=== PATIENT | female | born 1940 | race Hispanic/Latino ===

== ENCOUNTER 2016-11-14 10:15 | Inpatient (IN) | payer MEDICARE, BC ==
[2016-11-14 10:16] VITALS: BMI 21.7
[2016-11-14] MEDS ORDERED: Albuterol-Ipratrop 3 mg / 0.5 (3 ml) UD IH STA (11:28)
[2016-11-14] MEDS ORDERED: cefTRIAXone 1 gm 100 ML IVPB STA (11:29)
[2016-11-14] MEDS ORDERED: Azithromycin 500MG/NS 250ml 250 ML IVPB STA (11:29)
--- NOTE | 2016-11-14 11:38 | ED PDOC ---
Arrival/HPI - General Historian: Patient - History of Present Illness Time/Duration: Prior to Arrival Symptom Course: Improving <Luiz Olguin - Last Filed: 11/14/16 11:57> <Niles Benito - Last Filed: 11/14/16 14:29> - General Chief Complaint: Respiratory Distress Time Seen by Provider: 11/14/16 11:06 - History of Present Illness Narrative History of Present Illness (Text): 11/14/16 11:38 76 y/o female with hx COPD, HTN presenting with complaints of shortness of breath. Patient states symptoms started this morning and are consistent with prior COPD exacerbations. Patient states she is compliant with all medications as inhalers. She took a nebulizer treatement prior to arrival with some relief. Patient states she functional status has been reduced recently due to dyspnea with exertion. She is chronically on nasal oxygen and states she is able to ambulate about 10 feet before becoming dyspneic. Patient denies chest pain or recent illness including upper respiratory symptoms, cough, sputum, fever or chills. (Luiz Olguin) Past Medical History - Provider Review Nursing Documentation Reviewed: Yes - Infectious Disease Hx of Infectious Diseases: None - Tetanus Immunization Tetanus Immunization: Up to Date - Cardiac Hx Cardiac Disorders: Yes (CAD) Hx Hypertension: Yes - Pulmonary Hx Chronic Obstructive Pulmonary Disease (COPD): Yes - Neurological Hx Neurological Disorder: Yes Hx Dizziness: Yes - HEENT Hx HEENT Disorder: Yes Hx Cataracts: Yes (b/l) Other/Comment: b/l cataract surgery - Renal Hx Renal Disorder: No - Endocrine/Metabolic Hx Hypothyroidism: Yes - Hematological/Oncological Hx Blood Disorders: No - Integumentary Hx Dermatological Disorder: No - Musculoskeletal/Rheumatological Hx Falls: No - Gastrointestinal Hx Gastrointestinal Disorders: Yes (GASTROENTERITIS,) - Genitourinary/Gynecological Hx Reproductive Disorders: No - Psychiatric Hx Psychophysiologic Disorder: No Hx Substance Use: No - Surgical History Hx Cholecystectomy: Yes - Anesthesia Hx Anesthesia: Yes - Suicidal Assessment Feels Threatened In Home Enviroment: No <Luiz Olguin - Last Filed: 11/14/16 11:57> Family/Social History - Physician Review Nursing Documentation Reviewed: Yes Family/Social History: Unknown Family HX Smoking Status: Former Smoker Hx Alcohol Use: No Hx Substance Use: No Hx Substance Use Treatment: No <Luiz Olguin - Last Filed: 11/14/16 11:57> Allergies/Home Meds <Luiz Olguin - Last Filed: 11/14/16 11:57> <Niles Benito - Last Filed: 11/14/16 14:29> Allergies/Adverse Reactions: Allergies CRESTOR Adverse Reaction (Uncoded 07/12/16 10:56) PAIN Home Medications: Home Meds Medication Instructions Recorded Confirmed Aspirin [Aspir 81] 325 mg PO HS 12/23/11 11/14/16 Levothyroxine [Synthroid] 112 mcg PO DAILY 12/23/11 11/14/16 Tiotropium Homer Inhaler 1 inh INH DAILY 09/01/15 11/14/16 [Spiriva Inhalation Handihaler Device] Furosemide [Lasix] 40 mg PO DAILY 10/04/15 11/14/16 Losartan [Cozaar] 100 mg PO DAILY 10/04/15 11/14/16 Potassium Chloride [Klor-Con 10] 10 meq PO DAILY 10/04/15 11/14/16 Dipyridamole [Persantine] 25 mg PO TID 04/30/16 11/14/16 Fluticasone/Salmeterol 250/50 2 inh PO PRN PRN 04/30/16 11/14/16 [Advair Diskus 250/50] Levalbuterol [Xopenex] 45 mcg IH Q2 PRN 07/12/16 11/14/16 Prednisone [Deltasone] 10 mg PO DAILY 07/12/16 11/14/16 Review of Systems - Physician Review All systems were reviewed & negative as marked: Yes - Review of Systems Constitutional: absent: Fatigue, Fevers, Night Sweats Eyes: Normal ENT: absent: Tinnitus, Sore Throat, Rhinorrhea, Sinus Congestion Respiratory: SOB. absent: Cough, Sputum, Wheezing Cardiovascular: COBURN. absent: Chest Pain, Palpitations, Syncope Gastrointestinal: absent: Abdominal Pain, Diarrhea, Nausea, Vomiting Genitourinary Female: absent: Dysuria, Frequency, Hematuria Skin: absent: Rash, Skin Lesions Neurological: absent: Headache, Dizziness, Focal Weakness Psychiatric: absent: Anxiety, Depression <Luiz Olguin - Last Filed: 11/14/16 11:57> Physical Exam Vital Signs Reviewed: Yes Temperature: Afebrile Blood Pressure: Normal Pulse: Regular Respiratory Rate: Normal Appearance: Positive for: Non-Toxic Pain Distress: Mild Mental Status: Positive for: Alert and Oriented X 3 - Systems Exam Head: Present: Atraumatic, Normocephalic Pupils: Present: PERRL Extroacular Muscles: Present: EOMI Conjunctiva: Present: Normal Mouth: Present: Moist Mucous Membranes Neck: Present: Normal Range of Motion. No: JVD Respiratory/Chest: Present: Decreased Breath Sounds. No: Good Air Exchange, Accessory Muscle Use, Wheezes, Rales, Rhonchi Cardiovascular: Present: Regular Rate and Rhythm, Normal S1, S2 Abdomen: Present: Normal Bowel Sounds. No: Tenderness, Distention Upper Extremity: Present: Normal Inspection. No: Cyanosis, Edema Lower Extremity: Present: Normal Inspection, NORMAL PULSES. No: Edema, CALF TENDERNESS Neurological: Present: GCS=15, CN II-XII Intact, Speech Normal Skin: Present: Warm, Dry. No: Rashes Psychiatric: Present: Alert, Oriented x 3, Normal Insight, Normal Concentration <Luiz Olguin - Last Filed: 11/14/16 11:57> Vital Signs Temp Pulse Resp BP Pulse Ox 11/14/16 10:36 98.0 F 86 16 125/48 L 98 Medical Decision Making <Luiz Olguin - Last Filed: 11/14/16 11:57> <Niles Benito - Last Filed: 11/14/16 14:29> ED Course and Treatment: 11/14/16 11:33 76 y/o female with hx COPD, HTN presenting with acute COPD exacerbation. Patient is compliant with home medications and inhalers. She is saturating 98% on 2Lnc. - Duonebs x3 - solumedrol 125mg IVP now - rocephin 1gm IV - azithromycin 500mg - CBC - CMP - VBG - reassess (Luiz Olguin) Patient Seen With Resident: In agreement with resident note which contains more details about the patient. Patient was seen and evaluated with resident. Came up with plan and treatment together. Patient's previous records reviewed. Patient was discharged on 06/16/16 after treated for shortness of breath and COPD exacerbation. Patient has a past medical history of COPD, hypertension, GERD, and interstitial lung disease. 11/14/16 12:42 On reevaluation, patient states that she feels better, however remains symptomatic. Continues to deny any chest pain. Patient states she does not feel comfortable being discharged home at this time. Patient's primary physician paged, awaiting callback. Patient will be admitted into the hospital for further treatment. 11/14/16 14:[address] Lopez in detail, agrees with observation under his service, states will inform the resident pt aware of and agrees with plan (Niles Benito) - Lab Interpretations Lab Results: 11/14/16 12:10 11/14/16 12:10 Lab Results 11/14/16 12:10: WBC 8.5 D, RBC 5.18, Hgb 14.1, Hct 45.1, MCV 87.1, MCH 27.2, MCHC 31.3, RDW 13.4, Plt Count 271, MPV 11.3 H, Gran % 78.0 H, Lymph % (Auto) 10.0 L, Edwards % (Auto) 10.5 H, Eos % (Auto) 0.9 L, Baso % (Auto) 0.6, Gran # 6.61 H, Lymph # 0.9 L, Edwards # 0.9 H, Eos # 0.1, Baso # 0.05, Sodium 140, Potassium 3.7, Chloride 99, Carbon Dioxide 35 H, Anion Gap 10, BUN 12, Creatinine 0.7, Est GFR ( Amer) > 60, Est GFR (Non-Af Amer) > 60, Random Glucose 112 H, Calcium 10.0, Total Bilirubin 0.5, AST 22, ALT 15, Alkaline Phosphatase 70, Total Protein 6.9, Albumin 3.7, Globulin 3.2, Albumin/Globulin Ratio 1.2 - RAD Interpretation Radiology Orders: 11/14/16 11:50 CHEST PORTABLE [RAD] Stat - Medication Orders Current Medication Orders: Discontinued Medications Albuterol/Ipratropium (Duoneb 3 Mg/0.5 Mg (3 Ml) Ud) 3 ml IH STAT STA Stop: 11/14/16 11:29 Last Admin: 11/14/16 12:15 Dose: 3 ML Azithromycin (Zithromax 500mg In Ns) 250 mls @ 167 mls/hr IVPB STAT STA PRN Reason: Protocol Stop: 11/14/16 12:58 Last Admin: 11/14/16 13:43 Dose: 167 MLS/HR eMAR Start Stop Document 11/14/16 13:43 HI (Rec: 11/14/16 13:51 [id number] Intravenous Solution Start Date 11/14/16 Start Time 13:44 Ceftriaxone Sodium (Rocephin 1 Gram Ivpb) 100 mls @ 200 mls/hr IVPB STAT STA PRN Reason: Protocol Stop: 11/14/16 11:58 Last Admin: 11/14/16 12:15 Dose: 200 MLS/HR eMAR Start Stop Document 11/14/16 12:15 HI (Rec: 11/14/16 12:15 HI [id number]) Intravenous Solution Start Date 11/14/16 Start Time 12:15 Methylprednisolone (Solu-Medrol) 125 mg IVP STAT STA Stop: 11/14/16 11:29 Last Admin: 11/14/16 12:15 Dose: 125 MG IVP Administration Document 11/14/16 12:15 HI (Rec: 11/14/16 12:15 HI [id number]) Charges for Administration # of IVP Administrations 1 Disposition/Present on Arrival - Present on Arrival Any Indicators Present on Arrival: No History of DVT/PE: No History of Uncontrolled Diabetes: No Urinary Catheter: No History of Decub. Ulcer: No History Surgical Site Infection Following: None - Disposition Have Diagnosis and Disposition been Completed?: No Disposition Time: 11:57 <Luiz Olguin - Last Filed: 11/14/16 11:57> - Present on Arrival Any Indicators Present on Arrival: No - Disposition Have Diagnosis and Disposition been Completed?: Yes Disposition Time: 14:28 Patient Plan: Observation <Niles Benito - Last Filed: 11/14/16 14:29> - Disposition Diagnosis: COPD with acute exacerbation Disposition: HOSPITALIZED Patient Problems: Current Active Problems Problem Status Diagnosed COPD with acute exacerbation Acute Condition: STABLE Referrals: Davon Lopez MD [Primary Care Provider] - Follow up with primary
[2016-11-14 12:22] LABS: ADD MANUAL DIFF? NO
[2016-11-14 12:25] LABS: BASO # 0.05 K/mm3 (0.0-2.0); BASO % 0.6 % (0.0-3.0); EOS # 0.1 (0.0-0.7); EOS % 0.9 % (1.5-5.0); GRAN # 6.61 (1.4-6.5); HEMATOCRIT 45.1 % (36.0-48.0); LYMPH # 0.9 (1.2-3.4); MEAN CELL VOLUME 87.1 fL (80.0-105.0); MEAN CORPUSCULAR HEMOGLOBIN 27.2 pg (25.0-35.0); MEAN CORPUSCULAR HGB CONC 31.3 g/dl (31.0-37.0); MEAN PLATELET VOLUME 11.3 fl (7.0-11.0); MONO # 0.9 (0.1-0.6); MONO % 10.5 % (1.0-6.0); PLATELET COUNT 271 10^3/uL (120.0-450.0); RED CELL DISTRIBUTION WIDTH 13.4 % (11.5-14.5); WHITE BLOOD COUNT 8.5 10^3/ul (4.5-11.0)
--- NOTE | 2016-11-14 12:25 | RAD ---
HISTORY: COPD exacerbation COMPARISON: 07/12/2016 FINDINGS: LUNGS: The lungs are hyperinflated and there is peribronchial thickening with chronic changes in both lungs. There is no focal consolidation. PLEURA: No significant pleural effusion identified, no pneumothorax apparent. CARDIOVASCULAR: The heart is normal in size. Atherosclerotic aortic arch calcifications are present. . OSSEOUS STRUCTURES: No significant abnormalities. VISUALIZED UPPER ABDOMEN: Normal. OTHER FINDINGS: None. IMPRESSION: No active pulmonary disease. COPD.
[2016-11-14 12:38] LABS: ALB/GLOB RATIO 1.2 (1.1-1.8); ALKALINE PHOSPHATASE 70 U/L (38-133); ALT/SGPT 15 U/L (7-56); AST/SGOT 22 U/L (15-39); BILIRUBIN,TOTAL 0.5 mg/dL (0.2-1.3); BLOOD UREA NITROGEN 12 mg/dL (7-21); CARBON DIOXIDE 35 mmol/L (21-33); CHLORIDE 99 mmol/L (98-107); GFR AFRICAN-AMERICAN > 60; GLUCOSE,RANDOM 112 mg/dL (70-110); POTASSIUM 3.7 mmol/L (3.6-5.0); SODIUM 140 mmol/L (132-148); TOTAL PROTEIN 6.9 g/dL (5.8-8.3)
[2016-11-14] MEDS ORDERED: Fluticasone-Salmeterol 250-50mcg Diskus INH PRN (15:06)
--- NOTE | 2016-11-14 15:52 | CP.PCM.HP ---
<Fany Hyman - Last Filed: 11/15/16 09:04> History of Present Illness - History of Present Illness History of Present Illness: PGY-1 H&P 76 yo female with PMH of HTN and copd presented to ED with SOB. Patient states that the SOB has been on and off started last night. She states that overall she want feeling well. She took her inhalers but had some relief. Patients states that shes had this before from her COPD. Overnight patient states that she had to get up because of her breathing. She normally sleeps sitting up but last night the SOB was worse. Patient also reports dyspnea with exertion. She is only able to ambulate a few feet before becoming sob. She uses home O2, 2L. States that she has been feeling hot and cold but denies fevers. She state states that when she first came to ED she could barely talk. She also reports shaking. She denies chest pain, headache, cough, abd pain, n/v, urinary symptoms , She does report occasional diarrhea. PMH: copd, htn, hypothyroidism PSH: cholecystectomy SH: former heavy smoker quit 25 yo, denies alcohol use, illicit drug use family hx: mother- [place] at 47 yo, brother- heart disease, RA allergy: crestor Present on Admission - Present on Admission Any Indicators Present on Admission: No Review of Systems - Constitutional Constitutional: Fatigue. absent: Chills, Fever - EENT Eyes: absent: Change in Vision Nose/Mouth/Throat: absent: Nasal Congestion, Nasal Discharge, Sore Throat - Cardiovascular Cardiovascular: Dyspnea, Dyspnea on Exertion, Orthopnea, Pedal Edema. absent: Chest Pain, Chest Pain at Rest, Palpitations - Respiratory Respiratory: Dyspnea. absent: Cough, Hemoptysis - Gastrointestinal Gastrointestinal: Diarrhea. absent: Abdominal Pain, Constipation, Nausea, Vomiting - Genitourinary Genitourinary: absent: Difficulty Urinating, Dysuria, Hematuria - Musculoskeletal Musculoskeletal: absent: Muscle Weakness, Numbness, Tingling - Integumentary Integumentary: absent: Rash, Wounds - Neurological Neurological: absent: Dizziness, Focal Weakness, Headaches, Weakness - Hematologic/Lymphatic Hematologic: Easy Bruising. absent: Easy Bleeding Past Patient History - Infectious Disease Hx of Infectious Diseases: None - Tetanus Immunizations Tetanus Immunization: Up to Date - Past Social History Smoking Status: Former Smoker Alcohol: None Drugs: Denies - CARDIAC Hx Cardiac Disorders: Yes (CAD) Hx Hypertension: Yes - PULMONARY Hx Chronic Obstructive Pulmonary Disease (COPD): Yes - NEUROLOGICAL Hx Neurological Disorder: Yes Hx Dizziness: Yes - HEENT Hx HEENT Problems: Yes Hx Cataracts: Yes (b/l) Other/Comment: b/l cataract surgery - RENAL Hx Chronic Kidney Disease: No - ENDOCRINE/METABOLIC Hx Hypothyroidism: Yes - HEMATOLOGICAL/ONCOLOGICAL Hx Blood Disorders: No - INTEGUMENTARY Hx Dermatological Problems: No - MUSCULOSKELETAL/RHEUMATOLOGICAL Hx Falls: No - GASTROINTESTINAL Hx Gastrointestinal Disorders: Yes (GASTROENTERITIS,) - GENITOURINARY/GYNECOLOGICAL Hx Reproductive Disorders: No - PSYCHIATRIC Hx Psychophysiologic Disorder: No Hx Substance Use: No - SURGICAL HISTORY Hx Cholecystectomy: Yes - ANESTHESIA Hx Anesthesia: Yes Meds Allergies/Adverse Reactions: Allergies Allergy/AdvReac Type Severity Reaction Status Date / Time contrast AdvReac REDNESS Uncoded 11/15/16 07:54 CRESTOR AdvReac PAIN Uncoded 07/12/16 10:56 Physical Exam - Constitutional Appears: Well, No Acute Distress - Head Exam Head Exam: ATRAUMATIC, NORMOCEPHALIC - Eye Exam Eye Exam: EOMI, Normal appearance - ENT Exam ENT Exam: Mucous Membranes Moist - Respiratory Exam Respiratory Exam: Decreased Breath Sounds, Rhonchi, Wheezes, NORMAL BREATHING PATTERN. absent: Respiratory Distress - Cardiovascular Exam Cardiovascular Exam: Tachycardia, REGULAR RHYTHM. absent: Diastolic murmur, Systolic Murmur - GI/Abdominal Exam GI & Abdominal Exam: Normal Bowel Sounds, Soft. absent: Diminished Bowel Sounds , Distended, Firm, Guarding, Tenderness - Extremities Exam Extremities exam: Positive for: normal inspection. Negative for: pedal edema - Neurological Exam Neurological exam: Alert, Oriented x3 - Skin Skin Exam: Dry, Intact, Normal Color, Warm Results - Vital Signs Recent Vital Signs: Last Vital Signs Temp 98.0 F 11/14/16 10:36 Pulse 86 11/14/16 10:36 Resp 16 11/14/16 10:36 BP 125/48 L 11/14/16 10:36 Pulse Ox 98 11/14/16 10:36 - Labs Result Diagrams: 11/15/16 06:30 11/15/16 06:30 Assessment & Plan - Assessment and Plan (Free Text) Assessment: 76 yo female with PMH of HTN and copd presented to ED with SOB 2/2 copd exacerbation. cxr showed no active disease. Plan: 1. copd exacerbation - cxr showed no active disease - solu-medrol 40 q12 - azithromycin and ceftriaxone - duoeb q4 - supplemental O2 - R/o PE with CTA - cont home meds: spiriva, theiphylline, brovana, pulmicort - consult Pulm, Dr. Portillo 2. HTN - cont home med lasix and losartan - cont to monitor 3. hypothyriodism - cont levothyroxine ppx GI ppx- protonix DVT ppx- Lovenox <Chriss Tirado - Last Filed: 12/16/16 09:39> Results - Vital Signs Recent Vital Signs: Last Vital Signs Temp 97.5 F L 11/20/16 10:00 Pulse 77 11/20/16 10:00 Resp 18 11/20/16 10:00 BP 121/46 L 11/20/16 10:00 Pulse Ox 98 11/20/16 10:00 - Labs Result Diagrams: 11/19/16 07:48 11/19/16 07:48 Attending/Attestation - Attestation I have personally seen and examined this patient.: Yes I have fully participated in the care of the patient.: Yes I have reviewed all pertinent clinical information: Yes Notes (Text): 12/16/16 09:39 Medical record note made by the resident after discussion with my direction and input after the patient was personally seen and examined by me. I have reviewed the chart and agree that the record accurately reflects by personal performance of the history, physical exam, data review, and medical decision-making, in the course for the patient. I have also personally directed the plan of care.
[2016-11-14] MEDS: Albuterol-Ipratrop 3 mg / 0.5 (3 ml) UD IH SCH (17:19)
[2016-11-14] MEDS ORDERED: Iohexol 350 MG/100 ML VIAL ONE ×2 (18:54→22:12)
--- NOTE | 2016-11-14 18:56 | CARD ---
APPROVED REPORT EKG Measurement Heart [id number] <Conclusion> Normal sinus rhythm Normal ECG
[2016-11-14] MEDS ORDERED: Aspirin 325 mg EC Tablets PO SCH ×2 (22:00)
[2016-11-14] MEDS: MethylPREDNISolone 40 mg Vial IVP SCH (22:51)
[2016-11-15] MEDS: Albuterol-Ipratrop 3 mg / 0.5 (3 ml) UD IH SCH (01:00)
[2016-11-15 07:01] LABS: ADD MANUAL DIFF? NO
[2016-11-15 07:12] LABS: BASO # 0.01 K/mm3 (0.0-2.0); BASO % 0.1 % (0.0-3.0); EOS % 0.1 % (1.5-5.0); GRAN # 10.21 (1.4-6.5); GRAN % 90.4 % (50.0-68.0); HEMATOCRIT 42.6 % (36.0-48.0); LYMPH # 0.6 (1.2-3.4); LYMPH % 5.1 % (22.0-35.0); MEAN CELL VOLUME 85.7 fL (80.0-105.0); MEAN CORPUSCULAR HEMOGLOBIN 26.8 pg (25.0-35.0); MEAN CORPUSCULAR HGB CONC 31.2 g/dl (31.0-37.0); MEAN PLATELET VOLUME 11.4 fl (7.0-11.0); MONO # 0.5 (0.1-0.6); MONO % 4.3 % (1.0-6.0); PLATELET COUNT 269 10^3/uL (120.0-450.0); RED CELL DISTRIBUTION WIDTH 13.2 % (11.5-14.5); WHITE BLOOD COUNT 11.3 10^3/ul (4.5-11.0)
[2016-11-15 07:45] LABS: ALB/GLOB RATIO 1.2 (1.1-1.8); ALKALINE PHOSPHATASE 58 U/L (38-133); ALT/SGPT 29 U/L (7-56); AST/SGOT 20 U/L (15-39); BILIRUBIN,TOTAL 0.5 mg/dL (0.2-1.3); BLOOD UREA NITROGEN 15 mg/dL (7-21); CALCIUM 9.8 mg/dL (8.4-10.5); CARBON DIOXIDE 28 mmol/L (21-33); CHLORIDE 103 mmol/L (98-107); GFR AFRICAN-AMERICAN > 60; GLUCOSE,RANDOM 153 mg/dL (70-110); SODIUM 139 mmol/L (132-148); TOTAL PROTEIN 6.3 g/dL (5.8-8.3)
[2016-11-15] MEDS: Levothyroxine 112 MCG TAB PO SCH (08:51)
--- NOTE | 2016-11-15 09:55 | CON ---
DATE: 11/15/2016 PULMONARY CONSULTATION REASON FOR CONSULTATION: Chronic obstructive pulmonary disease. REFERRING PHYSICIAN: Davon Lopez MD. HISTORY OF PRESENT ILLNESS: The patient is a 76-year-old female with past medical history significant for advanced chronic obstructive pulmonary disease, on home oxygen, pulmonary nodules, hypertension, thyroid disease, who presents to [facility] with increasing shortness of breath at rest and dyspnea on exertion for the past 1 day. The patient denies cough or sputum production. The patient also denies chest pain, coughing up of blood, or chest pain - made worse with deep respirations. There is no history of temperatures, chills, or infectious exposure. There is no history of night sweats, weight loss, or appetite change prior to the above events. No history of leg or calf pains. No history of syncope or diaphoresis. No history of recent travel or trauma. REVIEW OF SYSTEMS: The patient does state to feeling weak and nauseous over the past 2 days. No vomiting, abdominal pain, or diarrhea. No acute urinary symptoms. No new musculoskeletal complaints. The rest of the review of systems is negative. ALLERGIES: CRESTOR. SOCIAL HISTORY: Positive for former extensive tobacco usage. No alcohol. FAMILY HISTORY: No inheritable diseases. HOME MEDICATIONS: Include aspirin, Spiriva, Montrell-Dur, Deltasone, Cozaar, Synthroid, Xopenex, Lasix, Advair, Persantine. PHYSICAL EXAMINATION: GENERAL: The patient appears comfortable this morning. She is not short of breath at rest. She is not using accessory muscles for breathing. VITAL SIGNS: Temperature is 98.5. Pulse at the present time approximately 90, respiratory rate 18/20, blood pressure 143/61. Oxygen saturation on nasal cannula is 95-96%. HEENT: Normocephalic, atraumatic. NECK: No JVD. CARDIOVASCULAR: Systolic ejection murmur at the lower left sternal border. No S3 gallop. LUNGS: Decreased breath sounds at the bases. Minimal bilateral rhonchi. No wheezing. EXTREMITIES: Minimal edema. No cyanosis, no clubbing. Calves are nontender to palpation. GASTROINTESTINAL: Abdomen is soft, nontender, nondistended. Bowel sounds are positive. SKIN: No acute rash. NEUROLOGIC: Limited at the present time. PERTINENT LABORATORY DATA: Chest x-ray was done and reviewed. There is no active disease noted. CBC: White count 8.5, hemoglobin 14.1, hematocrit 45.1, platelets of 271. Complete metabolic profile: Carbon dioxide 35, glucose 112. The rest of the metabolic profile is within normal limits. IMPRESSION: 1. Recurrent bronchitis. 2. Advanced chronic obstructive pulmonary disease, on home oxygen. 3. Pulmonary nodules. 4. Hypertension. PLAN: The patient presents to [facility] with a 1-day history of increasing shortness of breath at rest and dyspnea on exertion. The patient offers no other pulmonary symptoms. However, the patient does complain of feeling weak and nauseous over the past 2 days. I did review the x-ray as above. There is no active disease present. I have also reviewed the laboratory data. There is no leukocytosis. On physical exam, the patient is in mild bronchospasm. I will continue with the current pulmonary medications and low-dose intravenous steroids for now. The patient is also on antibiotic therapy. Again, there is no history of temperatures. There is no leukocytosis. The patient does feel better this morning - compared to the past few days. She is clinically improved. Additional pulmonary intervention will be based on the clinical status of the patient. I will discuss the above with Dr. Lopez this morning. Thank you very much for this pulmonary consultation. Romario Portillo MD cc: [id number] TT: 11/15/2016 09:54:59 Confirmation # [id number] Dictation # [id number]
[2016-11-15] MEDS ORDERED: Fluticasone-Salmeterol 250-50mcg Diskus INH SCH (10:00)
[2016-11-15] MEDS: MethylPREDNISolone 40 mg Vial IVP SCH ×2 (10:00→21:46)
[2016-11-15] MEDS: Budesonide 0.5 mg/2 ml Inhal Susp UD IH SCH ×2 (10:04→20:31)
[2016-11-15] MEDS: Arformoterol 15 mcg/2 ml Inh Sol IH SCH ×2 (10:04→20:32)
[2016-11-15] MEDS ORDERED: Metoprolol 1 mg/ml Inj IVP ONE ×3 (10:30→21:16)
[2016-11-15] MEDS ORDERED: Levalbuterol 0.63 MG/3 ML Inhal Soln UD IH PRN (10:59)
[2016-11-15] MEDS: Enoxaparin 40 mg Syringe SC SCH (12:38)
[2016-11-15] MEDS: Potassium Chloride 10 mEq ER Tab PO SCH (12:39)
[2016-11-15] MEDS: Pantoprazole 40 mg EC Tab PO SCH (12:39)
[2016-11-15] MEDS: Ipratropium 0.02% Inhal Soln (0.5 mg/2.5 ml) UD IH SCH ×2 (15:25→20:31)
[2016-11-15] MEDS: cefTRIAXone 1 gm 100 ML IVPB SCH (15:37)
--- NOTE | 2016-11-15 15:38 | CP.PCM.PN ---
<Fany Hyman - Last Filed: 11/15/16 15:40> Subjective - Date & Time of Evaluation Date of Evaluation: 11/15/16 Time of Evaluation: 11:00 - Subjective Subjective: PGY-1 Medicine progress note Patient seen and examined at bedside. This morning patient is in no acute distress. Nurse states no events overnight. Patient states that her breathing and general weakness improved. but she continued to experience sob with minimal exertion including going to the bathroom. She denies fevers, but reported feeling hot and cold. Denies chets pain, n/v/d/c, abd pain, headache. When patient was receiving breathing treatment this morning she felt increasing SOB with the face mask. She became tachycardic. The breathing treatment was stopped. She was given lopressor to help decrease her heart rate and BP. After a few minutes patient relaxed and HR decreased. Objective - Vital Signs/Intake and Output Vital Signs (last 24 hours): Temp Pulse Resp BP Pulse Ox 98.1 F 96 H 18 146/80 94 L 11/15/16 06:00 11/15/16 06:00 11/15/16 06:00 11/15/16 12:39 11/15/16 06:00 Intake and Output: 11/15/16 11/15/16 06:59 18:59 Intake Total 720 Output Total 1 Balance 719 - Medications Medications: Current Medications Arformoterol Tartrate (Brovana) 15 mcg IH [id number] [facility] Last Admin: 11/15/16 10:04 Dose: 15 mcg Aspirin (Ecotrin) 81 mg PO HS [facility] Last Admin: 11/14/16 23:02 Dose: 81 mg Budesonide (Pulmicort Respules) 0.5 mg IH [id number] [facility] Last Admin: 11/15/16 10:04 Dose: 0.5 mg Dipyridamole (Persantine) 25 mg PO TID [facility] Last Admin: 11/15/16 12:39 Dose: 25 mg Enoxaparin Sodium (Lovenox) 40 mg SC DAILY [facility] PRN Reason: Protocol Last Admin: 11/15/16 12:38 Dose: 40 mg Furosemide (Lasix) 40 mg PO DAILY [facility] Last Admin: 11/15/16 12:39 Dose: 40 mg Azithromycin 250 mg/ Sodium (Chloride) 250 mls @ 167 mls/hr IVPB DAILY [facility] PRN Reason: Protocol Ceftriaxone Sodium (Rocephin 1 Gram Ivpb) 100 mls @ 100 mls/hr IVPB DAILY [facility] PRN Reason: Protocol Ipratropium [place] (Atrovent) 0.5 mg IH [id number] [facility] Levalbuterol HCl (Xopenex) 0.63 mg IH [id number] PRN PRN Reason: Shortness of Breath Levothyroxine Sodium (Synthroid) 112 mcg PO DAILY [facility] Last Admin: 11/15/16 08:51 Dose: 112 mcg Losartan Potassium (Cozaar) 100 mg PO DAILY [facility] Last Admin: 11/15/16 12:39 Dose: 100 mg Methylprednisolone (Solu-Medrol) 40 mg IVP Q12 [facility] Last Admin: 11/14/16 22:51 Dose: 40 mg Pantoprazole Sodium (Protonix Ec Tab) 40 mg PO DAILY [facility] Last Admin: 11/15/16 12:39 Dose: 40 mg Potassium Chloride (Klor-Con 10) 10 meq PO DAILY [facility] Last Admin: 11/15/16 12:39 Dose: 10 meq Theophylline (Montrell-Dur) 300 mg PO BID [facility] Last Admin: 11/15/16 12:42 Dose: 300 mg Tiotropium [place] (Spiriva) 18 mcg INH DAILY [facility] - Constitutional Appears: Well, No Acute Distress - Head Exam Head Exam: ATRAUMATIC, NORMOCEPHALIC - Eye Exam Eye Exam: Normal appearance - ENT Exam ENT Exam: Mucous Membranes Moist - Respiratory Exam Respiratory Exam: Rhonchi, Wheezes, NORMAL BREATHING PATTERN. absent: Respiratory Distress - Cardiovascular Exam Cardiovascular Exam: Tachycardia, REGULAR RHYTHM. absent: Murmur - GI/Abdominal Exam GI & Abdominal Exam: Soft, Normal Bowel Sounds. absent: Distended, Firm, Guarding, Tenderness - Extremities Exam Extremities Exam: Normal Inspection. absent: Pedal Edema - Neurological Exam Neurological Exam: Alert, Awake, Oriented x3 - Skin Skin Exam: Dry, Intact, Normal Color, Warm Assessment and Plan - Assessment and Plan (Free Text) Assessment: 76 yo female with PMH of HTN and copd presented to ED with SOB 2/2 copd exacerbation. cxr showed no active disease. CTA could not be done due to contrast allergy, d- dimer elevated, v/q scan ordered. Plan: 1. copd exacerbation - afebrile but with leukocytosis - cxr showed no active disease - cont solu-medrol 40 q12 - cont azithromycin and ceftriaxone w - duoneb was stopped due to tachycardia most likely due to albuterol - supplemental O2 - CTA could not be done due to contrast allergy - d- dimer was elevated, v/q scan ordered - lower extremity doppler to r/o DVT - cont home meds: spiriva, theiphylline, brovana, pulmicort - consult Pulm, Dr. Portillo 2. tachycardia - duoneb was stopped, tachycardia most likely due to albuterol - supplemental O2 - CTA could not be done due to contrast allergy - d- dimer was elevated, v/q scan ordered - lower extremity doppler to r/o DVT 3. HTN - cont home med lasix and losartan - cont to monitor 3. hypothyriodism - cont levothyroxine - TSH ordered ppx GI ppx- protonix DVT ppx- Lovenox <Chriss Tirado - Last Filed: 12/16/16 09:39> Objective - Vital Signs/Intake and Output Vital Signs (last 24 hours): Temp Pulse Resp BP Pulse Ox 97.5 F L 77 18 121/46 L 98 11/20/16 10:00 11/20/16 10:00 11/20/16 10:00 11/20/16 10:00 11/20/16 10:00 - Labs Labs: 11/19/16 07:48 11/19/16 07:48 Attending/Attestation - Attestation I have personally seen and examined this patient.: Yes I have fully participated in the care of the patient.: Yes I have reviewed all pertinent clinical information, including history, physical exam and plan: Yes Notes (Text): 12/16/16 09:39 Medical record note made by the resident after discussion with my direction and input after the patient was personally seen and examined by me. I have reviewed the chart and agree that the record accurately reflects by personal performance of the history, physical exam, data review, and medical decision-making, in the course for the patient. I have also personally directed the plan of care.
--- NOTE | 2016-11-15 17:26 | US ---
HISTORY: Leg pain and swelling. Evaluate for DVT PHYSICIAN(S): Alejandro Stout MD. TECHNIQUE: Duplex sonography and color-flow Doppler with graded compression were used to evaluate the deep venous systems of both lower extremities. FINDINGS: The visualized deep venous systems of both lower extremities are sonographically normal and compressible. Normal wave forms and augmentation are seen. There is no sonographic evidence for deep venous thrombosis in the visualized segments of both lower extremities. IMPRESSION: No sonographic evidence for deep venous thrombosis in the visualized segments of both lower extremities.
--- NOTE | 2016-11-15 18:25 | CARD ---
APPROVED REPORT EKG Measurement Heart [id number] <Conclusion> Normal sinus rhythm Normal ECG
[2016-11-15] MEDS: Azithromycin 250 MG in Sodium Chloride 0.9% 250 ML IVPB SCH (18:50)
[2016-11-15] MEDS: Tiotropium 18 mcg Cap For Inhalation INH SCH (18:50)
[2016-11-16] MEDS: Ipratropium 0.02% Inhal Soln (0.5 mg/2.5 ml) UD IH SCH ×2 (01:37→07:34)
[2016-11-16] MEDS: Arformoterol 15 mcg/2 ml Inh Sol IH SCH ×2 (07:34→20:30)
[2016-11-16] MEDS: Budesonide 0.5 mg/2 ml Inhal Susp UD IH SCH ×2 (07:35→20:30)
[2016-11-16 08:04] LABS: ADD MANUAL DIFF? NO
[2016-11-16 08:19] LABS: ALB/GLOB RATIO 1.2 (1.1-1.8); ALKALINE PHOSPHATASE 76 U/L (38-133); ALT/SGPT 16 U/L (7-56); AST/SGOT 24 U/L (15-39); BILIRUBIN,TOTAL 0.4 mg/dL (0.2-1.3); BLOOD UREA NITROGEN 26 mg/dL (7-21); CALCIUM 9.8 mg/dL (8.4-10.5); CARBON DIOXIDE 27 mmol/L (21-33); CHLORIDE 101 mmol/L (95-110); GFR AFRICAN-AMERICAN > 60; GLUCOSE,RANDOM 174 mg/dL (70-110); POTASSIUM 4.1 mmol/L (3.6-5.0); SODIUM 139 mmol/L (132-148)
[2016-11-16 08:25] LABS: BASO # 0.01 K/mm3 (0.0-2.0); BASO % 0.1 % (0.0-3.0); EOS % 0.3 % (1.5-5.0); GRAN # 13.21 (1.4-6.5); GRAN % 89.7 % (50.0-68.0); HEMATOCRIT 45.7 % (36.0-48.0); LYMPH # 0.7 (1.2-3.4); LYMPH % 4.5 % (22.0-35.0); MEAN CELL VOLUME 86.9 fL (80.0-105.0); MEAN CORPUSCULAR HEMOGLOBIN 27.4 pg (25.0-35.0); MEAN CORPUSCULAR HGB CONC 31.5 g/dl (31.0-37.0); MEAN PLATELET VOLUME 12.9 fl (7.0-11.0); MONO # 0.8 (0.1-0.6); MONO % 5.4 % (1.0-6.0); PLATELET COUNT 266 10^3/uL (120.0-450.0); RED CELL DISTRIBUTION WIDTH 13.6 % (11.5-14.5); WHITE BLOOD COUNT 14.7 10^3/ul (4.5-11.0)
--- NOTE | 2016-11-16 08:50 | PN ---
DATE: 11/16/2016 SUBJECTIVE: The patient appears comfortable this morning. She is not short of breath at rest. PHYSICAL EXAMINATION: VITAL SIGNS: Temperature is 98.4, pulse 73, respirations 18/20, blood pressure 120/59. Oxygen saturation on nasal cannula is 94%. HEENT: Normocephalic, atraumatic. No JVD. CARDIOVASCULAR: Systolic ejection murmur at the lower left sternal border. No S3 gallop. LUNGS: Decreased breath sounds at the bases. Very minimal/less rhonchi. No wheezing. EXTREMITIES: Minimal edema. No cyanosis. No clubbing. Calves are nontender to palpation. GASTROINTESTINAL: Abdomen is soft, nontender, nondistended. Bowel sounds are positive. SKIN: No acute rash. NEUROLOGIC: Limited at the present time. IMPRESSION: 1. Recurrent bronchitis. 2. Advanced chronic obstructive pulmonary disease, on home oxygen. 3. Pulmonary nodules. 4. Hypertension. PLAN: The patient appears comfortable this morning. She is not short of breath at rest. She does state to feeling much better overall. I did discuss the case with the night nurse at length. Apparently, the patient was getting Atrovent nebulizer treatments every 6 hours. The nurse stated that-- soon after the Atrovent nebulizer treatments, the patient experienced severe tachycardia. I will discontinue the Atrovent nebulizer treatments this morning. I will continue with the Brovana and Spiriva for now. I will also decrease the intravenous steroids this morning. There is certainly no significant bronchospasm on physical exam. The patient remains on antibiotic therapy. There are no temperatures noted. Clinical status of the patient is improved -- compared to the initial presentation. However, the overall status/ prognosis of this elderly patient-- with advanced chronic obstructive pulmonary disease-- remains very guarded. I will discuss the above with Dr. Lopez. Romario Portillo MD cc: [phone] TT: 11/16/2016 08:49:39 Confirmation # [id number] Dictation # [id number] en MTDD
--- NOTE | 2016-11-16 10:01 | CP.PCM.PN ---
<Fany Hmyan - Last Filed: 11/16/16 14:42> Subjective - Date & Time of Evaluation Date of Evaluation: 11/16/16 Time of Evaluation: 09:58 - Subjective Subjective: PGY-1 Medicine progress note Patient was seen and examined at bedside. No acute distress. Last nigth after breathing treatment patient had an episode of tachycardia. She was given dose of lopressor. Patient was not able to complete the V/Q scan due to claustrophobia. She states that this morning her breathing has improved. She state she feels better. She denies fever, chills, chest pain, n/v/d/c. She does report pain with urination and suspects a UTI. Objective - Vital Signs/Intake and Output Vital Signs (last 24 hours): Temp Pulse Resp BP Pulse Ox 98.0 F 91 H 20 124/45 L 95 11/16/16 06:00 11/16/16 06:00 11/16/16 06:00 11/16/16 06:00 11/16/16 06:00 Intake and Output: 11/16/16 11/16/16 06:59 18:59 Intake Total 540 120 Output Total 700 Balance -160 120 - Medications Medications: Current Medications Alprazolam (Xanax) 0.5 mg PO TID PRN; Protocol PRN Reason: Anxiety Arformoterol Tartrate (Brovana) 15 mcg IH [id number] [facility] Last Admin: 11/16/16 07:34 Dose: 15 mcg Aspirin (Ecotrin) 81 mg PO HS [facility] Last Admin: 11/15/16 21:46 Dose: 81 mg Budesonide (Pulmicort Respules) 0.5 mg IH [id number] [facility] Last Admin: 11/16/16 07:35 Dose: 0.5 mg Dipyridamole (Persantine) 25 mg PO TID [facility] Last Admin: 11/15/16 15:34 Dose: Not Given Enoxaparin Sodium (Lovenox) 40 mg SC DAILY [facility] PRN Reason: Protocol Last Admin: 11/15/16 12:38 Dose: 40 mg Furosemide (Lasix) 40 mg PO DAILY [facility] Last Admin: 11/15/16 12:39 Dose: 40 mg Azithromycin 250 mg/ Sodium (Chloride) 250 mls @ 167 mls/hr IVPB DAILY [facility] PRN Reason: Protocol Last Admin: 11/15/16 18:50 Dose: 167 mls/hr Ceftriaxone Sodium (Rocephin 1 Gram Ivpb) 100 mls @ 100 mls/hr IVPB DAILY [facility] PRN Reason: Protocol Last Admin: 11/15/16 15:37 Dose: 100 mls/hr Levalbuterol HCl (Xopenex) 0.63 mg IH [id number] PRN PRN Reason: Shortness of Breath Levothyroxine Sodium (Synthroid) 112 mcg PO DAILY [facility] Last Admin: 11/15/16 08:51 Dose: 112 mcg Losartan Potassium (Cozaar) 100 mg PO DAILY [facility] Last Admin: 11/15/16 12:39 Dose: 100 mg Methylprednisolone (Solu-Medrol) 30 mg IVP Q12 [facility] Pantoprazole Sodium (Protonix Ec Tab) 40 mg PO DAILY [facility] Last Admin: 11/15/16 12:39 Dose: 40 mg Potassium Chloride (Klor-Con 10) 10 meq PO DAILY [facility] Last Admin: 11/15/16 12:39 Dose: 10 meq Theophylline (Montrell-Dur) 300 mg PO BID [facility] Last Admin: 11/15/16 18:59 Dose: Not Given Tiotropium [place] (Spiriva) 18 mcg INH DAILY [facility] Last Admin: 11/15/16 18:50 Dose: Not Given - Labs Labs: 11/16/16 06:30 11/16/16 06:00 - Constitutional Appears: Well, No Acute Distress - Head Exam Head Exam: ATRAUMATIC, NORMOCEPHALIC - Eye Exam Eye Exam: Normal appearance - ENT Exam ENT Exam: Mucous Membranes Moist - Respiratory Exam Respiratory Exam: Clear to Ausculation Bilateral, NORMAL BREATHING PATTERN. absent: Decreased Breath Sounds, Rhonchi, Wheezes, Respiratory Distress Additional comments: on Nasal canula - Cardiovascular Exam Cardiovascular Exam: REGULAR RHYTHM. absent: Tachycardia, Murmur - GI/Abdominal Exam GI & Abdominal Exam: Soft, Normal Bowel Sounds. absent: Distended, Firm, Tenderness - Extremities Exam Extremities Exam: Normal Inspection. absent: Pedal Edema - Neurological Exam Neurological Exam: Alert, Awake, Oriented x3 - Skin Skin Exam: Dry, Intact, Normal Color, Warm Assessment and Plan - Assessment and Plan (Free Text) Assessment: 76 yo female with PMH of HTN and copd presented to ED with SOB 2/2 copd exacerbation. cxr showed no active disease. She was started on solu-medrol. d- dimer is elevated, CTA could not be done due to contrast allergy, V/Q scan was not able to be completed due to her claustrophobia. Plan: 1. copd exacerbation - afebrile but with leukocytosis - cxr showed no active disease - decrease solu-medrol 30 q12 - cont azithromycin and ceftriaxone - duoneb was stopped due to tachycardia most likely due to albuterol - supplemental O2 - cont home meds: spiriva, brovana, pulmicort - CT chest, patient has hx of lung nodules - consult Pulm, Dr. Portillo 2. elevated d-dimer - d- dimer was 3.87 - CTA could not be done due to contrast allergy - v/q scan was not complete due to patients claustrophobia - lower extremity doppler - neg for DVT - will attempt v/q scan again, will give her xanax before the test 3. dysuria - UA ordered - urine cultures ordered - patient on azithromycin and ceftriaxone 4. tachycardia - patient had episode of tachycardia yesterday evening - duoneb and atrovent was stopped - patient was given lopressor - patient states that she stopped taking theophylline at home because it increased her heart rate - will hold theophylline 5. HTN - cont home med lasix and losartan - cont to monitor 6. hypothyriodism - cont levothyroxine - TSH is low - will order T3, T4 ppx GI ppx- protonix DVT ppx- Lovenox <Davon Lopez - Last Filed: 11/23/16 08:58> Objective - Vital Signs/Intake and Output Vital Signs (last 24 hours): Temp Pulse Resp BP Pulse Ox 97.5 F L 77 18 121/46 L 98 11/20/16 10:00 11/20/16 10:00 11/20/16 10:00 11/20/16 10:00 11/20/16 10:00 - Labs Labs: 11/19/16 07:48 11/19/16 07:48 Attending/Attestation - Attestation I have personally seen and examined this patient.: Yes I have fully participated in the care of the patient.: Yes I have reviewed all pertinent clinical information, including history, physical exam and plan: Yes Notes (Text): 11/23/16 08:58 Medical record note made by the resident after discussion with my direction and input after the patient was personally seen and examined by me. I have reviewed the chart and agree that the record accurately reflects my own personal history, physical, data review and plan.
[2016-11-16] MEDS: Pantoprazole 40 mg EC Tab PO SCH (10:36)
[2016-11-16] MEDS: Potassium Chloride 10 mEq ER Tab PO SCH (10:37)
[2016-11-16] MEDS: Levothyroxine 112 MCG TAB PO SCH (10:37)
[2016-11-16] MEDS: Tiotropium 18 mcg Cap For Inhalation INH SCH (10:38)
[2016-11-16] MEDS: Azithromycin 250 MG in Sodium Chloride 0.9% 250 ML IVPB SCH (10:39)
[2016-11-16] MEDS: MethylPREDNISolone 40 mg Vial IVP SCH ×2 (10:39→21:32)
[2016-11-16] MEDS: cefTRIAXone 1 gm 100 ML IVPB SCH (10:40)
[2016-11-16] MEDS: Enoxaparin 40 mg Syringe SC SCH (10:41)
--- NOTE | 2016-11-16 16:15 | CT ---
PROCEDURE: CT Chest without contrast HISTORY: lung nodules COMPARISON: 06/07/2016 TECHNIQUE: Contiguous axial images were obtained through the chest without intravenous contrast enhancement. Sagittal and coronal reconstructions were performed. Radiation dose (DLP): 238 mGy-cm. This CT exam was performed using one or more of the following dose reduction techniques: Automated exposure control, adjustment of the mA and/or kV according to patient size, and/or use of iterative reconstruction technique. FINDINGS: LUNGS: Small nodules are seen at the left lung base posteriorly. These are stable in size and appearance. The nodule on image 74 measures 6 mm in diameter. The nodule on image 70 measures 5.6 mm. MEDIASTINUM: Unremarkable thoracic aorta. No aneurysm. Normal sized heart. Main pulmonary artery unremarkable. No vascular congestion. No lymphadenopathy. PLEURA: No pleural fluid. No pneumothorax. BONES: No fracture. No destructive lesion. UPPER ABDOMEN: Grossly unremarkable. OTHER FINDINGS: None. IMPRESSION: Stable appearance of small left lower lobe nodules
--- NOTE | 2016-11-16 17:30 | NM ---
COMPARISON: November 16, 2016. CT thorax TECHNIQUE: 30.0 mCi technetium 99-m DTPA aerosol. 4.3 mCI technetium 99-m MAA administered intravenously. FINDINGS: VENTILATION COMPONENT: Markedly abnormal ventilation including diminished in absent ventilation in the upper lobes and tension in varying wide in the central tracheobronchial tree. PERFUSION COMPONENT: Heterogeneous perfusion. Diminished perfusion the right apex with a corresponding matched ventilatory component. IMPRESSION: Lowprobability ventilation perfusion scan for pulmonary embolism.
[2016-11-17 07:23] LABS: ADD MANUAL DIFF? NO
[2016-11-17 07:37] LABS: BASO # 0.01 K/mm3 (0.0-2.0); BASO % 0.1 % (0.0-3.0); GRAN # 9.55 (1.4-6.5); GRAN % 85.9 % (50.0-68.0); HEMATOCRIT 42.2 % (36.0-48.0); LYMPH # 0.5 (1.2-3.4); LYMPH % 4.6 % (22.0-35.0); MEAN CELL VOLUME 87.4 fL (80.0-105.0); MEAN CORPUSCULAR HEMOGLOBIN 26.5 pg (25.0-35.0); MEAN CORPUSCULAR HGB CONC 30.3 g/dl (31.0-37.0); MEAN PLATELET VOLUME 11.5 fl (7.0-11.0); MONO # 1.1 (0.1-0.6); MONO % 9.4 % (1.0-6.0); PLATELET COUNT 270 10^3/uL (120.0-450.0); RED CELL DISTRIBUTION WIDTH 13.6 % (11.5-14.5); WHITE BLOOD COUNT 11.1 10^3/ul (4.5-11.0)
[2016-11-17] MEDS: Arformoterol 15 mcg/2 ml Inh Sol IH SCH ×2 (07:45→19:59)
[2016-11-17] MEDS: Budesonide 0.5 mg/2 ml Inhal Susp UD IH SCH ×2 (07:45→20:00)
[2016-11-17 07:46] LABS: ALB/GLOB RATIO 1.1 (1.1-1.8); ALKALINE PHOSPHATASE 60 U/L (38-133); ALT/SGPT 25 U/L (7-56); AST/SGOT 15 U/L (15-39); BILIRUBIN,TOTAL 0.4 mg/dL (0.2-1.3); BLOOD UREA NITROGEN 31 mg/dL (7-21); CALCIUM 9.3 mg/dL (8.4-10.5); CARBON DIOXIDE 30 mmol/L (21-33); CHLORIDE 102 mmol/L (98-107); GFR AFRICAN-AMERICAN > 60; GLUCOSE,RANDOM 244 mg/dL (70-110); SODIUM 139 mmol/L (132-148)
[2016-11-17 07:48] LABS: POTASSIUM 4.6 mmol/L (3.6-5.0)
[2016-11-17 07:58] LABS: T4 10.8 ug/dL (5.5-11.0)
[2016-11-17 08:11] LABS: T3 0.73 ng/mL (0.97-1.69)
--- NOTE | 2016-11-17 08:55 | PN ---
DATE: 11/17/2016 SUBJECTIVE: The patient appears comfortable this morning. She is not short of breath at rest. OBJECTIVE: VITAL SIGNS: Temperature is 98.2, pulse 77, respirations 20, blood pressure 125 /48. Oxygen saturation on nasal cannula is 97%. HEENT: Normocephalic, atraumatic. No JVD. CARDIOVASCULAR: Systolic ejection murmur at the lower left sternal border. No S3 gallop. LUNGS: Decreased breath sounds at the bases. Minimal/less rhonchi. Few expiratory wheezes. EXTREMITIES: Minimal edema. No cyanosis. No clubbing. Calves are nontender to palpation. GASTROINTESTINAL: Abdomen is soft, nontender, nondistended. Bowel sounds are positive. SKIN: No acute rash. NEUROLOGIC: Limited at the present time. IMPRESSION: 1. Recurrent bronchitis. 2. Advanced chronic obstructive pulmonary disease, on home oxygen. 3. Pulmonary nodules. 4. Hypertension. PLAN: The patient appears comfortable this morning. She is not short of breath at rest. She does state to feeling better overall. I did discuss the case with the night nurse at length. The night nurse stated that the patient is doing very well, and has not had recurrent tachyarrhythmias. On physical exam, only minimal bronchospasm is noted. In addition, the oxygen saturation on nasal cannula is now 97%. I will continue with the current nebulizer treatments and low-dose intravenous steroids for now. The patient also remains on antibiotic therapy. There are no temperatures noted. There is no significant leukocytosis. The patient also had a ventilation perfusion scan done yesterday. It is low probability for pulmonary embolism. Clinical status of the patient is certainly improved - compared to the initial presentation. However, again, the overall status/prognosis of this elderly patient with advanced chronic obstructive pulmonary disease - remains very guarded. I will discuss the above with Dr. Lopez this morning. Romario Portillo MD cc: [phone] TT: 11/17/2016 08:54:54 Confirmation # [id number] Dictation # [id number] shauna SIMENTAL
--- NOTE | 2016-11-17 09:27 | CP.PCM.PN ---
<Fany Hyman - Last Filed: 11/17/16 12:39> Subjective - Date & Time of Evaluation Date of Evaluation: 11/17/16 Time of Evaluation: 09:25 - Subjective Subjective: PGY-1 Medicine progress note. Patient seen and examined at bedside. No acute distress. Nurse reports no events overnogth, no tachycardic episodes. Patient was able to get the v/q scan yesterday after getting 1 dose of xanax. She states her breathing is better overall but continues to have sob with exertion. Denies fever, chills, chest pain, abd pain, n/v/d/c. Objective - Vital Signs/Intake and Output Vital Signs (last 24 hours): Temp Pulse Resp BP Pulse Ox 97.5 F L 79 20 120/56 L 99 11/17/16 06:00 11/17/16 06:00 11/17/16 06:00 11/17/16 06:00 11/17/16 06:00 Intake and Output: 11/17/16 11/17/16 06:59 18:59 Intake Total 840 Output Total 800 Balance 40 - Medications Medications: Current Medications Alprazolam (Xanax) 0.5 mg PO TID PRN; Protocol PRN Reason: Anxiety Last Admin: 11/16/16 21:37 Dose: 0.5 mg Arformoterol Tartrate (Brovana) 15 mcg IH [id number] [facility] Last Admin: 11/17/16 07:45 Dose: 15 mcg Aspirin (Ecotrin) 81 mg PO HS [facility] Last Admin: 11/16/16 21:31 Dose: 81 mg Budesonide (Pulmicort Respules) 0.5 mg IH [id number] [facility] Last Admin: 11/17/16 07:45 Dose: 0.5 mg Dipyridamole (Persantine) 25 mg PO TID [facility] Last Admin: 11/16/16 18:28 Dose: 25 mg Enoxaparin Sodium (Lovenox) 40 mg SC DAILY [facility] PRN Reason: Protocol Last Admin: 11/16/16 10:41 Dose: 40 mg Furosemide (Lasix) 40 mg PO DAILY [facility] Last Admin: 11/16/16 10:38 Dose: 40 mg Ceftriaxone Sodium (Rocephin 1 Gram Ivpb) 100 mls @ 100 mls/hr IVPB DAILY [facility] PRN Reason: Protocol Last Admin: 11/16/16 10:40 Dose: 100 mls/hr Azithromycin (Zithromax 500mg In Ns) 250 mls @ 167 mls/hr IVPB DAILY [facility] PRN Reason: Protocol Levalbuterol HCl (Xopenex) 0.63 mg IH [id number] PRN PRN Reason: Shortness of Breath Last Admin: 11/16/16 13:43 Dose: 0.63 mg Levothyroxine Sodium (Synthroid) 112 mcg PO DAILY [facility] Last Admin: 11/16/16 10:37 Dose: 112 mcg Losartan Potassium (Cozaar) 100 mg PO DAILY [facility] Last Admin: 11/16/16 10:36 Dose: 100 mg Methylprednisolone (Solu-Medrol) 30 mg IVP Q12 [facility] Last Admin: 11/16/16 21:32 Dose: 30 mg Pantoprazole Sodium (Protonix Ec Tab) 40 mg PO DAILY [facility] Last Admin: 11/16/16 10:36 Dose: 40 mg Potassium Chloride (Klor-Con 10) 10 meq PO DAILY [facility] Last Admin: 11/16/16 10:37 Dose: 10 meq Theophylline (Montrell-Dur) 300 mg PO BID [facility] Last Admin: 11/16/16 10:38 Dose: 300 mg Tiotropium [place] (Spiriva) 18 mcg INH DAILY [facility] Last Admin: 11/16/16 10:38 Dose: 18 mcg - Labs Labs: 11/17/16 07:00 11/17/16 07:00 - Constitutional Appears: Well, No Acute Distress - Head Exam Head Exam: ATRAUMATIC, NORMOCEPHALIC - Eye Exam Eye Exam: Normal appearance - ENT Exam ENT Exam: Mucous Membranes Moist - Respiratory Exam Respiratory Exam: Rhonchi (mild ), NORMAL BREATHING PATTERN. absent: Decreased Breath Sounds, Respiratory Distress - Cardiovascular Exam Cardiovascular Exam: REGULAR RHYTHM. absent: Tachycardia, Murmur - GI/Abdominal Exam GI & Abdominal Exam: Soft, Normal Bowel Sounds. absent: Distended, Firm, Guarding, Tenderness - Extremities Exam Extremities Exam: Normal Inspection. absent: Pedal Edema - Neurological Exam Neurological Exam: Alert, Awake, Oriented x3 - Skin Skin Exam: Dry, Intact, Normal Color, Warm Assessment and Plan - Assessment and Plan (Free Text) Assessment: 76 yo female with PMH of HTN and copd presented to ED with SOB 2/2 copd exacerbation. cxr showed no active disease. She was started on solu-medrol. d- dimer is elevated, CTA could not be done due to contrast allergy, V/Q scan was not able to be completed due to her claustrophobia. Plan: 1. copd exacerbation - afebrile but with mild leukocytosis - cxr showed no active disease - solu-medrol 30 q12 - cont azithromycin and ceftriaxone - duoneb was stopped due to tachycardia most likely due to albuterol - supplemental O2 - cont home meds: spiriva, brovana, pulmicort - CT chest stable left lower lobe nodules - Pulm, Dr. Portillo, following - PT recommends TCU/SUZY - TCU eval 2. elevated d-dimer - d- dimer was 3.87 - CTA could not be done due to contrast allergy - v/q scan was not complete due to patients claustrophobia - patient was able to tolerate repeat v/q scan which showed low probablity of PE - lower extremity doppler - neg for DVT 3. dysuria - UA ordered - urine cultures ordered, however will most likely be negative since patient has already recieved multiple doses of antibiotic - patient on azithromycin and ceftriaxone 4. tachycardia - patient had 2 episode of tachycardia - patient was given lopressor - duoneb and atrovent were stopped - patient states that she stopped taking theophylline at home because it increased her heart rate - will hold theophylline - cardiology consult, Dr. Dudley - cont to monitor 5. HTN - cont home med lasix and losartan - cont to monitor 6. hypothyriodism - cont levothyroxine - TSH is low - T4 wnl - will decrease synthyroid ppx GI ppx- protonix DVT ppx- Lovenox <Davon Lopez - Last Filed: 11/23/16 08:58> Objective - Vital Signs/Intake and Output Vital Signs (last 24 hours): Temp Pulse Resp BP Pulse Ox 97.5 F L 77 18 121/46 L 98 11/20/16 10:00 11/20/16 10:00 11/20/16 10:00 11/20/16 10:00 11/20/16 10:00 - Labs Labs: 11/19/16 07:48 11/19/16 07:48 Attending/Attestation - Attestation I have personally seen and examined this patient.: Yes I have fully participated in the care of the patient.: Yes I have reviewed all pertinent clinical information, including history, physical exam and plan: Yes Notes (Text): 11/23/16 08:58 Medical record note made by the resident after discussion with my direction and input after the patient was personally seen and examined by me. I have reviewed the chart and agree that the record accurately reflects my own personal history, physical, data review and plan.
[2016-11-17] MEDS: cefTRIAXone 1 gm 100 ML IVPB SCH (10:00)
[2016-11-17] MEDS: Potassium Chloride 10 mEq ER Tab PO SCH (11:19)
[2016-11-17] MEDS: Enoxaparin 40 mg Syringe SC SCH (11:19)
[2016-11-17] MEDS: Pantoprazole 40 mg EC Tab PO SCH (11:19)
[2016-11-17] MEDS: Levothyroxine 112 MCG TAB PO SCH (11:20)
[2016-11-17] MEDS: MethylPREDNISolone 40 mg Vial IVP SCH ×2 (11:20→21:35)
[2016-11-17] MEDS: Azithromycin 500MG/NS 250ml 250 ML IVPB SCH (11:20)
[2016-11-17] MEDS: Tiotropium 18 mcg Cap For Inhalation INH SCH (11:25)
--- NOTE | 2016-11-17 14:13 | CON ---
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 At home as well as 2 documented episodes in the hospital, the patient has a narrow complex tachyc ardia from the 120s to occasionally up to the 150s. A VQ scan was performed which showed low probabi lity for pulmonary embolism. Her bronchodilator regimen was changed with improvement of her heart rate. PAST MEDICAL HISTORY: Includes no cardiac history. Echocardiogram performed several years ago revea led normal LV function and mild pulmonary hypertension. SOCIAL HISTORY: The patient is a former smoker. REVIEW OF SYSTEMS: A 14-point review of systems was reviewed in detail. She complains of recurrent dyspnea both at exertion and at rest, intermittent palpitations, negative edema, negative angina. PHYSICAL EXAMINATION: VITAL SIGNS: Blood pressure is 151/60, the heart rate is in the 70s except for those periods when sh e was tachycardia which went up to 120 up to 140. NECK: Negative JVD. LUNGS: No rales noted. No wheezing noted. HEART: Reveals S1, S2. EXTREMITIES: Without edema. EKG shows no acute ST changes. LABORATORY DATA: Hemoglobin is 12.8, white count is 11.1. T3 is 0.73 with a T4 of 10.8. BUN and cr eatinine are unremarkable. Glucose 244. IMPRESSION AND PLAN: 1. Exacerbation of chronic obstructive pulmonary disease. 2. Dyspnea. 3. Recurrent palpitations with possible supraventricular tachycardia versus flutter. 4. Hypertension. 5. Diabetes mellitus. Given these findings, we will start the patient on diltiazem. Beta blockers should be avoided given her severe chronic obstructive pulmonary disease. In addition, we will obtain an echocardiogram to reevaluate her left ventricular function and to rule out pulmonary hypertension. Alejandro Dudley MD cc: [phone] TT: 11/17/2016 14:11:44 Confirmation # [id number] Dictation # [id number] melanie
[2016-11-18 07:33] LABS: ADD MANUAL DIFF? NO
[2016-11-18 07:42] LABS: GRAN # 11.23 (1.4-6.5); GRAN % 91.5 % (50.0-68.0); HEMATOCRIT 42.7 % (36.0-48.0); LYMPH # 0.5 (1.2-3.4); LYMPH % 4.3 % (22.0-35.0); MEAN CELL VOLUME 87.3 fL (80.0-105.0); MEAN CORPUSCULAR HGB CONC 30.9 g/dl (31.0-37.0); MEAN PLATELET VOLUME 11.7 fl (7.0-11.0); MONO # 0.5 (0.1-0.6); MONO % 4.2 % (1.0-6.0); PLATELET COUNT 264 10^3/uL (120.0-450.0); RED CELL DISTRIBUTION WIDTH 13.5 % (11.5-14.5); WHITE BLOOD COUNT 12.3 10^3/ul (4.5-11.0)
[2016-11-18] MEDS: Arformoterol 15 mcg/2 ml Inh Sol IH SCH ×2 (07:57→19:44)
[2016-11-18] MEDS: Budesonide 0.5 mg/2 ml Inhal Susp UD IH SCH ×2 (07:58→19:44)
[2016-11-18 08:08] LABS: ALB/GLOB RATIO 1.2 (1.1-1.8); ALKALINE PHOSPHATASE 62 U/L (38-133); ALT/SGPT 24 U/L (7-56); AST/SGOT 23 U/L (15-39); BILIRUBIN,TOTAL 0.3 mg/dL (0.2-1.3); BLOOD UREA NITROGEN 32 mg/dL (7-21); CALCIUM 9.7 mg/dL (8.4-10.5); CARBON DIOXIDE 31 mmol/L (21-33); CHLORIDE 100 mmol/L (98-107); GFR AFRICAN-AMERICAN > 60; GLUCOSE,RANDOM 217 mg/dL (70-110); POTASSIUM 4.8 mmol/L (3.6-5.0); SODIUM 136 mmol/L (132-148); TOTAL PROTEIN 6.1 g/dL (5.8-8.3)
[2016-11-18] MEDS: diltiaZEM 180 mg/24 Hours CD Cap PO SCH (09:39)
--- NOTE | 2016-11-18 09:40 | PN ---
DATE: 11/18/2016 SUBJECTIVE: The patient appears very comfortable this morning. She is not short of breath at rest. PHYSICAL EXAMINATION: VITAL SIGNS: Temperature is 97.5, pulse 81, respirations 18/20, blood pressure 113/55. Oxygen saturation on nasal cannula is 97%. HEENT: Normocephalic, atraumatic. No JVD. CARDIOVASCULAR: Systolic ejection murmur at the lower left sternal border. No S3 gallop. LUNGS: Improved breath sounds at the bases. Very minimal/less rhonchi. No wheezing. EXTREMITIES: Minimal edema. No cyanosis, no clubbing. Calves are nontender to palpation. GASTROINTESTINAL: Abdomen is soft, nontender, nondistended. Bowel sounds are positive. SKIN: No acute rash. NEUROLOGIC: Limited at the present time. IMPRESSION: 1. Recurrent bronchitis. 2. Advanced chronic obstructive pulmonary disease, on home oxygen. 3. Pulmonary nodules. 4. Hypertension. PLAN: The patient appears very comfortable this morning. She is not short of breath at rest. She does state to feeling much better overall. I did discuss the case with the night nurse at length. There are no additional tachyarrhythmias noted. On physical exam, her bronchospasm is resolving. In addition, the oxygen saturation on nasal cannula is now 97%. I will continue with the current nebulizer treatments and change to oral steroids this morning. Cardiology evaluation with Dr. Dudley is noted. Clinical status of the patient is certainly improved over the past few days. However, again, the overall status/prognosis of this elderly patient with advanced chronic obstructive pulmonary disease-- remains very guarded. I will discuss the above with Dr. Lopez. Romario Portillo MD cc: [phone] TT: 11/18/2016 09:39:45 Confirmation # [id number] Dictation # [id number] en MTDD
[2016-11-18] MEDS: Azithromycin 500MG/NS 250ml 250 ML IVPB SCH (09:45)
[2016-11-18] MEDS: Enoxaparin 40 mg Syringe SC SCH (09:46)
[2016-11-18] MEDS: cefTRIAXone 1 gm 100 ML IVPB SCH (09:46)
[2016-11-18] MEDS: Tiotropium 18 mcg Cap For Inhalation INH SCH (09:47)
[2016-11-18] MEDS: Potassium Chloride 10 mEq ER Tab PO SCH (09:47)
[2016-11-18] MEDS: Levothyroxine 100 MCG TAB PO SCH (09:47)
[2016-11-18] MEDS: Pantoprazole 40 mg EC Tab PO SCH (09:47)
--- NOTE | 2016-11-18 10:22 | PN ---
DATE: 11/18/2016 The patient's breathing is much improved today. No recurrent narrow complex tachycardia. PHYSICAL EXAMINATION: VITAL SIGNS: Blood pressure is 113/55, the heart rate is in the 80s. NECK: Negative JVD. LUNGS: Decreased breath sounds without rales. HEART: Revealed S1, S2. EXTREMITIES: Without edema. LABORATORIES: Includes a hemoglobin of 13.2. Chemistries unremarkable. IMPRESSION: 1. Exacerbation of chronic obstructive pulmonary disease. 2. Recurrent narrow complex tachycardia during her acute respiratory distress. 3. Improvement of her dyspnea. 4. Hypertension. 5. Diabetes mellitus. Given these findings, we will continue her Cardizem at this time. Her dyspnea is much improved. Alejandro Dudley MD cc: [phone] TT: 11/18/2016 10:21:40 Confirmation # [id number] Dictation # [id number] en
--- NOTE | 2016-11-18 13:51 | CARD ---
APPROVED REPORT EXAM: Two-dimensional and M-mode echocardiogram with Doppler and color Doppler. INDICATION SVT 2D DIMENSIONS Left Atrium (2D)3.2 (1.6-4.0cm)IVSd1.0 (0.7-1.1cm) LVDd3.6 (3.9-5.9cm)PWd1.1 (0.7-1.1cm) LVDs2.4 (2.5-4.0cm)FS (%) 31.5 % LVEF (%)60.5 (>50%) M-Mode DIMENSIONS Aortic Root2.60 (2.2-3.7cm)Aortic Cusp Exc.1.30 (1.5-2.0cm) Aortic Valve AoV Peak Tcwxfhtq028.0cm/sAoV VTI51.3cmAO Peak GR.19mmHg LVOT Peak Rnqakthp804.0cm/sLVOT VTI23.90cmAO Mean GR.9mmHg Mitral Valve MV E Vrzxzhkc09.8cm/sMV A Qbxtupsw570.0cm/sE/A ratio0.8 TDI Lateral E' Peak V8.29cm/sMedial E' Peak V7.41cm/sE/Lateral E'11.3 E/Medial E'12.7 Pulmonary Valve PV Peak Jrnsfnpu37.0cm/sPV Peak Grad.2mmHg Tricuspid Valve TR Peak Gcnmbpdc302qf/sRAP UGTNLNYP05evVmOI Peak Gr.20mmHg LCDB80teXv LEFT VENTRICLE The left ventricle is normal size. There is normal left ventricular wall thickness. The left ventricular function is normal. The left ventricular ejection fraction is within the normal range. There is normal LV segmental wall motion. Transmitral Doppler flow pattern is Grade I-abnormal relaxation pattern. RIGHT VENTRICLE The right ventricle is normal size. There is normal right ventricular wall thickness. The right ventricular systolic function is normal. ATRIA The left atrium size is normal. The right atrium size is normal. AORTIC VALVE The aortic valve is mildly sclerotic. There is trace valvular aortic stenosis. MITRAL VALVE The mitral valve is mildly thickened. Mitral regurgitation is mild. TRICUSPID VALVE There is no pulmonary hypertension. GREAT VESSELS The aortic root displays mild to moderate sclerocalcific changes of the aortic root. PERICARDIAL EFFUSION There is a trace loculated anterior pericardial effusion. <Conclusion> The left ventricle is normal size. There is normal left ventricular wall thickness. The left ventricular function is normal. The left ventricular ejection fraction is within the normal range. There is normal LV segmental wall motion. Transmitral Doppler flow pattern is Grade I-abnormal relaxation pattern. Mitral regurgitation is mild.
--- NOTE | 2016-11-18 14:47 | CP.PCM.PN ---
<Fany Hyman - Last Filed: 11/18/16 15:07> Subjective - Date & Time of Evaluation Date of Evaluation: 11/18/16 Time of Evaluation: 10:30 - Subjective Subjective: PGY-1 Medicine progress note. Patient seen and examined at bedside. No acute distress. Nurse reports no events overnight. Patient states that overall she feels better. Her breathing is somewhat improved. She is able to speak in complete sentences. Patient reports an episode of tachycardia this morning. She denies fever, chill, chest pain, n/v/d/c. Objective - Vital Signs/Intake and Output Vital Signs (last 24 hours): Temp Pulse Resp BP Pulse Ox 98.2 F 65 20 139/51 L 95 11/18/16 06:00 11/18/16 06:00 11/18/16 06:00 11/18/16 09:47 11/18/16 06:00 Intake and Output: 11/18/16 11/18/16 06:59 18:59 Intake Total 780 Output Total 1300 Balance -520 - Medications Medications: Current Medications Alprazolam (Xanax) 0.5 mg PO TID PRN; Protocol PRN Reason: Anxiety Last Admin: 11/16/16 21:37 Dose: 0.5 mg Arformoterol Tartrate (Brovana) 15 mcg IH [id number] [facility] Last Admin: 11/18/16 07:57 Dose: 15 mcg Aspirin (Ecotrin) 81 mg PO HS [facility] Last Admin: 11/17/16 21:34 Dose: 81 mg Budesonide (Pulmicort Respules) 0.5 mg IH [id number] [facility] Last Admin: 11/18/16 07:58 Dose: 0.5 mg Diltiazem HCl (Cardizem Cd) 180 mg PO DAILY [facility] Last Admin: 11/18/16 09:39 Dose: 180 mg Dipyridamole (Persantine) 25 mg PO TID [facility] Last Admin: 11/18/16 13:33 Dose: 25 mg Enoxaparin Sodium (Lovenox) 40 mg SC DAILY [facility] PRN Reason: Protocol Last Admin: 11/18/16 09:46 Dose: 40 mg Furosemide (Lasix) 40 mg PO DAILY [facility] Last Admin: 11/18/16 09:47 Dose: 40 mg Ceftriaxone Sodium (Rocephin 1 Gram Ivpb) 100 mls @ 100 mls/hr IVPB DAILY [facility] PRN Reason: Protocol Last Admin: 11/18/16 09:46 Dose: 100 mls/hr Azithromycin (Zithromax 500mg In Ns) 250 mls @ 167 mls/hr IVPB DAILY [facility] PRN Reason: Protocol Last Admin: 11/18/16 09:45 Dose: 167 mls/hr Levalbuterol HCl (Xopenex) 0.63 mg IH [id number] PRN PRN Reason: Shortness of Breath Last Admin: 11/16/16 13:43 Dose: 0.63 mg Levothyroxine Sodium (Synthroid) 100 mcg PO DAILY [facility] Last Admin: 11/18/16 09:47 Dose: 100 mcg Losartan Potassium (Cozaar) 100 mg PO DAILY [facility] Last Admin: 11/18/16 09:47 Dose: 100 mg Pantoprazole Sodium (Protonix Ec Tab) 40 mg PO DAILY [facility] Last Admin: 11/18/16 09:47 Dose: 40 mg Potassium Chloride (Klor-Con 10) 10 meq PO DAILY [facility] Last Admin: 11/18/16 09:47 Dose: 10 meq Prednisone (Prednisone Tab) 40 mg PO DAILY [facility] Last Admin: 11/18/16 09:47 Dose: 40 mg Theophylline (Montrell-Dur) 300 mg PO BID [facility] Last Admin: 11/16/16 10:38 Dose: 300 mg Tiotropium [place] (Spiriva) 18 mcg INH DAILY [facility] Last Admin: 11/18/16 09:47 Dose: 18 mcg - Labs Labs: 11/18/16 06:35 11/18/16 06:35 - Constitutional Appears: No Acute Distress - Head Exam Head Exam: ATRAUMATIC, NORMOCEPHALIC - Eye Exam Eye Exam: Normal appearance - ENT Exam ENT Exam: Mucous Membranes Moist - Respiratory Exam Respiratory Exam: Clear to Ausculation Bilateral, Rhonchi, NORMAL BREATHING PATTERN. absent: Decreased Breath Sounds, Wheezes, Respiratory Distress - Cardiovascular Exam Cardiovascular Exam: REGULAR RHYTHM. absent: Tachycardia, Murmur - GI/Abdominal Exam GI & Abdominal Exam: Soft, Normal Bowel Sounds. absent: Distended, Firm, Guarding, Tenderness - Extremities Exam Extremities Exam: Normal Inspection. absent: Pedal Edema - Neurological Exam Neurological Exam: Alert, Awake, Oriented x3 - Skin Skin Exam: Dry, Intact, Normal Color, Warm Assessment and Plan - Assessment and Plan (Free Text) Assessment: 76 yo female with PMH of HTN and copd presented to ED with SOB 2/2 copd exacerbation. cxr showed no active disease. She was started on solu-medrol. d- dimer is elevated, CTA could not be done due to contrast allergy, V/Q scan showed low probability of PE. Plan: 1. copd exacerbation - afebrile but with mild leukocytosis, most likely due to steroids - cxr showed no active disease - solu-medrol stopped, predinsone starts 40 daily - cont azithromycin and ceftriaxone - duoneb was stopped due to tachycardia most likely due to albuterol - supplemental O2 - cont home meds: spiriva, brovana, pulmicort - CT chest stable left lower lobe nodules - Pulm, Dr. Portillo, following - PT recommends TCU/SUZY - TCU placement pending 2. tachycardia - patient had multiple episodes - duoneb and atrovent were stopped - patient states that she stopped taking theophylline at home because it increased her heart rate - will hold theophylline - narrow complex tachycardia - cardiology following, Dr. Dudley - patricia was started - cont to monitor 3. elevated d-dimer - d- dimer was 3.87 - CTA could not be done due to contrast allergy - v/q scan was not complete due to patients claustrophobia - patient was able to tolerate repeat v/q scan which showed low probability of PE - lower extremity doppler - neg for DVT 4. dysuria - urine cultures ordered, however will most likely be negative since patient has already received multiple doses of antibiotic - patient on azithromycin and ceftriaxone - will order another UA 5. HTN - cont home med lasix and losartan - cont to monitor 6. hypothyriodism - TSH is low, T4 wnl - decrease synthyroid to 100mcg ppx GI ppx- protonix DVT ppx- Lovenox <Chriss Tirado - Last Filed: 12/16/16 09:41> Objective - Vital Signs/Intake and Output Vital Signs (last 24 hours): Temp Pulse Resp BP Pulse Ox 97.5 F L 77 18 121/46 L 98 11/20/16 10:00 11/20/16 10:00 11/20/16 10:00 11/20/16 10:00 11/20/16 10:00 - Labs Labs: 11/19/16 07:48 11/19/16 07:48 Attending/Attestation - Attestation I have personally seen and examined this patient.: Yes I have fully participated in the care of the patient.: Yes I have reviewed all pertinent clinical information, including history, physical exam and plan: Yes Notes (Text): 12/16/16 09:41 Medical record note made by the resident after discussion with my direction and input after the patient was personally seen and examined by me. I have reviewed the chart and agree that the record accurately reflects by personal performance of the history, physical exam, data review, and medical decision-making, in the course for the patient. I have also personally directed the plan of care.
[2016-11-19 07:49] LABS: ADD MANUAL DIFF? NO
[2016-11-19 07:52] LABS: BASO # 0.01 K/mm3 (0.0-2.0); BASO % 0.1 % (0.0-3.0); EOS % 0.3 % (1.5-5.0); GRAN # 10.73 (1.4-6.5); GRAN % 79.7 % (50.0-68.0); HEMATOCRIT 44.4 % (36.0-48.0); LYMPH # 1.4 (1.2-3.4); LYMPH % 10.2 % (22.0-35.0); MEAN CELL VOLUME 87.1 fL (80.0-105.0); MEAN CORPUSCULAR HEMOGLOBIN 27.1 pg (25.0-35.0); MEAN CORPUSCULAR HGB CONC 31.1 g/dl (31.0-37.0); MEAN PLATELET VOLUME 11.2 fl (7.0-11.0); MONO # 1.3 (0.1-0.6); MONO % 9.7 % (1.0-6.0); PLATELET COUNT 287 10^3/uL (120.0-450.0); RED CELL DISTRIBUTION WIDTH 13.5 % (11.5-14.5); WHITE BLOOD COUNT 13.5 10^3/ul (4.5-11.0)
[2016-11-19 08:01] LABS: ALB/GLOB RATIO 1.1 (1.1-1.8); ALKALINE PHOSPHATASE 73 U/L (38-133); ALT/SGPT 19 U/L (7-56); AST/SGOT 19 U/L (15-39); BILIRUBIN,TOTAL 0.5 mg/dL (0.2-1.3); BLOOD UREA NITROGEN 36 mg/dL (7-21); CALCIUM 9.7 mg/dL (8.4-10.5); CARBON DIOXIDE 27 mmol/L (21-33); CHLORIDE 102 mmol/L (98-107); GFR AFRICAN-AMERICAN > 60; GLUCOSE,RANDOM 142 mg/dL (70-110); POTASSIUM 4.4 mmol/L (3.6-5.0); SODIUM 138 mmol/L (132-148); TOTAL PROTEIN 6.3 g/dL (5.8-8.3)
[2016-11-19] MEDS: Budesonide 0.5 mg/2 ml Inhal Susp UD IH SCH ×2 (08:23→21:00)
[2016-11-19] MEDS: Arformoterol 15 mcg/2 ml Inh Sol IH SCH ×2 (08:23→21:00)
--- NOTE | 2016-11-19 08:45 | PN ---
DATE: 11/19/2016 SUBJECTIVE: The patient appears very comfortable this morning. She is not short of breath at rest. PHYSICAL EXAMINATION: VITAL SIGNS (last noted in the computer): Temperature is 98.3, pulse this morning is approximately 80, respiratory rate 18, blood pressure 134/42. Oxygen saturation on nasal cannula is between 93%-97%. HEENT: Normocephalic, atraumatic. NECK: No JVD. CARDIOVASCULAR: Systolic ejection murmur at the lower left sternal border. No S3 gallop. LUNGS: Clear bilaterally. EXTREMITIES: Minimal edema. No cyanosis, no clubbing. Calves are nontender to palpation. GASTROINTESTINAL: Abdomen is soft, nontender, nondistended. Bowel sounds are positive. SKIN: No acute rash. NEUROLOGIC: Limited at the present time. IMPRESSION: 1. Recurrent bronchitis. 2. Advanced chronic obstructive pulmonary disease, on home oxygen. 3. Pulmonary nodules. 4. Hypertension. PLAN: The patient appears very comfortable this morning. She is not short of breath at rest. She states she is feeling much better overall. On physical exam, her lungs are now clear. There is no significant alveolar arterial gradient. I will continue with the current nebulizer treatments and oral steroids for now. The patient also remains on antibiotic therapy. We can probably taper down the antibiotic coverage at this point in time. I will discuss this issue with the medical team. Clinical status of the patient is significantly improved - compared to the initial presentation. However, again, the overall status/prognosis of this elderly patient with advanced chronic obstructive pulmonary-- disease does remain guarded. I will discuss the above with the attending physician. Romario Portillo MD cc: [phone] TT: 11/19/2016 08:44:33 Confirmation # [id number] Dictation # [id number] joni SIMENTAL
[2016-11-19] MEDS: Potassium Chloride 10 mEq ER Tab PO SCH (09:14)
[2016-11-19] MEDS: diltiaZEM 180 mg/24 Hours CD Cap PO SCH (09:14)
[2016-11-19] MEDS: Azithromycin 500MG/NS 250ml 250 ML IVPB SCH (09:15)
[2016-11-19] MEDS: Tiotropium 18 mcg Cap For Inhalation INH SCH (09:15)
[2016-11-19] MEDS: cefTRIAXone 1 gm 100 ML IVPB SCH (09:15)
[2016-11-19] MEDS: Pantoprazole 40 mg EC Tab PO SCH (09:15)
[2016-11-19] MEDS: Levothyroxine 100 MCG TAB PO SCH (09:16)
[2016-11-19] MEDS: Enoxaparin 40 mg Syringe SC SCH (09:16)
--- NOTE | 2016-11-19 09:47 | CP.PCM.PN ---
<Fany Hyman - Last Filed: 11/19/16 10:03> Subjective - Date & Time of Evaluation Date of Evaluation: 11/19/16 Time of Evaluation: 09:44 - Subjective Subjective: PGY-1 Medicine progress note. Patient seen and examined at bedside. No acute distress. Nurse reporst no events overnight. Patient denies chest pain, fever, chills, n/v/d/c/ She states she no longer has discomfort with urination. Her SOB is some what improved, she continues to have dyspnea with exertion. She continues to report episodes were she feels that her heart is racing usually after her breathing treatments. However her heart rate is not elevated on tele monitor. She does not feel comfortable go home. Objective - Vital Signs/Intake and Output Vital Signs (last 24 hours): Temp Pulse Resp BP Pulse Ox 98.3 F 87 20 128/52 L 93 L 11/18/16 16:00 11/19/16 09:14 11/18/16 16:00 11/19/16 09:14 11/18/16 16:00 Intake and Output: 11/19/16 11/19/16 06:59 18:59 Intake Total 660 Output Total 700 400 Balance -40 -400 - Medications Medications: Current Medications Alprazolam (Xanax) 0.5 mg PO TID PRN; Protocol PRN Reason: Anxiety Last Admin: 11/16/16 21:37 Dose: 0.5 mg Arformoterol Tartrate (Brovana) 15 mcg IH [id number] [facility] Last Admin: 11/19/16 08:23 Dose: 15 mcg Aspirin (Ecotrin) 81 mg PO HS [facility] Last Admin: 11/18/16 22:00 Dose: 81 mg Budesonide (Pulmicort Respules) 0.5 mg IH [id number] [facility] Last Admin: 11/19/16 08:23 Dose: 0.5 mg Diltiazem HCl (Cardizem Cd) 180 mg PO DAILY [facility] Last Admin: 11/19/16 09:14 Dose: 180 mg Dipyridamole (Persantine) 25 mg PO TID [facility] Last Admin: 11/19/16 09:15 Dose: 25 mg Enoxaparin Sodium (Lovenox) 40 mg SC DAILY [facility] PRN Reason: Protocol Last Admin: 11/19/16 09:16 Dose: 40 mg Furosemide (Lasix) 40 mg PO DAILY [facility] Last Admin: 11/19/16 09:14 Dose: 40 mg Ceftriaxone Sodium (Rocephin 1 Gram Ivpb) 100 mls @ 100 mls/hr IVPB DAILY [facility] PRN Reason: Protocol Last Admin: 11/19/16 09:15 Dose: 100 mls/hr Azithromycin (Zithromax 500mg In Ns) 250 mls @ 167 mls/hr IVPB DAILY [facility] PRN Reason: Protocol Last Admin: 11/19/16 09:15 Dose: 167 mls/hr Levalbuterol HCl (Xopenex) 0.63 mg IH [id number] PRN PRN Reason: Shortness of Breath Last Admin: 11/16/16 13:43 Dose: 0.63 mg Levothyroxine Sodium (Synthroid) 100 mcg PO DAILY [facility] Last Admin: 11/19/16 09:16 Dose: 100 mcg Losartan Potassium (Cozaar) 100 mg PO DAILY [facility] Last Admin: 11/19/16 09:15 Dose: 100 mg Pantoprazole Sodium (Protonix Ec Tab) 40 mg PO DAILY [facility] Last Admin: 11/19/16 09:15 Dose: 40 mg Potassium Chloride (Klor-Con 10) 10 meq PO DAILY [facility] Last Admin: 11/19/16 09:14 Dose: 10 meq Prednisone (Prednisone Tab) 40 mg PO DAILY [facility] Last Admin: 11/19/16 09:14 Dose: 40 mg Theophylline (Montrell-Dur) 300 mg PO BID [facility] Last Admin: 11/16/16 10:38 Dose: 300 mg Tiotropium [place] (Spiriva) 18 mcg INH DAILY [facility] Last Admin: 11/19/16 09:15 Dose: 18 mcg - Labs Labs: 11/19/16 07:48 11/19/16 07:48 - Constitutional Appears: Well, No Acute Distress - Head Exam Head Exam: ATRAUMATIC, NORMOCEPHALIC - Eye Exam Eye Exam: Normal appearance - ENT Exam ENT Exam: Mucous Membranes Moist - Respiratory Exam Respiratory Exam: Clear to Ausculation Bilateral, NORMAL BREATHING PATTERN. absent: Decreased Breath Sounds, Rhonchi, Wheezes, Respiratory Distress Additional comments: on NC - Cardiovascular Exam Cardiovascular Exam: REGULAR RHYTHM. absent: Tachycardia, Murmur - GI/Abdominal Exam GI & Abdominal Exam: Soft, Normal Bowel Sounds. absent: Distended, Firm, Guarding, Tenderness - Extremities Exam Extremities Exam: Normal Inspection. absent: Pedal Edema - Neurological Exam Neurological Exam: Alert, Awake, Oriented x3 - Skin Skin Exam: Dry, Intact, Normal Color, Warm Assessment and Plan - Assessment and Plan (Free Text) Assessment: 76 yo female with PMH of HTN and copd presented to ED with SOB 2/2 copd exacerbation. cxr showed no active disease. She was started on solu-medrol. d- dimer is elevated, CTA could not be done due to contrast allergy, V/Q scan showed low probability of PE. Patient had multiple episodes of tachycardia usually with breathing treatments. Her breathing treatments were changed to the medication she takes at home. Cardiology started diltiazem. PT recommended [facility], however there are no beds avaible in TCU and patient does not want to go to [facility]. Patient does not feel comfortable with discharge home today. Plan: 1. copd exacerbation - afebrile but with mild leukocytosis, most likely due to steroids - cxr on 11/14 showed no active disease - predinsone starts 40 daily - d/c azithromycin and ceftriaxone - duoneb was stopped due to tachycardia most likely due to albuterol - supplemental O2 - cont home meds: spiriva, brovana, pulmicort - CT chest on 11/16 showed stable left lower lobe nodules - Dr. Bandar Oliver, following - PT recommends [facility], however patient does not want to go to [facility] - no beds available in the TCU 2. tachycardia - patient had multiple episodes - duoneb and atrovent were stopped - patient states that she stopped taking theophylline at home because it increased her heart rate - will hold theophylline - echo on 11/18 showed EF of 60%, grade 1 abnormal relaxation pattern - narrow complex tachycardia - cardiology following, Dr. Dudley - cardizem was started - cont to monitor 3. elevated d-dimer - d- dimer was 3.87 - CTA could not be done due to contrast allergy - v/q scan was not complete due to patients claustrophobia - patient was able to tolerate repeat v/q scan which showed low probability of PE - lower extremity doppler - neg for DVT 4. dysuria - resolved - patient was on azithromycin and ceftriaxone - will order another UA 5. HTN - cont home med lasix and losartan - cont to monitor 6. hypothyriodism - TSH is low, T4 wnl - decrease synthyroid to 100mcg ppx GI ppx- protonix DVT ppx- Lovenox <Chriss Tirado - Last Filed: 12/16/16 09:54> Objective - Vital Signs/Intake and Output Vital Signs (last 24 hours): Temp Pulse Resp BP Pulse Ox 97.5 F L 77 18 121/46 L 98 11/20/16 10:00 11/20/16 10:00 11/20/16 10:00 11/20/16 10:00 11/20/16 10:00 - Labs Labs: 11/19/16 07:48 11/19/16 07:48 Attending/Attestation - Attestation I have personally seen and examined this patient.: Yes I have fully participated in the care of the patient.: Yes I have reviewed all pertinent clinical information, including history, physical exam and plan: Yes Notes (Text): 12/16/16 09:54 Medical record note made by the resident after discussion with my direction and input after the patient was personally seen and examined by me. I have reviewed the chart and agree that the record accurately reflects by personal performance of the history, physical exam, data review, and medical decision-making, in the course for the patient. I have also personally directed the plan of care.
[2016-11-20] MEDS: Budesonide 0.5 mg/2 ml Inhal Susp UD IH SCH (08:14)
[2016-11-20] MEDS: Arformoterol 15 mcg/2 ml Inh Sol IH SCH (08:15)
--- NOTE | 2016-11-20 08:29 | PN ---
DATE: 11/20/2016 PULMONARY NOTE SUBJECTIVE: The patient appears very comfortable this morning. She is not short of breath at rest. PHYSICAL EXAMINATION: VITAL SIGNS: Temperature is 97.9, pulse 79, respirations 18, blood pressure 118 /61. Oxygen saturation on nasal cannula is 97%. HEENT: Normocephalic, atraumatic. No JVD. CARDIOVASCULAR: Systolic ejection murmur at the lower left sternal border. No S3 gallop. LUNGS: Clear bilaterally. EXTREMITIES: Minimal edema. No cyanosis, no clubbing. Calves are nontender to palpation. GASTROINTESTINAL: Abdomen is soft, nontender, nondistended. Bowel sounds are positive. SKIN: No acute rash. NEUROLOGIC: Limited at the present time. IMPRESSION: 1. Recurrent bronchitis. 2. Advanced chronic obstructive pulmonary disease, on home oxygen. 3. Pulmonary nodules. 4. Hypertension. PLAN: The patient appears very comfortable this morning. She is not short of breath at rest. She states she is feeling much better overall. On physical exam, her lungs remain clear. In addition, the oxygen saturation on nasal cannula is now 97% -98%. I will continue with the current nebulizer treatments and oral steroids for now. The patient is now off antibiotic therapy. There are no temperatures noted. Input by Dr. Dudley - cardiology - is noted. Clinical status of the patient is significantly improved - compared to the initial presentation. However, again, the overall status/prognosis for this elderly woman with advanced chronic obstructive pulmonary disease - does remain very guarded. All are aware. I will discuss the above with the attending physician. Romario Portillo MD cc: [phone] TT: 11/20/2016 08:28:32 Confirmation # [id number] Dictation # [id number] jn KAMILLE
[2016-11-20] MEDS: Tiotropium 18 mcg Cap For Inhalation INH SCH (09:36)
[2016-11-20] MEDS: Potassium Chloride 10 mEq ER Tab PO SCH (09:36)
[2016-11-20] MEDS: Enoxaparin 40 mg Syringe SC SCH (09:36)
[2016-11-20] MEDS: diltiaZEM 180 mg/24 Hours CD Cap PO SCH (09:36)
[2016-11-20] MEDS: Pantoprazole 40 mg EC Tab PO SCH (09:37)
[2016-11-20] MEDS: Levothyroxine 100 MCG TAB PO SCH (09:37)
[2016-11-20 09:39] VITALS: BP 121/46; PULSE 77
[2016-11-20 10:01] VITALS: RESP 18; TEMP 97.5; O2SAT 98
--- NOTE | 2016-11-20 11:47 | DS ---
She is resting, sitting up in bed. She tells me she is going home today. She is only going to need her prednisone order for the steroids and one of the cardiac medications. She tells me she has all t he other ones. She is a severe COPD patient, and she is doing much better. She is also going to go home on her Brovana, Cardizem, Cozaar, Ecotrin, potassium, Lasix, Persantine, Protonix, Pulmicort, Sp iriva, Synthroid, Montrell-Dur, Xanax, Xopenex, and prednisone 40 for 3 days, 30 for 3 days, 20 for 3 day s, 10 for 3 days, and then stop. She is going to see the mechanical artist and the primary care doctor i n the next 48 hours. PHYSICAL EXAMINATION: VITAL SIGNS: She has a 97.5 temp, 77 pulse, 121/46 blood pressure, 18 respiratory rate, 98% O2 sat o n room air. HEAD: Atraumatic, normocephalic. HEART: Regular rate. LUNGS: Decreased breath sounds, but clear. No wheezes, no rhonchi, no rales. ABDOMEN: Soft. EXTREMITIES: No edema. She has recurrent bronchitis, advanced COPD, home oxygen, pulmonary nodules, hypertension. Hopefully , she will do very well, and she will follow up with the primary care doctor and mechanical artist in [address] Rios DO cc: [id number] TT: 11/20/2016 11:46:30 joni
== END 2016-11-20 13:17 | disposition home health service (06) | DRG 192 ==
LOC: ED 10:15 → OBSVTOIN 14:28 → ERH 14:28 → INTOOBSV 14:28 → ERH 19:01 → 3RSO 19:44 → OBSVTOIN 11-15 12:48
PROVIDERS: ADMIT Internal Medicine; ATTEND Internal Medicine
PROC: 3E0F7GC Introduction of Other Therapeutic Substance into Respiratory Tract, Via Natural or Artificial Opening (ICD-10-PCS; principal; 2016-11-15)
DX: J44.1 Chronic obstructive pulmonary disease with (acute) exacerbation (principal); I27.2 Other secondary pulmonary hypertension; E11.9 Type 2 diabetes mellitus without complications; Z99.81 Dependence on supplemental oxygen; I10 Essential (primary) hypertension; E03.9 Hypothyroidism, unspecified; R00.0 Tachycardia, unspecified; F40.240 Claustrophobia; R30.0 Dysuria; Z90.49 Acquired absence of other specified parts of digestive tract; Z87.891 Personal history of nicotine dependence; Z91.041 Radiographic dye allergy status; Z98.41 Cataract extraction status, right eye; Z98.42 Cataract extraction status, left eye; Z82.49 Family history of ischemic heart disease and other diseases of the circulatory system

== ENCOUNTER 2017-01-24 17:19 | Emergency (ER) | payer MEDICARE, BC ==
[2017-01-24 17:44] VITALS: BMI 21.5
[2017-01-24 18:31] LABS: ADD MANUAL DIFF? NO
[2017-01-24 18:38] LABS: BASO # 0.05 K/mm3 (0.0-2.0); BASO % 0.4 % (0.0-3.0); EOS % 0.1 % (1.5-5.0); GRAN # 12.68 (1.4-6.5); GRAN % 91.1 % (50.0-68.0); HEMATOCRIT 45.9 % (36.0-48.0); LYMPH # 0.5 (1.2-3.4); LYMPH % 3.6 % (22.0-35.0); MEAN CELL VOLUME 88.8 fL (80.0-105.0); MEAN CORPUSCULAR HGB CONC 31.6 g/dl (31.0-37.0); MEAN PLATELET VOLUME 11.1 fl (7.0-11.0); MONO # 0.7 (0.1-0.6); MONO % 4.8 % (1.0-6.0); PLATELET COUNT 284 10^3/uL (120.0-450.0); RED CELL DISTRIBUTION WIDTH 14.7 % (11.5-14.5); WHITE BLOOD COUNT 13.9 10^3/ul (4.5-11.0)
--- NOTE | 2017-01-24 18:41 | ED PDOC ---
Arrival/HPI - General Chief Complaint: Palpitations Time Seen by Provider: 01/24/17 17:50 Historian: Patient - History of Present Illness Narrative History of Present Illness (Text): 01/24/17 18:38 76 year old female whose past medical history includes anxiety and COPD presents to the emergency department complaining of rapid heart rate of 161 BPM (she measured ) at home with palpitations and shortness of breath today which has resolved currently. Patient states she has been evaluated in the past for similar symptoms. PMD: Dr. Lopez 01/24/17 20:14 01/25/17 10:05 Time/Duration: 24 hours Symptom Onset: Sudden Symptom Course: Improving Modifying Factors (Text): None Past Medical History - Provider Review Nursing Documentation Reviewed: Yes - Infectious Disease Hx of Infectious Diseases: None - Tetanus Immunization Tetanus Immunization: Up to Date - Cardiac Hx Cardiac Disorders: Yes (CAD) Hx Hypertension: Yes - Pulmonary Hx Chronic Obstructive Pulmonary Disease (COPD): Yes - Neurological Hx Neurological Disorder: Yes Hx Dizziness: Yes - HEENT Hx HEENT Disorder: Yes Hx Cataracts: Yes (b/l) Other/Comment: b/l cataract surgery - Renal Hx Renal Disorder: No - Endocrine/Metabolic Hx Hypothyroidism: Yes - Hematological/Oncological Hx Blood Disorders: No - Integumentary Hx Dermatological Disorder: No - Musculoskeletal/Rheumatological Hx Falls: No - Gastrointestinal Hx Gastrointestinal Disorders: Yes (GASTROENTERITIS,) - Genitourinary/Gynecological Hx Reproductive Disorders: No - Psychiatric Hx Psychophysiologic Disorder: No Hx Substance Use: No - Surgical History Hx Cholecystectomy: Yes - Anesthesia Hx Anesthesia: Yes - Suicidal Assessment Feels Threatened In Home Enviroment: No Family/Social History - Physician Review Nursing Documentation Reviewed: Yes Family/Social History: Unknown Family HX Smoking Status: Former Smoker Hx Alcohol Use: No Hx Substance Use: No Hx Substance Use Treatment: No Allergies/Home Meds Allergies/Adverse Reactions: Allergies CRESTOR Adverse Reaction (Intermediate, Uncoded 01/24/17 17:45) PAIN contrast Adverse Reaction (Uncoded 01/24/17 17:45) REDNESS Home Medications: Home Meds Medication Instructions Recorded Confirmed Aspirin [Aspir 81] 325 mg PO HS 12/23/11 11/14/16 Levothyroxine [Synthroid] 112 mcg PO DAILY 12/23/11 11/14/16 Tiotropium [place] Inhaler 1 inh INH DAILY 09/01/15 11/14/16 [Spiriva Inhalation Handihaler Device] Furosemide [Lasix] 40 mg PO DAILY 10/04/15 11/14/16 Losartan [Cozaar] 100 mg PO DAILY 10/04/15 11/14/16 Potassium Chloride [Klor-Con 10] 10 meq PO DAILY 10/04/15 11/14/16 Dipyridamole [Persantine] 25 mg PO TID 04/30/16 11/14/16 Fluticasone/Salmeterol 250/50 2 inh PO PRN PRN 04/30/16 11/14/16 [Advair Diskus 250/50] Levalbuterol [Xopenex] 45 mcg IH Q2 PRN 07/12/16 11/14/16 Review of Systems - Physician Review All systems were reviewed & negative as marked: Yes - Review of Systems Respiratory: SOB Cardiovascular: Palpitations, Other (Elevated heart rate) Physical Exam Vital Signs Reviewed: Yes Vital Signs Temp Pulse Pulse Resp BP Pulse Ox 01/24/17 21:33 84 16 96 01/24/17 20:34 98.6 F 86 16 137/67 99 01/24/17 19:59 98.2 F 115 H 20 96 01/24/17 17:50 101 H 01/24/17 17:45 98.5 F 99 H 22 95 01/24/17 17:43 98.5 F 98 H 18 122/83 98 Temperature: Afebrile Blood Pressure: Normal Pulse: Regular Respiratory Rate: Normal Appearance: Positive for: Well-Appearing, Non-Toxic, Comfortable Pain Distress: None Mental Status: Positive for: Alert and Oriented X 3 - Systems Exam Head: Present: Atraumatic, Normocephalic Conjunctiva: Present: Normal Mouth: Present: Moist Mucous Membranes Neck: Present: Normal Range of Motion Respiratory/Chest: Present: Clear to Auscultation, Good Air Exchange. No: Respiratory Distress, Accessory Muscle Use Cardiovascular: Present: Regular Rate and Rhythm, Normal S1, S2. No: Murmurs Abdomen: Present: Normal Bowel Sounds. No: Tenderness, Distention, Peritoneal Signs Back: Present: Normal Inspection Upper Extremity: Present: Normal Inspection. No: Cyanosis, Edema Lower Extremity: Present: Normal Inspection. No: Edema Neurological: Present: GCS=15, CN II-XII Intact, Speech Normal Skin: Present: Warm, Dry, Normal Color. No: Rashes Psychiatric: Present: Alert, Oriented x 3, Normal Insight, Normal Concentration Medical Decision Making ED Course and Treatment: Impression: 76 year old female whose past medical history includes COPD presents to the emergency department complaining of rapid heart rate of 161 BPM at home with palpitations and shortness of breath today. Plan: -- EKG ,Chest X-ray -- Labs -- Reassess and disposition Prior Visits: Notes and results from previous visits were reviewed. Patient last seen in ED on 11/14/16 for shortness of breath and admitted for COPD exacerbation. Progress Notes: 01/24/17 20:44 EKG NSR 97 On reevaluation, patient states she feels better. Labs reviewed, grossly normal. troponin negative. pt has been NSR throughout ER stay. Chest x-ray read by me shows no acute findings. 01/24/17 20:[address] Rios covering for Dr. Lopez, patients pcp, who agrees with plan to discharge home. Instructed patient to follow up with PMD tomorrow or return to the ER if symptoms worsen. Patient agrees with plan. 01/25/17 10:06 01/25/17 10:08 - Lab Interpretations Lab Results: 01/24/17 18:02 01/24/17 18:02 Lab Results 01/24/17 18:02: Sodium 136, Potassium 4.2, Chloride 98, Carbon Dioxide 27, Anion Gap 15, BUN 19, Creatinine 0.7, Est GFR ( Amer) > 60, Est GFR (Non- Af Amer) > 60, Random Glucose 237 H, Calcium 10.0, Total Bilirubin 0.4, AST 23, ALT 20, Alkaline Phosphatase 74, Lactate Dehydrogenase 424, Total Creatine Kinase < 20 L, Troponin I < 0.01, Total Protein 6.9, Albumin 4.1, Globulin 2.9, Albumin/Globulin Ratio 1.4 01/24/17 18:02: WBC 13.9 H, RBC 5.17, Hgb 14.5, Hct 45.9, MCV 88.8, MCH 28.0, MCHC 31.6, RDW 14.7 H, Plt Count 284, MPV 11.1 H, Gran % 91.1 H, Lymph % (Auto) 3.6 L, Moore % (Auto) 4.8, Eos % (Auto) 0.1 L, Baso % (Auto) 0.4, Gran # 12.68 H , Lymph # 0.5 L, Moore # 0.7 H, Eos # 0.0, Baso # 0.05 - RAD Interpretation Radiology Orders: 01/24/17 18:16 CHEST TWO VIEWS (PA/LAT) [RAD] Stat - EKG Interpretation EKG Interpretation (Text): EKG shows NSR at 97 BPM, otherwise normal. Interpreted by me. Interpreted by ED Physician: Yes Type: 12 lead EKG - Medication Orders Current Medication Orders: Discontinued Medications Alprazolam (Xanax) 0.25 mg PO STAT STA PRN Reason: Protocol Stop: 01/24/17 20:09 Last Admin: 01/24/17 20:38 Dose: Not Given Non-Admin Reason: Patient Refused - Scribe Statement The provider has reviewed the documentation as recorded by the Kirsten Breaux Provider Scribe Attestation: All medical record entries made by the Hermelindoibarnold were at my direction and personally dictated by me. I have reviewed the chart and agree that the record accurately reflects my personal performance of the history, physical exam, medical decision making, and the department course for this patient. I have also personally directed, reviewed, and agree with the discharge instructions and disposition. Disposition/Present on Arrival - Present on Arrival Any Indicators Present on Arrival: No History of DVT/PE: No History of Uncontrolled Diabetes: No Urinary Catheter: No History of Decub. Ulcer: No History Surgical Site Infection Following: None - Disposition Have Diagnosis and Disposition been Completed?: Yes Diagnosis: Palpitations Disposition: HOME/ ROUTINE Disposition Time: 20:05 Patient Plan: Discharge Condition: IMPROVED Discharge Instructions (ExitCare): Palpitations (ED) Additional Instructions: follow up with Dr Lopez tomorrow return to the emergency department with any worsening or concerning symptoms. Referrals: Davon Lopez MD [Primary Care Provider] - Follow up with primary
[2017-01-24 19:11] LABS: ALB/GLOB RATIO 1.4 (1.1-1.8); ALKALINE PHOSPHATASE 74 U/L (38-133); ALT/SGPT 20 U/L (7-56); AST/SGOT 23 U/L (15-39); BILIRUBIN,TOTAL 0.4 mg/dL (0.2-1.3); BLOOD UREA NITROGEN 19 mg/dL (7-21); CARBON DIOXIDE 27 mmol/L (21-33); GFR AFRICAN-AMERICAN > 60; GLUCOSE,RANDOM 237 mg/dL (70-110); POTASSIUM 4.2 mmol/L (3.6-5.0); SODIUM 136 mmol/L (132-148); TOTAL PROTEIN 6.9 g/dL (5.8-8.3)
[2017-01-24 19:19] LABS: CHLORIDE 98 mmol/L (98-107)
[2017-01-24 19:23] LABS: TROPONIN I < 0.01 ng/mL
[2017-01-24 20:37] VITALS: BP 137/67; RESP 16; TEMP 98.6
[2017-01-24 21:34] VITALS: PULSE 84; O2SAT 96
--- NOTE | 2017-01-24 22:48 | CARD ---
APPROVED REPORT EKG Measurement Heart [id number] <Conclusion> Normal sinus rhythm Normal ECG
--- NOTE | 2017-01-25 09:58 | RAD ---
HISTORY: palpitations COMPARISON: 11/14/2016 chest x-ray. This chest without contrast 11/16/2016 port noting stable appearance of small left lower lobe nodules TECHNIQUE: Chest PA and lateral FINDINGS: LUNGS: No consolidation is seen. The previously CT chest referenced small stable left lower lobe pulmonary nodules are are better assessed with a CT chest imaging this chest x-ray is nonspecific without any evidence of pulmonary nodules or nodularity is larger than to are 3 mm and which overlap in appearance with small vessel seen on end at both lung bases. PLEURA: No significant pleural effusion identified. No pneumothorax apparent. CARDIOVASCULAR: Right cardiophrenic incidental fat pad noted and unchanged OSSEOUS STRUCTURES: No significant abnormalities. VISUALIZED UPPER ABDOMEN: Normal. OTHER FINDINGS: None. IMPRESSION: No active disease. Please note the above comments regarding CT chest reported stable pulmonary nodules
== END 2017-01-24 21:40 | disposition home or self-care (01) ==
LOC: ED 17:19
DX: R00.2 Palpitations (principal)

== ENCOUNTER 2018-06-15 15:15 | Inpatient (IN) | payer MEDICARE, BC ==
[2018-06-15] MEDS ORDERED: Albuterol-Ipratrop 3 mg / 0.5 (3 ml) UD IH STA (15:36)
--- NOTE | 2018-06-15 15:37 | ED PDOC ---
Arrival/HPI - General Chief Complaint: Shortness Of Breath Time Seen by Provider: 06/15/18 15:15 Historian: Patient, Family (Daughter), EMS - Critical Care Critical Care Minutes: 30 minutes - History of Present Illness Narrative History of Present Illness (Text): 06/15/18 15:35 A 77 year old female, whose past medical history includes hypertension, recurrent bronchitis, Hypothyroidism, COPD, CHF, anxiety, A- Fib on Cardizem, is brought into the emergency department via EMS with daughter for respiratory distress. Patient was seen immediately upon arrival. Patient's daughter states that she was having trouble breathing this morning. She called EMS for the patient and was given 1 Duoneb treatment in route to the hospital. The patient's daughter denies any recent illness, fever, or sick contacts. Patient is normally on 2L of oxygen at home and will increase according to activity. Patient's HPI/ ROS limited due to respiratory distress. PMD: Dr. Lopez Time/Duration: Other (This Morning) Symptom Onset: Sudden Symptom Course: Unchanged Activities at Onset: Rest, Light Context: Home Past Medical History - Provider Review Nursing Documentation Reviewed: Yes - Travel History Have you recently traveled outside [place] w/in the past 3 mons?: No - Infectious Disease Hx of Infectious Diseases: None - Tetanus Immunization Tetanus Immunization: Up to Date - Cardiac Hx Cardiac Disorders: Yes (CAD) Hx Hypertension: Yes - Pulmonary Hx Chronic Obstructive Pulmonary Disease (COPD): Yes - Neurological Hx Neurological Disorder: Yes Hx Dizziness: Yes - HEENT Hx HEENT Disorder: Yes Hx Cataracts: Yes (b/l) Other/Comment: b/l cataract surgery - Renal Hx Renal Disorder: No - Endocrine/Metabolic Hx Hypothyroidism: Yes - Hematological/Oncological Hx Blood Disorders: No - Integumentary Hx Dermatological Disorder: No - Musculoskeletal/Rheumatological Hx Falls: No - Gastrointestinal Hx Gastrointestinal Disorders: Yes (GASTROENTERITIS,) - Genitourinary/Gynecological Hx Reproductive Disorders: No - Psychiatric Hx Psychophysiologic Disorder: No Hx Substance Use: No - Surgical History Hx Cholecystectomy: Yes - Anesthesia Hx Anesthesia: Yes Hx Anesthesia Reactions: No Hx Malignant Hyperthermia: No - Suicidal Assessment Feels Threatened In Home Enviroment: No Family/Social History - Physician Review Nursing Documentation Reviewed: Yes Family/Social History: No Known Family HX Smoking Status: Former Smoker Hx Alcohol Use: No Hx Substance Use: No Hx Substance Use Treatment: No Allergies/Home Meds Allergies/Adverse Reactions: Allergies CRESTOR Adverse Reaction (Intermediate, Uncoded 01/24/17 17:45) PAIN contrast Adverse Reaction (Uncoded 01/24/17 17:45) REDNESS Home Medications: Home Meds Medication Instructions Recorded Confirmed Aspirin [Aspir 81] 325 mg PO HS 12/23/11 11/14/16 Levothyroxine [Synthroid] 112 mcg PO DAILY 12/23/11 11/14/16 Tiotropium [place] Inhaler 1 inh INH DAILY 09/01/15 11/14/16 [Spiriva Inhalation Handihaler Device] Furosemide [Lasix] 40 mg PO DAILY 10/04/15 11/14/16 Losartan [Cozaar] 100 mg PO DAILY 10/04/15 11/14/16 Potassium Chloride [Klor-Con 10] 10 meq PO DAILY 10/04/15 11/14/16 Dipyridamole [Persantine] 25 mg PO TID 04/30/16 11/14/16 Fluticasone/Salmeterol 250/50 2 inh PO PRN PRN 04/30/16 11/14/16 [Advair Diskus 250/50] Levalbuterol [Xopenex] 45 mcg IH Q2 PRN 07/12/16 11/14/16 Review of Systems - Physician Review All systems were reviewed & negative as marked: Yes - Review of Systems Systems not reviewed;Unavailable: Respiratory Distress Physical Exam Vital Signs Reviewed: Yes Temperature: Afebrile Blood Pressure: Normal Pulse: Tachycardic Respiratory Rate: Tachypneic Appearance: Positive for: Non-Toxic, Comfortable, Cachectic Pain Distress: None Mental Status: Positive for: Alert and Oriented X 3, Agitated - Systems Exam Head: Present: Atraumatic, Normocephalic Pupils: Present: PERRL Extroacular Muscles: Present: EOMI Conjunctiva: Present: Normal Mouth: Present: Moist Mucous Membranes Neck: Present: Normal Range of Motion Respiratory/Chest: Present: Respiratory Distress, Accessory Muscle Use, Wheezes, Decreased Breath Sounds (Diminished breath sounds bilaterally), Retracting, Tachypneic. No: Rales, Rhonchi Cardiovascular: Present: Regular Rate and Rhythm, Tachycardic Abdomen: Present: Normal Bowel Sounds. No: Tenderness, Distention, Peritoneal Signs Back: Present: Normal Inspection Upper Extremity: Present: Normal Inspection. No: Cyanosis, Edema Lower Extremity: Present: Normal Inspection. No: Edema (No pedal edema noted.) Neurological: Present: GCS=15, CN II-XII Intact, Speech Normal Skin: Present: Warm, Dry, Normal Color. No: Rashes Psychiatric: Present: Alert, Oriented x 3, Normal Insight, Normal Concentration Medical Decision Making ED Course and Treatment: 06/15/18 15:39 Impression: A 77 year old female is brought into the emergency department via EMS for respiratory distress. Differential Diagnosis included but are not limited to: COPD exacerbation Community Acquired PNA PTX Plan: -- EKG -- Chest X-ray -- Urinalysis -- Labs -- Duonebs --SOLU- Medrol -- Reassess and disposition Prior Visits: Notes and results from previous visits were reviewed. Patient was last admitted in 2017 for similar complaint. Progress Notes: 06/15/18 15:12 Patient noted to be tachycardic to 150s with tachypnea in 30s on 5LNC. SpO2:80s. Will place non-rebreather until respiratory therapist arrives with BiPap machine. 06/15/18 15:30 Patient placed on BiPap and noted to have marked improvement in respiratory status.; HR 102 & SpO2: 95%. Request for ABG to be performed. 06/15/18 16:00 Leukocytosis of 17 noted with ABG at baseline. Discussed case with Dr. Kacey Nuñez(hospitalist) who accepts patient onto her service. She requests Dr. Portillo(pulmonary) for consult. - Lab Interpretations I have reviewed the lab results: Yes - RAD Interpretation Narrative RAD Interpretations (Text): 06/15/18 16:30 Procedure: Chest X-ray Impression: There is minimal linear scarring at both lung bases. The nodule seen on CT is not visible on plain film Dictator: Simone Shepard MD Business Analytics Analyst: Radiologist - EKG Interpretation EKG Interpretation (Text): 06/15/18 15:41 EKG: Ordered, reviewed, and independently interpreted the EKG. Rate : 112 BPM Rhythm : Sinus Tachycardia Interpreted by ED Physician: Yes Type: 12 lead EKG - Scribe Statement The provider has reviewed the documentation as recorded by the Kirsten Rico Provider Scribe Attestation: All medical record entries made by the Scribe were at my direction and personally dictated by me. I have reviewed the chart and agree that the record accurately reflects my personal performance of the history, physical exam, medical decision making, and the department course for this patient. I have also personally directed, reviewed, and agree with the discharge instructions and disposition. Disposition/Present on Arrival - Present on Arrival Any Indicators Present on Arrival: No History of DVT/PE: No History of Uncontrolled Diabetes: No Urinary Catheter: No History of Decub. Ulcer: No History Surgical Site Infection Following: None - Disposition Have Diagnosis and Disposition been Completed?: Yes Diagnosis: COPD exacerbation Disposition: HOSPITALIZED Disposition Time: 16:15 Patient Plan: Admission Patient Problems: Current Active Problems Problem Status Onset COPD exacerbation Acute Condition: GUARDED
[2018-06-15 15:48] LABS: BASO # 0.04 K/mm3 (0.0-2.0); BASO % 0.2 % (0.0-3.0); EOS % 0.1 % (1.5-5.0); GRAN # 15.17 (1.4-6.5); GRAN % 89.5 % (50.0-68.0); HEMOGLOBIN 14.9 g/dL (12.0-16.0); LYMPH # 1.1 (1.2-3.4); LYMPH % 6.3 % (22.0-35.0); MEAN CELL VOLUME 88.3 fl (80.0-105.0); MEAN CORPUSCULAR HEMOGLOBIN 27.6 pg (25.0-35.0); MEAN CORPUSCULAR HGB CONC 31.2 g/dl (31.0-37.0); MEAN PLATELET VOLUME 10.6 fl (7.0-11.0); MONO # 0.7 (0.1-0.6); MONO % 3.9 % (1.0-6.0); RBC 5.4 10^6/uL (3.5-6.1); RED CELL DISTRIBUTION WIDTH 13.1 % (11.5-14.5)
[2018-06-15 15:48] LABS: VENOUS BLOOD GAS BASE EXCESS 0.9 mmol/L (0.0-2.0); VENOUS BLOOD GAS PO2 128 mm/Hg (30-55); VENOUS BLOOD PH 7.29 (7.32-7.43)
[2018-06-15 15:58] LABS: INR 1.11; PARTIAL THROMBOPLASTIN TIME 32.3 Seconds (25.1-36.5); PROTHROMBIN TIME 12.7 SECONDS (9.4-12.5)
[2018-06-15 16:00] LABS: ARTERIAL BLOOD GAS HCO3 24.8 mmol/L (21-28); ARTERIAL BLOOD GAS HEMOGLOBIN 13.4 g/dL (11.7-17.4); ARTERIAL BLOOD GAS O2 CAPACITY 18.6 mL/dl (16-24); ARTERIAL BLOOD GAS O2 CONTENT 18.2 ML/dl (15-23); ARTERIAL BLOOD GAS O2 SAT 98.1 % (95-98); ARTERIAL BLOOD GAS PCO2 45 mm/Hg (35-45); ARTERIAL BLOOD GAS PH 7.35 (7.35-7.45); ARTERIAL BLOOD GAS TCO2 26.2 mmol.L (22-28)
[2018-06-15 16:03] LABS: ALB/GLOB RATIO 1.2 (1.1-1.8); ALBUMIN 4.1 g/dL (3.0-4.8); ALT/SGPT 18 U/L (7-56); AST/SGOT 20 U/L (14-36); BLOOD UREA NITROGEN 11 mg/dL (7-21); CALCIUM 10.3 mg/dL (8.4-10.5); GFR NON-AFRICAN AMERICAN > 60
--- NOTE | 2018-06-15 16:11 | RAD ---
Date of service: 06/15/2018 HISTORY: sob COMPARISON: 01/24/2017 FINDINGS: LUNGS: There is minimal linear scarring at both lung bases. The nodule seen on CT is not visible on plain film PLEURA: No significant pleural effusion identified, no pneumothorax apparent. CARDIOVASCULAR: Aortic calcifications are seen Normal cardiac size. No pulmonary vascular congestion. OSSEOUS STRUCTURES: No significant abnormalities. VISUALIZED UPPER ABDOMEN: Normal. OTHER FINDINGS: None. IMPRESSION: There is minimal linear scarring at both lung bases. The nodule seen on CT is not visible on plain film
[2018-06-15 16:15] LABS: B-TYPE NATRIURETIC PEPTIDE 127 pg/mL (0-450); TROPONIN I < 0.01 ng/mL
[2018-06-15] MEDS ORDERED: Levalbuterol 1.25 MG/3 ML Inhal Soln UD IH SCH (17:00)
--- NOTE | 2018-06-15 17:42 | CP.PCM.HP ---
<Randy Pollock - Last Filed: 06/15/18 17:57> History of Present Illness - History of Present Illness History of Present Illness: Randy Pollock DO, PGY-1 Hospitalist Admission History and Physical for Dr. Briones CC: SOB HPI: Ms. Guerrero is a 77 year old female with PMH of COPD (on home O2 2L), AFib (on cardizem), lung nodules (followed by pulmonology), hypothyroidism, and HTN p resents to ED with worsening shortness of breath that is chronic but worsening over the past 3 days. She states that she is still able to ambulate short distances around her house normally but she has been having difficulty even getting to the bathroom for the past 3 days. The shortness of breath is worse with exertion and improves a little when she rests. She also complains of worsening LE swelling that she states has gotten worse over the past month. She denies fever/chills, CP, cough, congestion, abdominal pain/nausea/vomiting, or peripheral numbness/tingling. PMH: COPD (on home O2 2L), AFib (on cardizem), lung nodules (followed by pulmonology), hypothyroidism, and HTN PSH: cholecystectomy All: statins, IV contrast Fam Hx: reviewed, non-contributory Soc Hx: admits to 40 pack year smoking history but quit > 10 years ago. She denies alcohol or other drug use. Lives alone at home and is normally able to function independently Home meds: lasix 40 daily, spiriva, potassium 10 mEq daily, synthroid 88 mcg daily, advair 230/21 2 puffs daily, protonix 20 daily, lexapro 10 daily, xanax 0.25 BID, cardizem 240 daily Preferred Pharmacy: [facility] (called to verify med list) Present on Admission - Present on Admission Any Indicators Present on Admission: No History of DVT/PE: No History of Uncontrolled Diabetes: No Urinary Catheter: No Decubitus Ulcer Present: No Review of Systems - Constitutional Constitutional: absent: Chills, Fever - EENT Eyes: absent: Blurred Vision, Change in Vision Nose/Mouth/Throat: absent: Nasal Congestion, Post Nasal Drip, Sore Throat - Cardiovascular Cardiovascular: Dyspnea, Dyspnea on Exertion, Edema. absent: Chest Pain, Diaphoresis, Orthopnea, Paroxysmal Nocturnal Dyspnea, Rapid Heart Rate - Respiratory Respiratory: Dyspnea. absent: Cough, Hemoptysis - Gastrointestinal Gastrointestinal: absent: Abdominal Pain, Nausea, Vomiting - Genitourinary Genitourinary: absent: Change in Urinary Stream Past Patient History - Infectious Disease Hx of Infectious Diseases: None - Tetanus Immunizations Tetanus Immunization: Up to Date - Past Social History Smoking Status: Former Smoker - CARDIAC Hx Cardiac Disorders: Yes (CAD) Hx Hypertension: Yes - PULMONARY Hx Chronic Obstructive Pulmonary Disease (COPD): Yes - NEUROLOGICAL Hx Neurological Disorder: Yes Hx Dizziness: Yes - HEENT Hx HEENT Problems: Yes Hx Cataracts: Yes (b/l) Other/Comment: b/l cataract surgery - RENAL Hx Chronic Kidney Disease: No - ENDOCRINE/METABOLIC Hx Hypothyroidism: Yes - HEMATOLOGICAL/ONCOLOGICAL Hx Blood Disorders: No - INTEGUMENTARY Hx Dermatological Problems: No - MUSCULOSKELETAL/RHEUMATOLOGICAL Hx Falls: No - GASTROINTESTINAL Hx Gastrointestinal Disorders: Yes (GASTROENTERITIS,) - GENITOURINARY/GYNECOLOGICAL Hx Reproductive Disorders: No - PSYCHIATRIC Hx Psychophysiologic Disorder: No Hx Substance Use: No - SURGICAL HISTORY Hx Cholecystectomy: Yes - ANESTHESIA Hx Anesthesia: Yes Hx Anesthesia Reactions: No Hx Malignant Hyperthermia: No Meds Allergies/Adverse Reactions: Allergies Allergy/AdvReac Type Severity Reaction Status Date / Time CRESTOR AdvReac Intermediate PAIN Uncoded 01/24/17 17:45 contrast AdvReac REDNESS Uncoded 01/24/17 17:45 Physical Exam - Constitutional Additional comments: In general, Ms. Guerrero appears uncomfortable and short of breath but not in significant respiratory distress, she is on bipap currently - Head Exam Head Exam: ATRAUMATIC, NORMOCEPHALIC - Eye Exam Eye Exam: EOMI, Normal appearance, PERRL - ENT Exam ENT Exam: Mucous Membranes Moist - Neck Exam Neck exam: Positive for: Full Rom, Normal Inspection - Respiratory Exam Respiratory Exam: Accessory Muscle Use, Decreased Breath Sounds (decreased breath sounds b/l), Rales (faint rales at bases b/l). absent: Rhonchi, Wheezes - Cardiovascular Exam Cardiovascular Exam: Tachycardia, RRR, +S1, +S2. absent: Diastolic murmur, Gallop, Rubs, Systolic Murmur - GI/Abdominal Exam GI & Abdominal Exam: Normal Bowel Sounds, Soft. absent: Guarding, Tenderness - Extremities Exam Extremities exam: Positive for: full ROM, normal inspection - Back Exam Back exam: NORMAL INSPECTION - Neurological Exam Neurological exam: Alert, Oriented x3 - Psychiatric Exam Psychiatric exam: Normal Affect, Normal Mood - Skin Skin Exam: Dry, Intact, Warm Results - Vital Signs Recent Vital Signs: Last Vital Signs Temp 98.4 F 06/15/18 16:42 Pulse 105 H 06/15/18 16:42 Resp 24 06/15/18 16:42 BP 133/73 06/15/18 16:42 Pulse Ox 100 06/15/18 16:42 - Labs Result Diagrams: 06/15/18 15:36 06/15/18 15:36 Labs: Laboratory Results - last 24 hr 06/15/18 06/15/18 06/15/18 15:36 15:36 15:36 WBC 17.0 H RBC 5.40 Hgb 14.9 Hct 47.7 MCV 88.3 MCH 27.6 MCHC 31.2 RDW 13.1 Plt Count 406 MPV 10.6 Gran % 89.5 H Lymph % (Auto) 6.3 L [place] % (Auto) 3.9 Eos % (Auto) 0.1 L Baso % (Auto) 0.2 Gran # 15.17 H Lymph # (Auto) 1.1 L [place] # (Auto) 0.7 H Eos # (Auto) 0.0 Baso # (Auto) 0.04 PT 12.7 H INR 1.11 APTT 32.3 D-Dimer, Quantitative 315 H pCO2 pO2 HCO3 ABG pH ABG Total CO2 ABG O2 Saturation ABG O2 Content ABG Base Excess ABG Hemoglobin ABG Carboxyhemoglobin POC ABG HHb (Measured) ABG Methemoglobin ABG O2 Capacity VBG pH VBG pCO2 VBG HCO3 VBG Total CO2 VBG O2 Sat (Calc) VBG Base Excess VBG Potassium Hgb O2 Saturation Glucose Lactate FiO2 Sodium 137 Potassium 4.4 Chloride 96 L Carbon Dioxide 29 Anion Gap 16 BUN 11 Creatinine 0.6 L Est GFR ( Amer) > 60 Est GFR (Non-Af Amer) > 60 Random Glucose 207 H Calcium 10.3 Magnesium 1.9 Total Bilirubin 0.5 AST 20 ALT 18 Alkaline Phosphatase 97 Troponin I < 0.01 NT-Pro-B Natriuret Pep 127 Total Protein 7.7 Albumin 4.1 Globulin 3.6 Albumin/Globulin Ratio 1.2 Venous Blood Potassium 06/15/18 06/15/18 15:42 15:50 WBC RBC Hgb Hct MCV MCH MCHC RDW Plt Count MPV Gran % Lymph % (Auto) [place] % (Auto) Eos % (Auto) Baso % (Auto) Gran # Lymph # (Auto) [place] # (Auto) Eos # (Auto) Baso # (Auto) PT INR APTT D-Dimer, Quantitative pCO2 45 pO2 128 H 97.0 HCO3 24.8 ABG pH 7.35 ABG Total CO2 26.2 ABG O2 Saturation 98.1 H ABG O2 Content 18.2 ABG Base Excess -1.1 ABG Hemoglobin 13.4 ABG Carboxyhemoglobin 1.2 POC ABG HHb (Measured) 1.9 ABG Methemoglobin 0.9 ABG O2 Capacity 18.6 VBG pH 7.29 L VBG pCO2 60.0 VBG HCO3 28.9 H VBG Total CO2 30.7 H VBG O2 Sat (Calc) 99.1 H VBG Base Excess 0.9 VBG Potassium 4.3 Hgb O2 Saturation 96.0 Glucose 215 H Lactate 2.5 H FiO2 21.0 40.0 Sodium 134.0 Potassium Chloride 97.0 L Carbon Dioxide Anion Gap BUN Creatinine Est GFR ( Amer) Est GFR (Non-Af Amer) Random Glucose Calcium Magnesium Total Bilirubin AST ALT Alkaline Phosphatase Troponin I NT-Pro-B Natriuret Pep Total Protein Albumin Globulin Albumin/Globulin Ratio Venous Blood Potassium 4.3 Assessment & Plan - Assessment and Plan (Free Text) Assessment: 77 yo F with PMH of COPD (on home O2 2L), AFib (on cardizem), lung nodules (followed by pulmonology), hypothyroidism, and HTN is admitted for acute COPD exacerbation. Plan: 1. Shortness of breath Likely 2/2 COPD exacerbation Patient on bipap on initial exam and states SOB is improving Can wean off bipap and use at night Patient has sinus tachycardia on exam and on EKG Will start xopenex/atrovent q4h carmen and duo-neb q2h PRN for SOB Solumedrol 40 mg IVP q12h Zithromax 500 x 1 dose, plan to continue 250 daily 2. Sinus tachycardia Likely 2/2 worsening SOB/anxiety Patient has hx of AFib Continue home cardizem Use duo-neb only PRN Consider cardiology consultation if worsens or if new arrhythmia develops Monitor closely on telemetry 3. Hx hypothyroidism Continue synthroid 4. Hx HTN Continue home losartan DVT/GI PPX: Lovenox, protonix Full Code HHD Monitor on telemetry Case and plan reviewed and discussed with my attending Dr. Anselmo Pollock, DO IM Resident PGY-1 <Tina Briones - Last Filed: 06/16/18 14:13> Results - Vital Signs Recent Vital Signs: Last Vital Signs Temp 98.7 F 06/16/18 12:00 Pulse 126 H 06/16/18 12:00 Resp 18 06/16/18 12:00 BP 147/65 06/16/18 12:00 Pulse Ox 95 06/16/18 07:00 - Labs Result Diagrams: 06/16/18 06:30 06/16/18 06:30 Labs: Laboratory Results - last 24 hr 06/15/18 06/15/18 06/15/18 15:36 15:36 15:36 WBC 17.0 H RBC 5.40 Hgb 14.9 Hct 47.7 MCV 88.3 MCH 27.6 MCHC 31.2 RDW 13.1 Plt Count 406 MPV 10.6 Gran % 89.5 H Lymph % (Auto) 6.3 L [place] % (Auto) 3.9 Eos % (Auto) 0.1 L Baso % (Auto) 0.2 Gran # 15.17 H Lymph # (Auto) 1.1 L [place] # (Auto) 0.7 H Eos # (Auto) 0.0 Baso # (Auto) 0.04 Neutrophils % (Manual) Lymphocytes % (Manual) Monocytes % (Manual) Platelet Evaluation PT 12.7 H INR 1.11 APTT 32.3 D-Dimer, Quantitative 315 H pCO2 pO2 HCO3 ABG pH ABG Total CO2 ABG O2 Saturation ABG O2 Content ABG Base Excess ABG Hemoglobin ABG Carboxyhemoglobin POC ABG HHb (Measured) ABG Methemoglobin ABG O2 Capacity VBG pH VBG pCO2 VBG HCO3 VBG Total CO2 VBG O2 Sat (Calc) VBG Base Excess VBG Potassium Hgb O2 Saturation Glucose Lactate FiO2 Sodium 137 Potassium 4.4 Chloride 96 L Carbon Dioxide 29 Anion Gap 16 BUN 11 Creatinine 0.6 L Est GFR ( Amer) > 60 Est GFR (Non-Af Amer) > 60 Random Glucose 207 H Calcium 10.3 Phosphorus Magnesium 1.9 Total Bilirubin 0.5 AST 20 ALT 18 Alkaline Phosphatase 97 Troponin I < 0.01 NT-Pro-B Natriuret Pep 127 Total Protein 7.7 Albumin 4.1 Globulin 3.6 Albumin/Globulin Ratio 1.2 Venous Blood Potassium 06/15/18 06/15/18 06/15/18 15:42 15:50 19:35 WBC RBC Hgb Hct MCV MCH MCHC RDW Plt Count MPV Gran % Lymph % (Auto) [place] % (Auto) Eos % (Auto) Baso % (Auto) Gran # Lymph # (Auto) [place] # (Auto) Eos # (Auto) Baso # (Auto) Neutrophils % (Manual) Lymphocytes % (Manual) Monocytes % (Manual) Platelet Evaluation PT INR APTT D-Dimer, Quantitative pCO2 45 pO2 128 H 97.0 82 H HCO3 24.8 ABG pH 7.35 ABG Total CO2 26.2 ABG O2 Saturation 98.1 H ABG O2 Content 18.2 ABG Base Excess -1.1 ABG Hemoglobin 13.4 ABG Carboxyhemoglobin 1.2 POC ABG HHb (Measured) 1.9 ABG Methemoglobin 0.9 ABG O2 Capacity 18.6 VBG pH 7.29 L 7.38 VBG pCO2 60.0 51.0 VBG HCO3 28.9 H 30.2 H VBG Total CO2 30.7 H 31.8 H VBG O2 Sat (Calc) 99.1 H 97.4 H VBG Base Excess 0.9 3.9 H VBG Potassium 4.3 4.4 Hgb O2 Saturation 96.0 Glucose 215 H 230 H Lactate 2.5 H 1.4 FiO2 21.0 40.0 21.0 Sodium 134.0 133.0 Potassium Chloride 97.0 L 97.0 L Carbon Dioxide Anion Gap BUN Creatinine Est GFR ( Amer) Est GFR (Non-Af Amer) Random Glucose Calcium Phosphorus Magnesium Total Bilirubin AST ALT Alkaline Phosphatase Troponin I NT-Pro-B Natriuret Pep Total Protein Albumin Globulin Albumin/Globulin Ratio Venous Blood Potassium 4.3 4.4 06/16/18 06/16/18 06:30 06:30 WBC 8.2 D RBC 5.26 Hgb 14.3 Hct 45.5 MCV 86.5 MCH 27.2 MCHC 31.4 RDW 12.9 Plt Count 386 MPV 10.7 Gran % 95.1 H Lymph % (Auto) 2.9 L [place] % (Auto) 2.0 Eos % (Auto) 0.0 L Baso % (Auto) 0.0 Gran # 7.75 H Lymph # (Auto) 0.2 L [place] # (Auto) 0.2 Eos # (Auto) 0.0 Baso # (Auto) 0.00 Neutrophils % (Manual) 95 H Lymphocytes % (Manual) 3 L Monocytes % (Manual) 2 Platelet Evaluation Normal PT INR APTT D-Dimer, Quantitative pCO2 pO2 HCO3 ABG pH ABG Total CO2 ABG O2 Saturation ABG O2 Content ABG Base Excess ABG Hemoglobin ABG Carboxyhemoglobin POC ABG HHb (Measured) ABG Methemoglobin ABG O2 Capacity VBG pH VBG pCO2 VBG HCO3 VBG Total CO2 VBG O2 Sat (Calc) VBG Base Excess VBG Potassium Hgb O2 Saturation Glucose Lactate FiO2 Sodium 136 Potassium 4.1 Chloride 96 L Carbon Dioxide 30 Anion Gap 14 BUN 13 Creatinine 0.6 L Est GFR ( Amer) > 60 Est GFR (Non-Af Amer) > 60 Random Glucose 203 H Calcium 10.0 Phosphorus 3.0 Magnesium 1.9 Total Bilirubin 0.4 AST 17 ALT 18 Alkaline Phosphatase 82 Troponin I NT-Pro-B Natriuret Pep Total Protein 7.3 Albumin 4.0 Globulin 3.3 Albumin/Globulin Ratio 1.2 Venous Blood Potassium Attending/Attestation - Attestation I have personally seen and examined this patient.: Yes I have fully participated in the care of the patient.: Yes I have reviewed all pertinent clinical information: Yes Notes (Text): 06/16/18 14:09 Medical record note made by the resident after discussion with my direction and input after the patient was personally seen and examined by me. I have reviewed the chart and agree that the record accurately reflects by personal performance of the history, physical exam, data review, and medical decision-making, in the course for the patient. I have also personally directed the plan of care. 77 year old female with PMH of COPD (on home O2 2L), AFib (on cardizem), lung nodules (followed by pulmonology), hypothyroidism, and HTN is admitted with hypercapnic hypoxic Resp Failure due to COPD exacerbation , also has mild acute on chronic diastolic CHF. Patient has responded well to Neb/Steroid and BIPAP in ER.Hypercapnia and acidosis is improved. Continue Neb/Steroid and antibiotics.We will use BIPAP at night time and PRN. Continue IV lasix, will follow up BUN/Creatinin. Management plan was discussed in detail with patient. Education was provided.
[2018-06-15] MEDS ORDERED: Azithromycin 500MG/NS 250ml 500 MG/250 ML BAG IVPB STA (17:46)
[2018-06-15] MEDS ORDERED: Albuterol-Ipratrop 3 mg / 0.5 (3 ml) UD IH PRN (17:56)
[2018-06-15 19:47] LABS: VENOUS BLOOD GAS BASE EXCESS 3.9 mmol/L (0.0-2.0); VENOUS BLOOD GAS PO2 82 mm/Hg (30-55); VENOUS BLOOD PH 7.38 (7.32-7.43)
[2018-06-15 20:49] VITALS: BMI 21.9
[2018-06-15] MEDS: MethylPREDNISolone 40 mg Vial IVP SCH (21:30)
[2018-06-15] MEDS ORDERED: MethylPREDNISolone 40 mg Vial IVP SCH (22:00)
[2018-06-15] MEDS ORDERED: Aspirin 325 mg EC Tablets PO SCH (22:00)
[2018-06-15] MEDS: Ipratropium 0.02% Inhal Soln (0.5 mg/2.5 ml) UD IH SCH (23:54)
[2018-06-15] MEDS: Levalbuterol 1.25 MG/3 ML Inhal Soln UD IH SCH (23:55)
[2018-06-16] MEDS: Ipratropium 0.02% Inhal Soln (0.5 mg/2.5 ml) UD IH SCH ×5 (04:29→21:00)
[2018-06-16] MEDS: Levalbuterol 1.25 MG/3 ML Inhal Soln UD IH SCH ×3 (04:29→11:20)
[2018-06-16] MEDS: Pantoprazole 40 mg EC Tab PO SCH (06:39)
[2018-06-16 07:27] LABS: GRAN # 7.75 (1.4-6.5); GRAN % 95.1 % (50.0-68.0); HEMOGLOBIN 14.3 g/dL (12.0-16.0); LYMPH # 0.2 (1.2-3.4); LYMPH % 2.9 % (22.0-35.0); MEAN CELL VOLUME 86.5 fl (80.0-105.0); MEAN CORPUSCULAR HEMOGLOBIN 27.2 pg (25.0-35.0); MEAN CORPUSCULAR HGB CONC 31.4 g/dl (31.0-37.0); MEAN PLATELET VOLUME 10.7 fl (7.0-11.0); MONO # 0.2 (0.1-0.6); PLATELET COUNT 386 10^3/uL (120.0-450.0); RBC 5.26 10^6/uL (3.5-6.1); RED CELL DISTRIBUTION WIDTH 12.9 % (11.5-14.5); WHITE BLOOD COUNT 8.2 10^3/uL (4.5-11.0)
[2018-06-16] MEDS ORDERED: Levothyroxine 112 MCG TAB PO SCH ×2 (07:30)
[2018-06-16 07:51] LABS: ALB/GLOB RATIO 1.2 (1.1-1.8); ALT/SGPT 18 U/L (7-56); AST/SGOT 17 U/L (14-36); BLOOD UREA NITROGEN 13 mg/dL (7-21); GFR NON-AFRICAN AMERICAN > 60
[2018-06-16] MEDS: Levothyroxine 88 MCG TAB PO SCH (07:53)
--- NOTE | 2018-06-16 07:57 | CARD ---
APPROVED REPORT Date of service: 06/15/2018 EKG Measurement Heart [id number] <Conclusion> Sinus tachycardia Possible Left atrial enlargement Borderline ECG
[2018-06-16 08:42] LABS: LYMPHOCYTE 3 % (22.0-35.0); MONOCYTE 2 % (1.0-6.0); NEUTROPHIL 95 % (50.0-70.0)
[2018-06-16 08:43] LABS: PLATELET ESTIMATE NORMAL (NORMAL)
[2018-06-16] MEDS: diltiaZEM 240 mg/24 Hours CD Cap PO SCH (09:35)
[2018-06-16] MEDS: MethylPREDNISolone 40 mg Vial IVP SCH ×2 (09:35→22:21)
[2018-06-16] MEDS: Enoxaparin 40 mg Syringe SC SCH (09:36)
[2018-06-16] MEDS ORDERED: diltiaZEM 180 mg/24 Hours CD Cap PO SCH ×2 (10:00)
[2018-06-16] MEDS ORDERED: Aspirin 325 mg EC Tablets PO SCH (10:00)
--- NOTE | 2018-06-16 10:09 | CP.PCM.PN ---
<Hiren Penny - Last Filed: 06/16/18 16:38> Subjective - Date & Time of Evaluation Date of Evaluation: 06/16/18 Time of Evaluation: 10:09 - Subjective Subjective: PGY-1 Medicine Progress Note for Dr. Briones Patient seen and examined at bedside this AM on 2L NC, in no acute respiratory distress. No acute events reported overnight. SOB clinically improving, no audible wheezing appreciated. Pt asking appropriate questions, denies any somatic complaints at this time. Objective - Vital Signs/Intake and Output Vital Signs (last 24 hours): Temp Pulse Resp BP Pulse Ox 97.6 F 103 H 21 124/61 95 06/16/18 06:00 06/16/18 09:35 06/16/18 06:00 06/16/18 09:35 06/16/18 07:00 Intake and Output: 06/16/18 06/16/18 06:59 18:59 Intake Total 120 Output Total 1500 Balance -1380 - Medications Medications: Current Medications Albuterol/Ipratropium (Duoneb 3 Mg/0.5 Mg (3 Ml) Ud) 3 ml IH Q2H PRN PRN Reason: Shortness of Breath Aspirin (Ecotrin) 81 mg PO DAILY [facility] Last Admin: 06/16/18 09:35 Dose: 81 mg Diltiazem HCl (Cardizem Cd) 240 mg PO DAILY [facility] Last Admin: 06/16/18 09:35 Dose: 240 mg Dipyridamole (Persantine) 25 mg PO TID [facility] Last Admin: 06/15/18 23:30 Dose: 25 mg Enoxaparin Sodium (Lovenox) 40 mg SC DAILY [facility]; Protocol Last Admin: 06/16/18 09:36 Dose: 40 mg Escitalopram Oxalate (Lexapro) 10 mg PO DAILY [facility] Last Admin: 06/16/18 09:35 Dose: 10 mg Furosemide (Lasix) 20 mg IVP 0600,1800 [facility] Last Admin: 06/16/18 06:35 Dose: 20 mg Ipratropium [place] (Atrovent) 0.5 mg IH [id number] [facility] Last Admin: 06/16/18 07:52 Dose: 0.5 mg Levalbuterol HCl (Xopenex) 1.25 mg IH [id number] [facility] Last Admin: 06/16/18 07:52 Dose: 1.25 mg Levothyroxine Sodium (Synthroid) 88 mcg PO ACB [facility] Last Admin: 06/16/18 07:53 Dose: 88 mcg Losartan Potassium (Cozaar) 100 mg PO DAILY [facility] Last Admin: 06/16/18 09:35 Dose: 100 mg Methylprednisolone (Solu-Medrol) 40 mg IVP Q12 [facility] Last Admin: 06/16/18 09:35 Dose: 40 mg Pantoprazole Sodium (Protonix Ec Tab) 40 mg PO 0600 [facility] Last Admin: 06/16/18 06:39 Dose: 40 mg - Labs Labs: 06/16/18 06:30 06/16/18 06:30 PT 12.7 SECONDS (9.4-12.5) H 06/15/18 15:36 INR 1.11 06/15/18 15:36 APTT 32.3 Seconds (25.1-36.5) 06/15/18 15:36 - Constitutional Appears: Non-toxic, No Acute Distress - Head Exam Head Exam: ATRAUMATIC, NORMAL INSPECTION, NORMOCEPHALIC - Eye Exam Eye Exam: EOMI, Normal appearance Pupil Exam: NORMAL ACCOMODATION - ENT Exam ENT Exam: Mucous Membranes Moist, Normal Exam - Neck Exam Neck Exam: Full ROM, Normal Inspection - Respiratory Exam Respiratory Exam: Clear to Ausculation Bilateral, NORMAL BREATHING PATTERN. absent: Accessory Muscle Use, Rales, Rhonchi, Wheezes, Respiratory Distress - Cardiovascular Exam Cardiovascular Exam: Tachycardia, +S1, +S2 - GI/Abdominal Exam GI & Abdominal Exam: Soft, Normal Bowel Sounds. absent: Distended, Firm, Guarding, Rigid, Tenderness, Organomegaly, Rebound - Extremities Exam Extremities Exam: Full ROM, Normal Capillary Refill, Normal Inspection. absent: Calf Tenderness, Joint Swelling, Pedal Edema - Back Exam Back Exam: NORMAL INSPECTION - Neurological Exam Neurological Exam: Alert, Awake, Oriented x3 - Psychiatric Exam Psychiatric exam: Normal Affect, Normal Mood - Skin Skin Exam: Dry, Intact, Normal Color, Warm Assessment and Plan - Assessment and Plan (Free Text) Assessment: 77 yo F with PMH of COPD (on home O2 2L), AFib (on cardizem), lung nodules (followed by pulmonology), hypothyroidism, and HTN is admitted for acute COPD exacerbation. Plan: COPD exacerbation --weaning off bipap, using at night --pt has sinus tachycardia on exam and EKG --Pulmonary recs (Dr. Muñoz) appreciated -pt was tachycardic after duoneb tx; we will switch duoneb to xopenex -pt is on low dose steroids as well as zithromax due to elevate WBC -c/w current tx but d/c bipap during day, leave bipap only at night and PRN --Medications -xopenex q6 CHARAN, q4 PRN -atrovent 0.5mg IH q6H -duoneb q2 prn -solumedrol 40 mg IVP q12 Sinus tachycardia --Likely 2/2 worsening SOB/anxiety --Patient has hx of AFib --continue to monitor closely on telemetry --Medications -cardizem 240 mg PO daily -dipyridamole 25 mg PO TID Hx hypothyroidism --Continue home synthroid HTN --Continue home losartan PPx, Diet, Disposition --DVT: Lovenox --GI: protonix --Full Code --Diet: HHD Dispositon: continue to monitor on telemetry Case discussed with Dr. Anselmo Penny DO, PGY-1 <Tina Briones - Last Filed: 06/17/18 13:48> Objective - Vital Signs/Intake and Output Vital Signs (last 24 hours): Temp Pulse Resp BP Pulse Ox 97.9 F 89 18 105/55 L 93 L 06/17/18 12:00 06/17/18 12:00 06/17/18 12:00 06/17/18 12:00 06/17/18 06:00 Intake and Output: 06/17/18 06/17/18 06:59 18:59 Intake Total Output Total Balance - Medications Medications: Current Medications Albuterol/Ipratropium (Duoneb 3 Mg/0.5 Mg (3 Ml) Ud) 3 ml IH Q2H PRN PRN Reason: Shortness of Breath Aspirin (Ecotrin) 81 mg PO DAILY [facility] Last Admin: 06/17/18 11:04 Dose: 81 mg Diltiazem HCl (Cardizem Cd) 240 mg PO DAILY [facility] Last Admin: 06/17/18 11:03 Dose: 240 mg Dipyridamole (Persantine) 25 mg PO TID [facility] Last Admin: 06/17/18 11:04 Dose: 25 mg Enoxaparin Sodium (Lovenox) 40 mg SC DAILY [facility]; Protocol Last Admin: 06/17/18 11:03 Dose: 40 mg Escitalopram Oxalate (Lexapro) 10 mg PO DAILY [facility] Last Admin: 06/17/18 11:04 Dose: 10 mg Furosemide (Lasix) 20 mg IVP 0600,1800 [facility] Last Admin: 06/17/18 06:23 Dose: 20 mg Furosemide (Lasix) 20 mg PO DAILY [facility] Ipratropium [place] (Atrovent) 0.5 mg IH [id number] [facility] Last Admin: 06/17/18 08:01 Dose: 0.5 mg Levalbuterol HCl (Xopenex) 0.63 mg IH Q4 PRN PRN Reason: Shortness of Breath Last Admin: 06/17/18 00:37 Dose: 0.63 mg Levalbuterol HCl (Xopenex) 0.63 mg IH [id number] [facility] Last Admin: 06/17/18 08:01 Dose: 0.63 mg Levothyroxine Sodium (Synthroid) 88 mcg PO ACB [facility] Last Admin: 06/17/18 08:44 Dose: 88 mcg Losartan Potassium (Cozaar) 100 mg PO DAILY [facility] Last Admin: 06/17/18 11:03 Dose: 100 mg Methylprednisolone (Solu-Medrol) 40 mg IVP Q12 [facility] Last Admin: 06/17/18 11:01 Dose: 40 mg Pantoprazole Sodium (Protonix Ec Tab) 40 mg PO 0600 [facility] Last Admin: 06/17/18 06:23 Dose: 40 mg - Labs Labs: 06/17/18 08:00 06/17/18 08:00 PT 12.7 SECONDS (9.4-12.5) H 06/15/18 15:36 INR 1.11 06/15/18 15:36 APTT 32.3 Seconds (25.1-36.5) 06/15/18 15:36 Attending/Attestation - Attestation I have personally seen and examined this patient.: Yes I have fully participated in the care of the patient.: Yes I have reviewed all pertinent clinical information, including history, physical exam and plan: Yes Notes (Text): 06/17/18 13:45 Medical record note made by the resident after discussion with my direction and input after the patient was personally seen and examined by me. I have reviewed the chart and agree that the record accurately reflects by personal performance of the history, physical exam, data review, and medical decision-making, in the course for the patient. I have also personally directed the plan of care. 77 year old female with PMH of COPD (on home O2 2L), AFib (on cardizem), lung nodules (followed by pulmonology), hypothyroidism, and HTN is admitted with hypercapnic hypoxic Resp Failure due to COPD exacerbation, also has mild acute on chronic diastolic CHF Patient is feeling better.Cough and dyspnea is improving.She is off BIPAP. We will decrease dose of steroid to 40 mg IVPB daily.. Lasix dose can also be changed to 20 mg BID. Management plan was discussed in detail with patient. Education was provided. 06/17/18 13:47
[2018-06-16] MEDS ORDERED: Levalbuterol 0.63 MG/3 ML Inhal Soln UD IH PRN ×2 (12:08→12:20)
[2018-06-16] MEDS ORDERED: Levalbuterol 0.63 MG/3 ML Inhal Soln UD IH SCH ×3 (14:00)
[2018-06-16] MEDS: Levalbuterol 0.63 MG/3 ML Inhal Soln UD IH SCH ×2 (14:55→21:00)
--- NOTE | 2018-06-16 15:22 | CON ---
PULMONARY CONSULTATION DATE OF CONSULTATION: 06/16/2018 The patient was examined on telemetry. HISTORY OF PRESENT ILLNESS: The patient reports that she became short of breath suddenly at home. She has a pulse oximeter, and when the pulse oximeter went down to below 80, she panicked and felt that she cannot breathe. She did not have enough time to give herself respiratory treatment. She called an ambulance and was brought to emergency room. The patient is known with severe chronic obstructive pulmonary disease. She is on home oxygen. She is getting nebulizer treatments with Brovana and budesonide. PAST MEDICAL HISTORY: Her other past medical history includes atrial fibrillation, lung nodules, hypothyroidism, and hypertension. PAST SURGICAL HISTORY: Cholecystectomy. FAMILY HISTORY: No inherited diseases. SOCIAL HISTORY: Admits to 4 packs per day smoking, quit more than 10 years ago. Denies alcohol or drugs. MEDICATIONS: Reviewed as per MAR. She is on diuretics and antidepressants as well as Advair and Synthroid. REVIEW OF SYSTEMS: Conducted by reviewing all sources. CONSTITUTIONAL: Denies fever or chills. EARS, NOSE, AND THROAT: Denies nasal congestion or sore throat. CARDIOVASCULAR: Positive for dyspnea on exertion. RESPIRATORY: See history of present illness. GASTROINTESTINAL: No nausea, vomiting, or diarrhea. GENITOURINARY: No dysuria or hematuria. The rest of the systems were reviewed and found to be negative. PHYSICAL EXAMINATION: VITAL SIGNS: Temperature is 98, blood pressure is 112/70, pulse oximetry currently is 99 on nasal cannula. We added respiratory treatment that she is currently receiving. HEAD: Normocephalic and atraumatic. NECK: Supple with no jugular vein distention. CARDIOVASCULAR: S1 and S2. No S3. Irregular. PULMONARY: Markedly diminished breath sounds bilaterally with no rhonchi, rales, or wheezing. She is moving air. GI: Soft, nontender. No organomegaly. : No CVA tenderness. EXTREMITIES: No pedal edema. SKIN: Clear with no acute skin rash. No cyanosis. NEUROLOGIC: No focal deficits. The patient is obviously anxious. LABORATORY DATA: Her blood work was reviewed. WBC is 17.0, hemoglobin 14.9, platelet count 406,000. Sodium 137, potassium 4.4, chloride 96. Arterial blood gas, pCO2 of 45, pO2 of 97, pH of 7.35. Her initial venous blood gas showed pH of 7.29, which is also within normal range for a venous gas. ASSESSMENT/PLAN: Exacerbation of chronic obstructive pulmonary disease. The patient was placed on BiPAP initially in emergency room with improvement in shortness of breath. BiPAP was weaned overnight, but the patient is still asking for BiPAP on a p.r.n. basis. She received inhalation treatments, although was tachycardic after DuoNeb. We will switch DuoNeb to Xopenex. She is on low-dose intravenous steroids as well as Zithromax because of elevated white count. We will continue with current treatment, but discontinue BiPAP during the day. We will leave BiPAP only at night and p.r.n. Costa Muñoz MD [place]
[2018-06-17] MEDS: Ipratropium 0.02% Inhal Soln (0.5 mg/2.5 ml) UD IH SCH ×5 (00:37→19:43)
[2018-06-17] MEDS: Levalbuterol 0.63 MG/3 ML Inhal Soln UD IH SCH ×4 (01:20→19:43)
[2018-06-17] MEDS: Pantoprazole 40 mg EC Tab PO SCH (06:23)
--- NOTE | 2018-06-17 07:33 | CP.PCM.PN ---
<Hiren Penny - Last Filed: 06/17/18 15:52> Subjective - Date & Time of Evaluation Date of Evaluation: 06/17/18 Time of Evaluation: 07:32 - Subjective Subjective: PGY-1 Medicine Progress Note for Dr. Briones Patient seen and examined at bedside this AM. No acute overnight events reported. Patient's respiratory status continuing to improve, weaning off NC slowly. No acute complaints at this time. Objective - Vital Signs/Intake and Output Vital Signs (last 24 hours): Temp Pulse Resp BP Pulse Ox 98.1 F 73 20 130/61 93 L 06/17/18 06:00 06/17/18 06:00 06/17/18 06:00 06/17/18 06:23 06/17/18 06:00 Intake and Output: 06/17/18 06/17/18 06:59 18:59 Intake Total Output Total Balance - Medications Medications: Current Medications Albuterol/Ipratropium (Duoneb 3 Mg/0.5 Mg (3 Ml) Ud) 3 ml IH Q2H PRN PRN Reason: Shortness of Breath Aspirin (Ecotrin) 81 mg PO DAILY [facility] Last Admin: 06/16/18 09:35 Dose: 81 mg Diltiazem HCl (Cardizem Cd) 240 mg PO DAILY [facility] Last Admin: 06/16/18 09:35 Dose: 240 mg Dipyridamole (Persantine) 25 mg PO TID [facility] Last Admin: 06/16/18 17:46 Dose: 25 mg Enoxaparin Sodium (Lovenox) 40 mg SC DAILY [facility]; Protocol Last Admin: 06/16/18 09:36 Dose: 40 mg Escitalopram Oxalate (Lexapro) 10 mg PO DAILY [facility] Last Admin: 06/16/18 09:35 Dose: 10 mg Furosemide (Lasix) 20 mg IVP 0600,1800 [facility] Last Admin: 06/17/18 06:23 Dose: 20 mg Ipratropium [place] (Atrovent) 0.5 mg IH [id number] [facility] Last Admin: 06/17/18 01:20 EST Dose: Not Given Levalbuterol HCl (Xopenex) 0.63 mg IH Q4 PRN PRN Reason: Shortness of Breath Last Admin: 06/17/18 00:37 Dose: 0.63 mg Levalbuterol HCl (Xopenex) 0.63 mg IH [id number] [facility] Last Admin: 06/17/18 01:20 EST Dose: Not Given Levothyroxine Sodium (Synthroid) 88 mcg PO ACB [facility] Last Admin: 06/16/18 07:53 Dose: 88 mcg Losartan Potassium (Cozaar) 100 mg PO DAILY [facility] Last Admin: 06/16/18 09:35 Dose: 100 mg Methylprednisolone (Solu-Medrol) 40 mg IVP Q12 [facility] Last Admin: 06/16/18 22:21 Dose: 40 mg Pantoprazole Sodium (Protonix Ec Tab) 40 mg PO 0600 [facility] Last Admin: 06/17/18 06:23 Dose: 40 mg - Labs Labs: 06/16/18 06:30 06/16/18 06:30 PT 12.7 SECONDS (9.4-12.5) H 06/15/18 15:36 INR 1.11 06/15/18 15:36 APTT 32.3 Seconds (25.1-36.5) 06/15/18 15:36 - Constitutional Appears: Non-toxic, No Acute Distress - Head Exam Head Exam: ATRAUMATIC, NORMAL INSPECTION, NORMOCEPHALIC - Eye Exam Eye Exam: EOMI, Normal appearance Pupil Exam: NORMAL ACCOMODATION, PERRL - ENT Exam ENT Exam: Mucous Membranes Moist, Normal Exam - Neck Exam Neck Exam: Full ROM, Normal Inspection - Respiratory Exam Respiratory Exam: Clear to Ausculation Bilateral, NORMAL BREATHING PATTERN. absent: Accessory Muscle Use, Respiratory Distress - Cardiovascular Exam Cardiovascular Exam: REGULAR RHYTHM, +S1, +S2 - GI/Abdominal Exam GI & Abdominal Exam: Soft, Normal Bowel Sounds. absent: Distended, Firm, Guarding, Rigid, Tenderness, Organomegaly, Rebound - Extremities Exam Extremities Exam: Full ROM, Normal Capillary Refill, Normal Inspection - Neurological Exam Neurological Exam: Alert, Awake, Oriented x3 - Psychiatric Exam Psychiatric exam: Normal Affect, Normal Mood - Skin Skin Exam: Dry, Intact, Normal Color, Warm Assessment and Plan - Assessment and Plan (Free Text) Assessment: 77 yo F with PMH of COPD (on home O2 2L), AFib (on cardizem), lung nodules (followed by pulmonology), hypothyroidism, and HTN is admitted for acute COPD exacerbation. Plan: COPD exacerbation --weaning off bipap, using at night --pt has sinus tachycardia on exam and EKG --Pulmonary recs (Dr. Muñoz) appreciated -pt was tachycardic after duoneb tx; we will switch duoneb to xopenex -pt is on low dose steroids as well as zithromax due to elevate WBC -c/w current tx but d/c bipap during day, leave bipap only at night and PRN --Medications -xopenex q6 CHARAN, q4 PRN -atrovent 0.5mg IH q6H -duoneb q2 prn -solumedrol 40 mg IVP q12 Sinus tachycardia --Likely 2/2 worsening SOB/anxiety --Patient has hx of AFib --continue to monitor closely on telemetry --Medications -cardizem 240 mg PO daily -dipyridamole 25 mg PO TID Mild acute on chronic CHF --lasix 20 mg PO BID Hx hypothyroidism --Continue home synthroid HTN --Continue home losartan PPx, Diet, Disposition --DVT: Lovenox --GI: protonix --Full Code --Diet: HHD --Dispositon: continue to monitor on telemetry Case discussed with Dr. Anselmo Penny DO, PGY-1 <Tina Briones - Last Filed: 06/17/18 18:06> Objective - Vital Signs/Intake and Output Vital Signs (last 24 hours): Temp Pulse Resp BP Pulse Ox 98.4 F 87 18 129/61 93 L 06/17/18 17:59 06/17/18 17:59 06/17/18 17:59 06/17/18 17:59 06/17/18 06:00 Intake and Output: 06/17/18 06/17/18 06:59 18:59 Intake Total Output Total Balance - Medications Medications: Current Medications Albuterol/Ipratropium (Duoneb 3 Mg/0.5 Mg (3 Ml) Ud) 3 ml IH Q2H PRN PRN Reason: Shortness of Breath Aspirin (Ecotrin) 81 mg PO DAILY [facility] Last Admin: 06/17/18 11:04 Dose: 81 mg Diltiazem HCl (Cardizem Cd) 240 mg PO DAILY [facility] Last Admin: 06/17/18 11:03 Dose: 240 mg Dipyridamole (Persantine) 25 mg PO TID [facility] Last Admin: 06/17/18 17:40 Dose: 25 mg Enoxaparin Sodium (Lovenox) 40 mg SC DAILY [facility]; Protocol Last Admin: 06/17/18 11:03 Dose: 40 mg Escitalopram Oxalate (Lexapro) 10 mg PO DAILY [facility] Last Admin: 06/17/18 11:04 Dose: 10 mg Furosemide (Lasix) 20 mg PO DAILY [facility] Last Admin: 06/17/18 17:40 Dose: 20 mg Ipratropium [place] (Atrovent) 0.5 mg IH [id number] [facility] Last Admin: 06/17/18 13:46 Dose: 0.5 mg Levalbuterol HCl (Xopenex) 0.63 mg IH Q4 PRN PRN Reason: Shortness of Breath Last Admin: 06/17/18 00:37 Dose: 0.63 mg Levalbuterol HCl (Xopenex) 0.63 mg IH [id number] [facility] Last Admin: 06/17/18 13:46 Dose: 0.63 mg Levothyroxine Sodium (Synthroid) 88 mcg PO ACB [facility] Last Admin: 06/17/18 08:44 Dose: 88 mcg Losartan Potassium (Cozaar) 100 mg PO DAILY [facility] Last Admin: 06/17/18 11:03 Dose: 100 mg Methylprednisolone (Solu-Medrol) 40 mg IVP DAILY [facility] Pantoprazole Sodium (Protonix Ec Tab) 40 mg PO 0600 [facility] Last Admin: 06/17/18 06:23 Dose: 40 mg - Labs Labs: 06/17/18 08:00 06/17/18 08:00 PT 12.7 SECONDS (9.4-12.5) H 06/15/18 15:36 INR 1.11 06/15/18 15:36 APTT 32.3 Seconds (25.1-36.5) 06/15/18 15:36 Attending/Attestation - Attestation I have personally seen and examined this patient.: Yes I have fully participated in the care of the patient.: Yes I have reviewed all pertinent clinical information, including history, physical exam and plan: Yes Notes (Text): 06/17/18 18:00 77 year old female with PMH of COPD (on home O2 2L), AFib not on any anticoagulation, (Reason Unkown)? , lung nodules (followed by pulmonology), hypothyroidism, and HTN was admitted with hypercapnic hypoxic Resp Failure due to COPD exacerbation, also has mild acute on chronic diastolic CHF. COPD is improving.Patient is not wheezing, hypoxia is close to base line.Steroid dose is decreased, can be switched to oral Prednisone in 24 hour. Pulmonary follow up is appreciated. CHF with diastolic dysfunction, Improving, will swith to oral lasix H/O AF.in NSR here in hospital, not on anticoagulation, reason unknown, will need more information from PCP. Lung Nodule, follow with Pulmonary as out patient. Management plan was discussed in detail with patient. Education was provided. 06/17/18 18:03
[2018-06-17 08:30] LABS: BASO # 0.01 K/mm3 (0.0-2.0); GRAN # 21.89 (1.4-6.5); GRAN % 94.8 % (50.0-68.0); HEMOGLOBIN 14.6 g/dL (12.0-16.0); LYMPH # 0.9 (1.2-3.4); LYMPH % 3.9 % (22.0-35.0); MEAN CELL VOLUME 86.7 fl (80.0-105.0); MEAN CORPUSCULAR HEMOGLOBIN 27.4 pg (25.0-35.0); MEAN CORPUSCULAR HGB CONC 31.7 g/dl (31.0-37.0); MEAN PLATELET VOLUME 10.7 fl (7.0-11.0); MONO # 0.3 (0.1-0.6); MONO % 1.3 % (1.0-6.0); PLATELET COUNT 417 10^3/uL (120.0-450.0); RBC 5.32 10^6/uL (3.5-6.1); WHITE BLOOD COUNT 23.1 10^3/uL (4.5-11.0)
[2018-06-17] MEDS: Levothyroxine 88 MCG TAB PO SCH (08:44)
[2018-06-17 08:55] LABS: ALB/GLOB RATIO 1.3 (1.1-1.8); ALBUMIN 3.7 g/dL (3.0-4.8); ALT/SGPT 21 U/L (7-56); AST/SGOT 19 U/L (14-36); BLOOD UREA NITROGEN 25 mg/dL (7-21); CALCIUM 10.1 mg/dL (8.4-10.5); GFR NON-AFRICAN AMERICAN > 60
--- NOTE | 2018-06-17 08:59 | PN ---
DATE: 06/17/2018 PULMONARY PROGRESS NOTE SUBJECTIVE: The patient was seen and examined at bedside. She is receiving inhalation treatment with Xopenex and she is on intravenous steroids by moderate dose. We discontinued the DuoNeb due to episodes of tachycardia. At home, she is on Brovana and Budesonide. PHYSICAL EXAMINATION: GENERAL: She is awake, alert, less short of breath. VITAL SIGNS: Temperature 98, pulse 73, respirations 20, pulse oximetry is 93 on nasal cannula, blood pressure 130/60. HEENT: Head, ears, nose and throat are within normal limits. NECK: Supple with no jugular vein distentions. CARDIOVASCULAR: S1, S2. No S3. Regular. Tachycardia. LUNGS: Diminished breath sounds bilaterally with few end expiratory wheezes. No rales. GASTROINTESTINAL: Soft, nontender. No organomegaly. EXTREMITIES: No pedal edema. No cyanosis. SKIN: No acute skin rash. NEUROLOGIC: Limited at present time. LABORATORY DATA: Reviewed. WBC is elevated at 23, hemoglobin is 14.6, today's blood work. ASSESSMENT: 1. Exacerbation of severe chronic obstructive pulmonary disease. 2. Hypoxia. 3. Bronchospasm. PLAN: We will continue Zithromax; however, I feel that the elevated white count is mostly due to steroids. She has improved markedly and no longer requires BiPAP during the day. BiPAP application at night will be made as p.r.n. We will continue current aerosol treatments and changed to Brovana and budesonide upon discharge. Costa Muñoz MD
[2018-06-17] MEDS: MethylPREDNISolone 40 mg Vial IVP SCH (11:01)
[2018-06-17] MEDS: diltiaZEM 240 mg/24 Hours CD Cap PO SCH (11:03)
[2018-06-17] MEDS: Enoxaparin 40 mg Syringe SC SCH (11:03)
[2018-06-17 15:01] LABS: LYMPHOCYTE 1 % (22.0-35.0); MONOCYTE 6 % (1.0-6.0); NEUTROPHIL 93 % (50.0-70.0); PLATELET ESTIMATE NORMAL (NORMAL)
[2018-06-18] MEDS: Levalbuterol 0.63 MG/3 ML Inhal Soln UD IH SCH ×3 (02:05→13:28)
[2018-06-18] MEDS: Ipratropium 0.02% Inhal Soln (0.5 mg/2.5 ml) UD IH SCH ×3 (02:05→13:27)
[2018-06-18] MEDS: Pantoprazole 40 mg EC Tab PO SCH (06:07)
[2018-06-18 06:45] VITALS: O2SAT 92
[2018-06-18 07:08] LABS: GRAN # 19.74 (1.4-6.5); GRAN % 90.9 % (50.0-68.0); HEMOGLOBIN 13.3 g/dL (12.0-16.0); LYMPH # 1.3 (1.2-3.4); MEAN CORPUSCULAR HGB CONC 31.1 g/dl (31.0-37.0); MEAN PLATELET VOLUME 10.6 fl (7.0-11.0); MONO # 0.7 (0.1-0.6); MONO % 3.1 % (1.0-6.0); RBC 4.92 10^6/uL (3.5-6.1); WHITE BLOOD COUNT 21.7 10^3/uL (4.5-11.0)
[2018-06-18 07:31] LABS: ALB/GLOB RATIO 1.1 (1.1-1.8); ALBUMIN 3.4 g/dL (3.0-4.8); ALT/SGPT 22 U/L (7-56); AST/SGOT 24 U/L (14-36); BLOOD UREA NITROGEN 36 mg/dL (7-21); CALCIUM 9.6 mg/dL (8.4-10.5); GFR NON-AFRICAN AMERICAN > 60
--- NOTE | 2018-06-18 07:44 | PN ---
DATE: 06/18/2018 PULMONARY NOTE SUBJECTIVE: The patient appears very comfortable this morning. She is not short of breath at rest. PHYSICAL EXAMINATION: VITAL SIGNS: Temperature is 98.4, pulse 91, respirations 18, blood pressure 120/58. Oxygen saturation ranges from 92-97%. HEENT: Normocephalic, atraumatic. No JVD. CARDIOVASCULAR: Systolic ejection murmur at the lower left sternal border. No S3 gallop. LUNGS: Clear bilaterally. EXTREMITIES: No clubbing, cyanosis or edema. Calves are nontender to palpation. GI: Abdomen is soft, nontender and nondistended. Bowel sounds are positive. SKIN: No acute rash. NEUROLOGIC: Limited at the present time. IMPRESSION: 1. Acute bronchitis. 2. Advanced chronic obstructive pulmonary disease, on home oxygen. 3. History of pulmonary nodules. 4. Bronchospasm - resolved. PLAN: The patient appears very comfortable this morning. She is not short of breath at rest. She does state to feeling much, much better overall. On physical exam, her lungs are clear this morning. Oxygen saturation on nasal cannula ranges between 92-97%. The patient is currently on nebulizer treatments and very low-dose intravenous steroids. The patient stated to me today-- that she is going home today. I will speak with the team about transitioning the patient to oral therapy. Clinical status of the patient appears significantly improved - compared to the initial presentation. Her future status/prognosis does remain very guarded - as she continues to have advanced lung disease. The patient also has a significant history of noncompliance with my office followup - I have not seen her in multiple years. I did discuss this issue with her again at length this morning. I told her that she is welcome to come to the office if she so chooses. I will discuss the above with the attending physician. Romario Portillo MD MTDD
[2018-06-18] MEDS ORDERED: MethylPREDNISolone 40 mg Vial IVP SCH (10:00)
[2018-06-18] MEDS: diltiaZEM 240 mg/24 Hours CD Cap PO SCH (12:27)
[2018-06-18] MEDS: Enoxaparin 40 mg Syringe SC SCH (12:28)
[2018-06-18] MEDS: Levothyroxine 88 MCG TAB PO SCH (12:28)
--- NOTE | 2018-06-18 15:48 | CP.PCM.DIS ---
<Hiren Penny - Last Filed: 06/18/18 20:24> Provider - Provider Date of Admission: 06/15/18 16:15 Attending physician: Naren Yee MD Primary care physician: Davon Lopez MD Time Spent in preparation of Discharge (in minutes): 40 Hospital Course - Lab Results Lab Results: Micro Results 06/15/18 16:00 Blood-Venous Blood Culture - Preliminary NO GROWTH AFTER 48 HOURS 06/15/18 15:36 Blood-Venous Blood Culture - Preliminary NO GROWTH AFTER 48 HOURS Most Recent Lab Values WBC 21.7 10^3/uL (4.5-11.0) H 06/18/18 06:30 RBC 4.92 10^6/uL (3.5-6.1) 06/18/18 06:30 Hgb 13.3 g/dL (12.0-16.0) 06/18/18 06:30 Hct 42.8 % (36.0-48.0) 06/18/18 06:30 MCV 87.0 fl (80.0-105.0) 06/18/18 06:30 MCH 27.0 pg (25.0-35.0) 06/18/18 06:30 MCHC 31.1 g/dl (31.0-37.0) 06/18/18 06:30 RDW 13.0 % (11.5-14.5) 06/18/18 06:30 Plt Count 441 10^3/uL (120.0-450.0) 06/18/18 06:30 MPV 10.6 fl (7.0-11.0) 06/18/18 06:30 Gran % 90.9 % (50.0-68.0) H 06/18/18 06:30 Lymph % (Auto) 6.0 % (22.0-35.0) L 06/18/18 06:30 Crosby % (Auto) 3.1 % (1.0-6.0) 06/18/18 06:30 Eos % (Auto) 0.0 % (1.5-5.0) L 06/18/18 06:30 Baso % (Auto) 0.0 % (0.0-3.0) 06/18/18 06:30 Gran # 19.74 (1.4-6.5) H 06/18/18 06:30 Lymph # (Auto) 1.3 (1.2-3.4) 06/18/18 06:30 Crosby # (Auto) 0.7 (0.1-0.6) H 06/18/18 06:30 Eos # (Auto) 0.0 (0.0-0.7) 06/18/18 06:30 Baso # (Auto) 0.00 K/mm3 (0.0-2.0) 06/18/18 06:30 Neutrophils % (Manual) 93 % (50.0-70.0) H 06/17/18 08:00 Lymphocytes % (Manual) 1 % (22.0-35.0) L 06/17/18 08:00 Monocytes % (Manual) 6 % (1.0-6.0) 06/17/18 08:00 Platelet Evaluation Normal (NORMAL) 06/17/18 08:00 PT 12.7 SECONDS (9.4-12.5) H 06/15/18 15:36 INR 1.11 06/15/18 15:36 APTT 32.3 Seconds (25.1-36.5) 06/15/18 15:36 D-Dimer, Quantitative 315 ng/mlDDU (0-243) H 06/15/18 15:36 pCO2 45 mm/Hg (35-45) 06/15/18 15:50 pO2 82 mm/Hg (30-55) H 06/15/18 19:35 HCO3 24.8 mmol/L (21-28) 06/15/18 15:50 ABG pH 7.35 (7.35-7.45) 06/15/18 15:50 ABG Total CO2 26.2 mmol.L (22-28) 06/15/18 15:50 ABG O2 Saturation 98.1 % (95-98) H 06/15/18 15:50 ABG O2 Content 18.2 ML/dl (15-23) 06/15/18 15:50 ABG Base Excess -1.1 mmol/L (-2.0-3.0) 06/15/18 15:50 ABG Hemoglobin 13.4 g/dL (11.7-17.4) 06/15/18 15:50 ABG Carboxyhemoglobin 1.2 % (0.5-1.5) 06/15/18 15:50 POC ABG HHb (Measured) 1.9 % (0-5) 06/15/18 15:50 ABG Methemoglobin 0.9 % (0.0-3.0) 06/15/18 15:50 ABG O2 Capacity 18.6 mL/dl (16-24) 06/15/18 15:50 VBG pH 7.38 (7.32-7.43) 06/15/18 19:35 VBG pCO2 51.0 (40-60) 06/15/18 19:35 VBG HCO3 30.2 mmol/l (21-28) H 06/15/18 19:35 VBG Total CO2 31.8 mmol.L (22-28) H 06/15/18 19:35 VBG O2 Sat (Calc) 97.4 % (40-65) H 06/15/18 19:35 VBG Base Excess 3.9 mmol/L (0.0-2.0) H 06/15/18 19:35 VBG Potassium 4.4 mmol/L (3.6-5.2) 06/15/18 19:35 Hgb O2 Saturation 96.0 % (95.0-98.0) 06/15/18 15:50 Sodium 133.0 mmol/L (132-148) 06/15/18 19:35 Chloride 97.0 mmol/L (98-107) L 06/15/18 19:35 Glucose 230 mg/dl (65-105) H 06/15/18 19:35 Lactate 1.4 mmol/L (0.7-2.1) 06/15/18 19:35 FiO2 21.0 % 06/15/18 19:35 Sodium 134 mmol/L (132-148) 06/18/18 06:30 Potassium 4.4 mmol/L (3.6-5.0) 06/18/18 06:30 Chloride 94 mmol/L (98-107) L 06/18/18 06:30 Carbon Dioxide 35 mmol/L (21-33) H 06/18/18 06:30 Anion Gap 10 (10-20) 06/18/18 06:30 BUN 36 mg/dL (7-21) H 06/18/18 06:30 Creatinine 0.8 mg/dl (0.7-1.2) 06/18/18 06:30 Est GFR ( Amer) > 60 06/18/18 06:30 Est GFR (Non-Af Amer) > 60 06/18/18 06:30 Random Glucose 180 mg/dL (70-110) H 06/18/18 06:30 Calcium 9.6 mg/dL (8.4-10.5) 06/18/18 06:30 Phosphorus 3.0 mg/dL (2.5-4.5) 06/16/18 06:30 Magnesium 1.9 mg/dL (1.7-2.2) 06/16/18 06:30 Total Bilirubin 0.2 mg/dL (0.2-1.3) 06/18/18 06:30 AST 24 U/L (14-36) 06/18/18 06:30 ALT 22 U/L (7-56) 06/18/18 06:30 Alkaline Phosphatase 77 U/L (38-126) 06/18/18 06:30 Troponin I < 0.01 ng/mL 06/15/18 15:36 NT-Pro-B Natriuret Pep 127 pg/mL (0-450) 06/15/18 15:36 Total Protein 6.4 g/dL (5.8-8.3) 06/18/18 06:30 Albumin 3.4 g/dL (3.0-4.8) 06/18/18 06:30 Globulin 3.0 gm/dL 06/18/18 06:30 Albumin/Globulin Ratio 1.1 (1.1-1.8) 06/18/18 06:30 Venous Blood Potassium 4.4 mmol/L (3.6-5.2) 06/15/18 19:35 - Hospital Course Hospital Course: HPI: Patient is a 77 year old female with past medical history of COPD (on home O2 2L), atrial fibrillation (on cardizem), lung nodules (followed by pulmonology), hypothyroidism, and hypertension who presented to the ED on 06/16/18 with worsening shortness of breath that is chronic but worsened over the prior 3 days. She stated that she had been having difficulty even getting to the bathroom for the past 3 days. Before, she was able to ambulate short distances around her house without shortness of breath. The shortness of breath was worse with exertion and improved somewhat with rest. Patient also reported worsening lower extremity swelling that she stated had gotten worse over the previous month. She denied fever/chills, chest pain, cough, congestion, abdominal pain/nausea/vomiting, or peripheral numbness/tingling. She was admitted for hypercapnic hypoxic respiratory failure due to COPD exacerbation as well as mild acute on chronic diastolic congestive heart failure. In the ED, venous blood gas showed hypercapnic respiratory acidosis. Patient was started on Duonebulizer/steroid treatment and BIPAP in the ED with improvement of her hypercapnia and acidosis. She was also noted to have sinus tachycardia on exam and EKG. On admission, patient was seen and evaluated by pulmonology. She was weaned off BIPAP to night time use and prn and started on xopenex/atrovent carmen. Duoneb treatment was switched to prn due to her tachycardia. She was also started on IV solumedrol. Patient had a white count of 17 and Zithromax was started, although her leukocytosis was most likely secondary to steroid use. Patient was started on IV Lasix for her acute CHF exacerbation with improvement in LE edema. Her Lasix dose was subsequently changed to 20mg PO BID. Patients cough, dyspnea, and hypoxia also improved off BIPAP and her steroid was changes to oral prednisone. Patient sats remained between 92-97% on supplemental O2 2L NC. Patient was evaluated by physical therapy who recommended TCU, however patient refused and preferred to be discharged home. Patient status is at baseline per her family, who was at bedside. Patient reported having good support at home. She has oxygen and nebulizer from [employer] at home and was independent with ADLs at home. Pt was counseled extensively on compliance with supplemental O2 use at home as well as followup with pulmonology outpatient for her multiple pulmonary problems. Patient was advised on the risks of smoking while on oxygen. Patient voiced understanding, but stated she may not be completely compliant. Patient will be discharged home on Brovana, Budesonide, dipyridamole, PO lasix, Medrol dose pack and tiotriprium bromide inhaler with instructions to followup with her primary care physician and tax attorney. The following is a summary of hospital course. For further detail, please refer to EMR. - Date & Time of H&P Date of H&P: 06/18/18 Time of H&P: 15:40 Discharge Exam - Head Exam Head Exam: ATRAUMATIC, NORMAL INSPECTION, NORMOCEPHALIC - Eye Exam Eye Exam: EOMI, Normal appearance Pupil Exam: NORMAL ACCOMODATION - ENT Exam ENT Exam: Mucous Membranes Dry, Normal Exam - Respiratory Exam Respiratory Exam: Clear to PA & Lateral, NORMAL BREATHING PATTERN, UNREMARKABLE. absent: Accessory Muscle Use, Rhonchi, Wheezes, Respiratory Distress, Stridor - Cardiovascular Exam Cardiovascular Exam: REGULAR RHYTHM, +S1, +S2 - GI/Abdominal Exam GI & Abdominal Exam: Normal Bowel Sounds, Soft, Unremarkable. absent: Distended, Firm, Guarding, Rebound, Rigid, Tenderness - Extremities Exam Extremities exam: normal capillary refill, pedal pulses present - Back Exam Back exam: NORMAL INSPECTION - Neurological Exam Neurological exam: Alert, CN II-XII Intact, Oriented x3 - Psychiatric Exam Psychiatric exam: Normal Affect, Normal Mood - Skin Skin Exam: Dry, Intact, Normal Color, Warm Discharge Plan - Discharge Medications Prescriptions: Arformoterol [Brovana] 15 mcg IH BID #1 neb Budesonide [Pulmicort Flexhaler] 90 mcg IH BID #1 aer.pow.ba Furosemide [Lasix] 40 mg PO DAILY #30 tab Methylprednisolone [Medrol Dose Pack (21 tabs)] 4 mg PO DAILY #21 mg Tiotropium [place] Inhaler [Spiriva Inhalation Handihaler Device] 1 inh INH DAILY #1 inhaler - Follow Up Plan Condition: GUARDED Disposition: HOME/ ROUTINE Instructions: Quitting Smoking for Older Adults, Exacerbation of COPD (DC), Breathing Exercises Additional Instructions: Social work met with patient in room to complete assessment. Prior to hospitalization patient was living at home alone. She has oxygen and nebulizer from [facility]. Patient was independent with ADLs at home. Patient's b rother and sister live in the same building and stop by daily to see her. Patient has a wheelchair and shower chair at home. Patient has home health care services but does not remember the provider. Patient has no POA. Patient states she is going to discharge home when medically cleared. residential sales consultant spoke with patient and daughter at bedside regarding patient's discharge wishes. Patient was made aware of physical therapy recommendation of discharge to TCU for rehabilitation. Patient and daughter both agree on discharge to home, have enough resources at home for patient. Patient is medically stable for discharge to home, as per Dr. Yee. She is instructed to take all medications as prescribed. Scripts have been provided. Please follow up with your primary care provider, Dr. Lopez, within 1 week of discharge for continued care and management. If symptoms worsen, please return to the ED. Referrals: Davon Lopez MD [Primary Care Provider] - <Naren Yee - Last Filed: 06/19/18 08:05> Provider - Provider Date of Admission: 06/15/18 16:15 Attending physician: Naren Yee MD Primary care physician: Davon Lopez MD Hospital Course - Lab Results Lab Results: Micro Results 06/15/18 16:00 Blood-Venous Blood Culture - Preliminary NO GROWTH AFTER 3 DAYS 06/15/18 15:36 Blood-Venous Blood Culture - Preliminary NO GROWTH AFTER 3 DAYS Most Recent Lab Values WBC 21.7 10^3/uL (4.5-11.0) H 06/18/18 06:30 RBC 4.92 10^6/uL (3.5-6.1) 06/18/18 06:30 Hgb 13.3 g/dL (12.0-16.0) 06/18/18 06:30 Hct 42.8 % (36.0-48.0) 06/18/18 06:30 MCV 87.0 fl (80.0-105.0) 06/18/18 06:30 MCH 27.0 pg (25.0-35.0) 06/18/18 06:30 MCHC 31.1 g/dl (31.0-37.0) 06/18/18 06:30 RDW 13.0 % (11.5-14.5) 06/18/18 06:30 Plt Count 441 10^3/uL (120.0-450.0) 06/18/18 06:30 MPV 10.6 fl (7.0-11.0) 06/18/18 06:30 Gran % 90.9 % (50.0-68.0) H 06/18/18 06:30 Lymph % (Auto) 6.0 % (22.0-35.0) L 06/18/18 06:30 Crosby % (Auto) 3.1 % (1.0-6.0) 06/18/18 06:30 Eos % (Auto) 0.0 % (1.5-5.0) L 06/18/18 06:30 Baso % (Auto) 0.0 % (0.0-3.0) 06/18/18 06:30 Gran # 19.74 (1.4-6.5) H 06/18/18 06:30 Lymph # (Auto) 1.3 (1.2-3.4) 06/18/18 06:30 Crosby # (Auto) 0.7 (0.1-0.6) H 06/18/18 06:30 Eos # (Auto) 0.0 (0.0-0.7) 06/18/18 06:30 Baso # (Auto) 0.00 K/mm3 (0.0-2.0) 06/18/18 06:30 Neutrophils % (Manual) 93 % (50.0-70.0) H 06/17/18 08:00 Lymphocytes % (Manual) 1 % (22.0-35.0) L 06/17/18 08:00 Monocytes % (Manual) 6 % (1.0-6.0) 06/17/18 08:00 Platelet Evaluation Normal (NORMAL) 06/17/18 08:00 PT 12.7 SECONDS (9.4-12.5) H 06/15/18 15:36 INR 1.11 06/15/18 15:36 APTT 32.3 Seconds (25.1-36.5) 06/15/18 15:36 D-Dimer, Quantitative 315 ng/mlDDU (0-243) H 06/15/18 15:36 pCO2 45 mm/Hg (35-45) 06/15/18 15:50 pO2 82 mm/Hg (30-55) H 06/15/18 19:35 HCO3 24.8 mmol/L (21-28) 06/15/18 15:50 ABG pH 7.35 (7.35-7.45) 06/15/18 15:50 ABG Total CO2 26.2 mmol.L (22-28) 06/15/18 15:50 ABG O2 Saturation 98.1 % (95-98) H 06/15/18 15:50 ABG O2 Content 18.2 ML/dl (15-23) 06/15/18 15:50 ABG Base Excess -1.1 mmol/L (-2.0-3.0) 06/15/18 15:50 ABG Hemoglobin 13.4 g/dL (11.7-17.4) 06/15/18 15:50 ABG Carboxyhemoglobin 1.2 % (0.5-1.5) 06/15/18 15:50 POC ABG HHb (Measured) 1.9 % (0-5) 06/15/18 15:50 ABG Methemoglobin 0.9 % (0.0-3.0) 06/15/18 15:50 ABG O2 Capacity 18.6 mL/dl (16-24) 06/15/18 15:50 VBG pH 7.38 (7.32-7.43) 06/15/18 19:35 VBG pCO2 51.0 (40-60) 06/15/18 19:35 VBG HCO3 30.2 mmol/l (21-28) H 06/15/18 19:35 VBG Total CO2 31.8 mmol.L (22-28) H 06/15/18 19:35 VBG O2 Sat (Calc) 97.4 % (40-65) H 06/15/18 19:35 VBG Base Excess 3.9 mmol/L (0.0-2.0) H 06/15/18 19:35 VBG Potassium 4.4 mmol/L (3.6-5.2) 06/15/18 19:35 Hgb O2 Saturation 96.0 % (95.0-98.0) 06/15/18 15:50 Sodium 133.0 mmol/L (132-148) 06/15/18 19:35 Chloride 97.0 mmol/L (98-107) L 06/15/18 19:35 Glucose 230 mg/dl (65-105) H 06/15/18 19:35 Lactate 1.4 mmol/L (0.7-2.1) 06/15/18 19:35 FiO2 21.0 % 06/15/18 19:35 Sodium 134 mmol/L (132-148) 06/18/18 06:30 Potassium 4.4 mmol/L (3.6-5.0) 06/18/18 06:30 Chloride 94 mmol/L (98-107) L 06/18/18 06:30 Carbon Dioxide 35 mmol/L (21-33) H 06/18/18 06:30 Anion Gap 10 (10-20) 06/18/18 06:30 BUN 36 mg/dL (7-21) H 06/18/18 06:30 Creatinine 0.8 mg/dl (0.7-1.2) 06/18/18 06:30 Est GFR ( Amer) > 60 06/18/18 06:30 Est GFR (Non-Af Amer) > 60 06/18/18 06:30 Random Glucose 180 mg/dL (70-110) H 06/18/18 06:30 Calcium 9.6 mg/dL (8.4-10.5) 06/18/18 06:30 Phosphorus 3.0 mg/dL (2.5-4.5) 06/16/18 06:30 Magnesium 1.9 mg/dL (1.7-2.2) 06/16/18 06:30 Total Bilirubin 0.2 mg/dL (0.2-1.3) 06/18/18 06:30 AST 24 U/L (14-36) 06/18/18 06:30 ALT 22 U/L (7-56) 06/18/18 06:30 Alkaline Phosphatase 77 U/L (38-126) 06/18/18 06:30 Troponin I < 0.01 ng/mL 06/15/18 15:36 NT-Pro-B Natriuret Pep 127 pg/mL (0-450) 06/15/18 15:36 Total Protein 6.4 g/dL (5.8-8.3) 06/18/18 06:30 Albumin 3.4 g/dL (3.0-4.8) 06/18/18 06:30 Globulin 3.0 gm/dL 06/18/18 06:30 Albumin/Globulin Ratio 1.1 (1.1-1.8) 06/18/18 06:30 Venous Blood Potassium 4.4 mmol/L (3.6-5.2) 06/15/18 19:35 Attending/Attestation - Attestation I have personally seen and examined this patient.: Yes I have fully participated in the care of the patient.: Yes I have reviewed all pertinent clinical information, including history, physical exam and plan: Yes Notes (Text): 06/18/18 77 year old female with past medical history of COPD on home O2, afib, lung nodules, hypothyroidism and hypertension who presented with shortness of breath secondary to COPD exacerbation. She was started on iv steroids and duonebs with improvement of symptoms. She was followed by pulmonary and her steroids were tapered. She still reported dyspnea with exertion but stated this is her baseline and progression of her COPD. She was seen by PT who recommended TCU however patient refused stating she wanted to go home with home services and she has good family support at home. Family at bedside agreed. Patient is discharged home to follow up with her pmd. Follow up with pulmonary. Counselled on outpatient follow up compliance. Naren Yee MD Hospitalist.
[2018-06-18 18:32] VITALS: BP 118/97; PULSE 87; RESP 19; TEMP 98.4
== END 2018-06-18 20:52 | disposition home health service (06) | DRG 190 ==
LOC: ED 15:15 → ERH 16:15 → 2RNO 18:53
PROVIDERS: ADMIT Internal Medicine; ATTEND Internal Medicine
DX: J44.1 Chronic obstructive pulmonary disease with (acute) exacerbation (principal); I50.33 Acute on chronic diastolic (congestive) heart failure; J96.91 Respiratory failure, unspecified with hypoxia; J96.92 Respiratory failure, unspecified with hypercapnia; E87.2 Acidosis; Z99.81 Dependence on supplemental oxygen; I48.91 Unspecified atrial fibrillation; I11.0 Hypertensive heart disease with heart failure; E03.9 Hypothyroidism, unspecified; I25.10 Atherosclerotic heart disease of native coronary artery without angina pectoris; J20.9 Acute bronchitis, unspecified; J44.0 Chronic obstructive pulmonary disease with (acute) lower respiratory infection; R00.0 Tachycardia, unspecified; Z87.891 Personal history of nicotine dependence; T38.0X5A Adverse effect of glucocorticoids and synthetic analogues, initial encounter; Z90.49 Acquired absence of other specified parts of digestive tract; Z98.42 Cataract extraction status, left eye; R91.1 Solitary pulmonary nodule; Z91.19 Patient's noncompliance with other medical treatment and regimen

== ENCOUNTER 2018-09-11 14:32 | Inpatient (IN) | payer MEDICARE, BC ==
[2018-09-11 14:33] VITALS: BMI 21.9
[2018-09-11] MEDS ORDERED: Albuterol-Ipratrop 3 mg / 0.5 (3 ml) UD IH STA (15:01)
--- NOTE | 2018-09-11 15:06 | ED PDOC ---
Arrival/HPI - General Chief Complaint: Shortness Of Breath Time Seen by Provider: 09/11/18 14:39 Historian: Patient - History of Present Illness Narrative History of Present Illness (Text): 09/11/18 15:00 78 year old female, whose past medical history includes hypertension, recurrent bronchitis, Hypothyroidism, COPD, CHF, anxiety, A- Fib on Cardizem,presents to the emergency department complaining of shortness of breath for the past 2 days. Patient states she takes nebulizer treatment and uses a 2L oxygen tank at home, but she is still having trouble breathing and it worsens with exertion. States her O2 sat has been dropping into 80s even with oxygen. She also notes she has been feeling sick with an upset stomach and a "jumpy" feeling all over her body. Patient denies fevers, chills, headache, dizziness, chest pain, cough, abdominal pain, nausea, vomiting, diarrhea, back pain, neck pain, or any other complaint. PMD: Dr. Lopez Time/Duration: < week (2 days) Symptom Onset: Gradual Symptom Course: Unchanged Activities at Onset: Light Context: Home Past Medical History - Provider Review Nursing Documentation Reviewed: Yes - Infectious Disease Hx of Infectious Diseases: None - Tetanus Immunization Tetanus Immunization: Up to Date - Reproductive Menopause: Yes - Cardiac Hx Cardiac Disorders: Yes (CAD) Hx Hypertension: Yes - Pulmonary Hx Chronic Obstructive Pulmonary Disease (COPD): Yes - Neurological Hx Neurological Disorder: Yes Hx Dizziness: Yes - HEENT Hx HEENT Disorder: Yes Hx Cataracts: Yes (b/l) Other/Comment: b/l cataract surgery - Renal Hx Renal Disorder: No - Endocrine/Metabolic Hx Hypothyroidism: Yes - Hematological/Oncological Hx Blood Disorders: No - Integumentary Hx Dermatological Disorder: No - Musculoskeletal/Rheumatological Hx Falls: No - Gastrointestinal Hx Gastrointestinal Disorders: Yes (GASTROENTERITIS,) - Genitourinary/Gynecological Hx Genitourinary Disorders: No - Psychiatric Hx Psychophysiologic Disorder: No Hx Substance Use: No - Surgical History Hx Cholecystectomy: Yes - Anesthesia Hx Anesthesia: Yes Hx Anesthesia Reactions: No Hx Malignant Hyperthermia: No - Suicidal Assessment Feels Threatened In Home Enviroment: No Family/Social History - Physician Review Nursing Documentation Reviewed: Yes Family/Social History: No Known Family HX Smoking Status: Heavy Smoker > 10 Cigarettes Daily Hx Alcohol Use: No Hx Substance Use: No Hx Substance Use Treatment: No Allergies/Home Meds Allergies/Adverse Reactions: Allergies CRESTOR Adverse Reaction (Intermediate, Uncoded 01/24/17 17:45) PAIN contrast Adverse Reaction (Uncoded 01/24/17 17:45) REDNESS Home Medications: Home Meds Medication Instructions Recorded Confirmed Aspirin [Aspir 81] 81 mg PO HS 12/23/11 06/15/18 Losartan [Cozaar] 100 mg PO DAILY 10/04/15 06/15/18 Potassium Chloride [Klor-Con 10] 10 meq PO DAILY 10/04/15 06/15/18 Dipyridamole [Persantine] 25 mg PO TID 04/30/16 06/15/18 Fluticasone/Salmeterol 250/50 2 inh PO PRN PRN 04/30/16 06/15/18 [Advair Diskus 250/50] ALPRAZolam [Xanax] 0.25 mg PO BID 06/15/18 06/15/18 Escitalopram [Lexapro] 10 mg PO DAILY 06/15/18 06/15/18 Levothyroxine [Synthroid] 88 mcg PO DAILY 06/15/18 06/15/18 Pantoprazole Sodium [Protonix] 20 mg PO DAILY 06/15/18 06/15/18 [id number] CD [Cardizem CD] 240 mg PO DAILY 06/15/18 06/15/18 Review of Systems - Physician Review All systems were reviewed & negative as marked: Yes - Review of Systems Constitutional: absent: Fevers Cardiovascular: absent: Chest Pain Physical Exam - Physical Exam Narrative Physical Exam (Text): 09/11/18 15:07 Constitutional: No acute distress. Head: Normocephalic. Atraumatic. Eyes: PERRL. ENT: Moist mucous membranes. Neck: Supple. Cardiovascular: Regular rate. Chest: No tenderness. Respiratory: Clear to auscultation bilaterally. Decreased air movement. GI: Soft. Nontender. Nondistended. Back: No CVA tenderness. Musculoskeletal: No tenderness or swelling of extremities. Skin: No rash. Neurologic: Alert, no focal deficit. Tremor. Vital Signs Reviewed: Yes Vital Signs Temp Pulse Resp BP Pulse Ox 09/11/18 14:51 98.1 F 87 20 136/70 99 Temperature: Afebrile Blood Pressure: Normal Pulse: Regular Respiratory Rate: Normal Appearance: Positive for: Well-Appearing, Non-Toxic, Comfortable Pain Distress: None Mental Status: Positive for: Alert and Oriented X 3 Medical Decision Making ED Course and Treatment: 09/11/18 15:07 Impression: 78 year old female who presents to the emergency department complaining of shortness of breath. Plan: -- EKG -- Labs -- Chest X-ray -- Duoneb -- SOLU-medrol -- Urine culture -- Influenza A B -- Urinalysis -- Reassess and disposition Prior Visits: Notes and results from previous visits were reviewed. Progress Notes: 09/11/18 15:18 EKG reviewed by me, shows: 81 bpm, No ST/T wave interval changes. 09/11/18 15:49 Chest X-ray reviewed by radiologist, shows: IMPRESSION: No active disease. Patient with continued shortness of breath despite some improvement. Will require further treatment under hospitalist service. - Lab Interpretations I have reviewed the lab results: Yes - EKG Interpretation Interpreted by ED Physician: Yes Type: 12 lead EKG - Scribe Statement The provider has reviewed the documentation as recorded by the Scribe Meredith Leon Provider Scribe Attestation: All medical record entries made by the Scribe were at my direction and personally dictated by me. I have reviewed the chart and agree that the record accurately reflects my personal performance of the history, physical exam, medical decision making, and the department course for this patient. I have also personally directed, reviewed, and agree with the discharge instructions and disposition. Disposition/Present on Arrival - Present on Arrival Any Indicators Present on Arrival: No History of DVT/PE: No History of Uncontrolled Diabetes: No Urinary Catheter: No History of Decub. Ulcer: No History Surgical Site Infection Following: None - Disposition Have Diagnosis and Disposition been Completed?: Yes Diagnosis: COPD exacerbation, Hypoxia Disposition: HOSPITALIZED Disposition Time: 16:45 Patient Plan: Observation, Telemetry Condition: FAIR Forms: mGaadi (Bulgarian)
--- NOTE | 2018-09-11 15:47 | RAD ---
Date of service: 09/11/2018 HISTORY: dyspnea COMPARISON: 06/15/2018 FINDINGS: LUNGS: No active pulmonary disease. PLEURA: No significant pleural effusion identified, no pneumothorax apparent. CARDIOVASCULAR: No aortic atherosclerotic calcification present. Normal cardiac size. No pulmonary vascular congestion. OSSEOUS STRUCTURES: No significant abnormalities. VISUALIZED UPPER ABDOMEN: Normal. OTHER FINDINGS: None. IMPRESSION: No active disease.
[2018-09-11 15:53] LABS: BASO # 0.06 K/mm3 (0.0-2.0); BASO % 0.5 % (0.0-3.0); EOS % 0.2 % (1.5-5.0); LYMPH # 0.5 (1.2-3.4); LYMPH % 3.8 % (22.0-35.0); MEAN CELL VOLUME 89.8 fl (80.0-105.0); MEAN CORPUSCULAR HEMOGLOBIN 27.3 pg (25.0-35.0); MEAN CORPUSCULAR HGB CONC 30.4 g/dl (31.0-37.0); MEAN PLATELET VOLUME 11.5 fl (7.0-11.0); MONO # 0.8 (0.1-0.6); MONO % 6.2 % (1.0-6.0); PLATELET COUNT 299 10^3/uL (120.0-450.0); RBC 5.12 10^6/uL (3.5-6.1); WHITE BLOOD COUNT 12.9 10^3/uL (4.5-11.0)
[2018-09-11 16:04] LABS: ALB/GLOB RATIO 1.5 (1.1-1.8); BLOOD UREA NITROGEN 23 mg/dL (7-21); CALCIUM 10.3 mg/dL (8.4-10.5); GFR NON-AFRICAN AMERICAN > 60
[2018-09-11 16:07] LABS: ALT/SGPT 22 U/L (7-56); AST/SGOT 21 U/L (14-36)
[2018-09-11 18:17] LABS: EOSINOPHIL 1 % (0.0-3.0); HYPOCHROMIA 2+; LYMPHOCYTE 3 % (22.0-35.0); MONOCYTE 4 % (1.0-6.0); NEUTROPHIL 91 % (50.0-70.0); PLATELET ESTIMATE NORMAL (NORMAL); ROULEAU 2+; TOXIC GRANULATION 2+
--- NOTE | 2018-09-11 18:17 | CP.PCM.HP ---
<SlimTrent Ambrocio - Last Filed: 09/11/18 18:59> History of Present Illness - History of Present Illness History of Present Illness: Trent Smalls PGY1, History and Physical for Dr Yee Pt is a 78yo female with a PMH of HTN, recurrent bronchitis, Hypothyroidism, COPD, CHF, anxiety, SVT who presents to the ED complaining of SOB with exertion. Pt states she has felt SOB for the past few days. Pt states she uses 2L O2 while at home but has had to turn it up to 3L which has not helped much. States her O2 sat has been dropping into 80s even with oxygen. She also notes she has been feeling sick with an upset stomach. Denies any recent sick contacts. Denies chest pain. Pt states she has been producing increased sputum which is yellow. Denies fever. Reports mild cough. Pt states this has happened before and it is similar to when she has a COPD exacerbation. PMH: COPD (on home O2 2L), SVT (on cardizem), lung nodules (followed by pulmonology), hypothyroidism, and HTN PSH: cholecystectomy FH: mother [place] at 47 yo. Father 90 , no health problems SH: admits to 40 pack year smoking history but quit 27 years ago. alcohol denies, illicit drugs denies. Lives alone in [facility] meds: lasix 40 daily, spiriva, potassium 10 mEq daily, synthroid 88 mcg daily, advair 230/21 2 puffs daily, protonix 20 daily, lexapro 10 daily, xanax 0.25 BID, cardizem 240 daily Allergies: statins muscle aches, IV contrast hives feels hot and trouble breathing PMD: Dr. Lopez Present on Admission - Present on Admission Any Indicators Present on Admission: No Past Patient History - Infectious Disease Hx of Infectious Diseases: None - Tetanus Immunizations Tetanus Immunization: Up to Date - Past Social History Smoking Status: Heavy Smoker > 10 Cigarettes Daily - CARDIAC Hx Cardiac Disorders: Yes (CAD) Hx Hypertension: Yes - PULMONARY Hx Chronic Obstructive Pulmonary Disease (COPD): Yes - NEUROLOGICAL Hx Neurological Disorder: Yes Hx Dizziness: Yes - HEENT Hx HEENT Problems: Yes Hx Cataracts: Yes (b/l) Other/Comment: b/l cataract surgery - RENAL Hx Chronic Kidney Disease: No - ENDOCRINE/METABOLIC Hx Hypothyroidism: Yes - HEMATOLOGICAL/ONCOLOGICAL Hx Blood Disorders: No - INTEGUMENTARY Hx Dermatological Problems: No - MUSCULOSKELETAL/RHEUMATOLOGICAL Hx Falls: No - GASTROINTESTINAL Hx Gastrointestinal Disorders: Yes (GASTROENTERITIS,) - GENITOURINARY/GYNECOLOGICAL Hx Genitourinary Disorders: No - PSYCHIATRIC Hx Psychophysiologic Disorder: No Hx Substance Use: No - SURGICAL HISTORY Hx Cholecystectomy: Yes - ANESTHESIA Hx Anesthesia: Yes Hx Anesthesia Reactions: No Hx Malignant Hyperthermia: No Meds Allergies/Adverse Reactions: Allergies Allergy/AdvReac Type Severity Reaction Status Date / Time CRESTOR AdvReac Intermediate PAIN Uncoded 01/24/17 17:45 contrast AdvReac REDNESS Uncoded 01/24/17 17:45 Physical Exam - Constitutional Appears: No Acute Distress - Head Exam Head Exam: ATRAUMATIC, NORMOCEPHALIC - Eye Exam Eye Exam: EOMI - ENT Exam ENT Exam: Mucous Membranes Moist - Neck Exam Neck exam: Positive for: Full Rom - Respiratory Exam Respiratory Exam: Decreased Breath Sounds, Rhonchi, Wheezes, NORMAL BREATHING PATTERN. absent: Accessory Muscle Use, Respiratory Distress - Cardiovascular Exam Cardiovascular Exam: RRR, +S1, +S2. absent: Diastolic murmur, Systolic Murmur - GI/Abdominal Exam GI & Abdominal Exam: Normal Bowel Sounds, Soft. absent: Tenderness - Extremities Exam Extremities exam: Positive for: full ROM, pedal edema, pedal pulses present. Negative for: calf tenderness - Neurological Exam Neurological exam: Alert, Oriented x3 - Psychiatric Exam Psychiatric exam: Normal Affect, Normal Mood - Skin Skin Exam: Dry, Intact, Warm Results - Vital Signs Recent Vital Signs: Last Vital Signs Temp 98.1 F 09/11/18 14:51 Pulse 87 09/11/18 14:51 Resp 20 09/11/18 14:51 BP 136/70 09/11/18 14:51 Pulse Ox 99 09/11/18 14:51 - Labs Result Diagrams: 09/11/18 15:30 09/11/18 15:30 Labs: Laboratory Results - last 24 hr 09/11/18 09/11/18 09/11/18 15:30 15:30 15:30 WBC 12.9 H D RBC 5.12 Hgb 14.0 Hct 46.0 MCV 89.8 MCH 27.3 MCHC 30.4 L RDW 15.0 H Plt Count 299 MPV 11.5 H Neut % (Auto) 89.3 H Lymph % (Auto) 3.8 L Williamson % (Auto) 6.2 H Eos % (Auto) 0.2 L Baso % (Auto) 0.5 Lymph # (Auto) 0.5 L Williamson # (Auto) 0.8 H Eos # (Auto) 0.0 Baso # (Auto) 0.06 Absolute Neuts (auto) 11.57 H Sodium 138 Potassium 4.8 Chloride 98 Carbon Dioxide 34 H Anion Gap 11 BUN 23 H Creatinine 0.6 L Est GFR ( Amer) > 60 Est GFR (Non-Af Amer) > 60 Random Glucose 133 H Calcium 10.3 Total Bilirubin 0.5 AST 21 ALT 22 Alkaline Phosphatase 61 Total Protein 6.7 Albumin 4.0 Globulin 2.7 Albumin/Globulin Ratio 1.5 Influenza Typ A,B (EIA) Negative for flu a/b Assessment & Plan - Assessment and Plan (Free Text) Assessment: Pt is a 78yo female with a PMH of HTN, recurrent bronchitis, Hypothyroidism, COPD, CHF, anxiety, SVT who presents to the ED complaining of SOB with exertion. Plan: COPD Exacerbation - admit to tele - duone CHARAN/PRN - solumedrol 40q12 - pulmicort - brovana - O2 NC 2L - Pulm consulted, Dr Muñoz CHF - lasix 40mg PO daily HTN - cozaar 100mg Hypothyroidism - cont synthroid 88 mcg SVT - cont cardizem 240 daily Ppx - protonix - SCD - HHD Pt seen, examined, assessment and plan discussed with Dr Nakia Smalls PGY1, Internal Medicine Resident - Date & Time Date: 09/11/18 Time: 18:29 <Naren Yee - Last Filed: 09/12/18 07:05> Results - Vital Signs Recent Vital Signs: Last Vital Signs Temp 98 F 09/12/18 05:58 Pulse 77 09/12/18 05:58 Resp 18 09/12/18 05:58 BP 125/59 L 09/12/18 05:58 Pulse Ox 98 09/12/18 05:58 - Labs Result Diagrams: 09/11/18 15:30 09/11/18 15:30 Labs: Laboratory Results - last 24 hr 09/11/18 09/11/18 09/11/18 15:30 15:30 15:30 WBC 12.9 H D RBC 5.12 Hgb 14.0 Hct 46.0 MCV 89.8 MCH 27.3 MCHC 30.4 L RDW 15.0 H Plt Count 299 MPV 11.5 H Neut % (Auto) 89.3 H Lymph % (Auto) 3.8 L Williamson % (Auto) 6.2 H Eos % (Auto) 0.2 L Baso % (Auto) 0.5 Lymph # (Auto) 0.5 L Williamson # (Auto) 0.8 H Eos # (Auto) 0.0 Baso # (Auto) 0.06 Absolute Neuts (auto) 11.57 H Neutrophils % (Manual) 91 H Lymphocytes % (Manual) 3 L Monocytes % (Manual) 4 Eosinophils % (Manual) 1 Toxic Granulation 2+ Platelet Evaluation Normal Hypochromasia 2+ Rouleaux 2+ Sodium 138 Potassium 4.8 Chloride 98 Carbon Dioxide 34 H Anion Gap 11 BUN 23 H Creatinine 0.6 L Est GFR ( Amer) > 60 Est GFR (Non-Af Amer) > 60 Random Glucose 133 H Calcium 10.3 Total Bilirubin 0.5 AST 21 ALT 22 Alkaline Phosphatase 61 Total Protein 6.7 Albumin 4.0 Globulin 2.7 Albumin/Globulin Ratio 1.5 Urine Color Urine Appearance Urine pH Ur Specific [place] Urine Protein Urine Glucose (UA) Urine Ketones Urine Blood Urine Nitrate Urine Bilirubin Urine Urobilinogen Ur Leukocyte Esterase Influenza Typ A,B (EIA) Negative for flu a/b 09/11/18 19:30 WBC RBC Hgb Hct MCV MCH MCHC RDW Plt Count MPV Neut % (Auto) Lymph % (Auto) Williamson % (Auto) Eos % (Auto) Baso % (Auto) Lymph # (Auto) Williamson # (Auto) Eos # (Auto) Baso # (Auto) Absolute Neuts (auto) Neutrophils % (Manual) Lymphocytes % (Manual) Monocytes % (Manual) Eosinophils % (Manual) Toxic Granulation Platelet Evaluation Hypochromasia Rouleaux Sodium Potassium Chloride Carbon Dioxide Anion Gap BUN Creatinine Est GFR ( Amer) Est GFR (Non-Af Amer) Random Glucose Calcium Total Bilirubin AST ALT Alkaline Phosphatase Total Protein Albumin Globulin Albumin/Globulin Ratio Urine Color Yellow Urine Appearance Clear Urine pH 7.0 Ur Specific [place] 1.015 Urine Protein Negative Urine Glucose (UA) 250 H Urine Ketones 15 H Urine Blood Negative Urine Nitrate Negative Urine Bilirubin Negative Urine Urobilinogen 0.2 Ur Leukocyte Esterase Negative Influenza Typ A,B (EIA) Attending/Attestation - Attestation I have personally seen and examined this patient.: Yes I have fully participated in the care of the patient.: Yes I have reviewed all pertinent clinical information: Yes Notes (Text): 09/11/18 78 year old female with past medical history of COPD on home O2, anxiety, hypertension and tachyarrythmia (?paroxysmal afib vs SVT) who presents with complaint of shortness of breath. Admitted for COPD exacerbation and started on iv steroids. Continue with duonebs, pulmicort and brovana. Pulmonary evaluation is requested. CXR was negative. Continue with supplemental oxygen. Naren Yee MD Hospitalist.
[2018-09-11] MEDS ORDERED: Albuterol-Ipratrop 3 mg / 0.5 (3 ml) UD IH PRN (18:19)
[2018-09-11 19:58] LABS: URINE APPEARANCE CLEAR (CLEAR); URINE BILIRUBIN NEGATIVE (NEGATIVE); URINE BLOOD NEGATIVE (NEGATIVE); URINE COLOR YELLOW (YELLOW); URINE GLUCOSE (UA) 250 mg/dL (NEGATIVE); URINE LEUKOCYTE ESTERASE NEGATIVE Leu/uL (NEGATIVE); URINE PROTEIN NEGATIVE mg/dL (<30 mg/dL); URINE UROBILINOGEN 0.2 E.U./dL (<1 E.U./dL)
[2018-09-11] MEDS: MethylPREDNISolone 40 mg Vial IVP SCH (22:42)
[2018-09-12] MEDS: Albuterol-Ipratrop 3 mg / 0.5 (3 ml) UD IH SCH ×5 (02:30→20:00)
[2018-09-12] MEDS: Levothyroxine 88 MCG TAB PO SCH (05:25)
[2018-09-12] MEDS: Pantoprazole 40 mg EC Tab PO SCH (05:25)
[2018-09-12] MEDS: Budesonide 0.25 mg/2 ml Inhal Susp UD IH SCH ×2 (07:13→10:30)
[2018-09-12] MEDS: Arformoterol 15 mcg/2 ml Inh Sol IH SCH ×2 (07:13→10:30)
[2018-09-12 07:17] LABS: HEMOGLOBIN 13.3 g/dL (12.0-16.0); LYMPH # 0.3 (1.2-3.4); LYMPH % 3.4 % (22.0-35.0); MEAN CELL VOLUME 90.1 fl (80.0-105.0); MEAN PLATELET VOLUME 11.6 fl (7.0-11.0); MONO # 0.2 (0.1-0.6); MONO % 1.8 % (1.0-6.0); RBC 4.93 10^6/uL (3.5-6.1); RED CELL DISTRIBUTION WIDTH 14.6 % (11.5-14.5); WHITE BLOOD COUNT 10.1 10^3/uL (4.5-11.0)
[2018-09-12 07:40] LABS: ALB/GLOB RATIO 1.4 (1.1-1.8); ALBUMIN 3.7 g/dL (3.0-4.8); ALT/SGPT 24 U/L (7-56); AST/SGOT 16 U/L (14-36); BLOOD UREA NITROGEN 23 mg/dL (7-21); CALCIUM 9.7 mg/dL (8.4-10.5); GFR NON-AFRICAN AMERICAN > 60
[2018-09-12] MEDS: Budesonide 0.5 mg/2 ml Inhal Susp UD IH SCH (08:19)
[2018-09-12] MEDS: MethylPREDNISolone 40 mg Vial IVP SCH ×2 (09:45→22:28)
[2018-09-12] MEDS: diltiaZEM 240 mg/24 Hours CD Cap PO SCH (09:45)
[2018-09-12] MEDS: levoFLOXacin 500 MG TAB PO SCH (09:45)
--- NOTE | 2018-09-12 12:36 | CARD ---
APPROVED REPORT Date of service: 09/11/2018 EKG Measurement Heart [id number] <Conclusion> Normal sinus rhythm Normal ECG
--- NOTE | 2018-09-12 13:46 | CON ---
DATE OF CONSULTATION: 09/12/2018 PULMONARY CONSULTATION REASON FOR CONSULTATION: Chronic obstructive pulmonary disease. REFERRING PHYSICIAN: Dr. Yee. HISTORY OF PRESENT ILLNESS: The patient is a chronically ill 78-year-old female, with past medical history significant for very advanced chronic obstructive pulmonary disease, on home oxygen, significant noncompliance with office followup (not seen in our office in multiple years), recurrent bronchitis, hypothyroidism, anxiety, who presents to [facility], [place] with increasing shortness of breath at rest, dyspnea on exertion, cough, and minimal sputum production for the past 2 days. There is no history of chest pain, coughing up of blood, or chest pain - brought on with deep respirations. There is no history of temperatures, chills or infectious exposure. There is no history of night sweats, weight loss or appetite change prior to the above events. No history of calf pains. No history of syncope or diaphoresis. No history of recent travel or trauma. REVIEW OF SYSTEMS: No history of nausea, vomiting or diarrhea. No acute urinary symptoms. No new neurologic complaints. Rest of the review of systems is negative. ALLERGIES: ALLERGIES ARE TO CRESTOR AND IV CONTRAST. SOCIAL HISTORY: Positive for extensive tobacco usage. No alcohol. FAMILY HISTORY: No inheritable diseases. MEDICATIONS: Home medications include Cardizem, Spiriva, Protonix, Cozaar, Synthroid, Lasix, Advair, Lexapro, Persantine, budesonide, Brovana, Xanax. PHYSICAL EXAMINATION: GENERAL: The patient is not short of breath at rest. She is not using accessory muscles for breathing. VITAL SIGNS: Temperature is 98, pulse 77, respirations 18, blood pressure 125/59. Oxygen saturation on nasal cannula is 98%. HEENT: Normocephalic, atraumatic. No JVD. CARDIOVASCULAR: Systolic ejection murmur at the lower left sternal border. No S3 gallop. LUNGS: Decreased breath sounds at the bases. Mild rhonchi and wheezing bilaterally. EXTREMITIES: No clubbing, cyanosis or edema. Calves are nontender to palpation. GASTROINTESTINAL: Abdomen is soft, nontender and nondistended. Bowel sounds are positive. SKIN: No acute rash. NEUROLOGIC: Exam limited at the present time. PERTINENT LABORATORY DATA: Chest x-ray was done yesterday and reviewed. There is no active pulmonary disease noted. CBC: White count 10.1K, hemoglobin 13.3, hematocrit 44.4, platelets of 290,000. Complete metabolic profile: BUN 23, glucose 198. Rest of the metabolic profile is within normal limits. IMPRESSION: 1. Recurrent bronchitis. 2. Advanced chronic obstructive pulmonary disease, on home oxygen. 3. Acute bronchospasm. 4. Hypertension. PLAN: The patient presents to [facility] [place] with a 2-day history of worsening pulmonary symptoms. Again, the patient is extremely noncompliant with office followup, and I have not seen her in our office in multiple years. I did discuss this issue with her again at length this morning. I did review the chest x-ray as above. The chest x-ray shows no acute disease. On physical exam, there is a [id number] bronchospasm noted. However, there is no significant alveolar-arterial gradient. Oxygen saturation on nasal cannula is 98%. I will continue with the current nebulizer treatments, and increase the dosage of Pulmicort. I will also continue with the current dose of intravenous steroids. Lastly, due to the above history, I will also start oral antibiotic therapy. There are no temperatures by history. There is no leukocytosis this morning. Clinical status of the patient appears certainly improved - compared to the initial presentation. However, given the above, the future status/prognosis for this patient remains very guarded/poor. I will discuss the above with the attending physician this morning. Thank you very much for this pulmonary consultation. Romario Portillo MD MTDDonna
--- NOTE | 2018-09-12 16:51 | CP.PCM.PN ---
<Randy Pollock - Last Filed: 09/12/18 16:55> Subjective - Date & Time of Evaluation Date of Evaluation: 09/12/18 Time of Evaluation: 07:30 - Subjective Subjective: Randy Pollock DO, PGY-1 Hospitalist Progress Note for Dr. Yee Patient was seen and examined at bedside this AM. She reports her SOB has improved since admission but is consistent. She is worried that she was recently admitted for a similar episode last June. She still complains of dyspnea on exertion with mild cough but denies fever/chills, CP, nausea/vomiting. Objective - Vital Signs/Intake and Output Vital Signs (last 24 hours): Temp Pulse Resp BP Pulse Ox 97.7 F 106 H 18 123/69 98 09/12/18 12:00 09/12/18 12:00 09/12/18 12:00 09/12/18 12:00 09/12/18 05:58 Intake and Output: 09/12/18 09/12/18 06:59 18:59 Intake Total 240 Output Total 300 Balance -60 - Medications Medications: Current Medications Albuterol/Ipratropium (Duoneb 3 Mg/0.5 Mg (3 Ml) Ud) 3 ml IH Q2H PRN PRN Reason: Shortness of Breath Albuterol/Ipratropium (Duoneb 3 Mg/0.5 Mg (3 Ml) Ud) 3 ml IH [id number] [facility] Last Admin: 09/12/18 13:13 Dose: 3 ml Arformoterol Tartrate (Brovana) 15 mcg IH [id number] [facility] Last Admin: 09/12/18 10:30 Dose: Not Given Budesonide (Pulmicort Respules) 0.5 mg IH [id number] [facility] Last Admin: 09/12/18 08:19 Dose: Not Given Diltiazem HCl (Cardizem Cd) 240 mg PO DAILY [facility] Last Admin: 09/12/18 09:45 Dose: 240 mg Furosemide (Lasix) 40 mg PO DAILY [facility] Last Admin: 09/12/18 09:45 Dose: 40 mg Levofloxacin (Levaquin) 500 mg PO DAILY [facility]; Protocol Last Admin: 09/12/18 09:45 Dose: 500 mg Levothyroxine Sodium (Synthroid) 88 mcg PO 0600 [facility] Last Admin: 09/12/18 05:25 Dose: 88 mcg Losartan Potassium (Cozaar) 100 mg PO DAILY [facility] Last Admin: 09/12/18 09:45 Dose: 100 mg Methylprednisolone (Solu-Medrol) 40 mg IVP Q12 [facility] Last Admin: 09/12/18 09:45 Dose: 40 mg Pantoprazole Sodium (Protonix Ec Tab) 40 mg PO 0600 [facility] Last Admin: 09/12/18 05:25 Dose: 40 mg - Labs Labs: 09/12/18 07:00 09/12/18 07:00 - Constitutional Appears: Non-toxic, No Acute Distress - Head Exam Head Exam: ATRAUMATIC, NORMOCEPHALIC - Eye Exam Eye Exam: EOMI, Normal appearance, PERRL - ENT Exam ENT Exam: Mucous Membranes Moist - Neck Exam Neck Exam: Full ROM, Normal Inspection - Respiratory Exam Respiratory Exam: Rhonchi (coarse breath sounds b/l), Wheezes (end expiratory wheezes b/l c/w COPD exacerbation). absent: Accessory Muscle Use, Rales, Respiratory Distress - Cardiovascular Exam Cardiovascular Exam: REGULAR RHYTHM, RRR, +S1, +S2. absent: Gallop, Rubs, Murmur - GI/Abdominal Exam GI & Abdominal Exam: Soft. absent: Tenderness - Extremities Exam Extremities Exam: Normal Inspection. absent: Pedal Edema - Back Exam Back Exam: NORMAL INSPECTION - Neurological Exam Neurological Exam: Alert, Awake, Oriented x3 - Psychiatric Exam Psychiatric exam: Normal Affect, Normal Mood - Skin Skin Exam: Dry, Intact, Warm Assessment and Plan - Assessment and Plan (Free Text) Assessment: 78 yo F with PMH of COPD (on home O2 2L), HTN, hypothyroidism, and anxiety presents with acute COPD exacerbation. Plan: Acute on chronic hypercapnic respiratory failure 2/2 COPD exacerbation Continue Duo-neb q6h scheduled, q2h PRN Continue Solumedrol 40 mg IVP q12h, likely start to wean tomorrow Continue pulmicort, brovana Levaquin 500 mg PO daily Continue lasix 40 mg PO daily Pulmonology following, recs appreciated HR has remained stable, d/c tele Hx hypothyroidism Continue home synthroid Hx HTN Continue home meds DVT/GI PPX: Lovenox/Protonix Full Code HHD Transfer to med/surg Patient seen, examined, and plan discussed with my attending Dr. Nakia Pollock D.O. Resident PGY-1 Pager: [phone] <Naren Yee - Last Filed: 09/12/18 18:35> Objective - Vital Signs/Intake and Output Vital Signs (last 24 hours): Temp Pulse Resp BP Pulse Ox 97.7 F 106 H 18 123/69 98 09/12/18 12:00 09/12/18 12:00 09/12/18 12:00 09/12/18 12:00 09/12/18 05:58 Intake and Output: 09/12/18 09/12/18 06:59 18:59 Intake Total 240 Output Total 300 Balance -60 - Medications Medications: Current Medications Albuterol/Ipratropium (Duoneb 3 Mg/0.5 Mg (3 Ml) Ud) 3 ml IH Q2H PRN PRN Reason: Shortness of Breath Albuterol/Ipratropium (Duoneb 3 Mg/0.5 Mg (3 Ml) Ud) 3 ml IH [id number] [facility] Last Admin: 09/12/18 13:13 Dose: 3 ml Arformoterol Tartrate (Brovana) 15 mcg IH [id number] [facility] Last Admin: 09/12/18 10:30 Dose: Not Given Budesonide (Pulmicort Respules) 0.5 mg IH [id number] [facility] Last Admin: 09/12/18 08:19 Dose: Not Given Diltiazem HCl (Cardizem Cd) 240 mg PO DAILY [facility] Last Admin: 09/12/18 09:45 Dose: 240 mg Enoxaparin Sodium (Lovenox) 30 mg SC DAILY [facility]; Protocol Furosemide (Lasix) 40 mg PO DAILY [facility] Last Admin: 09/12/18 09:45 Dose: 40 mg Levofloxacin (Levaquin) 500 mg PO DAILY [facility]; Protocol Last Admin: 09/12/18 09:45 Dose: 500 mg Levothyroxine Sodium (Synthroid) 88 mcg PO 0600 [facility] Last Admin: 09/12/18 05:25 Dose: 88 mcg Losartan Potassium (Cozaar) 100 mg PO DAILY [facility] Last Admin: 09/12/18 09:45 Dose: 100 mg Methylprednisolone (Solu-Medrol) 40 mg IVP Q12 [facility] Last Admin: 09/12/18 09:45 Dose: 40 mg Pantoprazole Sodium (Protonix Ec Tab) 40 mg PO 0600 [facility] Last Admin: 09/12/18 05:25 Dose: 40 mg - Labs Labs: 09/12/18 07:00 09/12/18 07:00 Attending/Attestation - Attestation I have personally seen and examined this patient.: Yes I have fully participated in the care of the patient.: Yes I have reviewed all pertinent clinical information, including history, physical exam and plan: Yes Notes (Text): 09/12/18 18:32 78 year old female with past medical history of COPD on home O2, anxiety, hypertension and tachyarrythmia (?paroxysmal afib vs SVT) who presented with COPD exacerbation. Symptoms are slowly improving on iv steroids. She is also on duonebs, pulmicort, brovana and levaquin. Pulmonary evaluation was appreciated; agreed with management. Patient is not compliant with outpatient follow up. Outpatient follow up compliance was discussed at length today with patient and son at bedside. Will discuss with case management social worker / social sciences lecturer; patient may need home services with visiting nurse or physician upon discharge. Naren Yee MD Hospitalist.
[2018-09-13] MEDS: Albuterol-Ipratrop 3 mg / 0.5 (3 ml) UD IH SCH ×4 (04:29→19:39)
[2018-09-13] MEDS: Pantoprazole 40 mg EC Tab PO SCH (05:29)
[2018-09-13] MEDS: Levothyroxine 88 MCG TAB PO SCH (05:29)
[2018-09-13 07:18] LABS: BASO # 0.01 K/mm3 (0.0-2.0); BASO % 0.1 % (0.0-3.0); HEMOGLOBIN 13.8 g/dL (12.0-16.0); LYMPH # 0.4 (1.2-3.4); LYMPH % 1.8 % (22.0-35.0); MEAN CELL VOLUME 90.1 fl (80.0-105.0); MEAN CORPUSCULAR HEMOGLOBIN 27.3 pg (25.0-35.0); MEAN CORPUSCULAR HGB CONC 30.3 g/dl (31.0-37.0); MONO # 0.7 (0.1-0.6); MONO % 3.6 % (1.0-6.0); RBC 5.05 10^6/uL (3.5-6.1); RED CELL DISTRIBUTION WIDTH 14.8 % (11.5-14.5); WHITE BLOOD COUNT 19.5 10^3/uL (4.5-11.0)
[2018-09-13 07:31] LABS: ALB/GLOB RATIO 1.4 (1.1-1.8); ALBUMIN 3.9 g/dL (3.0-4.8); ALT/SGPT 16 U/L (7-56); AST/SGOT 17 U/L (14-36); BLOOD UREA NITROGEN 26 mg/dL (7-21); CALCIUM 10.1 mg/dL (8.4-10.5); GFR NON-AFRICAN AMERICAN > 60
[2018-09-13] MEDS: Budesonide 0.5 mg/2 ml Inhal Susp UD IH SCH ×2 (07:55→19:39)
[2018-09-13] MEDS: Arformoterol 15 mcg/2 ml Inh Sol IH SCH ×2 (07:55→19:39)
--- NOTE | 2018-09-13 09:24 | PN ---
DATE: 09/13/2018 PULMONARY NOTE SUBJECTIVE: The patient appears comfortable this morning. She is not short of breath at rest. OBJECTIVE: VITAL SIGNS: (Last noted in the computer): Temperature is 98.6, pulse 88, respirations 18/20, blood pressure 124/68. Oxygen saturation on nasal cannula is 98%. HEENT: Normocephalic, atraumatic. No JVD. CARDIOVASCULAR: Systolic ejection murmur at the lower left sternal border. No S3 gallop. LUNGS: Improved breath sounds at the bases. Less rhonchi. No wheezing this morning. EXTREMITIES: No clubbing, cyanosis or edema. Calves are nontender to palpation. GASTROINTESTINAL: Abdomen is soft, nontender and nondistended. Bowel sounds are positive. SKIN: No acute rash. NEUROLOGIC: Exam limited at the present time. IMPRESSION: 1. Recurrent bronchitis. 2. Advanced chronic obstructive pulmonary disease, on home oxygen. 3. Acute bronchospasm. 4. Hypertension. PLAN: The patient appears comfortable this morning. She is not short of breath at rest. She does state to feeling better overall. On physical exam, there is certainly less bronchospasm noted. In addition, the alveolar-arterial gradient is also less. I will continue the current nebulizer treatments and decrease the intravenous steroids this morning. The patient also remains on antibiotic therapy. There are no temperatures noted. Repeat a.m. labs are pending. Clinical status of the patient is certainly improved - compared to her initial presentation. However, unfortunately, the future status/prognosis for this elderly patient with advanced lung disease does remain very guarded/poor. I will discuss the above with the medical team this morning. Romario Portillo MD MTDDonna
[2018-09-13] MEDS ORDERED: Enoxaparin 40 mg Syringe SC SCH (10:00)
[2018-09-13] MEDS: diltiaZEM 240 mg/24 Hours CD Cap PO SCH (10:39)
[2018-09-13] MEDS: MethylPREDNISolone 40 mg Vial IVP SCH ×2 (10:40→22:46)
[2018-09-13] MEDS: Enoxaparin 30 mg Syringe SC SCH (10:40)
[2018-09-13] MEDS: levoFLOXacin 500 MG TAB PO SCH (10:41)
--- NOTE | 2018-09-13 14:09 | CP.PCM.PN ---
<Randy Pollock - Last Filed: 09/13/18 14:34> Subjective - Date & Time of Evaluation Date of Evaluation: 09/13/18 Time of Evaluation: 07:20 - Subjective Subjective: Randy Pollock DO, PGY-1 Hospitalist Progress Note for Dr. Yee Patient was seen and examined at bedside this AM. She reports feeling less short of breath this AM and her cough is less severe today. She states she has been able to ambulate with PT but is still having dyspnea with exertion. She states the wheezing is improving. She denies fever/chills, CP, nausea/vomiting/diarrhea, or urinary complaints. Objective - Vital Signs/Intake and Output Vital Signs (last 24 hours): Temp Pulse Resp BP Pulse Ox 98.3 F 76 17 125/69 98 09/13/18 06:00 09/13/18 10:39 09/13/18 06:00 09/13/18 10:41 09/13/18 06:00 - Medications Medications: Current Medications Albuterol/Ipratropium (Duoneb 3 Mg/0.5 Mg (3 Ml) Ud) 3 ml IH Q2H PRN PRN Reason: Shortness of Breath Albuterol/Ipratropium (Duoneb 3 Mg/0.5 Mg (3 Ml) Ud) 3 ml IH [id number] [facility] Last Admin: 09/13/18 13:11 Dose: 3 ml Arformoterol Tartrate (Brovana) 15 mcg IH [id number] [facility] Last Admin: 09/13/18 07:55 Dose: 15 mcg Budesonide (Pulmicort Respules) 0.5 mg IH [id number] [facility] Last Admin: 09/13/18 07:55 Dose: 0.5 mg Diltiazem HCl (Cardizem Cd) 240 mg PO DAILY [facility] Last Admin: 09/13/18 10:39 Dose: 240 mg Enoxaparin Sodium (Lovenox) 30 mg SC DAILY [facility]; Protocol Last Admin: 09/13/18 10:40 Dose: 30 mg Furosemide (Lasix) 40 mg PO DAILY [facility] Last Admin: 09/13/18 10:41 Dose: 40 mg Levofloxacin (Levaquin) 500 mg PO DAILY [facility]; Protocol Last Admin: 09/13/18 10:41 Dose: 500 mg Levothyroxine Sodium (Synthroid) 88 mcg PO 0600 [facility] Last Admin: 09/13/18 05:29 Dose: 88 mcg Losartan Potassium (Cozaar) 100 mg PO DAILY [facility] Last Admin: 09/13/18 10:41 Dose: 100 mg Methylprednisolone (Solu-Medrol) 30 mg IVP Q12 [facility] Last Admin: 09/13/18 10:40 Dose: 30 mg Pantoprazole Sodium (Protonix Ec Tab) 40 mg PO 0600 [facility] Last Admin: 09/13/18 05:29 Dose: 40 mg - Labs Labs: 09/13/18 07:00 09/13/18 07:00 - Constitutional Appears: Non-toxic, No Acute Distress - Head Exam Head Exam: ATRAUMATIC, NORMOCEPHALIC - Eye Exam Eye Exam: EOMI, Normal appearance, PERRL - ENT Exam ENT Exam: Mucous Membranes Moist - Neck Exam Neck Exam: Full ROM, Normal Inspection - Respiratory Exam Respiratory Exam: Rhonchi (coarse breath sounds b/l), Wheezes (end expiratory wheezes b/l improved from prior exams). absent: Accessory Muscle Use, Rales, Respiratory Distress - Cardiovascular Exam Cardiovascular Exam: REGULAR RHYTHM, RRR, +S1, +S2. absent: Gallop, Rubs, Murmur - GI/Abdominal Exam GI & Abdominal Exam: Soft, Normal Bowel Sounds. absent: Tenderness - Extremities Exam Extremities Exam: Full ROM. absent: Pedal Edema - Neurological Exam Neurological Exam: Alert, Awake, Oriented x3 - Psychiatric Exam Psychiatric exam: Normal Affect, Normal Mood - Skin Skin Exam: Dry, Intact, Warm Assessment and Plan - Assessment and Plan (Free Text) Assessment: 78 yo F with PMH of COPD (on home O2 2L), HTN, hypothyroidism, and anxiety pres ents with acute COPD exacerbation. Plan: Acute on chronic hypercapnic respiratory failure 2/2 COPD exacerbation, wheezing improved on exam today Continue Duo-neb q6h scheduled, q2h PRN Solumedrol weaned to 30 mg IVP q12h Continue pulmicort, brovana Continue levaquin 500 mg PO daily Continue lasix 40 mg PO daily Pulmonology following, recs appreciated Hx hypothyroidism Continue home synthroid Hx HTN Continue home meds DVT/GI PPX: Lovenox/Protonix Full Code HHD Monitor on med/surg Patient seen, examined, and plan discussed with my attending Dr. Nakia Pollock D.O. Resident PGY-1 Pager: [phone] <Naren Yee - Last Filed: 09/13/18 14:54> Objective - Vital Signs/Intake and Output Vital Signs (last 24 hours): Temp Pulse Resp BP Pulse Ox 98.2 F 88 20 103/49 L 96 09/13/18 14:00 09/13/18 14:00 09/13/18 14:00 09/13/18 14:00 09/13/18 14:00 Intake and Output: 09/13/18 09/13/18 06:59 18:59 Intake Total 480 Balance 480 - Medications Medications: Current Medications Albuterol/Ipratropium (Duoneb 3 Mg/0.5 Mg (3 Ml) Ud) 3 ml IH Q2H PRN PRN Reason: Shortness of Breath Albuterol/Ipratropium (Duoneb 3 Mg/0.5 Mg (3 Ml) Ud) 3 ml IH [id number] [facility] Last Admin: 09/13/18 13:11 Dose: 3 ml Arformoterol Tartrate (Brovana) 15 mcg IH [id number] [facility] Last Admin: 09/13/18 07:55 Dose: 15 mcg Budesonide (Pulmicort Respules) 0.5 mg IH [id number] [facility] Last Admin: 09/13/18 07:55 Dose: 0.5 mg Diltiazem HCl (Cardizem Cd) 240 mg PO DAILY [facility] Last Admin: 09/13/18 10:39 Dose: 240 mg Enoxaparin Sodium (Lovenox) 30 mg SC DAILY [facility]; Protocol Last Admin: 09/13/18 10:40 Dose: 30 mg Furosemide (Lasix) 40 mg PO DAILY [facility] Last Admin: 09/13/18 10:41 Dose: 40 mg Levofloxacin (Levaquin) 500 mg PO DAILY [facility]; Protocol Last Admin: 09/13/18 10:41 Dose: 500 mg Levothyroxine Sodium (Synthroid) 88 mcg PO 0600 [facility] Last Admin: 09/13/18 05:29 Dose: 88 mcg Losartan Potassium (Cozaar) 100 mg PO DAILY [facility] Last Admin: 09/13/18 10:41 Dose: 100 mg Methylprednisolone (Solu-Medrol) 30 mg IVP Q12 [facility] Last Admin: 09/13/18 10:40 Dose: 30 mg Pantoprazole Sodium (Protonix Ec Tab) 40 mg PO 0600 [facility] Last Admin: 09/13/18 05:29 Dose: 40 mg - Labs Labs: 09/13/18 07:00 09/13/18 07:00 Attending/Attestation - Attestation I have personally seen and examined this patient.: Yes I have fully participated in the care of the patient.: Yes I have reviewed all pertinent clinical information, including history, physical exam and plan: Yes Notes (Text): 09/13/18 14:51 78 year old female with past medical history of COPD on home O2, anxiety, hypertension and tachyarrythmia (?paroxysmal afib vs SVT) who presented with COPD exacerbation. Symptoms are slowly improving on tapering iv steroids. She is also on duonebs, pulmicort, brovana and levaquin. Pulmonary is following. Leukocytosis today noted; likely secondary to iv steroids. Will continue to monitor. PT evaluation was appreciated; ?TCU. Will discuss with patient and CMx/Sw. Outpatient follow up compliance was discussed with patient. Naren Yee MD Hospitalist.
[2018-09-14] MEDS: Pantoprazole 40 mg EC Tab PO SCH (05:23)
[2018-09-14] MEDS: Levothyroxine 88 MCG TAB PO SCH (05:23)
[2018-09-14 07:08] LABS: LYMPH # 0.7 (1.2-3.4); LYMPH % 3.6 % (22.0-35.0); MEAN CELL VOLUME 90.1 fl (80.0-105.0); MEAN CORPUSCULAR HEMOGLOBIN 27.2 pg (25.0-35.0); MEAN CORPUSCULAR HGB CONC 30.2 g/dl (31.0-37.0); MEAN PLATELET VOLUME 11.1 fl (7.0-11.0); MONO # 0.6 (0.1-0.6); MONO % 2.9 % (1.0-6.0); RBC 5.15 10^6/uL (3.5-6.1); RED CELL DISTRIBUTION WIDTH 14.6 % (11.5-14.5); WHITE BLOOD COUNT 20.1 10^3/uL (4.5-11.0)
[2018-09-14] MEDS: Albuterol-Ipratrop 3 mg / 0.5 (3 ml) UD IH SCH ×3 (07:25→19:25)
[2018-09-14] MEDS: Arformoterol 15 mcg/2 ml Inh Sol IH SCH ×2 (07:25→19:25)
[2018-09-14] MEDS: Budesonide 0.5 mg/2 ml Inhal Susp UD IH SCH ×2 (07:26→19:25)
[2018-09-14 07:36] LABS: ALB/GLOB RATIO 1.4 (1.1-1.8); ALBUMIN 3.8 g/dL (3.0-4.8); ALT/SGPT 7 U/L (7-56); AST/SGOT 22 U/L (14-36); BLOOD UREA NITROGEN 30 mg/dL (7-21); CALCIUM 10.1 mg/dL (8.4-10.5); GFR NON-AFRICAN AMERICAN > 60
--- NOTE | 2018-09-14 08:53 | PN ---
DATE: 09/14/2018 PULMONARY NOTE SUBJECTIVE: The patient appears comfortable this morning. She is not short of breath at rest. OBJECTIVE: VITAL SIGNS: Temperature is 98.0, pulse 90, respirations 18/20, blood pressure 132/54. Oxygen saturation on nasal cannula is 98%. HEENT: Normocephalic, atraumatic. No JVD. CARDIOVASCULAR: Systolic ejection murmur at the lower left sternal border. No S3 gallop. Lungs: Minimal/less rhonchi. No wheezing. EXTREMITIES: No clubbing, cyanosis or edema. Calves are nontender to palpation. GI: Abdomen is soft, nontender and nondistended. Bowel sounds are positive. SKIN: No acute rash. NEUROLOGIC: Exam limited at the present time. IMPRESSION: 1. Recurrent bronchitis. 2. Advanced chronic obstructive pulmonary disease, on home oxygen. 3. Acute bronchospasm. 4. Hypertension. PLAN The patient appears much more comfortable this morning. She is not short of breath at rest. She does state to feeling much better overall. On physical exam, there is certainly less bronchospasm noted. In addition, the alveolar-arterial gradient is also less. I will continue the current nebulizer treatments and low-dose intravenous steroids (decreased yesterday) for now. The patient also remains on antibiotic therapy. There are no temperatures noted. There is a leukocytosis - most likely due to the steroids. Clinical status of the patient is certainly improved - compared to the initial presentation. However, unfortunately, the future status/prognosis for this elderly patient with advanced lung disease remains very guarded/poor. The patient is for possible transfer to the transitional unit. I will discuss the above with the attending physician. Romario Portillo MD [place]
[2018-09-14] MEDS: diltiaZEM 240 mg/24 Hours CD Cap PO SCH (09:26)
[2018-09-14] MEDS: levoFLOXacin 500 MG TAB PO SCH (09:26)
[2018-09-14] MEDS: MethylPREDNISolone 40 mg Vial IVP SCH ×2 (09:26→21:13)
[2018-09-14] MEDS: Enoxaparin 30 mg Syringe SC SCH (09:28)
--- NOTE | 2018-09-14 12:33 | CP.PCM.CON ---
History of Present Illness - History of Present Illness History of Present Illness: Palliative consult requested by Reason: Goals of care 78 year old female with history COPD who presented on 09/11/18 with dyspnea on exertion and productive cough. She is on 02 at home. Noted that her O2 sats were dropping into 80's. She also had upset stomach. Denied fever, chills,vomiting, chest pain,dizziness, headache or urinary symptoms. Chest x ray: No active disease EKG: NSR Labs: Wbc 12.9, hgb 14, Plt 299,, Na138, K 4.8, BUN 11, Safety Net Maker 0.6, glucose 133. Urine culture negative. Negative for H Flu PMHx: COPD, SVT, hypothyroidms, HTN, cataracts, lung dolues PSHx: cholecystectomy Social History: 40 pack year smoker, quit over 20 years ago. No alcohol or drug use. Lives next door to her brother. Family History:Non contributory Advance Care Planning: the patient does not have an Advanced Dirctive Review of Systems: As per HPI, denies all other complaints, 12 point ROS negative Past Patient History - Infectious Disease Hx of Infectious Diseases: None - Tetanus Immunizations Tetanus Immunization: Up to Date - Past Social History Smoking Status: Never Smoked - CARDIAC Hx Cardiac Disorders: Yes (A-fib on cardizem.) Hx Congestive Heart Failure: Yes Hx Hypertension: Yes - PULMONARY Hx Chronic Obstructive Pulmonary Disease (COPD): Yes - NEUROLOGICAL Hx Neurological Disorder: Yes Hx Dizziness: Yes - HEENT Hx HEENT Problems: Yes Hx Cataracts: Yes Other/Comment: b/l cataract surgery - RENAL Hx Chronic Kidney Disease: No - ENDOCRINE/METABOLIC Hx Hypothyroidism: Yes - HEMATOLOGICAL/ONCOLOGICAL Hx Blood Disorders: No - INTEGUMENTARY Hx Dermatological Problems: No - MUSCULOSKELETAL/RHEUMATOLOGICAL Hx Falls: No - GASTROINTESTINAL Hx Gastrointestinal Disorders: Yes (GASTROENTERITIS) - GENITOURINARY/GYNECOLOGICAL Hx Genitourinary Disorders: No - PSYCHIATRIC Hx Psychophysiologic Disorder: No Hx Substance Use: No - SURGICAL HISTORY Hx Surgeries: Yes Hx Cholecystectomy: Yes - ANESTHESIA Hx Anesthesia: Yes Hx Anesthesia Reactions: No Hx Malignant Hyperthermia: No Meds Allergies/Adverse Reactions: Allergies Allergy/AdvReac Type Severity Reaction Status Date / Time CRESTOR AdvReac Intermediate PAIN Uncoded 01/24/17 17:45 contrast AdvReac REDNESS Uncoded 01/24/17 17:45 - Medications Medications: Current Medications Albuterol/Ipratropium (Duoneb 3 Mg/0.5 Mg (3 Ml) Ud) 3 ml IH Q2H PRN PRN Reason: Shortness of Breath Albuterol/Ipratropium (Duoneb 3 Mg/0.5 Mg (3 Ml) Ud) 3 ml IH [id number] [facility] Last Admin: 09/14/18 07:25 Dose: 3 ml Arformoterol Tartrate (Brovana) 15 mcg IH [id number] [facility] Last Admin: 09/14/18 07:25 Dose: 15 mcg Budesonide (Pulmicort Respules) 0.5 mg IH [id number] [facility] Last Admin: 09/14/18 07:26 Dose: 0.5 mg Diltiazem HCl (Cardizem Cd) 240 mg PO DAILY [facility] Last Admin: 09/14/18 09:26 Dose: 240 mg Enoxaparin Sodium (Lovenox) 30 mg SC DAILY [facility]; Protocol Last Admin: 09/14/18 09:28 Dose: 30 mg Furosemide (Lasix) 40 mg PO DAILY [facility] Last Admin: 09/14/18 09:27 Dose: 40 mg Levofloxacin (Levaquin) 500 mg PO DAILY [facility]; Protocol Last Admin: 09/14/18 09:26 Dose: 500 mg Levothyroxine Sodium (Synthroid) 88 mcg PO 0600 [facility] Last Admin: 09/14/18 05:23 Dose: 88 mcg Losartan Potassium (Cozaar) 100 mg PO DAILY [facility] Last Admin: 09/14/18 09:27 Dose: 100 mg Methylprednisolone (Solu-Medrol) 30 mg IVP Q12 [facility] Last Admin: 09/14/18 09:26 Dose: 30 mg Pantoprazole Sodium (Protonix Ec Tab) 40 mg PO 0600 [facility] Last Admin: 09/14/18 05:23 Dose: 40 mg Physical Exam - Constitutional Appears: Chronically Ill - Head Exam Head Exam: NORMOCEPHALIC - Eye Exam Eye Exam: Normal appearance, PERRL - ENT Exam ENT Exam: Mucous Membranes Moist, Normal Oropharynx - Respiratory Exam Respiratory Exam: Decreased Breath Sounds, Rhonchi, Wheezes - Cardiovascular Exam Cardiovascular Exam: REGULAR RHYTHM, +S1, +S2 - GI/Abdominal Exam GI & Abdominal Exam: Normal Bowel Sounds, Soft - Extremities Exam Extremities exam: Positive for: normal inspection, pedal pulses present - Back Exam Back exam: NORMAL INSPECTION - Neurological Exam Neurological exam: Alert, Oriented x3 - Skin Skin Exam: Dry, Warm - Additional Findings Additional findings: Palliative performance scale rating 50 % Results - Vital Signs Recent Vital Signs: Last Vital Signs Temp 98 F 09/14/18 06:00 Pulse 90 09/14/18 09:26 Resp 20 09/14/18 06:00 BP 132/54 L 09/14/18 09:27 Pulse Ox 98 09/14/18 06:00 - Labs Result Diagrams: 09/14/18 06:45 09/14/18 06:45 Labs: Laboratory Results - last 24 hr 09/14/18 09/14/18 06:45 06:45 WBC 20.1 H RBC 5.15 Hgb 14.0 Hct 46.4 MCV 90.1 MCH 27.2 MCHC 30.2 L RDW 14.6 H Plt Count 303 MPV 11.1 H Neut % (Auto) 93.5 H Lymph % (Auto) 3.6 L Irion % (Auto) 2.9 Eos % (Auto) 0.0 L Baso % (Auto) 0.0 Lymph # (Auto) 0.7 L Irion # (Auto) 0.6 Eos # (Auto) 0.0 Baso # (Auto) 0.00 Absolute Neuts (auto) 18.75 H Sodium 137 Potassium 4.6 Chloride 97 L Carbon Dioxide 33 Anion Gap 11 BUN 30 H Creatinine 0.6 L Est GFR ( Amer) > 60 Est GFR (Non-Af Amer) > 60 Random Glucose 239 H Calcium 10.1 Total Bilirubin 0.2 AST 22 ALT 7 Alkaline Phosphatase 69 Total Protein 6.5 Albumin 3.8 Globulin 2.7 Albumin/Globulin Ratio 1.4 Assessment & Plan - Assessment and Plan (Free Text) Assessment: 78 year old female with history of COPD, HTN, who is admitted with bronchitis, acute bronchospasm and chronic COPD. Goals of care and advance care planning discussed. The patient understands her illness and reason for this admission. She states tht she visits her doctors regularly and for the most part, her COPD symptoms have been controlled. She monitors her oxygen saturation level at home. She felt that she should come to ED because she was fearful her dyspnea dramatically worsening. She does not have an advanced directive. Benefits and burdens of resuscitation discussed. The patient states that she wants to be a full code. She does not want life prolonged if her situation is irreversible/terminal. She is not interested in doing an advanced directive at this time. However, she wishes to delegate her brother as her brother as her care proxy Time spent with patient in goals of care and advance care planning, 30 minutes Plan: Goals of care and advance care planning Dr Portillo's notes reviewed, as per his recommendations,continue Brovana, Pulmicort, Duonebs and Solumedrol. Cardiology recs, continue Lasix, Lovenox, Cozaar, Cardizem. Levofloxacin as ordered
--- NOTE | 2018-09-14 14:59 | CP.PCM.PN ---
<Randy Pollock - Last Filed: 09/14/18 17:18> Subjective - Date & Time of Evaluation Date of Evaluation: 09/14/18 Time of Evaluation: 08:00 - Subjective Subjective: Randy Pollock DO, PGY-1 Hospitalist Progress Note for Dr. Yee Patient was seen and examined at bedside this AM. She reports feeling better this AM and states her SOB and cough have improved. However, she reports continued difficulty with ambulation and stated she was barely able to walk to the door with PT yesterday without getting short of breath. She states she does not feel ready to go home yet and is interested in obtaining additional rehab. Objective - Vital Signs/Intake and Output Vital Signs (last 24 hours): Temp Pulse Resp BP Pulse Ox 98.3 F 86 20 115/61 94 L 09/14/18 14:00 09/14/18 14:00 09/14/18 14:00 09/14/18 14:00 09/14/18 14:00 Intake and Output: 09/14/18 09/14/18 06:59 18:59 Intake Total 600 Balance 600 - Medications Medications: Current Medications Albuterol/Ipratropium (Duoneb 3 Mg/0.5 Mg (3 Ml) Ud) 3 ml IH Q2H PRN PRN Reason: Shortness of Breath Albuterol/Ipratropium (Duoneb 3 Mg/0.5 Mg (3 Ml) Ud) 3 ml IH [id number] [facility] Last Admin: 09/14/18 13:29 Dose: 3 ml Arformoterol Tartrate (Brovana) 15 mcg IH [id number] [facility] Last Admin: 09/14/18 07:25 Dose: 15 mcg Budesonide (Pulmicort Respules) 0.5 mg IH [id number] [facility] Last Admin: 09/14/18 07:26 Dose: 0.5 mg Diltiazem HCl (Cardizem Cd) 240 mg PO DAILY [facility] Last Admin: 09/14/18 09:26 Dose: 240 mg Enoxaparin Sodium (Lovenox) 30 mg SC DAILY [facility]; Protocol Last Admin: 09/14/18 09:28 Dose: 30 mg Furosemide (Lasix) 40 mg PO DAILY [facility] Last Admin: 09/14/18 09:27 Dose: 40 mg Levofloxacin (Levaquin) 500 mg PO DAILY [facility]; Protocol Last Admin: 09/14/18 09:26 Dose: 500 mg Levothyroxine Sodium (Synthroid) 88 mcg PO 0600 [facility] Last Admin: 09/14/18 05:23 Dose: 88 mcg Losartan Potassium (Cozaar) 100 mg PO DAILY [facility] Last Admin: 09/14/18 09:27 Dose: 100 mg Methylprednisolone (Solu-Medrol) 30 mg IVP Q12 [facility] Last Admin: 09/14/18 09:26 Dose: 30 mg Pantoprazole Sodium (Protonix Ec Tab) 40 mg PO 0600 [facility] Last Admin: 09/14/18 05:23 Dose: 40 mg - Labs Labs: 09/14/18 06:45 09/14/18 06:45 - Constitutional Appears: Non-toxic, No Acute Distress - Head Exam Head Exam: ATRAUMATIC, NORMOCEPHALIC - Eye Exam Eye Exam: EOMI, Normal appearance, PERRL - ENT Exam ENT Exam: Mucous Membranes Moist - Neck Exam Neck Exam: Full ROM, Normal Inspection - Respiratory Exam Respiratory Exam: Wheezes (faint expiratory wheezes b/l improved from prior exams). absent: Rales, Rhonchi - Cardiovascular Exam Cardiovascular Exam: REGULAR RHYTHM, RRR, +S1, +S2. absent: Gallop, Rubs, Murmur - GI/Abdominal Exam GI & Abdominal Exam: Soft, Normal Bowel Sounds. absent: Guarding, Tenderness - Extremities Exam Extremities Exam: Normal Inspection. absent: Pedal Edema - Back Exam Back Exam: NORMAL INSPECTION - Neurological Exam Neurological Exam: Alert, Awake, Oriented x3 - Psychiatric Exam Psychiatric exam: Normal Affect, Normal Mood - Skin Skin Exam: Dry, Intact, Warm Assessment and Plan - Assessment and Plan (Free Text) Assessment: 78 yo F with PMH of COPD (on home O2 2L), HTN, hypothyroidism, and anxiety presents with acute COPD exacerbation. Plan: Acute on chronic hypercapnic respiratory failure 2/2 COPD exacerbation, wheezing improving but still present Continue Duo-neb q6h scheduled, q2h PRN Continue solumedrol 30 mg IVP q12h Continue pulmicort, brovana Continue levaquin 500 mg PO daily Continue lasix 40 mg PO daily F/u additional pulmonology recs Physical Deconditioning Per patient, she is still having difficulty ambulating even short distances such as to the bathroom She states she is not at her baseline and is interested in rehab services TCU evaluation completed today Plan on transfer to TCU tomorrow Hx hypothyroidism Continue home synthroid Hx HTN Continue home meds DVT/GI PPX: Lovenox/Protonix Full Code HHD Monitor on med/surg Patient seen, examined, and plan discussed with my attending Dr. Nakia Pollock D.O. IM Resident PGY-1 Pager: [phone] <Naren Yee - Last Filed: 09/14/18 18:29> Objective - Vital Signs/Intake and Output Vital Signs (last 24 hours): Temp Pulse Resp BP Pulse Ox 98.3 F 86 20 115/61 94 L 09/14/18 14:00 09/14/18 14:00 09/14/18 14:00 09/14/18 14:00 09/14/18 14:00 Intake and Output: 09/14/18 09/14/18 06:59 18:59 Intake Total 600 Balance 600 - Medications Medications: Current Medications Albuterol/Ipratropium (Duoneb 3 Mg/0.5 Mg (3 Ml) Ud) 3 ml IH Q2H PRN PRN Reason: Shortness of Breath Albuterol/Ipratropium (Duoneb 3 Mg/0.5 Mg (3 Ml) Ud) 3 ml IH [id number] [facility] Last Admin: 09/14/18 13:29 Dose: 3 ml Arformoterol Tartrate (Brovana) 15 mcg IH [id number] [facility] Last Admin: 09/14/18 07:25 Dose: 15 mcg Budesonide (Pulmicort Respules) 0.5 mg IH [id number] [facility] Last Admin: 09/14/18 07:26 Dose: 0.5 mg Diltiazem HCl (Cardizem Cd) 240 mg PO DAILY [facility] Last Admin: 09/14/18 09:26 Dose: 240 mg Enoxaparin Sodium (Lovenox) 30 mg SC DAILY [facility]; Protocol Last Admin: 09/14/18 09:28 Dose: 30 mg Furosemide (Lasix) 40 mg PO DAILY [facility] Last Admin: 09/14/18 09:27 Dose: 40 mg Levofloxacin (Levaquin) 500 mg PO DAILY [facility]; Protocol Last Admin: 09/14/18 09:26 Dose: 500 mg Levothyroxine Sodium (Synthroid) 88 mcg PO 0600 [facility] Last Admin: 09/14/18 05:23 Dose: 88 mcg Losartan Potassium (Cozaar) 100 mg PO DAILY [facility] Last Admin: 09/14/18 09:27 Dose: 100 mg Methylprednisolone (Solu-Medrol) 30 mg IVP Q12 [facility] Last Admin: 09/14/18 09:26 Dose: 30 mg Pantoprazole Sodium (Protonix Ec Tab) 40 mg PO 0600 [facility] Last Admin: 09/14/18 05:23 Dose: 40 mg - Labs Labs: 09/14/18 06:45 09/14/18 06:45 Attending/Attestation - Attestation I have personally seen and examined this patient.: Yes I have fully participated in the care of the patient.: Yes I have reviewed all pertinent clinical information, including history, physical exam and plan: Yes Notes (Text): 09/14/18 18:27 78 year old female with past medical history of COPD on home O2, anxiety, hypertension and tachyarrythmia (?paroxysmal afib vs SVT) who presented with COPD exacerbation. Wheezing has improved with iv steroids, duonebs, pulmicort, brovana and levaquin. However still complains of dyspnea with minimal exertion and weakness; requesting rehab. PT evaluation was appreciated who is recommending TCU; patient has been accepted for tomorrow. Leukocytosis likely secondary to iv steroids. Will continue to monitor. Outpatient follow up compliance was discussed with patient. Naren Yee MD Hospitalist.
[2018-09-15 01:25] VITALS: PULSE 88
[2018-09-15] MEDS: Pantoprazole 40 mg EC Tab PO SCH (05:21)
[2018-09-15] MEDS: Levothyroxine 88 MCG TAB PO SCH (05:21)
[2018-09-15 06:46] VITALS: BP 131/74; RESP 18; TEMP 98.1; O2SAT 97
[2018-09-15 07:49] LABS: HEMOGLOBIN 13.9 g/dL (12.0-16.0); LYMPH # 0.2 (1.2-3.4); LYMPH % 1.4 % (22.0-35.0); MEAN CORPUSCULAR HEMOGLOBIN 27.1 pg (25.0-35.0); MEAN CORPUSCULAR HGB CONC 29.8 g/dl (31.0-37.0); MEAN PLATELET VOLUME 11.1 fl (7.0-11.0); MONO # 0.7 (0.1-0.6); MONO % 4.7 % (1.0-6.0); PLATELET COUNT 295 10^3/uL (120.0-450.0); RBC 5.12 10^6/uL (3.5-6.1); RED CELL DISTRIBUTION WIDTH 14.7 % (11.5-14.5); WHITE BLOOD COUNT 15.7 10^3/uL (4.5-11.0)
[2018-09-15] MEDS: Albuterol-Ipratrop 3 mg / 0.5 (3 ml) UD IH SCH ×2 (08:03→13:40)
[2018-09-15] MEDS: Budesonide 0.5 mg/2 ml Inhal Susp UD IH SCH (08:03)
[2018-09-15] MEDS: Arformoterol 15 mcg/2 ml Inh Sol IH SCH (08:03)
[2018-09-15 08:12] LABS: ALB/GLOB RATIO 1.4 (1.1-1.8); ALBUMIN 3.7 g/dL (3.0-4.8); ALT/SGPT 26 U/L (7-56); AST/SGOT 19 U/L (14-36); BLOOD UREA NITROGEN 30 mg/dL (7-21); CALCIUM 9.9 mg/dL (8.4-10.5); GFR NON-AFRICAN AMERICAN > 60
[2018-09-15 09:35] LABS: NEUTROPHIL 95 % (50.0-70.0)
[2018-09-15 09:36] LABS: ANISOCYTOSIS SLIGHT; GIANT PLATELETS PRESENT; LARGE PLATELETS PRESENT; LYMPHOCYTE 3 % (22.0-35.0); MONOCYTE 2 % (1.0-6.0); PLATELET ESTIMATE NORMAL (NORMAL); TOXIC GRANULATION SLIGHT
[2018-09-15] MEDS: Enoxaparin 30 mg Syringe SC SCH (09:44)
[2018-09-15] MEDS: levoFLOXacin 500 MG TAB PO SCH (09:45)
[2018-09-15] MEDS: MethylPREDNISolone 40 mg Vial IVP SCH (09:46)
[2018-09-15] MEDS: diltiaZEM 240 mg/24 Hours CD Cap PO SCH (09:48)
--- NOTE | 2018-09-15 14:18 | PN ---
DATE: 09/15/2018 PULMONARY PROGRESS NOTE SUBJECTIVE: The patient was seen and examined at bedside. She states she feels better. She is less short of breath. She is still wearing supplemental oxygen. PHYSICAL EXAMINATION: VITAL SIGNS: Her temperature is 98, pulse 84, respirations 20, blood pressure is 110/70, and oxygen saturation is 95 on room air. HEAD: Normocephalic and atraumatic. NECK: Supple. There is no jugular vein distention. CARDIOVASCULAR: S1, S2. No S3. Regular. PULMONARY: Diminished breath sounds at both bases. There are no crackles, but rhonchi are present and few expiratory wheezes present. GASTROINTESTINAL: Soft, nontender. No organomegaly. EXTREMITIES: No pedal edema. No cyanosis. SKIN: No acute skin rash. NEUROLOGIC: No focal deficits. LABORATORY DATA: Today's WBC of 15.7, hemoglobin of 13.9. Potassium 4, sodium 138. ASSESSMENT: 1. Exacerbation of severe chronic obstructive pulmonary disease. 2. Recurrent bronchitis. 3. Resolving bronchospasm. PLAN: The patient appears markedly improved this morning. She is not short of breath at rest. There are only few rhonchi and wheezes on the physical exam. We will continue with current administration of nebulized bronchodilator therapy as well as antibiotics. Overall improvement is noted. Costa Muñoz MD
--- NOTE | 2018-09-15 16:31 | CP.PCM.DIS ---
<Randy Pollock - Last Filed: 09/15/18 16:31> Provider - Provider Date of Admission: 09/12/18 09:23 Attending physician: Naren Yee MD Primary care physician: MILADY: Ottoniel Lopezm: Bandar Consults: 09/11/18 18:20 Physician Consult Routine Comment: Consulting Provider: Costa Muñoz Consulting Physician: Costa Muñoz Reason for Consult: COPD exacerbation 09/12/18 00:44 Nursing Referral for Palliative Care Routine Comment: score: 4 Physician Instructions: Reason For Exam: protocol 09/12/18 00:45 Social Work Referral Routine Comment: [place] Risk assessment score: 9 Physician Instructions: Reason For Exam: Protocol 09/12/18 12:58 Palliative Care Consult Routine Comment: Consulting Provider: Jacklyn Sultana Physician Instructions: Reason For Exam: advanced COPD on home oxygen 09/12/18 15:19 TCU [Evaluation for TRCU] Routine Comment: Physician Instructions: Reason For Exam: please evaluate, advanced COPD Time Spent in preparation of Discharge (in minutes): 35 Diagnosis - Discharge Diagnosis (1) Physical deconditioning Status: Acute (2) COPD exacerbation Status: Acute (3) Leukocytosis Status: Acute Hospital Course - Lab Results Lab Results: Micro Results 09/11/18 19:30 Urine Random Urine Culture - Final No Growth (<1,000 CFU/ML) Most Recent Lab Values WBC 15.7 10^3/uL (4.5-11.0) H D 09/15/18 06:45 RBC 5.12 10^6/uL (3.5-6.1) 09/15/18 06:45 Hgb 13.9 g/dL (12.0-16.0) 09/15/18 06:45 Hct 46.6 % (36.0-48.0) 09/15/18 06:45 MCV 91.0 fl (80.0-105.0) 09/15/18 06:45 MCH 27.1 pg (25.0-35.0) 09/15/18 06:45 MCHC 29.8 g/dl (31.0-37.0) L 09/15/18 06:45 RDW 14.7 % (11.5-14.5) H 09/15/18 06:45 Plt Count 295 10^3/uL (120.0-450.0) 09/15/18 06:45 MPV 11.1 fl (7.0-11.0) H 09/15/18 06:45 Neut % (Auto) 93.9 % (50.0-68.0) H 09/15/18 06:45 Lymph % (Auto) 1.4 % (22.0-35.0) L 09/15/18 06:45 Quay % (Auto) 4.7 % (1.0-6.0) 09/15/18 06:45 Eos % (Auto) 0.0 % (1.5-5.0) L 09/15/18 06:45 Baso % (Auto) 0.0 % (0.0-3.0) 09/15/18 06:45 Lymph # (Auto) 0.2 (1.2-3.4) L 09/15/18 06:45 Quay # (Auto) 0.7 (0.1-0.6) H 09/15/18 06:45 Eos # (Auto) 0.0 (0.0-0.7) 09/15/18 06:45 Baso # (Auto) 0.00 K/mm3 (0.0-2.0) 09/15/18 06:45 Absolute Neuts (auto) 14.78 (1.4-6.5) H 09/15/18 06:45 Neutrophils % (Manual) 95 % (50.0-70.0) H 09/15/18 06:45 Lymphocytes % (Manual) 3 % (22.0-35.0) L 09/15/18 06:45 Monocytes % (Manual) 2 % (1.0-6.0) 09/15/18 06:45 Eosinophils % (Manual) 1 % (0.0-3.0) 09/11/18 15:30 Toxic Granulation Slight 09/15/18 06:45 Platelet Evaluation Normal (NORMAL) 09/15/18 06:45 Large Platelets Present 09/15/18 06:45 Giant Platelets Present 09/15/18 06:45 Hypochromasia 2+ 09/11/18 15:30 Anisocytosis (manual) Slight 09/15/18 06:45 Rouleaux 2+ 09/11/18 15:30 Sodium 138 mmol/L (132-148) 09/15/18 06:45 Potassium 4.0 mmol/L (3.6-5.0) 09/15/18 06:45 Chloride 98 mmol/L (98-107) 09/15/18 06:45 Carbon Dioxide 33 mmol/L (21-33) 09/15/18 06:45 Anion Gap 11 (10-20) 09/15/18 06:45 BUN 30 mg/dL (7-21) H 09/15/18 06:45 Creatinine 0.7 mg/dl (0.7-1.2) 09/15/18 06:45 Est GFR ( Amer) > 60 09/15/18 06:45 Est GFR (Non-Af Amer) > 60 09/15/18 06:45 Random Glucose 250 mg/dL (70-110) H 09/15/18 06:45 Calcium 9.9 mg/dL (8.4-10.5) 09/15/18 06:45 Total Bilirubin 0.4 mg/dL (0.2-1.3) 09/15/18 06:45 AST 19 U/L (14-36) 09/15/18 06:45 ALT 26 U/L (7-56) 09/15/18 06:45 Alkaline Phosphatase 71 U/L (38-126) 09/15/18 06:45 Total Protein 6.3 g/dL (5.8-8.3) 09/15/18 06:45 Albumin 3.7 g/dL (3.0-4.8) 09/15/18 06:45 Globulin 2.6 gm/dL 09/15/18 06:45 Albumin/Globulin Ratio 1.4 (1.1-1.8) 09/15/18 06:45 Urine Color Yellow (YELLOW) 09/11/18 19:30 Urine Appearance Clear (CLEAR) 09/11/18 19:30 Urine pH 7.0 (4.7-8.0) 09/11/18 19:30 Ur Specific Sayre 1.015 (1.005-1.035) 09/11/18 19:30 Urine Protein Negative mg/dL (<30 mg/dL) 09/11/18 19:30 Urine Glucose (UA) 250 mg/dL (NEGATIVE) H 09/11/18 19:30 Urine Ketones 15 mg/dL (NEGATIVE) H 09/11/18 19:30 Urine Blood Negative (NEGATIVE) 09/11/18 19:30 Urine Nitrate Negative (NEGATIVE) 09/11/18 19:30 Urine Bilirubin Negative (NEGATIVE) 09/11/18 19:30 Urine Urobilinogen 0.2 E.U./dL (<1 E.U./dL) 09/11/18 19:30 Ur Leukocyte Esterase Negative Jarret/uL (NEGATIVE) 09/11/18 19:30 Influenza Typ A,B (EIA) Negative for flu a/b (NEGATIVE) 09/11/18 15:30 - Hospital Course Hospital Course: Randy Pollock DO, PGY-1 Hospitalist Discharge Summary for Dr. Yee Ms. Guerrero is a 78 year old female with PMH of COPD (on home O2 2L), HTN, hypothyroidism, and anxiety initially presented to ED with worsening SOB and productive cough. She was subsequently admitted for acute COPD exacerbation. She was most recently admitted for a COPD exacerbation last June. She states she has been admitted for similar exacerbations about 2-3 times per year for the past two years. She was treated with solumedrol 40 mg q12h initially and then was slowly tapered to 30 mg q12h. She was given both scheduled and PRN duo-neb treatments. Patient's wheezing began to improve each day of admission. However, patient became concerned that she is not at her baseline. She stated that she would get short of breath with even short distances, such as to the bathroom. She was not able to ambulate very far with PT without getting short of breath. She was subsequently evaluated for TCU placement and approved. She will be transferred to TCU for treatment of physical deconditioning due to end-stage COPD. Patient seen, examined, and discharge plan discussed with my attending Dr. Nakia Pollock D.O. IM Resident PGY-1 Discharge Exam - Head Exam Head Exam: ATRAUMATIC, NORMOCEPHALIC - Eye Exam Eye Exam: EOMI, Normal appearance, PERRL - ENT Exam ENT Exam: Mucous Membranes Moist - Neck Exam Neck exam: Full Rom, Normal Inspection - Respiratory Exam Respiratory Exam: Wheezes (end expiratory wheezes improved from prior exams). absent: Accessory Muscle Use, Rales, Rhonchi, Respiratory Distress - Cardiovascular Exam Cardiovascular Exam: REGULAR RHYTHM, RRR, +S1, +S2. absent: Diastolic murmur, Gallop, Rubs, Systolic Murmur - GI/Abdominal Exam GI & Abdominal Exam: Normal Bowel Sounds, Soft, Unremarkable - Extremities Exam Extremities exam: full ROM, normal inspection - Back Exam Back exam: NORMAL INSPECTION - Neurological Exam Neurological exam: Alert, Oriented x3 - Psychiatric Exam Psychiatric exam: Normal Affect, Normal Mood - Skin Skin Exam: Dry, Intact, Warm Discharge Plan - Follow Up Plan Condition: FAIR Disposition: TRANSF TO SNF Instructions: Dangers of Secondhand Smoke, Exacerbation of COPD (DC), Flu Vaccine, Leukocytosis (DC), Leukocytosis (GEN) Additional Instructions: Discharge to TCU <Naren Yee - Last Filed: 09/15/18 17:12> Provider - Provider Date of Admission: 09/12/18 09:23 Attending physician: Naren Yee MD Consults: 09/11/18 18:20 Physician Consult Routine Comment: Consulting Provider: Costa Muñoz Consulting Physician: Costa Muñoz Reason for Consult: COPD exacerbation 09/12/18 00:44 Nursing Referral for Palliative Care Routine Comment: score: 4 Physician Instructions: Reason For Exam: protocol 09/12/18 00:45 Social Work Referral Routine Comment: [place] Risk assessment score: 9 Physician Instructions: Reason For Exam: Protocol 09/12/18 12:58 Palliative Care Consult Routine Comment: Consulting Provider: Jacklyn Sultana Physician Instructions: Reason For Exam: advanced COPD on home oxygen 09/12/18 15:19 TCU [Evaluation for TRCU] Routine Comment: Physician Instructions: Reason For Exam: please evaluate, advanced COPD Hospital Course - Lab Results Lab Results: Micro Results 09/11/18 19:30 Urine Random Urine Culture - Final No Growth (<1,000 CFU/ML) Most Recent Lab Values WBC 15.7 10^3/uL (4.5-11.0) H D 09/15/18 06:45 RBC 5.12 10^6/uL (3.5-6.1) 09/15/18 06:45 Hgb 13.9 g/dL (12.0-16.0) 09/15/18 06:45 Hct 46.6 % (36.0-48.0) 09/15/18 06:45 MCV 91.0 fl (80.0-105.0) 09/15/18 06:45 MCH 27.1 pg (25.0-35.0) 09/15/18 06:45 MCHC 29.8 g/dl (31.0-37.0) L 09/15/18 06:45 RDW 14.7 % (11.5-14.5) H 09/15/18 06:45 Plt Count 295 10^3/uL (120.0-450.0) 09/15/18 06:45 MPV 11.1 fl (7.0-11.0) H 09/15/18 06:45 Neut % (Auto) 93.9 % (50.0-68.0) H 09/15/18 06:45 Lymph % (Auto) 1.4 % (22.0-35.0) L 09/15/18 06:45 Quay % (Auto) 4.7 % (1.0-6.0) 09/15/18 06:45 Eos % (Auto) 0.0 % (1.5-5.0) L 09/15/18 06:45 Baso % (Auto) 0.0 % (0.0-3.0) 09/15/18 06:45 Lymph # (Auto) 0.2 (1.2-3.4) L 09/15/18 06:45 Quay # (Auto) 0.7 (0.1-0.6) H 09/15/18 06:45 Eos # (Auto) 0.0 (0.0-0.7) 09/15/18 06:45 Baso # (Auto) 0.00 K/mm3 (0.0-2.0) 09/15/18 06:45 Absolute Neuts (auto) 14.78 (1.4-6.5) H 09/15/18 06:45 Neutrophils % (Manual) 95 % (50.0-70.0) H 09/15/18 06:45 Lymphocytes % (Manual) 3 % (22.0-35.0) L 09/15/18 06:45 Monocytes % (Manual) 2 % (1.0-6.0) 09/15/18 06:45 Eosinophils % (Manual) 1 % (0.0-3.0) 09/11/18 15:30 Toxic Granulation Slight 09/15/18 06:45 Platelet Evaluation Normal (NORMAL) 09/15/18 06:45 Large Platelets Present 09/15/18 06:45 Giant Platelets Present 09/15/18 06:45 Hypochromasia 2+ 09/11/18 15:30 Anisocytosis (manual) Slight 09/15/18 06:45 Rouleaux 2+ 09/11/18 15:30 Sodium 138 mmol/L (132-148) 09/15/18 06:45 Potassium 4.0 mmol/L (3.6-5.0) 09/15/18 06:45 Chloride 98 mmol/L (98-107) 09/15/18 06:45 Carbon Dioxide 33 mmol/L (21-33) 09/15/18 06:45 Anion Gap 11 (10-20) 09/15/18 06:45 BUN 30 mg/dL (7-21) H 09/15/18 06:45 Creatinine 0.7 mg/dl (0.7-1.2) 09/15/18 06:45 Est GFR ( Amer) > 60 09/15/18 06:45 Est GFR (Non-Af Amer) > 60 09/15/18 06:45 Random Glucose 250 mg/dL (70-110) H 09/15/18 06:45 Calcium 9.9 mg/dL (8.4-10.5) 09/15/18 06:45 Total Bilirubin 0.4 mg/dL (0.2-1.3) 09/15/18 06:45 AST 19 U/L (14-36) 09/15/18 06:45 ALT 26 U/L (7-56) 09/15/18 06:45 Alkaline Phosphatase 71 U/L (38-126) 09/15/18 06:45 Total Protein 6.3 g/dL (5.8-8.3) 09/15/18 06:45 Albumin 3.7 g/dL (3.0-4.8) 09/15/18 06:45 Globulin 2.6 gm/dL 09/15/18 06:45 Albumin/Globulin Ratio 1.4 (1.1-1.8) 09/15/18 06:45 Urine Color Yellow (YELLOW) 09/11/18 19:30 Urine Appearance Clear (CLEAR) 09/11/18 19:30 Urine pH 7.0 (4.7-8.0) 09/11/18 19:30 Ur Specific Sayre 1.015 (1.005-1.035) 09/11/18 19:30 Urine Protein Negative mg/dL (<30 mg/dL) 09/11/18 19:30 Urine Glucose (UA) 250 mg/dL (NEGATIVE) H 09/11/18 19:30 Urine Ketones 15 mg/dL (NEGATIVE) H 09/11/18 19:30 Urine Blood Negative (NEGATIVE) 09/11/18 19:30 Urine Nitrate Negative (NEGATIVE) 09/11/18 19:30 Urine Bilirubin Negative (NEGATIVE) 09/11/18 19:30 Urine Urobilinogen 0.2 E.U./dL (<1 E.U./dL) 09/11/18 19:30 Ur Leukocyte Esterase Negative Jarret/uL (NEGATIVE) 09/11/18 19:30 Influenza Typ A,B (EIA) Negative for flu a/b (NEGATIVE) 09/11/18 15:30 Attending/Attestation - Attestation I have personally seen and examined this patient.: Yes I have fully participated in the care of the patient.: Yes I have reviewed all pertinent clinical information, including history, physical exam and plan: Yes Notes (Text): 09/15/18 17:10 78 year old female with past medical history of COPD on home O2, anxiety, hypertension and tachyarrythmia (?paroxysmal afib vs SVT) who presented with COPD exacerbation. She was started on iv steroids, duonebs, pulmicort, brovana and levaquin which improvement of symptoms. However she continues to complain of dyspnea on exertion and generalized weakness. PT evaluation was appreciated and patient will be transferred to TCU today. Naren Yee MD Hospitalist.
== END 2018-09-15 14:35 | DRG 190 ==
LOC: ED 14:32 → ERH 16:48 → 2RNO 22:39 → OBSVTOIN 09-12 09:23 → 5RNO 09-12 15:49
PROVIDERS: ADMIT Hospitalist; ATTEND Internal Medicine
PROC: 3E0F7GC Introduction of Other Therapeutic Substance into Respiratory Tract, Via Natural or Artificial Opening (ICD-10-PCS; principal; 2018-09-12)
DX: J44.1 Chronic obstructive pulmonary disease with (acute) exacerbation (principal); J96.22 Acute and chronic respiratory failure with hypercapnia; I47.1 Supraventricular tachycardia; I11.0 Hypertensive heart disease with heart failure; E03.9 Hypothyroidism, unspecified; I25.10 Atherosclerotic heart disease of native coronary artery without angina pectoris; F41.9 Anxiety disorder, unspecified; T38.0X5A Adverse effect of glucocorticoids and synthetic analogues, initial encounter; D72.829 Elevated white blood cell count, unspecified; I50.9 Heart failure, unspecified; I48.91 Unspecified atrial fibrillation; Z99.81 Dependence on supplemental oxygen; Z79.890 Hormone replacement therapy; Z91.19 Patient's noncompliance with other medical treatment and regimen; Z98.42 Cataract extraction status, left eye; Z98.41 Cataract extraction status, right eye; Z87.891 Personal history of nicotine dependence

== ENCOUNTER 2018-09-15 14:35 | Inpatient (IN) | payer OTHER, BC ==
[2018-09-15 16:03] VITALS: BMI 20.8
[2018-09-15] MEDS ORDERED: Albuterol-Ipratrop 3 mg / 0.5 (3 ml) UD IH PRN (16:04)
[2018-09-15 16:27] VITALS: RESP 20
[2018-09-15] MEDS: Arformoterol 15 mcg/2 ml Inh Sol IH SCH (19:19)
[2018-09-15] MEDS: Budesonide 0.5 mg/2 ml Inhal Susp UD IH SCH (19:19)
[2018-09-15] MEDS: Albuterol-Ipratrop 3 mg / 0.5 (3 ml) UD IH SCH (19:19)
[2018-09-15] MEDS ORDERED: Influenza Vaccine 60 mcg/0.5 mL SYR (4YR UP) IM ONE (19:31)
[2018-09-15] MEDS ORDERED: Pneumococcal 23-Valent Vaccine IM ONE (19:31)
[2018-09-15] MEDS: MethylPREDNISolone 40 mg Vial IVP SCH (21:23)
[2018-09-16] MEDS: Albuterol-Ipratrop 3 mg / 0.5 (3 ml) UD IH SCH ×4 (02:40→21:08)
[2018-09-16] MEDS: Enoxaparin 30 mg Syringe SC SCH (05:20)
[2018-09-16] MEDS: Pantoprazole 40 mg EC Tab PO SCH (05:20)
[2018-09-16] MEDS: Levothyroxine 88 MCG TAB PO SCH (05:20)
[2018-09-16] MEDS: Budesonide 0.5 mg/2 ml Inhal Susp UD IH SCH ×2 (07:24→21:08)
[2018-09-16] MEDS: Arformoterol 15 mcg/2 ml Inh Sol IH SCH ×2 (07:24→21:08)
[2018-09-16] MEDS: levoFLOXacin 500 MG TAB PO SCH (10:03)
[2018-09-16] MEDS: MethylPREDNISolone 40 mg Vial IVP SCH ×2 (10:03→21:24)
[2018-09-16] MEDS: diltiaZEM 240 mg/24 Hours CD Cap PO SCH (10:08)
--- NOTE | 2018-09-16 13:14 | PN ---
DATE: 09/16/2018 PULMONARY PROGRESS NOTE SUBJECTIVE: The patient was seen and examined at bedside in transitional care unit. She states her breathing has improved; however, she is still shortness of breath on minimal exertion. PHYSICAL EXAMINATION: HEENT: Head is normocephalic and atraumatic. NECK: Supple with no jugular vein distentions. CARDIOVASCULAR: S1 and S2. No S3, regular. PULMONARY: Diminished breath sounds bilaterally with end-expiratory wheezes and few rhonchi, moderate airway obstruction. GASTROINTESTINAL: Soft and nontender. No organomegaly. EXTREMITIES: No pedal edema. No cyanosis. SKIN: No acute skin rash. NEUROLOGIC: No focal deficits. ASSESSMENT: 1. Exacerbation of severe chronic obstructive pulmonary disease. 2. Respiratory insufficiency. 3. Hypoxia. PLAN: We will continue with administration of Brovana twice a day as well as added budesonide. She is still on a moderate dose of Solu-Medrol of 30 mg every 12 hours this can be reduce tomorrow and eventually taken down to oral medication. She is making progress; however, she is still moderately obstructed. Costa Muñoz MD
--- NOTE | 2018-09-16 15:52 | CP.PCM.HP ---
<Randy Pollock - Last Filed: 09/16/18 16:02> History of Present Illness - History of Present Illness History of Present Illness: Randy Pollock DO, PGY-1 TCU Admission History and Physical for Dr. Yee CC: admission to TCU for physical deconditioning 2/2 end-stage COPD HPI: Ms. Guerrero is a pleasant 78 year old male with PMH of COPD (on home O2 2L), SVT (on cardizem), lung nodules (followed by pulmonology), hypothyroidism, and HTN who presented to [facility] ED on 09/11/18 with concern of worsening SOB, cough, and dyspnea on exertion. She was most recently admitted for a similar COPD exacerbation in June 2018. She was subsequently admitted for COPD exacerbation and treated with scheduled duo-neb treatments and solumedrol. Her wheezing continued to improve throughout her admission. However, she continued to complain of dyspnea on exertion and stated she was not able to walk to the bathroom without having significant SOB. PT indicated she would be a candidate for TCU rehab. She was subsequently evaluated by TCU and accepted for admission. PMD: [place] Past Medical Hx: COPD (on home O2 2L), SVT (on cardizem), lung nodules (followed by pulmonology), hypothyroidism, and HTN Past Surgical Hx: cholecystectomy Allergies: statins muscle aches, IV contrast hives feels hot and trouble breathing Home medications: lasix 40 daily, spiriva, potassium 10 mEq daily, synthroid 88 mcg daily, advair 230/21 2 puffs daily, protonix 20 daily, lexapro 10 daily, xanax 0.25 BID, cardizem 240 daily Family Hx: mother from [place] at age 47 Social Hx: admits to 40 pack year smoking history but quit 27 years ago. alcohol denies, illicit drugs denies. Lives alone in [place] [facility]: [facility] Present on Admission - Present on Admission Any Indicators Present on Admission: No History of DVT/PE: No History of Uncontrolled Diabetes: No Urinary Catheter: No Decubitus Ulcer Present: No Review of Systems - Constitutional Constitutional: absent: Chills, Fever - EENT Eyes: absent: Blurred Vision - Cardiovascular Cardiovascular: Dyspnea on Exertion. absent: Chest Pain, Chest Pain at Rest, Edema, Irregular Heart Rhythm, Palpitations, Paroxysmal Nocturnal Dyspnea - Respiratory Respiratory: Cough, Dyspnea, Dyspnea on Exertion, Wheezing. absent: Hemoptysis - Gastrointestinal Gastrointestinal: absent: Abdominal Pain, Nausea, Vomiting - Genitourinary Genitourinary: absent: Change in Urinary Stream, Dysuria - Musculoskeletal Musculoskeletal: absent: Muscle Weakness, Numbness Past Patient History - Infectious Disease Hx of Infectious Diseases: None - Tetanus Immunizations Tetanus Immunization: Up to Date - Past Social History Smoking Status: Never Smoked - CARDIAC Hx Cardiac Disorders: Yes (A Fib) Hx Congestive Heart Failure: Yes Hx Hypercholesterolemia: Yes - PULMONARY Hx Chronic Obstructive Pulmonary Disease (COPD): Yes - NEUROLOGICAL Hx Neurological Disorder: Yes Hx Dizziness: Yes - HEENT Hx HEENT Problems: Yes Hx Cataracts: Yes Other/Comment: b/l cataract surgery - RENAL Hx Chronic Kidney Disease: No - ENDOCRINE/METABOLIC Hx Hypothyroidism: Yes - HEMATOLOGICAL/ONCOLOGICAL Hx Blood Disorders: No - INTEGUMENTARY Hx Dermatological Problems: No - MUSCULOSKELETAL/RHEUMATOLOGICAL Hx Falls: No - GASTROINTESTINAL Hx Gastrointestinal Disorders: Yes (CHOLECYSTECTOMY,GASTROENTERITIS) - GENITOURINARY/GYNECOLOGICAL Hx Genitourinary Disorders: Yes Hx Reproductive Disorders: No - PSYCHIATRIC Hx Psychophysiologic Disorder: No Hx Substance Use: No - SURGICAL HISTORY Hx Surgeries: Yes Hx Cholecystectomy: Yes - ANESTHESIA Hx Anesthesia: Yes Hx Anesthesia Reactions: No Hx Malignant Hyperthermia: No Meds Allergies/Adverse Reactions: Allergies Allergy/AdvReac Type Severity Reaction Status Date / Time CRESTOR AdvReac Intermediate PAIN Uncoded 09/15/18 17:26 contrast AdvReac REDNESS Uncoded 09/15/18 17:26 Physical Exam - Constitutional Appears: Non-toxic, No Acute Distress - Head Exam Head Exam: ATRAUMATIC, NORMOCEPHALIC - Eye Exam Eye Exam: EOMI, Normal appearance, PERRL - ENT Exam ENT Exam: Mucous Membranes Moist - Neck Exam Neck exam: Positive for: Full Rom, Normal Inspection - Respiratory Exam Respiratory Exam: Wheezes (end-expiratory wheezes improved from admission). absent: Accessory Muscle Use, Prolonged Expiratory Phase, Rales, Rhonchi, Respiratory Distress - Cardiovascular Exam Cardiovascular Exam: REGULAR RHYTHM, RRR, +S1, +S2. absent: Gallop, Rubs, Systolic Murmur - GI/Abdominal Exam GI & Abdominal Exam: Normal Bowel Sounds, Soft. absent: Tenderness - Extremities Exam Extremities exam: Positive for: normal inspection. Negative for: pedal edema - Back Exam Back exam: NORMAL INSPECTION - Neurological Exam Neurological exam: Alert, Oriented x3 - Psychiatric Exam Psychiatric exam: Normal Affect, Normal Mood - Skin Skin Exam: Dry, Intact, Warm Results - Vital Signs Recent Vital Signs: Last Vital Signs Temp 97.9 F 09/15/18 19:19 Pulse 87 09/16/18 10:08 Resp 20 09/15/18 19:19 BP 127/60 09/16/18 10:08 Pulse Ox 96 09/15/18 16:00 Assessment & Plan - Assessment and Plan (Free Text) Assessment: 78 yo F with PMH of COPD (on home O2 2L), HTN, hypothyroidism, and anxiety is admitted to TCU for treatment of physical deconditioning 2/2 end-stage COPD. Plan: Physical Deconditioning 2/2 end-stage COPD Continue scheduled and PRN duo-neb treatments Continue solumedrol 30 mg IVP q12h, will likely wean to 20 mg IVP q12h tomorrow Continue Levaquin 500 mg PO daily Continue lasix 40 mg PO daily Pulmonology following, recs appreciated Hx hypothyroidism Continue home synthroid Hx HTN Continue home meds DVT/GI PPX: Lovenox/Protonix Full Code HHD Monitor on TCU Patient seen, examined, and plan discussed with my attending Dr. Nakia Pollock, D.O. IM Resident PGY-1 Pager: [phone] <Naren Yee - Last Filed: 09/16/18 17:06> Results - Vital Signs Recent Vital Signs: Last Vital Signs Temp 97.9 F 09/15/18 19:19 Pulse 87 09/16/18 10:08 Resp 20 09/15/18 19:19 BP 127/60 09/16/18 10:08 Pulse Ox 96 09/15/18 16:00 Attending/Attestation - Attestation I have personally seen and examined this patient.: Yes I have fully participated in the care of the patient.: Yes I have reviewed all pertinent clinical information: Yes Notes (Text): 09/16/18 17:02 78 year old female with past medical history of advanced COPD on home O2, anxiety and hypothyroidism who was admitted for COPD exacerbation. Transferred to TCU for physical conditioning. Continue with PT as tolerated. Pulmonary is following. Continue with iv steroids, duonebs and levaquin. Leukocytosis likely reactive; repeat labs in AM. She is on xanax prn for anxiety. Outpatient follow up compliance was discussed in detail with patient. Upon discharge patient may need home visiting nurse or visiting home physicians. Naren Yee MD Hospitalist.
[2018-09-17] MEDS: Albuterol-Ipratrop 3 mg / 0.5 (3 ml) UD IH SCH ×4 (04:44→21:21)
[2018-09-17] MEDS: Enoxaparin 30 mg Syringe SC SCH (05:45)
[2018-09-17] MEDS: Levothyroxine 88 MCG TAB PO SCH (05:46)
[2018-09-17] MEDS: Pantoprazole 40 mg EC Tab PO SCH (05:46)
[2018-09-17 07:09] LABS: HEMOGLOBIN 13.4 g/dL (12.0-16.0); MEAN CELL VOLUME 90.3 fl (80.0-105.0); MEAN CORPUSCULAR HEMOGLOBIN 27.1 pg (25.0-35.0); MEAN PLATELET VOLUME 11.3 fl (7.0-11.0); RBC 4.94 10^6/uL (3.5-6.1); RED CELL DISTRIBUTION WIDTH 14.9 % (11.5-14.5); WHITE BLOOD COUNT 15.3 10^3/uL (4.5-11.0)
[2018-09-17] MEDS: Arformoterol 15 mcg/2 ml Inh Sol IH SCH ×2 (07:37→21:21)
[2018-09-17] MEDS: Budesonide 0.5 mg/2 ml Inhal Susp UD IH SCH ×2 (07:38→21:21)
[2018-09-17 07:42] LABS: BLOOD UREA NITROGEN 37 mg/dL (7-21); CALCIUM 9.6 mg/dL (8.4-10.5); GFR NON-AFRICAN AMERICAN > 60
[2018-09-17] MEDS: diltiaZEM 240 mg/24 Hours CD Cap PO SCH (09:56)
[2018-09-17] MEDS: MethylPREDNISolone 40 mg Vial IVP SCH ×2 (09:59→21:34)
[2018-09-17] MEDS: levoFLOXacin 500 MG TAB PO SCH (10:11)
--- NOTE | 2018-09-17 10:46 | PN ---
DATE: 09/17/2018 PULMONARY NOTE SUBJECTIVE: The patient appears quite comfortable this morning. She is not short of breath at rest. PHYSICAL EXAMINATION: VITAL SIGNS: (Last noted in the computer): Temperature is 97.9, pulse 87, respirations 18, blood pressure 127/60 and oxygen saturation on nasal cannula is 96%. HEENT: Normocephalic and atraumatic. No JVD. CARDIOVASCULAR: Systolic ejection murmur at the lower left sternal border. No S3 gallop. LUNGS: Clear bilaterally. EXTREMITIES: No clubbing, cyanosis or edema. Calves are nontender to palpation. GI: Abdomen is soft, nontender and nondistended. Bowel sounds are positive. SKIN: No acute rash. NEUROLOGIC: Limited at the present time. IMPRESSION: 1. Recurrent bronchitis. 2. Advanced chronic obstructive pulmonary disease, on home oxygen. 3. Acute bronchospasm. 4. Hypertension. PLAN: The patient appears very comfortable this morning. She is not short of breath at rest. She does state to feeling much, much better overall. On physical exam, her lungs are now clear. In addition, the alveolar-arterial gradient is less. I will continue the current nebulizer treatments and decrease the intravenous steroids this morning. The patient remains on antibiotic therapy. There are no temperatures noted. Clinical status of the patient is certainly improved - compared to the initial presentation. However, given the above, the future status/prognosis for this patient does remain very guarded. I will discuss the above with the attending physician. Romario Portillo MD MTDD
[2018-09-18] MEDS: Albuterol-Ipratrop 3 mg / 0.5 (3 ml) UD IH SCH ×4 (03:30→19:41)
[2018-09-18] MEDS: Enoxaparin 30 mg Syringe SC SCH (05:31)
[2018-09-18] MEDS: Levothyroxine 88 MCG TAB PO SCH (05:32)
[2018-09-18] MEDS: Pantoprazole 40 mg EC Tab PO SCH (05:32)
[2018-09-18] MEDS: Budesonide 0.5 mg/2 ml Inhal Susp UD IH SCH ×2 (07:31→19:41)
[2018-09-18] MEDS: Arformoterol 15 mcg/2 ml Inh Sol IH SCH ×2 (07:31→19:40)
--- NOTE | 2018-09-18 07:31 | CP.PCM.PN ---
<Randy Pollock - Last Filed: 09/18/18 14:34> Subjective - Date & Time of Evaluation Date of Evaluation: 09/18/18 Time of Evaluation: 07:30 - Subjective Subjective: Randy Pollock DO, PGY-1 Hospitalist Progress Note for Dr. Briones Patient was seen and examined at bedside this AM. She reports feeling better this AM and states she was able to climb 12 stairs the other day before getting short of breath. She is continuing to work with PT and tolerating well. Objective - Vital Signs/Intake and Output Vital Signs (last 24 hours): Temp Pulse Resp BP Pulse Ox 98.8 F 90 20 138/50 L 93 L 09/17/18 16:00 09/17/18 16:00 09/17/18 16:00 09/18/18 05:31 09/17/18 16:00 Intake and Output: 09/18/18 09/18/18 06:59 18:59 Intake Total 680 Output Total 800 Balance -120 - Medications Medications: Current Medications Albuterol/Ipratropium (Duoneb 3 Mg/0.5 Mg (3 Ml) Ud) 3 ml IH Q2H PRN; Protocol PRN Reason: Shortness of Breath Albuterol/Ipratropium (Duoneb 3 Mg/0.5 Mg (3 Ml) Ud) 3 ml IH [id number] CHARAN; Protocol Last Admin: 09/18/18 03:30 Dose: 3 ml Alprazolam (Xanax) 0.25 mg PO BID PRN; Protocol PRN Reason: Anxiety Stop: 09/23/18 18:01 Arformoterol Tartrate (Brovana) 15 mcg IH [id number] CHARAN; Protocol Last Admin: 09/17/18 21:21 Dose: 15 mcg Budesonide (Pulmicort Respules) 0.5 mg IH [id number] [facility]AN; Protocol Last Admin: 09/17/18 21:21 Dose: 0.5 mg Diltiazem HCl (Cardizem Cd) 240 mg PO DAILY [facility]; Protocol Last Admin: 09/17/18 09:56 Dose: 240 mg Enoxaparin Sodium (Lovenox) 30 mg SC 0600 [facility]; Protocol Last Admin: 09/18/18 05:31 Dose: 30 mg Furosemide (Lasix) 40 mg PO 0600 [facility]; Protocol Last Admin: 09/18/18 05:31 Dose: 40 mg Levofloxacin (Levaquin) 500 mg PO DAILY [facility]; Protocol Last Admin: 09/17/18 10:11 Dose: 500 mg Levothyroxine Sodium (Synthroid) 88 mcg PO 0600 [facility]; Protocol Last Admin: 09/18/18 05:32 Dose: 88 mcg Losartan Potassium (Cozaar) 100 mg PO DAILY [facility]; Protocol Last Admin: 09/17/18 09:10 Dose: Not Given Methylprednisolone (Solu-Medrol) 30 mg IVP Q12 [facility]; Protocol Last Admin: 09/17/18 21:34 Dose: 30 mg Pantoprazole Sodium (Protonix Ec Tab) 40 mg PO 0600 [facility]; Protocol Last Admin: 09/18/18 05:32 Dose: 40 mg - Labs Labs: 09/17/18 06:45 09/17/18 06:45 - Constitutional Appears: Non-toxic, No Acute Distress - Head Exam Head Exam: ATRAUMATIC, NORMOCEPHALIC - Eye Exam Eye Exam: EOMI, Normal appearance, PERRL - ENT Exam ENT Exam: Mucous Membranes Moist - Neck Exam Neck Exam: Full ROM, Normal Inspection - Respiratory Exam Respiratory Exam: Wheezes (b/l end expiratory wheezing improving ). absent: Accessory Muscle Use, Chest Wall Tenderness, Rales, Rhonchi, Respiratory Distress - Cardiovascular Exam Cardiovascular Exam: REGULAR RHYTHM, RRR, +S1, +S2. absent: Gallop, Rubs, Murmur - GI/Abdominal Exam GI & Abdominal Exam: Soft, Normal Bowel Sounds. absent: Guarding, Tenderness - Extremities Exam Extremities Exam: Normal Inspection. absent: Pedal Edema - Back Exam Back Exam: NORMAL INSPECTION - Neurological Exam Neurological Exam: Alert, Awake, Oriented x3 - Psychiatric Exam Psychiatric exam: Normal Affect, Normal Mood - Skin Skin Exam: Dry, Intact, Warm Assessment and Plan - Assessment and Plan (Free Text) Assessment: 78 yo F with PMH of COPD (on home O2 2L), HTN, hypothyroidism, and anxiety is admitted to TCU for treatment of physical deconditioning 2/2 end-stage COPD. 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 IM Resident PGY-1 Pager: [phone] <Tina Briones - Last Filed: 09/20/18 16:27> Objective - Vital Signs/Intake and Output Vital Signs (last 24 hours): Temp Pulse Resp BP Pulse Ox 98.6 F 88 20 134/73 94 L 09/19/18 16:00 09/19/18 16:00 09/19/18 16:00 09/20/18 09:25 09/19/18 16:00 - Medications Medications: Current Medications Albuterol/Ipratropium (Duoneb 3 Mg/0.5 Mg (3 Ml) Ud) 3 ml IH Q2H PRN; Protocol PRN Reason: Shortness of Breath Albuterol/Ipratropium (Duoneb 3 Mg/0.5 Mg (3 Ml) Ud) 3 ml IH [id number] CHARAN; Protocol Last Admin: 09/20/18 13:29 Dose: 3 ml Alprazolam (Xanax) 0.25 mg PO BID PRN; Protocol PRN Reason: Anxiety Stop: 09/23/18 18:01 Arformoterol Tartrate (Brovana) 15 mcg IH [id number] [facility]AN; Protocol Last Admin: 09/20/18 07:20 Dose: 15 mcg Budesonide (Pulmicort Respules) 0.5 mg IH [id number] [facility]AN; Protocol Last Admin: 09/20/18 07:21 Dose: 0.5 mg Diltiazem HCl (Cardizem Cd) 240 mg PO DAILY [facility]; Protocol Last Admin: 09/20/18 09:25 Dose: 240 mg Enoxaparin Sodium (Lovenox) 30 mg SC 0600 [facility]; Protocol Last Admin: 09/20/18 05:41 Dose: 30 mg Furosemide (Lasix) 40 mg PO 0600 [facility]; Protocol Last Admin: 09/20/18 05:40 Dose: 40 mg Levothyroxine Sodium (Synthroid) 88 mcg PO 0600 [facility]; Protocol Last Admin: 09/20/18 05:40 Dose: 88 mcg Losartan Potassium (Cozaar) 100 mg PO DAILY [facility]; Protocol Last Admin: 09/20/18 09:25 Dose: Not Given Pantoprazole Sodium (Protonix Ec Tab) 40 mg PO 0600 [facility]; Protocol Last Admin: 09/20/18 05:40 Dose: 40 mg Prednisone (Prednisone Tab) 30 mg PO 0800 [facility]; Protocol Last Admin: 09/20/18 08:16 Dose: 30 mg - Labs Labs: 09/17/18 06:45 09/17/18 06:45 Attending/Attestation - Attestation I have fully participated in the care of the patient.: Yes I have reviewed all pertinent clinical information, including history, physical exam and plan: Yes Notes (Text): 09/20/18 16:27 Medical record note made by the resident after discussion with my direction and input after the patient was personally seen and examined by me. I have reviewed the chart and agree that the record accurately reflects by personal performance of the history, physical exam, data review, and medical decision-making, in the course for the patient. I have also personally directed the plan of care.
[2018-09-18] MEDS: diltiaZEM 240 mg/24 Hours CD Cap PO SCH (10:40)
[2018-09-18] MEDS: levoFLOXacin 500 MG TAB PO SCH (10:41)
[2018-09-18] MEDS: MethylPREDNISolone 40 mg Vial IVP SCH ×2 (10:48→21:34)
--- NOTE | 2018-09-18 12:53 | PN ---
DATE: 09/18/2018 SUBJECTIVE: The patient appears quite comfortable this morning. She is not short of breath at rest. PHYSICAL EXAMINATION: VITAL SIGNS: Temperature is 98.8, pulse 88, respirations 18, blood pressure 138/50. Oxygen saturation on nasal cannula is 93%--97%. HEENT: Normocephalic, atraumatic. No JVD. CARDIOVASCULAR: Systolic ejection murmur at the lower left sternal border. No S3 gallop. LUNGS: Clear bilaterally. EXTREMITIES: No clubbing, cyanosis or edema. Calves are nontender to palpation. GASTROINTESTINAL: Abdomen is soft, nontender and nondistended. Bowel sounds are positive. SKIN: No acute rash. NEUROLOGIC: Exam limited at the present time. IMPRESSION: 1. Recurrent bronchitis. 2. Advanced chronic obstructive pulmonary disease, on home oxygen. 3. Acute bronchospasm. 4. Hypertension. PLAN: The patient appears quite comfortable this morning. She is not short of breath at rest. She does state to feeling much better overall. On physical exam, her lungs remain clear. In addition, there is no significant alveolar-arterial gradient. I will continue the current nebulizer treatments and decrease the intravenous steroids this morning. The patient also remains on antibiotic therapy. There are no temperatures noted. Clinical status of the patient is significantly improved - compared to the initial presentation. However, given the above, the future status/prognosis for this patient remains very guarded. I will discuss the above with the medical team. Romario Portillo MD MTDDonna
[2018-09-19] MEDS: Albuterol-Ipratrop 3 mg / 0.5 (3 ml) UD IH SCH ×4 (01:31→20:52)
[2018-09-19] MEDS: Enoxaparin 30 mg Syringe SC SCH (05:22)
[2018-09-19] MEDS: Pantoprazole 40 mg EC Tab PO SCH (05:22)
[2018-09-19] MEDS: Levothyroxine 88 MCG TAB PO SCH (05:23)
[2018-09-19] MEDS: Arformoterol 15 mcg/2 ml Inh Sol IH SCH ×2 (08:19→20:52)
[2018-09-19] MEDS: Budesonide 0.5 mg/2 ml Inhal Susp UD IH SCH ×2 (08:20→20:52)
--- NOTE | 2018-09-19 10:01 | PN ---
DATE: 09/19/2018 PULMONARY NOTE SUBJECTIVE: The patient appears very comfortable this morning. She is not short of breath at rest. PHYSICAL EXAMINATION: VITAL SIGNS: Temperature is 98.3, pulse 82, respirations 18, blood pressure 135/60. Oxygen saturation on nasal cannula is 93%-98%. HEENT: Normocephalic, atraumatic. No JVD. CARDIOVASCULAR: Systolic ejection murmur at the lower left sternal border. No S3 gallop. LUNGS: Clear bilaterally. GI: Abdomen is soft, nontender and nondistended. Bowel sounds are positive. EXTREMITIES: No clubbing, cyanosis or edema. Calves are nontender to palpation. SKIN: No acute rash. NEUROLOGIC: Exam limited at the present time. IMPRESSION: 1. Recurrent bronchitis. 2. Advanced chronic obstructive pulmonary disease, on home oxygen. 3. Acute bronchospasm. 4. Hypertension. PLAN: The patient appears very comfortable this morning. She is not short of breath at rest. She is much less dyspneic on exertion. She states to feeling much, much better overall. On physical exam, her lungs remain clear. In addition, there is no significant alveolar-arterial gradient. I will continue the current nebulizer treatments and change to oral steroids this morning. The patient also remains on antibiotic therapy. There are no temperatures noted. Clinical status of the patient has significantly improved - compared to the initial presentation. However, given the above, the future status/prognosis for this patient does remain guarded. I will discuss the above with the attending physician. Romario Portillo MD MTDD
[2018-09-19] MEDS: levoFLOXacin 500 MG TAB PO SCH (10:07)
[2018-09-19] MEDS: diltiaZEM 240 mg/24 Hours CD Cap PO SCH (10:12)
[2018-09-19 17:13] VITALS: PULSE 88; TEMP 98.6; O2SAT 94
[2018-09-20] MEDS: Levothyroxine 88 MCG TAB PO SCH (05:40)
[2018-09-20] MEDS: Pantoprazole 40 mg EC Tab PO SCH (05:40)
[2018-09-20] MEDS: Enoxaparin 30 mg Syringe SC SCH (05:41)
[2018-09-20 05:45] VITALS: BP 134/73
--- NOTE | 2018-09-20 07:04 | CP.PCM.PN ---
Subjective - Date & Time of Evaluation Date of Evaluation: 09/20/18 Time of Evaluation: 07:04 - Subjective Subjective: Randy Pollock DO, PGY-1 Hospitalist Progress Note for Dr. Briones Patient was seen and examined at bedside this AM. Objective - Vital Signs/Intake and Output Vital Signs (last 24 hours): Temp Pulse Resp BP Pulse Ox 98.6 F 88 20 134/73 94 L 09/19/18 16:00 09/19/18 16:00 09/19/18 16:00 09/20/18 05:40 09/19/18 16:00 - Medications Medications: Current Medications Albuterol/Ipratropium (Duoneb 3 Mg/0.5 Mg (3 Ml) Ud) 3 ml IH Q2H PRN; Protocol PRN Reason: Shortness of Breath Albuterol/Ipratropium (Duoneb 3 Mg/0.5 Mg (3 Ml) Ud) 3 ml IH [id number] CHARAN; Protocol Last Admin: 09/19/18 20:52 Dose: 3 ml Alprazolam (Xanax) 0.25 mg PO BID PRN; Protocol PRN Reason: Anxiety Stop: 09/23/18 18:01 Arformoterol Tartrate (Brovana) 15 mcg IH [id number] CHARAN; Protocol Last Admin: 09/19/18 20:52 Dose: 15 mcg Budesonide (Pulmicort Respules) 0.5 mg IH [id number] CHARAN; Protocol Last Admin: 09/19/18 20:52 Dose: 0.5 mg Diltiazem HCl (Cardizem Cd) 240 mg PO DAILY [facility]; Protocol Last Admin: 09/19/18 10:12 Dose: 240 mg Enoxaparin Sodium (Lovenox) 30 mg SC 0600 [facility]; Protocol Last Admin: 09/20/18 05:41 Dose: 30 mg Furosemide (Lasix) 40 mg PO 0600 [facility]; Protocol Last Admin: 09/20/18 05:40 Dose: 40 mg Levothyroxine Sodium (Synthroid) 88 mcg PO 0600 [facility]; Protocol Last Admin: 09/20/18 05:40 Dose: 88 mcg Losartan Potassium (Cozaar) 100 mg PO DAILY [facility]; Protocol Last Admin: 09/19/18 10:07 Dose: Not Given Pantoprazole Sodium (Protonix Ec Tab) 40 mg PO 0600 [facility]; Protocol Last Admin: 09/20/18 05:40 Dose: 40 mg Prednisone (Prednisone Tab) 30 mg PO 0800 [facility]; Protocol - Labs Labs: 09/17/18 06:45 09/17/18 06:45
[2018-09-20] MEDS: Arformoterol 15 mcg/2 ml Inh Sol IH SCH (07:20)
[2018-09-20] MEDS: Budesonide 0.5 mg/2 ml Inhal Susp UD IH SCH (07:21)
[2018-09-20] MEDS: Albuterol-Ipratrop 3 mg / 0.5 (3 ml) UD IH SCH ×2 (07:21→13:29)
--- NOTE | 2018-09-20 08:25 | PN ---
DATE: 09/20/2018 PULMONARY NOTE SUBJECTIVE: The patient appears very comfortable this morning. She is not short of breath at rest. PHYSICAL EXAMINATION: VITALS: Temperature is 98.6, pulse 88, respirations 18, blood pressure 134/73. Oxygen saturation on nasal cannula is 94%. HEENT: Normocephalic, atraumatic. No JVD. CARDIOVASCULAR: Systolic ejection murmur at the lower left sternal border. No S3 gallop. LUNGS: Clear bilaterally. EXTREMITIES: No clubbing, cyanosis, or edema. Calves are nontender to palpation. GASTROINTESTINAL: Abdomen is soft, nontender, and nondistended. Bowel sounds are positive. SKIN: No acute rash. NEUROLOGIC: Exam limited at the present time. IMPRESSION: 1. Recurrent bronchitis. 2. Advanced chronic obstructive pulmonary disease, on home oxygen. 3. Acute bronchospasm. 4. Hypertension. PLAN: The patient appears very comfortable this morning. She is not short of breath at rest. She does state to feeling much, much better overall. She is asking to go home today. On physical exam, her lungs remain clear. In addition, there is no significant alveolar-arterial gradient. I will continue the current nebulizer treatments and oral steroids (changed yesterday) for now. Clinical status of the patient is significantly improved overall. However, unfortunately, given the above, the future status/prognosis for this patient-- with advanced lung disease-- does remain guarded. The patient is for discharge in the near future. I will discuss the above with the attending physician/medical team. Romario Portillo MD MTDDonna
[2018-09-20] MEDS: diltiaZEM 240 mg/24 Hours CD Cap PO SCH (09:25)
--- NOTE | 2018-09-20 17:17 | CP.PCM.DIS ---
<Randy Pollock - Last Filed: 09/20/18 17:13> Provider - Provider Date of Admission: 09/15/18 14:35 Attending physician: Tina Briones MD Primary care physician: Jessica Consults: 09/15/18 16:16 Physician Consult Routine Comment: Consulting Provider: Costa Muñoz Consulting Physician: Costa Muñoz Reason for Consult: COPD EXACERBATION 09/15/18 19:31 Inpatient STAFF TRAINING AND DEVELOPMENT MANAGER Core Measures Referral Routine Comment: COPD EXACERBATION Physician Instructions: Reason For Exam: EVALUATION Social Work Referral Routine Comment: MIGHT NEED ASSISTANCE AT HOME Physician Instructions: Reason For Exam: EVALUATION Transition In Care/Readmission Reduction Routine Comment: Physician Instructions: Reason For Exam: EVALUATION Time Spent in preparation of Discharge (in minutes): 35 Diagnosis - Discharge Diagnosis (1) COPD exacerbation Status: Acute (2) Leukocytosis Status: Acute (3) Physical deconditioning Status: Acute Hospital Course - Lab Results Lab Results: Most Recent Lab Values WBC 15.3 10^3/uL (4.5-11.0) H 09/17/18 06:45 RBC 4.94 10^6/uL (3.5-6.1) 09/17/18 06:45 Hgb 13.4 g/dL (12.0-16.0) 09/17/18 06:45 Hct 44.6 % (36.0-48.0) 09/17/18 06:45 MCV 90.3 fl (80.0-105.0) 09/17/18 06:45 MCH 27.1 pg (25.0-35.0) 09/17/18 06:45 MCHC 30.0 g/dl (31.0-37.0) L 09/17/18 06:45 RDW 14.9 % (11.5-14.5) H 09/17/18 06:45 Plt Count 264 10^3/uL (120.0-450.0) 09/17/18 06:45 MPV 11.3 fl (7.0-11.0) H 09/17/18 06:45 Sodium 136 mmol/L (132-148) 09/17/18 06:45 Potassium 4.4 mmol/L (3.6-5.0) 09/17/18 06:45 Chloride 95 mmol/L (98-107) L 09/17/18 06:45 Carbon Dioxide 38 mmol/L (21-33) H 09/17/18 06:45 Anion Gap 8 (10-20) L 09/17/18 06:45 BUN 37 mg/dL (7-21) H 09/17/18 06:45 Creatinine 0.5 mg/dl (0.7-1.2) L 09/17/18 06:45 Est GFR ( Amer) > 60 09/17/18 06:45 Est GFR (Non-Af Amer) > 60 09/17/18 06:45 Random Glucose 296 mg/dL (70-110) H 09/17/18 06:45 Calcium 9.6 mg/dL (8.4-10.5) 09/17/18 06:45 - Hospital Course Hospital Course: Randy Pollock DO, PGY-1 Hospitalist TCU Discharge Summary for Dr. Briones Ms. Guerrero is a pleasant 78 year old female with PMH of end-stage COPD (on h ome O2 2L, chronic steroid dependent) who presented to [facility] initially on 09/12/18 for SOB, cough, and wheezing. She was subsequently admitted to [facility] for management of COPD exacerbation. Please see discharge summary of hospitalization for full course. She was subsequently transferred to TCU for rehab as she had significant physical deconditioning. She was transferred to TCU on 09/15/18. While in TCU, she continued rehab and continued to improve everyday. This AM, she feels ready to go home and states she is now able to walk much further without getting short of breath. Discharge plan was discussed with patient, all questions were answered. Patient seen, examined, and discharge plan discussed with my attending Dr. Anselmo Pollock D.O. IM Resident PGY-1 Discharge Exam - Head Exam Head Exam: ATRAUMATIC, NORMOCEPHALIC - Eye Exam Eye Exam: EOMI, PERRL - ENT Exam ENT Exam: Mucous Membranes Moist - Neck Exam Neck exam: Full Rom, Normal Inspection - Respiratory Exam Respiratory Exam: Clear to PA & Lateral, NORMAL BREATHING PATTERN, UNREMARKABLE. absent: Accessory Muscle Use, Rales, Rhonchi, Wheezes, Respiratory Distress - Cardiovascular Exam Cardiovascular Exam: REGULAR RHYTHM, RRR, +S1, +S2. absent: Diastolic murmur, Gallop, Rubs, Systolic Murmur - GI/Abdominal Exam GI & Abdominal Exam: Normal Bowel Sounds, Soft, Unremarkable - Extremities Exam Extremities exam: full ROM, normal inspection - Back Exam Back exam: FULL ROM, NORMAL INSPECTION - Neurological Exam Neurological exam: Alert, Oriented x3 - Psychiatric Exam Psychiatric exam: Normal Affect, Normal Mood - Skin Skin Exam: Dry, Intact, Warm Discharge Plan - Discharge Medications Prescriptions: Prednisone See Taper PO DAILY #20 [id number] - Follow Up Plan Condition: GOOD Disposition: HOME/ ROUTINE Instructions: Chronic Obstructive Pulmonary Disease (COPD), Including Emphysema, COPD Including Emphysema (DC), Exacerbation of COPD (DC), Medicines for Chronic Obstructive Pulmonary Disease (COPD) Additional Instructions: Please follow up with Dr. Lopez within 1 week of your discharge from rehab. Please continue to take your regular home medications as directed. We have given you a tapering dose of prednisone, your steroid. Please take Prednisone 30 mg (3 10 mg tablets) for 2 more days after discharge. Then take 20 mg (2 10 mg tablets) for 3 days. Then continue to take 10 mg daily until your follow up with Dr. Lopez. If any of your symptoms return or worsen, please return to nearest ED. <Tina Briones - Last Filed: 09/20/18 17:31> Provider - Provider Date of Admission: 09/15/18 14:35 Attending physician: Tina Briones MD Consults: 09/15/18 16:16 Physician Consult Routine Comment: Consulting Provider: Costa Muñoz Consulting Physician: Costa Muñoz Reason for Consult: COPD EXACERBATION 09/15/18 19:31 Inpatient STAFF TRAINING AND DEVELOPMENT MANAGER Core Measures Referral Routine Comment: COPD EXACERBATION Physician Instructions: Reason For Exam: EVALUATION Social Work Referral Routine Comment: MIGHT NEED ASSISTANCE AT HOME Physician Instructions: Reason For Exam: EVALUATION Transition In Care/Readmission Reduction Routine Comment: Physician Instructions: Reason For Exam: EVALUATION Hospital Course - Lab Results Lab Results: Most Recent Lab Values WBC 15.3 10^3/uL (4.5-11.0) H 09/17/18 06:45 RBC 4.94 10^6/uL (3.5-6.1) 09/17/18 06:45 Hgb 13.4 g/dL (12.0-16.0) 09/17/18 06:45 Hct 44.6 % (36.0-48.0) 09/17/18 06:45 MCV 90.3 fl (80.0-105.0) 09/17/18 06:45 MCH 27.1 pg (25.0-35.0) 09/17/18 06:45 MCHC 30.0 g/dl (31.0-37.0) L 09/17/18 06:45 RDW 14.9 % (11.5-14.5) H 09/17/18 06:45 Plt Count 264 10^3/uL (120.0-450.0) 09/17/18 06:45 MPV 11.3 fl (7.0-11.0) H 09/17/18 06:45 Sodium 136 mmol/L (132-148) 09/17/18 06:45 Potassium 4.4 mmol/L (3.6-5.0) 09/17/18 06:45 Chloride 95 mmol/L (98-107) L 09/17/18 06:45 Carbon Dioxide 38 mmol/L (21-33) H 09/17/18 06:45 Anion Gap 8 (10-20) L 09/17/18 06:45 BUN 37 mg/dL (7-21) H 09/17/18 06:45 Creatinine 0.5 mg/dl (0.7-1.2) L 09/17/18 06:45 Est GFR ( Amer) > 60 09/17/18 06:45 Est GFR (Non-Af Amer) > 60 09/17/18 06:45 Random Glucose 296 mg/dL (70-110) H 09/17/18 06:45 Calcium 9.6 mg/dL (8.4-10.5) 09/17/18 06:45 Attending/Attestation - Attestation I have personally seen and examined this patient.: Yes I have fully participated in the care of the patient.: Yes I have reviewed all pertinent clinical information, including history, physical exam and plan: Yes Notes (Text): 09/20/18 17:29 Medical record note made by the resident after discussion with my direction and input after the patient was personally seen and examined by me. I have reviewed the chart and agree that the record accurately reflects by personal performance of the history, physical exam, data review, and medical decision-making, in the course for the patient. I have also personally directed the plan of care. 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 She was initially admitted to [facility] for management of COPD exacerbation and then was transferred to TCU for rehabilitation. Patient COPD is improved, on tapering dose of prednisone. She is feeling at her base line physical activity level and want to be discharged .She will be discharged home on tapering dose of prednisone and will follow up with PMD and Pulmonology. Management plan was discussed in detail with patient. Education was provided
== END 2018-09-20 17:55 | disposition home health service (06) | DRG 192 ==
LOC: TRCU 14:35
PROVIDERS: ADMIT Internal Medicine; ATTEND Internal Medicine
PROC: F08Z2ZZ Grooming/Personal Hygiene Treatment (ICD-10-PCS; 2018-09-15)
PROC: F08Z1ZZ Dressing Techniques Treatment (ICD-10-PCS; 2018-09-15)
PROC: F07Z9FZ Gait Training/Functional Ambulation Treatment using Assistive, Adaptive, Supportive or Protective Equipment (ICD-10-PCS; principal; 2018-09-16)
PROC: F07M6ZZ Therapeutic Exercise Treatment of Musculoskeletal System - Whole Body (ICD-10-PCS; 2018-09-16)
DX: J44.1 Chronic obstructive pulmonary disease with (acute) exacerbation (principal); I11.0 Hypertensive heart disease with heart failure; I50.9 Heart failure, unspecified; I48.91 Unspecified atrial fibrillation; R09.02 Hypoxemia; E78.00 Pure hypercholesterolemia, unspecified; E03.9 Hypothyroidism, unspecified; Z79.52 Long term (current) use of systemic steroids; D72.829 Elevated white blood cell count, unspecified; Z79.890 Hormone replacement therapy; Z87.891 Personal history of nicotine dependence; Z90.49 Acquired absence of other specified parts of digestive tract; Z98.42 Cataract extraction status, left eye; Z98.41 Cataract extraction status, right eye; Z99.81 Dependence on supplemental oxygen; Z82.49 Family history of ischemic heart disease and other diseases of the circulatory system

== ENCOUNTER 2018-12-22 17:42 | Inpatient (IN) | payer MEDICARE, BC ==
[2018-12-22] MEDS ORDERED: Albuterol-Ipratrop 3 mg / 0.5 (3 ml) UD IH STA (17:51)
--- NOTE | 2018-12-22 17:54 | ED PDOC ---
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 Patient reports she suddenly felt hot and that her heart was racing, accompanied by a difficulty to breathe. Patient denies any chest pain, fever, cough, nasal congestion or runny nose. PMD: Dr. Lopez Prison Warden: Dr. Portillo Early Childhood Worker: Dr. Hendricks Time/Duration: 1-3 hours Symptom Onset: Gradual Symptom Course: Unchanged Activities at Onset: Rest Context: Home <EdwardJosh L - Last Filed: 12/24/18 08:51> - General Chief Complaint: Shortness Of Breath Time Seen by Provider: 12/22/18 17:43 Past Medical History - Provider Review Nursing Documentation Reviewed: Yes - Infectious Disease Hx of Infectious Diseases: None - Tetanus Immunization Tetanus Immunization: Up to Date - Cardiac Hx Cardiac Disorders: Yes (A-fib on cardizem.) Hx Atrial Fibrillation: Yes Hx Congestive Heart Failure: Yes Hx Hypertension: Yes - Pulmonary Hx Chronic Obstructive Pulmonary Disease (COPD): Yes (O2 dependent) - Neurological Hx Neurological Disorder: Yes Hx Dizziness: Yes - HEENT Hx HEENT Disorder: Yes Hx Cataracts: Yes Other/Comment: b/l cataract surgery - Renal Hx Renal Disorder: No - Endocrine/Metabolic Hx Hypothyroidism: Yes - Hematological/Oncological Hx Blood Disorders: No - Integumentary Hx Dermatological Disorder: No - Musculoskeletal/Rheumatological Hx Falls: No - Gastrointestinal Hx Gastrointestinal Disorders: Yes (GASTROENTERITIS) - Genitourinary/Gynecological Hx Genitourinary Disorders: No - Psychiatric Hx Psychophysiologic Disorder: No Hx Substance Use: No - Surgical History Hx Cholecystectomy: Yes - Anesthesia Hx Anesthesia: Yes Hx Anesthesia Reactions: No Hx Malignant Hyperthermia: No - Suicidal Assessment Feels Threatened In Home Enviroment: No <Josh Leon - Last Filed: 12/24/18 08:51> Family/Social History - Physician Review Nursing Documentation Reviewed: Yes Family/Social History: Unknown Family HX Smoking Status: Never Smoked Hx Alcohol Use: No Hx Substance Use: No Hx Substance Use Treatment: No <DonyChaim sandesrmarisa Nelson - Last Filed: 12/24/18 08:51> Allergies/Home Meds <Reav Edmond - Last Filed: 12/23/18 10:35> <Chaim Leonmarisa Nelson - Last Filed: 12/24/18 08:51> Allergies/Adverse Reactions: Allergies roflumilast [From [facility]] Allergy (Verified 12/22/18 17:48) HEADACHE theophylline Allergy (Verified 12/22/18 17:48) SHORTNESS OF BREATH CRESTOR Adverse Reaction (Intermediate, Uncoded 12/22/18 17:48) PAIN Joint pain contrast Adverse Reaction (Uncoded 12/22/18 17:48) SHORTNESS OF BREATH Home Medications: Home Meds Medication Instructions Recorded Confirmed Aspirin [Aspir 81] 81 mg PO DAILY 12/23/11 12/22/18 Fluticasone/Salmeterol 250/50 1 inh PO DAILY 04/30/16 12/22/18 [Advair Diskus 250/50] Arformoterol [Brovana] 15 mcg IH DAILY 12/22/18 12/22/18 Budesonide [Pulmicort Respules] 0.5 mg IH DAILY 12/22/18 12/22/18 Dipyridamole [Persantine] 25 mg PO BID 12/22/18 12/22/18 Levalbuterol Tartrate [Xopenex Hfa] 0.045 mg IH Q6 PRN 12/22/18 12/22/18 Potassium Chloride [Klor-Con 10] 10 meq PO DAILY 12/22/18 12/22/18 Prednisone 10 mg PO DAILY 12/22/18 12/22/18 Tiotropium Point Inhaler 2.5 mcg INH BID 12/22/18 12/22/18 [Spiriva Inhalation Handihaler Device] Review of Systems - Physician Review All systems were reviewed & negative as marked: Yes - Review of Systems Constitutional: absent: Fatigue Eyes: absent: Vision Changes ENT: absent: Hearing Changes Respiratory: SOB Cardiovascular: absent: Chest Pain Gastrointestinal: absent: Abdominal Pain, Nausea, Vomiting Genitourinary Female: absent: Dysuria, Frequency, Hematuria Musculoskeletal: absent: Back Pain, Neck Pain Skin: absent: Rash Neurological: absent: Headache, Dizziness Endocrine: absent: Diaphoresis Hemo/Lymphatic: absent: Adenopathy, Easy Bleeding Psychiatric: absent: Anxiety, Depression <Josh Leon - Last Filed: 12/24/18 08:51> Physical Exam Vital Signs Temp Pulse Resp BP Pulse Ox 12/22/18 20:11 89 18 119/74 97 12/22/18 19:57 22 100 12/22/18 19:41 108/63 12/22/18 17:42 98.2 F 82 24 133/49 L 100 <MayitoReva - Last Filed: 12/23/18 10:35> Appearance: Positive for: Well-Appearing, Non-Toxic, Comfortable Mental Status: Positive for: Alert and Oriented X 3 - Systems Exam Head: Present: Atraumatic, Normocephalic Pupils: Present: PERRL Extroacular Muscles: Present: EOMI Conjunctiva: Present: Normal Respiratory/Chest: Present: Clear to Auscultation, Good Air Exchange. No: Respiratory Distress, Accessory Muscle Use Cardiovascular: Present: Tachycardic Lower Extremity: Present: Edema (2+ pitting edema) Neurological: Present: GCS=15, CN II-XII Intact, Speech Normal <Josh Leon - Last Filed: 12/24/18 08:51> Medical Decision Making - Lab Interpretations Lab Results: pO2 31 mm/Hg (30-55) 12/22/18 18:20 VBG pH 7.37 (7.32-7.43) 12/22/18 18:20 VBG pCO2 60.0 (40-60) 12/22/18 18:20 VBG HCO3 34.7 mmol/l (21-28) H 12/22/18 18:20 VBG Total CO2 36.5 mmol.L (22-28) H 12/22/18 18:20 VBG O2 Sat (Calc) 62.6 % (40-65) 12/22/18 18:20 VBG Base Excess 7.4 mmol/L (0.0-2.0) H 12/22/18 18:20 VBG Potassium 4.9 mmol/L (3.6-5.2) 12/22/18 18:20 Sodium 138.0 mmol/L (132-148) 12/22/18 18:20 Chloride 98.0 mmol/L (98-107) 12/22/18 18:20 Glucose 154 mg/dl (65-105) H 12/22/18 18:20 Lactate 1.6 mmol/L (0.7-2.1) 12/22/18 18:20 FiO2 21.0 % 12/22/18 18:20 Troponin I < 0.01 ng/mL 12/23/18 07:00 NT-Pro-B Natriuret Pep 65.0 pg/mL (0-450) 12/22/18 18:00 Total Bilirubin 0.3 mg/dL (0.2-1.3) 12/23/18 07:00 AST 20 U/L (14-36) 12/23/18 07:00 ALT 13 U/L (7-56) 12/23/18 07:00 Alkaline Phosphatase 67 U/L (38-126) 12/23/18 07:00 Total Protein 6.9 g/dL (5.8-8.3) 12/23/18 07:00 Albumin 3.9 g/dL (3.0-4.8) 12/23/18 07:00 Globulin 3.0 gm/dL 12/23/18 07:00 Albumin/Globulin Ratio 1.3 (1.1-1.8) 12/23/18 07:00 - RAD Interpretation Radiology Orders: 12/22/18 17:52 CHEST PORTABLE [RAD] Stat - Medication Orders Current Medication Orders: Arformoterol Tartrate (Brovana) 15 mcg IH [id number] [facility] Last Admin: 12/23/18 08:48 Dose: 15 mcg Aspirin (Ecotrin) 81 mg PO DAILY [facility] Last Admin: 12/23/18 10:21 Dose: 81 mg Budesonide (Pulmicort Respules) 0.5 mg IH [id number] [facility] Last Admin: 12/23/18 08:48 Dose: 0.5 mg Diltiazem HCl (Cardizem Cd) 240 mg PO DAILY [facility] Last Admin: 12/23/18 10:21 Dose: 240 mg MAR Pulse and Blood Pressure Document 12/23/18 10:21 CD (Rec: 12/23/18 10:21 CD [id number]) Pulse Pulse Rate (60-90) 86 Blood Pressure Blood Pressure (100/60-150/90) 147/61 Dipyridamole (Persantine) 25 mg PO BID [facility] Last Admin: 12/23/18 10:21 Dose: 25 mg Furosemide (Lasix) 40 mg PO DAILY [facility] Last Admin: 12/23/18 10:21 Dose: 40 mg MAR Blood Pressure Document 12/23/18 10:21 CD (Rec: 12/23/18 10:22 CD [facility] [id number] Blood Pressure Blood Pressure (100/60-150/90) 147/61 Ceftriaxone Sodium (Rocephin 1 Gram Ivpb) 1 gm in 100 mls @ 100 mls/hr IVPB DAILY [facility]; Protocol Last Admin: 12/23/18 10:20 Dose: 100 mls/hr eMAR Start Stop Document 12/23/18 10:20 CD (Rec: 12/23/18 10:21 CD [facility] [id number] Intravenous Solution Start Date 12/23/18 Start Time 10:21 Azithromycin 250 mg/ Sodium (Chloride) 250 mls @ 167 mls/hr IVPB DAILY [facility]; Protocol Last Admin: 12/23/18 10:20 Dose: 167 mls/hr eMAR Start Stop Document 12/23/18 10:20 CD (Rec: 12/23/18 10:20 CD [facility] [id number] Intravenous Solution Start Date 12/23/18 Start Time 10:20 Levalbuterol HCl (Xopenex) 0.63 mg IH [id number] PRN PRN Reason: Shortness of Breath Levothyroxine Sodium (Synthroid) 88 mcg PO 0600 [facility] Last Admin: 12/23/18 05:02 Dose: 88 mcg Nitrofurantoin Macrocrystals (Macrobid) 100 mg PO Q12 [facility]; Protocol Stop: 12/27/18 10:01 Last Admin: 12/23/18 10:21 Dose: 100 mg Pantoprazole Sodium (Protonix Ec Tab) 40 mg PO 0600 [facility] Last Admin: 12/23/18 05:02 Dose: 40 mg Potassium Chloride (Klor-Con 10) 10 meq PO DAILY [facility] Last Admin: 12/23/18 10:21 Dose: 10 meq Prednisone (Prednisone Tab) 10 mg PO DAILY [facility] Last Admin: 12/23/18 10:21 Dose: 10 mg Tiotropium Point (Spiriva) 18 mcg INH DAILY [facility] Last Admin: 12/23/18 10:21 Dose: 18 mcg Discontinued Medications Albuterol/Ipratropium (Duoneb 3 Mg/0.5 Mg (3 Ml) Ud) 3 ml IH STAT STA Stop: 12/22/18 17:52 Last Admin: 12/22/18 18:29 Dose: 3 ml Furosemide (Lasix) 40 mg IVP STAT STA Stop: 12/22/18 17:52 Last Admin: 12/22/18 19:41 Dose: 40 mg MAR Blood Pressure Document 12/22/18 19:41 RG (Rec: 12/22/18 19:41 [facility] Blood Pressure Blood Pressure (100/60-150/90) 108/63 IVP Administration Document 12/22/18 19:41 RG (Rec: 12/22/18 19:41 [place] [id number]) Charges for Administration # of IVP Administrations 1 Ceftriaxone Sodium (Rocephin 1 Gram Ivpb) 1 gm in 100 mls @ 200 mls/hr IVPB STAT STA; Protocol Stop: 12/22/18 20:05 Last Admin: 12/22/18 19:43 Dose: 200 mls/hr eMAR Start Stop Document 12/22/18 19:43 RG (Rec: 12/22/18 19:44 [facility] Intravenous Solution Start Date 12/22/18 Start Time 19:43 Methylprednisolone (Solu-Medrol) 125 mg IVP STAT STA Stop: 12/22/18 17:52 Last Admin: 12/22/18 19:35 Dose: 125 mg IVP Administration Document 12/22/18 19:35 RG (Rec: 12/22/18 19:41 [place] [id number]) Charges for Administration # of IVP Administrations 1 <Reva Edmond - Last Filed: 12/23/18 10:35> ED Course and Treatment: 12/22/18 18:23 Impression: A 78 year old female who presents to the ED complaining of shortness of breath. Differential Diagnosis included but are not limited to: COPD or CHF exacerbation Plan: -- VBG -- EKG -- Labs -- Chest X-Ray -- Duoneb -- Lasix -- Medrol -- Blood Culture -- O2 nasal cannula -- Reassess and disposition Prior Visits: Notes and results from previous visits were reviewed. Patient was last seen in the emergency department on Progress Notes: EKG: NSR @ 92 bpm. Normal intervals. No ST elevations. 12/22/18 19:39 I discussed the case with Dr. Horne who will accept the patient to the hospitalist service. Patient is comfortable now, saturating 100% on NC. Lungs clear. Labs reviewed. <Josh Leon - Last Filed: 12/24/18 08:51> - Scribe Statement The provider has reviewed the documentation as recorded by the [facility] Provider Scribe Attestation: All medical record entries made by the Scribe were at my direction and personally dictated by me. I have reviewed the chart and agree that the record accurately reflects my personal performance of the history, physical exam, medical decision making, and the department course for this patient. I have also personally directed, reviewed, and agree with the discharge instructions and disposition. <Josh Leon - Last Filed: 12/24/18 08:51> Disposition/Present on Arrival <Reva Edmond - Last Filed: 12/23/18 10:35> - Present on Arrival Any Indicators Present on Arrival: No History of DVT/PE: No History of Uncontrolled Diabetes: No Urinary Catheter: No History of Decub. Ulcer: No History Surgical Site Infection Following: None - Disposition Have Diagnosis and Disposition been Completed?: Yes Disposition Time: 19:37 <Josh Leon - Last Filed: 12/24/18 08:51> - Disposition Diagnosis: COPD exacerbation, CHF (congestive heart failure) Disposition: HOSPITALIZED Condition: FAIR Addendum Addendum: 12/23/18 10:[address] Ortiz, hospitalist, who was made aware of result and states a CT Chest is currently ordered for the patient. Official CXR Read: FINDINGS: LUNGS: The lungs are hyperinflated and there is peribronchial thickening with chronic changes in both lungs. There is an apparent opacity with irregular spiculated margins in the left upper lobe. PLEURA: No pleural effusions or pneumothorax. CARDIOVASCULAR: The heart is normal in size. There are aortic atherosclerotic calcifications present. OSSEOUS STRUCTURES: Within normal limits for the patient's age. VISUALIZED UPPER ABDOMEN: Normal. OTHER FINDINGS: None. IMPRESSION: Apparent opacity with irregular spiculated margins in the left upper lobe. Dedicated CT scan of the thorax without intravenous contrast is recommended for further characterization and to exclude neoplasm. COPD. <Reva Edmond - Last Filed: 12/23/18 10:35>
[2018-12-22 18:29] LABS: VENOUS BLOOD GAS BASE EXCESS 7.4 mmol/L (0.0-2.0); VENOUS BLOOD GAS PO2 31 mm/Hg (30-55); VENOUS BLOOD PH 7.37 (7.32-7.43)
[2018-12-22 18:40] LABS: BASO # 0.09 K/mm3 (0.0-2.0); BASO % 0.5 % (0.0-3.0); EOS # 0.2 (0.0-0.7); HEMOGLOBIN 14.3 g/dL (12.0-16.0); LYMPH # 1.1 (1.2-3.4); LYMPH % 6.8 % (22.0-35.0); MEAN CELL VOLUME 90.3 fl (80.0-105.0); MEAN CORPUSCULAR HEMOGLOBIN 27.6 pg (25.0-35.0); MEAN CORPUSCULAR HGB CONC 30.6 g/dl (31.0-37.0); MEAN PLATELET VOLUME 10.6 fl (7.0-11.0); MONO # 0.4 (0.1-0.6); MONO % 2.6 % (1.0-6.0); RBC 5.18 10^6/uL (3.5-6.1); RED CELL DISTRIBUTION WIDTH 13.9 % (11.5-14.5); WHITE BLOOD COUNT 16.6 10^3/uL (4.5-11.0)
[2018-12-22 18:49] LABS: BLOOD UREA NITROGEN 18 mg/dL (7-21); CALCIUM 9.8 mg/dL (8.4-10.5); GFR NON-AFRICAN AMERICAN > 60
[2018-12-22 19:01] LABS: TROPONIN I < 0.01 ng/mL
[2018-12-22] MEDS ORDERED: cefTRIAXone 1 gm 1 GM/100 ML BAG IVPB STA (19:36)
--- NOTE | 2018-12-22 20:37 | CP.PCM.HP ---
<Ganga Will - Last Filed: 12/22/18 22:42> History of Present Illness - History of Present Illness History of Present Illness: Ganga Will, PGY1 H&P for Dr. Horne cc: "sob and palpitations" Patient is a 78 year old female, whose past medical history includes COPD (on home O2, 2L), HTN, recurrent bronchitis, Hypothyroidism, CHF, anxiety, Paroxysmal Afib vs SVT (on Cardizem), Lung nodule (seen by Intervention Manager) who presents to the ED complaining of shortness of breath and palpitations while watching television at home. She has had an episode like this in the past. She was previously admitted for a COPD exacerbation. She reports she suddenly felt like her heart was racing, accompanied by a difficulty to breathe. She had a pulse ox at home and noted her HR was 152. However, she says her HR improved upon arrival. She denies any chest pain, fever, cough, nasal congestion or runny nose. She said she recently went to her PMD for complaints of dysuria and increased urinary frequency and was completing a course of nitrofurantoin. She does not endorse bowel/bladder changes at this time. She was supposed to see a Sort Line (Dr. Hendricks) but did not visit him yet, she mentions that she was previously [place]. Dud[place] [facility] [place] full 12 point ROS was conducted and unremarkable except as stated above. PMD: Dr. Lopez Intervention Manager: Dr. Portillo Pharmacy: [facility] Past Medical Hx: COPD (on home O2, 2L), HTN, recurrent bronchitis, Hypothyroidism, CHF, anxiety, Paroxysmal Afib vs SVT (on Cardizem), Lung nodule (seen by Intervention Manager) Past Surgical Hx: cholecystectomy Allergies: statins muscle aches, IV contrast hives feels hot and trouble breathing Home medications: see MAR Family Hx: mother from [place] at age 47 Social Hx: admits to 40 pack year smoking history but quit 27 years ago. alcohol denies, illicit drugs denies. Lives in [place]. Present on Admission - Present on Admission Any Indicators Present on Admission: No Review of Systems - Review of Systems All systems: reviewed and no additional remarkable complaints except (as per HPI) Past Patient History - Infectious Disease Hx of Infectious Diseases: None - Tetanus Immunizations Tetanus Immunization: Up to Date - Past Social History Smoking Status: Never Smoked - CARDIAC Hx Cardiac Disorders: Yes (A-fib on cardizem.) Hx Atrial Fibrillation: Yes Hx Congestive Heart Failure: Yes Hx Hypertension: Yes - PULMONARY Hx Chronic Obstructive Pulmonary Disease (COPD): Yes (O2 dependent) - NEUROLOGICAL Hx Neurological Disorder: Yes Hx Dizziness: Yes - HEENT Hx HEENT Problems: Yes Hx Cataracts: Yes Other/Comment: b/l cataract surgery - RENAL Hx Chronic Kidney Disease: No - ENDOCRINE/METABOLIC Hx Hypothyroidism: Yes - HEMATOLOGICAL/ONCOLOGICAL Hx Blood Disorders: No - INTEGUMENTARY Hx Dermatological Problems: No - MUSCULOSKELETAL/RHEUMATOLOGICAL Hx Falls: No - GASTROINTESTINAL Hx Gastrointestinal Disorders: Yes (GASTROENTERITIS) - GENITOURINARY/GYNECOLOGICAL Hx Genitourinary Disorders: No - PSYCHIATRIC Hx Psychophysiologic Disorder: No Hx Substance Use: No - SURGICAL HISTORY Hx Cholecystectomy: Yes - ANESTHESIA Hx Anesthesia: Yes Hx Anesthesia Reactions: No Hx Malignant Hyperthermia: No Meds Allergies/Adverse Reactions: Allergies Allergy/AdvReac Type Severity Reaction Status Date / Time roflumilast [From [facility]] Allergy HEADACHE Verified 12/22/18 17:48 theophylline Allergy SHORTNESS Verified 12/22/18 17:48 OF BREATH CRESTOR AdvReac Intermediate PAIN Uncoded 12/22/18 17:48 contrast AdvReac SHORTNESS Uncoded 12/22/18 17:48 OF BREATH Physical Exam - Constitutional Appears: No Acute Distress - Head Exam Head Exam: ATRAUMATIC, NORMAL INSPECTION, NORMOCEPHALIC - Eye Exam Eye Exam: EOMI, Normal appearance Pupil Exam: NORMAL ACCOMODATION - ENT Exam ENT Exam: Mucous Membranes Moist - Respiratory Exam Respiratory Exam: Clear to Auscultation Bilateral, NORMAL BREATHING PATTERN. absent: Accessory Muscle Use, Chest Wall Tenderness, Rales, Rhonchi, Wheezes, Respiratory Distress - Cardiovascular Exam Cardiovascular Exam: RRR, +S1, +S2 - GI/Abdominal Exam GI & Abdominal Exam: Normal Bowel Sounds, Soft. absent: Firm, Guarding, Rebound, Rigid, Tenderness - Extremities Exam Extremities exam: Positive for: normal capillary refill, pedal edema (+1 pitting edema bilaterally ), pedal pulses present - Back Exam Back exam: NORMAL INSPECTION - Neurological Exam Neurological exam: Alert, CN II-XII Intact, Oriented x3 - Psychiatric Exam Psychiatric exam: Normal Affect, Normal Mood - Skin Skin Exam: Dry, Intact, Normal Color, Warm Results - Vital Signs Recent Vital Signs: Last Vital Signs Temp 98.2 F 12/22/18 17:42 Pulse 82 12/22/18 17:42 Resp 22 12/22/18 19:57 BP 108/63 12/22/18 19:41 Pulse Ox 100 12/22/18 19:57 - Labs Result Diagrams: 12/22/18 18:00 12/22/18 18:00 Labs: Laboratory Results - last 24 hr 12/22/18 12/22/18 12/22/18 18:00 18:00 18:20 WBC 16.6 H RBC 5.18 Hgb 14.3 Hct 46.8 MCV 90.3 MCH 27.6 MCHC 30.6 L RDW 13.9 Plt Count 342 MPV 10.6 Neut % (Auto) 89.1 H Lymph % (Auto) 6.8 L [place] % (Auto) 2.6 Eos % (Auto) 1.0 L Baso % (Auto) 0.5 Lymph # (Auto) 1.1 L [place] # (Auto) 0.4 Eos # (Auto) 0.2 Baso # (Auto) 0.09 Absolute Neuts (auto) 14.76 H pO2 31 VBG pH 7.37 VBG pCO2 60.0 VBG HCO3 34.7 H VBG Total CO2 36.5 H VBG O2 Sat (Calc) 62.6 VBG Base Excess 7.4 H VBG Potassium 4.9 Glucose 154 H Lactate 1.6 FiO2 21.0 Sodium 137 138.0 Potassium 4.6 Chloride 97 L 98.0 Carbon Dioxide 34 H Anion Gap 11 BUN 18 Creatinine 0.8 Est GFR ( Amer) > 60 Est GFR (Non-Af Amer) > 60 Random Glucose 154 H Calcium 9.8 Magnesium 1.9 Lactate Dehydrogenase 358 Total Creatine Kinase 26 L Troponin I < 0.01 NT-Pro-B Natriuret Pep 65.0 Venous Blood Potassium 4.9 Assessment & Plan - Assessment and Plan (Free Text) Assessment: Patient is a 78 year old female, whose past medical history includes COPD (on home O2, 2L), HTN, recurrent bronchitis, Hypothyroidism, CHF, anxiety, Paroxysmal Afib vs SVT (on Cardizem), Lung nodule (seen by Intervention Manager) who presents to the ED complaining of shortness of breath and palpitations while watching television at home. Patient will be admitted to tele. Plan: COPD/CHF exacerbation vs PNA in the setting of Left Lung Nodule - resume home med brovana, pulmicort, spiriva, xopenex, prednisone, lasix - azithromycin and rocephin - Leukocytosis 2/2 steroid use vs PNA - monitor - c/w 2 L nasal cannula (2L NC at home) - Last echo (11/2016): EF 60%. - Pulmonology on consult (Dr. Portillo) for lung nodule - ID on consult (Dr. Emerson) - Cardio on consult (Dr. Dudley) - BNP negative - f/u blood cx - CXR: chronic COPD changes given flattening of diaphragm. Left upper lobe lung nodule vs infiltrate. Paroxysmal Afib vs SVT (on cardizem) - resume home med cardizem 240mg PO daily - trend trops; initial negative x1 - admit to tele and monitor for arrhythmias - Cardio consulted (Dr. Dudley) - EKG in ED: NSR at [address] or T wave changes. Recent UTI - resume nitrofurantoin 100mg BID, to complete 4 more days of antibiotics to complete course - No urinary complaints at this time Hypothyroidism - resume home med synthroid HTN - normotensive at this time - monitor ppx: - scd - ptx Diet: HHD Dispo: Monitor patient on tele. Case was discussed and reviewed with Attending Physician, Dr. Horne <Bernie Horne - Last Filed: 12/23/18 02:57> Results - Vital Signs Recent Vital Signs: Last Vital Signs Temp 97.8 F 12/23/18 00:01 Pulse 76 12/23/18 02:00 Resp 22 12/23/18 00:01 BP 116/70 12/23/18 00:01 Pulse Ox 97 12/23/18 00:01 - Labs Result Diagrams: 12/22/18 18:00 12/22/18 18:00 Labs: Laboratory Results - last 24 hr 12/22/18 12/22/18 12/22/18 18:00 18:00 18:20 WBC 16.6 H RBC 5.18 Hgb 14.3 Hct 46.8 MCV 90.3 MCH 27.6 MCHC 30.6 L RDW 13.9 Plt Count 342 MPV 10.6 Neut % (Auto) 89.1 H Lymph % (Auto) 6.8 L [place] % (Auto) 2.6 Eos % (Auto) 1.0 L Baso % (Auto) 0.5 Lymph # (Auto) 1.1 L [place] # (Auto) 0.4 Eos # (Auto) 0.2 Baso # (Auto) 0.09 Absolute Neuts (auto) 14.76 H pO2 31 VBG pH 7.37 VBG pCO2 60.0 VBG HCO3 34.7 H VBG Total CO2 36.5 H VBG O2 Sat (Calc) 62.6 VBG Base Excess 7.4 H VBG Potassium 4.9 Glucose 154 H Lactate 1.6 FiO2 21.0 Sodium 137 138.0 Potassium 4.6 Chloride 97 L 98.0 Carbon Dioxide 34 H Anion Gap 11 BUN 18 Creatinine 0.8 Est GFR ( Amer) > 60 Est GFR (Non-Af Amer) > 60 Random Glucose 154 H Calcium 9.8 Magnesium 1.9 Lactate Dehydrogenase 358 Total Creatine Kinase 26 L Troponin I < 0.01 NT-Pro-B Natriuret Pep 65.0 Venous Blood Potassium 4.9 12/23/18 00:35 WBC RBC Hgb Hct MCV MCH MCHC RDW Plt Count MPV Neut % (Auto) Lymph % (Auto) [place] % (Auto) Eos % (Auto) Baso % (Auto) Lymph # (Auto) [place] # (Auto) Eos # (Auto) Baso # (Auto) Absolute Neuts (auto) pO2 VBG pH VBG pCO2 VBG HCO3 VBG Total CO2 VBG O2 Sat (Calc) VBG Base Excess VBG Potassium Glucose Lactate FiO2 Sodium Potassium Chloride Carbon Dioxide Anion Gap BUN Creatinine Est GFR ( Amer) Est GFR (Non-Af Amer) Random Glucose Calcium Magnesium Lactate Dehydrogenase Total Creatine Kinase Troponin I < 0.01 NT-Pro-B Natriuret Pep Venous Blood Potassium Attending/Attestation - Attestation I have personally seen and examined this patient.: Yes I have fully participated in the care of the patient.: Yes I have reviewed all pertinent clinical information: Yes
[2018-12-22 21:13] VITALS: BMI 20.2
[2018-12-22] MEDS ORDERED: Levalbuterol 0.63 MG/3 ML Inhal Soln UD IH PRN (22:25)
[2018-12-23] MEDS: Pantoprazole 40 mg EC Tab PO SCH (05:02)
[2018-12-23] MEDS: Levothyroxine 88 MCG TAB PO SCH (05:02)
[2018-12-23 07:50] LABS: HEMOGLOBIN 14.2 g/dL (12.0-16.0); MEAN CELL VOLUME 89.3 fl (80.0-105.0); MEAN CORPUSCULAR HGB CONC 30.3 g/dl (31.0-37.0); MEAN PLATELET VOLUME 10.7 fl (7.0-11.0); RBC 5.25 10^6/uL (3.5-6.1); RED CELL DISTRIBUTION WIDTH 13.6 % (11.5-14.5); WHITE BLOOD COUNT 9.3 10^3/uL (4.5-11.0)
[2018-12-23] MEDS ORDERED: Arformoterol 15 mcg/2 ml Inh Sol IH SCH ×2 (08:00)
[2018-12-23] MEDS ORDERED: Budesonide 0.5 mg/2 ml Inhal Susp UD IH SCH (08:00)
[2018-12-23 08:12] LABS: TROPONIN I < 0.01 ng/mL
[2018-12-23 08:24] LABS: ALB/GLOB RATIO 1.3 (1.1-1.8); ALBUMIN 3.9 g/dL (3.0-4.8); ALT/SGPT 13 U/L (7-56); AST/SGOT 20 U/L (14-36); BLOOD UREA NITROGEN 22 mg/dL (7-21); CALCIUM 9.8 mg/dL (8.4-10.5); GFR NON-AFRICAN AMERICAN > 60
--- NOTE | 2018-12-23 08:25 | RAD ---
Date of service: 12/22/2018 HISTORY: shortness of breathe COMPARISON: 09/11/2018. FINDINGS: LUNGS: The lungs are hyperinflated and there is peribronchial thickening with chronic changes in both lungs. There is an apparent opacity with irregular spiculated margins in the left upper lobe. PLEURA: No pleural effusions or pneumothorax. CARDIOVASCULAR: The heart is normal in size. There are aortic atherosclerotic calcifications present. OSSEOUS STRUCTURES: Within normal limits for the patient's age. VISUALIZED UPPER ABDOMEN: Normal. OTHER FINDINGS: None. IMPRESSION: Apparent opacity with irregular spiculated margins in the left upper lobe. Dedicated CT scan of the thorax without intravenous contrast is recommended for further characterization and to exclude neoplasm. COPD. The final report is tagged to the PA review folder. Important findings were discussed with Dr. Ellis in the ER on 12/23/2018 at 8:22 a.m.
[2018-12-23] MEDS: Budesonide 0.5 mg/2 ml Inhal Susp UD IH SCH ×2 (08:48→20:56)
[2018-12-23] MEDS: Arformoterol 15 mcg/2 ml Inh Sol IH SCH ×2 (08:48→20:55)
[2018-12-23] MEDS ORDERED: Azithromycin 250 MG in Sodium Chloride 0.9% 250 ML IVPB SCH (10:00)
[2018-12-23] MEDS ORDERED: Fluticasone-Salmeterol 250-50mcg Diskus INH SCH (10:00)
[2018-12-23] MEDS: cefTRIAXone 1 gm 1 GM/100 ML BAG IVPB SCH (10:20)
[2018-12-23] MEDS: Potassium Chloride 10 mEq ER Tab PO SCH (10:21)
[2018-12-23] MEDS: diltiaZEM 240 mg/24 Hours CD Cap PO SCH (10:21)
[2018-12-23] MEDS: Tiotropium 18 mcg Cap For Inhalation INH SCH (10:21)
--- NOTE | 2018-12-23 11:20 | CP.PCM.PN ---
<Randy Pollock - Last Filed: 12/23/18 13:26> Subjective - Date & Time of Evaluation Date of Evaluation: 12/23/18 Time of Evaluation: 09:30 - Subjective Subjective: Randy Pollock DO, PGY-1 Hospitalist Progress Note for Dr. Catherine Ortiz Patient was seen and examined at bedside this AM. She reports continuing to feel short of breath and having difficulty without ambulation. She also complains of intermittent cough. She otherwise denies fever/chills, CP, abd pain/nausea/vomiting, or urinary complaints. Objective - Vital Signs/Intake and Output Vital Signs (last 24 hours): Temp Pulse Resp BP Pulse Ox 97.7 F 86 20 147/61 96 12/23/18 06:00 12/23/18 10:21 12/23/18 06:00 12/23/18 10:21 12/23/18 06:00 Intake and Output: 12/23/18 12/23/18 06:59 18:59 Intake Total 240 Output Total 300 Balance -60 - Medications Medications: Current Medications Arformoterol Tartrate (Brovana) 15 mcg IH [id number] [facility] Last Admin: 12/23/18 08:48 Dose: 15 mcg Aspirin (Ecotrin) 81 mg PO DAILY [facility] Last Admin: 12/23/18 10:21 Dose: 81 mg Budesonide (Pulmicort Respules) 0.5 mg IH [id number] [facility] Last Admin: 12/23/18 08:48 Dose: 0.5 mg Diltiazem HCl (Cardizem Cd) 240 mg PO DAILY [facility] Last Admin: 12/23/18 10:21 Dose: 240 mg Dipyridamole (Persantine) 25 mg PO BID [facility] Last Admin: 12/23/18 10:21 Dose: 25 mg Furosemide (Lasix) 40 mg PO DAILY [facility] Last Admin: 12/23/18 10:21 Dose: 40 mg Ceftriaxone Sodium (Rocephin 1 Gram Ivpb) 1 gm in 100 mls @ 100 mls/hr IVPB DAILY [facility]; Protocol Last Admin: 12/23/18 10:20 Dose: 100 mls/hr Azithromycin 250 mg/ Sodium (Chloride) 250 mls @ 167 mls/hr IVPB DAILY [facility]; Protocol Last Admin: 12/23/18 10:20 Dose: 167 mls/hr Levalbuterol HCl (Xopenex) 0.63 mg IH [id number] PRN PRN Reason: Shortness of Breath Levothyroxine Sodium (Synthroid) 88 mcg PO 0600 [facility] Last Admin: 12/23/18 05:02 Dose: 88 mcg Nitrofurantoin Macrocrystals (Macrobid) 100 mg PO Q12 [facility]; Protocol Stop: 12/27/18 10:01 Last Admin: 12/23/18 10:21 Dose: 100 mg Pantoprazole Sodium (Protonix Ec Tab) 40 mg PO 0600 [facility] Last Admin: 12/23/18 05:02 Dose: 40 mg Potassium Chloride (Klor-Con 10) 10 meq PO DAILY [facility] Last Admin: 12/23/18 10:21 Dose: 10 meq Prednisone (Prednisone Tab) 10 mg PO DAILY [facility] Last Admin: 12/23/18 10:21 Dose: 10 mg Tiotropium [place] (Spiriva) 18 mcg INH DAILY [facility] Last Admin: 12/23/18 10:21 Dose: 18 mcg - Labs Labs: 12/23/18 07:00 12/23/18 07:00 - Constitutional Appears: Non-toxic, No Acute Distress - Head Exam Head Exam: ATRAUMATIC, NORMOCEPHALIC - Eye Exam Eye Exam: EOMI, PERRL - ENT Exam ENT Exam: Mucous Membranes Moist - Neck Exam Neck Exam: Full ROM. absent: Lymphadenopathy, Tenderness - Respiratory Exam Respiratory Exam: Rhonchi, Wheezes. absent: Accessory Muscle Use, Rales, Respiratory Distress - Cardiovascular Exam Cardiovascular Exam: REGULAR RHYTHM, RRR, +S1, +S2. absent: Gallop, Rubs, Murmur - GI/Abdominal Exam GI & Abdominal Exam: Soft, Normal Bowel Sounds. absent: Guarding, Tenderness - Extremities Exam Extremities Exam: Pedal Edema (2+ pitting edema b/l). absent: Calf Tenderness - Neurological Exam Neurological Exam: Alert, Awake, Oriented x3 - Psychiatric Exam Psychiatric exam: Normal Affect, Normal Mood - Skin Skin Exam: Dry, Intact, Warm Assessment and Plan - Assessment and Plan (Free Text) Assessment: 78 yo F with PMH of COPD (on home O2, 2L), HTN, recurrent bronchitis, hypothyroidism, anxiety, Paroxysmal Afib vs SVT (on Cardizem), and known LLL nodule (previously seen by plastic process technician) presented to ED with a complaint of SOB and palpitations admitted for management of COPD exacerbation. Plan: COPD exacerbation in setting of multiple L lung nodules Start solu-medrol 40 mg IVP q12h Continue home brovana, pulmicort, spiriva, xopenex, lasix Started on rocephin/zithromax for possible LLL infiltrate, although patient is afebrile without other SIRS F/u carmichael cx, procal CT chest ordered and completed showed: 1.9 x 1.8 cm subpleural cavitating lesion with spiculated margins in the superior segment of the LLL, clinical or f/u PET CT recommended Small subcentimeter nodules in the superior segment of the BEBETO and LL base Severe, diffuse centrilobular emphysema Will f/u with pulmonology regarding next steps given these CT results Pulmonology following, all recs appreciated Palpitations May be 2/2 paroxysmal AFib vs SVT, of which patient has a known history Continue home cardizem, dipyramidole Troponin negative x 3 Patient had been scheduled to f/u with legal office administrator, Dr. Hendricks, outpatient but was unable to yet Cardiology consult placed, all recs appreciated Recent UTI Patient admits to prior dysuria and increased frequency Was prescribed macrobid by her PMD, Dr. Lopez Will continue macrobid 100 mg BID for now If repeat UA is negative tomorrow, will d/c Hypothyroidism Resume home meds HTN Has not been hypertensive since admission Continue home meds DVT/GI PPX: Lovenox/protonix Full Code HHD Monitor on telemetry Patient seen, examined with, and plan discussed with my attending Dr. Catherine Pollock D.O. IM Resident PGY-1 Pager: [phone] <Meseret Ortiz R - Last Filed: 12/23/18 16:05> Objective - Vital Signs/Intake and Output Vital Signs (last 24 hours): Temp Pulse Resp BP Pulse Ox 98.1 F 99 H 21 135/72 96 12/23/18 12:00 12/23/18 14:00 12/23/18 12:00 12/23/18 12:00 12/23/18 06:00 Intake and Output: 12/23/18 12/23/18 06:59 18:59 Intake Total 240 Output Total 300 Balance -60 - Medications Medications: Current Medications Arformoterol Tartrate (Brovana) 15 mcg IH [id number] [facility] Last Admin: 12/23/18 08:48 Dose: 15 mcg Aspirin (Ecotrin) 81 mg PO DAILY [facility] Last Admin: 12/23/18 10:21 Dose: 81 mg Budesonide (Pulmicort Respules) 0.5 mg IH [id number] [facility] Last Admin: 12/23/18 08:48 Dose: 0.5 mg Diltiazem HCl (Cardizem Cd) 240 mg PO DAILY [facility] Last Admin: 12/23/18 10:21 Dose: 240 mg Dipyridamole (Persantine) 25 mg PO BID [facility] Last Admin: 12/23/18 10:21 Dose: 25 mg Enoxaparin Sodium (Lovenox) 40 mg SC DAILY [facility]; Protocol Furosemide (Lasix) 40 mg PO DAILY [facility] Last Admin: 12/23/18 10:21 Dose: 40 mg Ceftriaxone Sodium (Rocephin 1 Gram Ivpb) 1 gm in 100 mls @ 100 mls/hr IVPB DAILY [facility]; Protocol Last Admin: 12/23/18 10:20 Dose: 100 mls/hr Azithromycin (Zithromax 500mg In Ns) 500 mg in 250 mls @ 167 mls/hr IVPB DAILY [facility]; Protocol Levalbuterol HCl (Xopenex) 0.63 mg IH [id number] PRN PRN Reason: Shortness of Breath Levothyroxine Sodium (Synthroid) 88 mcg PO 0600 [facility] Last Admin: 12/23/18 05:02 Dose: 88 mcg Methylprednisolone (Solu-Medrol) 40 mg IVP Q12 [facility] Nitrofurantoin Macrocrystals (Macrobid) 100 mg PO Q12 [facility]; Protocol Stop: 12/27/18 10:01 Last Admin: 12/23/18 10:21 Dose: 100 mg Pantoprazole Sodium (Protonix Ec Tab) 40 mg PO 0600 [facility] Last Admin: 12/23/18 05:02 Dose: 40 mg Potassium Chloride (Klor-Con 10) 10 meq PO DAILY [facility] Last Admin: 12/23/18 10:21 Dose: 10 meq Tiotropium [place] (Spiriva) 18 mcg INH DAILY [facility] Last Admin: 12/23/18 10:21 Dose: 18 mcg - Labs Labs: 12/23/18 07:00 12/23/18 07:00 Attending/Attestation - Attestation I have personally seen and examined this patient.: Yes I have fully participated in the care of the patient.: Yes I have reviewed all pertinent clinical information, including history, physical exam and plan: Yes Notes (Text): Patient seen and examined by me with resident at approximately 8:50AM on 08/01. Case including HPI, physical exam, and assessment and plan discussed with resident. Agree with above with following additions/corrections. Patient is a 78-year-old female with past medical history significant for chronic respiratory failure secondary to COPD on home oxygen, hypertension, recu rrent bronchitis, hypothyroidism, anxiety, paroxysmal atrial fibrillation versus SVT, and lung nodules that presented to the emergency room complaining of shortness of breath and palpitations while watching TV. Patient states she is feeling okay. States she still feeling short of breath. States that she is getting very short of breath with any exertion. She is also having intermittent "palpitations and fast heart rate." Patient states that she normally uses 2 L of oxygen at home but hasn't increase it anywhere from 3 L to 5 L if she exerts herself. She states she last saw her plastic process technician lyndsay roximately 3 weeks ago. She states that she is taking Macrobid for urinary infection. Denies any chest pain. No nausea, vomiting, or abdominal pain. No fevers or chills. No headaches or dizziness. No current dysuria. Patient is requesting to see Dr. Hendricks for cardiology. Physical exam: General: Awake and alert lying in bed in no acute distress HEENT: Normocephalic, atraumatic. Extraocular muscles intact. Pupils equal and reactive, no scleral icterus. Oropharynx is pink. Neck is supple. Cardiovascular: Normal rhythm. Normal S1 and S2. No murmurs, rubs, or gallops appreciated Pulmonary: Tachypneic while speaking. Positive decreased breath sounds. No wheezing appreciated (patient examined right after nebulizer treatment) Gastrointestinal: Soft, nondistended. Nontender. Positive bowel sounds all 4 quadrants. No guarding. Musculoskeletal: Moves all extremities. No calf tenderness. Positive bilateral lower extremity pitting edema (chronic per patient) Central nervous system: AAOx3. No focal deficits appreciated. Dermatologic: Skin warm and dry. Assessment and plan: Patient is a 78-year-old female with past medical history significant for chronic respiratory failure secondary to COPD on home oxygen, hypertension, recurrent bronchitis, hypothyroidism, anxiety, paroxysmal atrial fibrillation versus SVT, and lung nodules that presented to the emergency room complaining of shortness of breath and palpitations while watching TV. 1. Acute on chronic respiratory failure secondary to COPD. Continue with O2. Continue with nebulizer treatments. Continue Brovana and Pulmicort. Continue S piriva. Started on solumedrol. Pulmonary recommendations pending. 2. Possible pneumonia/infectious process. Continue Rocephin and Zithromax. ID recommendations pending. Blood cultures pending. Follow up procalcitonin. Chest xray per radiologist showed apparent opacity with the irregular spiculated margins in the left upper lobe, COPD. Chest CT per radiologist showed 1.9 x 1.8 cm subpleural cavitating lesion with spiculated margins in the superior segment of the left lower lobe; small subcentimeter nodules in the superior segment of the left lower lobe and left lung base which may be postinflammatory or metastatic in etiology; severe diffuse centrilobular emphysema in the lungs. Pulmonary recommendations pending. 3. Palpitations. ? History of paroxysmal afib or SVT. Patient is unsure. Card iologist consulted, pending recommendations. Continue home ASA and cardizem. Continue Persantine. 4. Bilateral lower extremity edema. Echo from 2017 did not show CHF. BNP 65. Continue home lasix. Will repeat 2d echo. 5. Recent UTI. Continue with completion of home Macrobid. 6. Hypothyroidism. Continue home synthroid. Follow up TSH and Free T4. 7. Hypertension. Continue Cardizem and Lasix. Case was discussed in detail with the patient regarding current diagnosis, study results, and treatment plan. All questions answered.
--- NOTE | 2018-12-23 11:54 | CT ---
Date of service: 12/23/2018 PROCEDURE: CT Chest without contrast HISTORY: f/u L lung nodules COMPARISON: Plain radiographs, the most recent from 12/22/2018.. TECHNIQUE: Contiguous axial images were obtained through the chest without intravenous contrast enhancement. Sagittal and coronal reconstructions were performed. Radiation dose: Total exam DLP = 176.91 mGy-cm. This CT exam was performed using one or more of the following dose reduction techniques: Automated exposure control, adjustment of the mA and/or kV according to patient size, and/or use of iterative reconstruction technique. FINDINGS: LUNGS: There is pulmonary hyperinflation and diffuse centrilobular emphysema in the lungs. There is a 1.9 x 1.8 cm subpleural cavitating lesion with spiculated margins in the superior segment of the left lower lobe. There is linear atelectasis in the right middle lobe and lingula. There is subsegmental atelectasis in the right lung base. There is a 5 mm subpleural nodule in the left lung base and 5 mm subpleural nodule in the superior segment of the left lower lobe (series 3, image 68). MEDIASTINUM: Unremarkable thoracic aorta. No aneurysm. Normal sized heart. There is a small pericardial effusion. Main pulmonary artery unremarkable. No vascular congestion. No lymphadenopathy. There are aortic atherosclerotic calcification. PLEURA: No pleural fluid. No pneumothorax. BONES: No fracture. No destructive lesion. UPPER ABDOMEN: Grossly unremarkable. OTHER FINDINGS: None. IMPRESSION: 1. 1.9 x 1.8 cm subpleural cavitating lesion with spiculated margins in the superior segment of the left lower lobe, findings could be related to cavitating neoplasm or infection. Clinical follow-up is advised and if clinically indicated correlation with PET-CT may be performed for further characterization. 2. Small subcentimeter nodules in the superior segment of the left lower lobe and left lung base which may be post inflammatory or metastatic in etiology. Short-term interval follow-up is advised. 3. Severe diffuse centrilobular emphysema in the lungs.
--- NOTE | 2018-12-23 17:21 | CP.PCM.CON ---
History of Present Illness - History of Present Illness History of Present Illness: Infectious Disease Consultation: December 23, 2018 78 year old female, whose past medical history includes COPD (on home O2, 2L), HTN, recurrent bronchitis, Hypothyroidism, CHF, anxiety, Paroxysmal Afib vs SVT (on Cardizem), Lung nodule (seen by Pathology Assistant) who presents to the ED complaining of shortness of breath and palpitations while watching television at home. She has had an episode like this in the past. She was previously admitted for a COPD exacerbation. She reports she suddenly felt like her heart was racing, accompanied by a difficulty to breathe. She had a pulse ox at home and noted her HR was 152. However, she says her HR improved upon arrival. She denies any chest pain, fever, cough, nasal congestion or runny nose. She said she recently went to her PMD for complaints of dysuria and increased urinary frequency and was completing a course of nitrofurantoin. She does not endorse bowel/bladder changes at this time. She is not sure of the organism that is being treated. PMHx: COPD on home O2, HTN, recurrent bronchitis, hypothyroidism, CHF, anxiety, paroxysmal Afib vs SVT, lung nodule. PSHx: cholecystectomy Allergies: statins - muscle aches IV contrast - hives and SOB. Social Hx: Ex smoker stopped 27 years ago, was 40 pack year tobacco history. No EtOH or illicit drug use Active Medications Arformoterol Tartrate (Brovana) 15 mcg IH [id number] [facility] Last Admin: 12/23/18 08:48 Dose: 15 mcg Aspirin (Ecotrin) 81 mg PO DAILY [facility] Last Admin: 12/23/18 10:21 Dose: 81 mg Budesonide (Pulmicort Respules) 0.5 mg IH [id number] [facility] Last Admin: 12/23/18 08:48 Dose: 0.5 mg Diltiazem HCl (Cardizem Cd) 240 mg PO DAILY [facility] Last Admin: 12/23/18 10:21 Dose: 240 mg Dipyridamole (Persantine) 25 mg PO BID [facility] Last Admin: 12/23/18 10:21 Dose: 25 mg Enoxaparin Sodium (Lovenox) 40 mg SC DAILY [facility]; Protocol Furosemide (Lasix) 40 mg PO DAILY [facility] Last Admin: 12/23/18 10:21 Dose: 40 mg Ceftriaxone Sodium (Rocephin 1 Gram Ivpb) 1 gm in 100 mls @ 100 mls/hr IVPB DAILY [facility]; Protocol Last Admin: 12/23/18 10:20 Dose: 100 mls/hr Azithromycin (Zithromax 500mg In Ns) 500 mg in 250 mls @ 167 mls/hr IVPB DAILY [facility]; Protocol Levalbuterol HCl (Xopenex) 0.63 mg IH [id number] PRN PRN Reason: Shortness of Breath Levothyroxine Sodium (Synthroid) 88 mcg PO 0600 [facility] Last Admin: 12/23/18 05:02 Dose: 88 mcg Methylprednisolone (Solu-Medrol) 40 mg IVP Q12 [facility] Nitrofurantoin Macrocrystals (Macrobid) 100 mg PO Q12 [facility]; Protocol Stop: 12/27/18 10:01 Last Admin: 12/23/18 10:21 Dose: 100 mg Pantoprazole Sodium (Protonix Ec Tab) 40 mg PO 0600 [facility] Last Admin: 12/23/18 05:02 Dose: 40 mg Potassium Chloride (Klor-Con 10) 10 meq PO DAILY [facility] Last Admin: 12/23/18 10:21 Dose: 10 meq Tiotropium [place] (Spiriva) 18 mcg INH DAILY [facility] Last Admin: 12/23/18 10:21 Dose: 18 mcg Family Hx: [place] - Mother. ROS: SOB, chest pain, palpitations NO nausea, vomiting, diarrhea, headaches, dizziness, abdominal pain, melena, hematuria, hematemesis, hematochezia. History of depression and anxiety. Past Patient History - Infectious Disease Hx of Infectious Diseases: None - Tetanus Immunizations Tetanus Immunization: Up to Date - Past Social History Smoking Status: Never Smoked - CARDIAC Hx Cardiac Disorders: Yes (A-fib on cardizem.) Hx Atrial Fibrillation: Yes Hx Congestive Heart Failure: Yes Hx Hypertension: Yes - PULMONARY Hx Chronic Obstructive Pulmonary Disease (COPD): Yes (O2 dependent) - NEUROLOGICAL Hx Neurological Disorder: Yes Hx Dizziness: Yes - HEENT Hx HEENT Problems: Yes Hx Cataracts: Yes Other/Comment: b/l cataract surgery - RENAL Hx Chronic Kidney Disease: No - ENDOCRINE/METABOLIC Hx Hypothyroidism: Yes - HEMATOLOGICAL/ONCOLOGICAL Hx Blood Disorders: No - INTEGUMENTARY Hx Dermatological Problems: No - MUSCULOSKELETAL/RHEUMATOLOGICAL Hx Falls: No - GASTROINTESTINAL Hx Gastrointestinal Disorders: Yes (GASTROENTERITIS) - GENITOURINARY/GYNECOLOGICAL Hx Genitourinary Disorders: No - PSYCHIATRIC Hx Psychophysiologic Disorder: No Hx Substance Use: No - SURGICAL HISTORY Hx Cholecystectomy: Yes - ANESTHESIA Hx Anesthesia: Yes Hx Anesthesia Reactions: No Hx Malignant Hyperthermia: No Meds Allergies/Adverse Reactions: Allergies Allergy/AdvReac Type Severity Reaction Status Date / Time roflumilast [From [facility]] Allergy HEADACHE Verified 12/22/18 17:48 theophylline Allergy SHORTNESS Verified 12/22/18 17:48 OF BREATH CRESTOR AdvReac Intermediate PAIN Uncoded 12/22/18 17:48 contrast AdvReac SHORTNESS Uncoded 12/22/18 17:48 OF BREATH - Medications Medications: Current Medications Arformoterol Tartrate (Brovana) 15 mcg IH [id number] [facility] Last Admin: 12/23/18 08:48 Dose: 15 mcg Aspirin (Ecotrin) 81 mg PO DAILY [facility] Last Admin: 12/23/18 10:21 Dose: 81 mg Budesonide (Pulmicort Respules) 0.5 mg IH [id number] [facility] Last Admin: 12/23/18 08:48 Dose: 0.5 mg Diltiazem HCl (Cardizem Cd) 240 mg PO DAILY [facility] Last Admin: 12/23/18 10:21 Dose: 240 mg Dipyridamole (Persantine) 25 mg PO BID [facility] Last Admin: 12/23/18 10:21 Dose: 25 mg Enoxaparin Sodium (Lovenox) 40 mg SC DAILY [facility]; Protocol Furosemide (Lasix) 40 mg PO DAILY [facility] Last Admin: 12/23/18 10:21 Dose: 40 mg Ceftriaxone Sodium (Rocephin 1 Gram Ivpb) 1 gm in 100 mls @ 100 mls/hr IVPB DAILY [facility]; Protocol Last Admin: 12/23/18 10:20 Dose: 100 mls/hr Azithromycin (Zithromax 500mg In Ns) 500 mg in 250 mls @ 167 mls/hr IVPB DAILY [facility]; Protocol Levalbuterol HCl (Xopenex) 0.63 mg IH [id number] PRN PRN Reason: Shortness of Breath Levothyroxine Sodium (Synthroid) 88 mcg PO 0600 [facility] Last Admin: 12/23/18 05:02 Dose: 88 mcg Methylprednisolone (Solu-Medrol) 40 mg IVP Q12 [facility] Nitrofurantoin Macrocrystals (Macrobid) 100 mg PO Q12 [facility]; Protocol Stop: 12/27/18 10:01 Last Admin: 12/23/18 10:21 Dose: 100 mg Pantoprazole Sodium (Protonix Ec Tab) 40 mg PO 0600 [facility] Last Admin: 12/23/18 05:02 Dose: 40 mg Potassium Chloride (Klor-Con 10) 10 meq PO DAILY [facility] Last Admin: 12/23/18 10:21 Dose: 10 meq Tiotropium [place] (Spiriva) 18 mcg INH DAILY [facility] Last Admin: 12/23/18 10:21 Dose: 18 mcg Physical Exam - Constitutional Appears: Non-toxic, No Acute Distress, Chronically Ill - Head Exam Head Exam: ATRAUMATIC, NORMOCEPHALIC - Eye Exam Eye Exam: EOMI, PERRL Pupil Exam: NORMAL ACCOMODATION, PERRL - ENT Exam ENT Exam: Mucous Membranes Moist, Normal External Ear Exam, TM's Normal Bilaterally - Respiratory Exam Respiratory Exam: Clear to Auscultation Bilateral, NORMAL BREATHING PATTERN. absent: Rales, Rhonchi, Wheezes - Cardiovascular Exam Cardiovascular Exam: REGULAR RHYTHM, RRR, +S1, +S2 - GI/Abdominal Exam GI & Abdominal Exam: Normal Bowel Sounds, Soft. absent: Distended, Tenderness - Extremities Exam Extremities exam: Positive for: full ROM, normal inspection - Neurological Exam Neurological exam: Alert, CN II-XII Intact, Oriented x3 - Psychiatric Exam Psychiatric exam: Normal Affect, Normal Mood - Skin Skin Exam: Intact, Normal Color Results - Vital Signs Recent Vital Signs: Last Vital Signs Temp 98.1 F 12/23/18 12:00 Pulse 99 H 12/23/18 14:00 Resp 21 12/23/18 12:00 BP 135/72 12/23/18 12:00 Pulse Ox 96 12/23/18 06:00 - Labs Result Diagrams: 12/23/18 07:00 12/23/18 07:00 Labs: Laboratory Results - last 24 hr 12/22/18 12/22/18 12/22/18 18:00 18:00 18:20 WBC 16.6 H RBC 5.18 Hgb 14.3 Hct 46.8 MCV 90.3 MCH 27.6 MCHC 30.6 L RDW 13.9 Plt Count 342 MPV 10.6 Neut % (Auto) 89.1 H Lymph % (Auto) 6.8 L Ware % (Auto) 2.6 Eos % (Auto) 1.0 L Baso % (Auto) 0.5 Lymph # (Auto) 1.1 L Ware # (Auto) 0.4 Eos # (Auto) 0.2 Baso # (Auto) 0.09 Absolute Neuts (auto) 14.76 H pO2 31 VBG pH 7.37 VBG pCO2 60.0 VBG HCO3 34.7 H VBG Total CO2 36.5 H VBG O2 Sat (Calc) 62.6 VBG Base Excess 7.4 H VBG Potassium 4.9 Glucose 154 H Lactate 1.6 FiO2 21.0 Sodium 137 138.0 Potassium 4.6 Chloride 97 L 98.0 Carbon Dioxide 34 H Anion Gap 11 BUN 18 Creatinine 0.8 Est GFR ( Amer) > 60 Est GFR (Non-Af Amer) > 60 Random Glucose 154 H Calcium 9.8 Phosphorus Magnesium 1.9 Total Bilirubin AST ALT Alkaline Phosphatase Lactate Dehydrogenase 358 Total Creatine Kinase 26 L Troponin I < 0.01 NT-Pro-B Natriuret Pep 65.0 Total Protein Albumin Globulin Albumin/Globulin Ratio Venous Blood Potassium 4.9 12/23/18 12/23/18 12/23/18 00:35 07:00 07:00 WBC 9.3 D RBC 5.25 Hgb 14.2 Hct 46.9 MCV 89.3 MCH 27.0 MCHC 30.3 L RDW 13.6 Plt Count 372 MPV 10.7 Neut % (Auto) Lymph % (Auto) Ware % (Auto) Eos % (Auto) Baso % (Auto) Lymph # (Auto) Ware # (Auto) Eos # (Auto) Baso # (Auto) Absolute Neuts (auto) pO2 VBG pH VBG pCO2 VBG HCO3 VBG Total CO2 VBG O2 Sat (Calc) VBG Base Excess VBG Potassium Glucose Lactate FiO2 Sodium 138 Potassium 4.4 Chloride 94 L Carbon Dioxide 36 H Anion Gap 12 BUN 22 H Creatinine 0.6 L Est GFR ( Amer) > 60 Est GFR (Non-Af Amer) > 60 Random Glucose 231 H Calcium 9.8 Phosphorus 3.8 Magnesium 2.0 Total Bilirubin 0.3 AST 20 ALT 13 Alkaline Phosphatase 67 Lactate Dehydrogenase Total Creatine Kinase Troponin I < 0.01 < 0.01 NT-Pro-B Natriuret Pep Total Protein 6.9 Albumin 3.9 Globulin 3.0 Albumin/Globulin Ratio 1.3 Venous Blood Potassium Assessment & Plan - Assessment and Plan (Free Text) Assessment: 78 yo female with leukocytosis and extensive medical history of COPD (on home O2, 2L), HTN, recurrent bronchitis, Hypothyroidism, CHF, anxiety, Paroxysmal Afib vs SVT (on Cardizem), Lung nodule (seen by Pathology Assistant) [place] [facility] [place]. The patient was being treated with Nitrofuratoin for a UTI as outpatient. She has good renal function. Typical treatment course for nitrofuratoin is 3-5 days. Would be more helpful to obtain the culture results from her PMD's office. Noted Azithromycin and Rocpehin started for potential pneumonia. Noted that the CT scan is showing a 1.9 x 1.8 cm subpleural cavitating lesion with spiculated margins in the superior segment of the left lower lobe. Unclear if neoplasm versus pneumonia. Severe diffuse centrilobular emphysema. Obtain procalcitonin. Supportive care. Thank you for allowing me to participate in the care of the patient, we will follow with you.
[2018-12-23 19:12] LABS: PH,URINE 6.5 (4.7-8.0); URINE BILIRUBIN NEGATIVE (NEGATIVE); URINE BLOOD NEGATIVE (NEGATIVE); URINE GLUCOSE (UA) 250 mg/dL (NEGATIVE); URINE LEUKOCYTE ESTERASE NEGATIVE Leu/uL (NEGATIVE); URINE PROTEIN NEGATIVE mg/dL (<30 mg/dL); URINE UROBILINOGEN 0.2 E.U./dL (<1 E.U./dL)
[2018-12-23 19:13] LABS: URINE APPEARANCE CLEAR (CLEAR); URINE COLOR LIGHT YELLOW (YELLOW)
--- NOTE | 2018-12-23 21:43 | CON ---
PULMONARY CONSULTATION DATE OF CONSULTATION: 12/23/2018 HISTORY OF PRESENT ILLNESS: The patient has severe chronic obstructive pulmonary disease and is confined to a wheelchair at home. She is on supplemental oxygen therapy and vigorous bronchodilators. She has a history of recurrent exacerbations of bronchitis. She has congestive heart failure as well. The patient has a cardiac history with paroxysmal atrial fibrillation and hypothyroidism. The patient came to the emergency room yesterday complaining of progressive shortness of breath and palpitations. This was associated with no extreme activity, started spontaneously. She had difficulty breathing. Her pulse ox, which she carries around her neck was apparently normal. She came to the emergency room where she was evaluated and admitted. She was seen by Cardiology. PAST HISTORY: As described above, chronic obstructive pulmonary disease, chronic hypoxemia, hypertension, recurrent bronchitis, hypothyroidism, congestive heart failure, anxiety, history of SVT and paroxysmal atrial fibrillation. She has had a lung nodule at the left base. She was deemed too ill to allow for further evaluation. FAMILY HISTORY: Coronary artery disease. SOCIAL HISTORY: The patient was a 40-pack a year smoker for many years, but she quit in the distant past. There is no occupational exposure. HOME MEDICATIONS: Supplemental oxygen, inhaled bronchodilators and corticosteroids, long-acting muscarinic antagonist. ALLERGIES: STATINS. REVIEW OF SYSTEMS: Shortness of breath, and palpitations. This patient denies fever or chills. She denies cough or expectoration. No further information is available at this time other than that described above in history of present illness. All other systems negative. PHYSICAL EXAMINATION: GENERAL: The patient is comfortable in no acute distress, but she has some respiratory insufficiency. She had just had a CAT scan lying flat and complains of some shortness of breath, although she appears comfortable. VITAL SIGNS: Stable. Blood pressure 130/80, heart rate 80, respiratory rate 18. HEENT: Normocephalic, atraumatic. Eyes: PERRLA. EOMs full. Conjunctivae pink. NECK: Supple. No jugular venous distention, no bruit, no mass. CARDIOVASCULAR: Regular rhythm, S1, S2 without murmur, gallop or rub. CHEST: Global decrease in breath sounds, prolonged expiratory phase, increased AP diameter. No wheezing appreciated at this time. Scattered rales noted with occasional rhonchi. ABDOMEN: Soft. Bowel sounds normoactive without mass, guarding, rebound or organomegaly. EXTREMITIES: No clubbing or cyanosis. There is some edema of both lower extremities. NEUROLOGIC: Awake, alert, oriented, no focal findings. LYMPH NODES: No lymphadenopathy is appreciated in the supraclavicular notch nor in the cervical, inguinal or axillary areas. SKIN: Warm without rash or excoriation. LABORATORY DATA: White count 16,600, hemoglobin 14.3, hematocrit 46.8, platelet count 242,000. Sodium 137, potassium 4.5, chloride 97, BUN 19, creatinine 0.8, glucose 154. EKG: Irregular rate, atrial fibrillation?, paroxysmal atrial fibrillation. Chest x-ray: Hyperinflation with questionable left nodule. CAT scan just completed, although not officially read, shows a small cavitary lesion in the left. ASSESSMENT: 1. Shortness of breath, etiology unclear whether this is secondary to arrhythmia, chronic obstructive pulmonary disease or congestive heart failure. 2. Chronic obstructive pulmonary disease. 3. Hypoxemia. 4. Recurrent bronchitis. 4. Left lung cavitary nodule. 5. Cannot exclude underlying pneumonitis. 6. Paroxysmal atrial fibrillation versus supraventricular tachycardia. 7. Hypothyroidism. 8. Hypertension. PLAN: Continue vigorous bronchodilator therapy. Await cardiac evaluation. Await official review of CAT scan by radiologist to assume that this nodule may represent a malignancy. Perhaps, a PET scan would be in order once the patient is discharged. Unfortunately, with the patient's cardiopulmonary status, further invasive workup would be extraordinarily dangerous enough for yield. We would discuss this at length with the patient at that time. Close followup. I will follow with you during her hospitalization and decide on the need for further intervention. Thank you for the opportunity to see the patient in pulmonary evaluation. Matthew Love MD [facility]
[2018-12-23] MEDS: MethylPREDNISolone 40 mg Vial IVP SCH (21:49)
--- NOTE | 2018-12-24 00:47 | CON ---
DATE: 12/23/2018 CARDIOLOGY CONSULTATION REASON FOR CONSULTATION: Shortness of breath and palpitation. HISTORY OF PRESENT ILLNESS: The patient is a 78-year-old female who has a history of chronic obstructive lung disease, on nasal O2 at home; history of hypertension; history of hypothyroidism; questionable history of atrial fibrillation and palpitation in the past. She presents because of worsening shortness of breath, cough and palpitation. The patient denies any dizziness or syncope and denies any recent fall. The patient denies any chest pain and is unaware of any history of heart attack in the past. The patient is on steroid therapy prescribed by her primary physician, and she is being followed by Dr. Portillo, the database specialist. PAST MEDICAL HISTORY: Chronic obstructive lung disease, history of palpitations with questionable history of atrial fibrillation. SOCIAL HISTORY: The patient is a former smoker, quit 26 years ago. She lives by herself. Her brother lives nearby and keeps an eye on her. CURRENT MEDICATIONS: Brovana 15 mcg inhalation every 12 hours, Cardizem CD 240 mg once a day, aspirin 81 mg once a day, Klor-Con 10 mEq once a day, Lasix 20 mg p.o. once a day, Lovenox 40 mg subcutaneous once a day, Macrobid 100 mg p.o. twice a day, Persantine 25 mg twice a day, Protonix 20 mg p.o. once a day, Rocephin 1 g intravenously daily, Solu-Medrol 40 mg intravenously every 12 hours, Spiriva 18 mcg inhalation daily, Synthroid 88 mcg daily, Zithromax 500 mg intravenously daily, and Xopenex inhaler every 6 hour p.r.n. REVIEW OF SYSTEMS: No reported syncope and no retrosternal chest pain. No hemoptysis. PHYSICAL EXAMINATION: GENERAL: The patient is an elderly female who does not appear to be in acute distress. VITAL SIGNS: Blood pressure 150/72, heart rate 100, temperature 98.1, and respirations 21. HEENT: Normocephalic. CHEST: Diffuse minimal rhonchi bilaterally. HEART: S1 and S2, regular. ABDOMEN: Soft. EXTREMITIES: No edema. IMAGING STUDIES: Chest x-ray revealed overexpanded lungs with COPD picture and prominent bronchovascular markings; underlying interstitial lung disease cannot be excluded. Chest CT scan without contrast reported 1.9 x 1.8 cm subpleural cavitating lesion with spiculated margins in the superior segment of the left lower lobe. Finding could be related to a cavitating neoplasm or infarct or infection. Clinical followup is advised and if clinically indicated correlation with a SPECT CAT scan may be performed. A small sub-centimeter nodule in the superior segment of the left lower lobe and left lung base, which may be post inflammatory, only . Severe diffuse centrilobular emphysema in the lungs. An echocardiography study performed in 11/2017 revealed normal left ventricular systolic function and grade 1 normal relaxation pattern. The right ventricular systolic blood pressure at that time was measured at 70 mmHg. EKG revealed sinus rhythm at the rate of 92. ASSESSMENT: 1. Exacerbation of chronic obstructive lung disease. 2. Rule out underlying lung malignancy. 3. Palpitation and history of palpitation in the past. 4. Review of electrocardiograms performed in the entire 2016, 2017 and 2018; they all showed sinus rhythm or sinus tachycardia. RECOMMENDATIONS: Continue Cardizem CD at 240 mg once a day, aspirin 81 mg once a day, Lasix 40 mg once a day, Lovenox 40 mg subcutaneous once a day, Persantine 25 mg once a day, Protonix 40 mg p.o. once a day, Solu-Medrol 40 mg intravenously every 12 hours, Synthroid 88 mcg once a day. Continue IV Rocephin and IV Zithromax. Obtain TSH level as well as an echocardiographic study. Jay Marie MD
[2018-12-24] MEDS: Levothyroxine 88 MCG TAB PO SCH (05:12)
[2018-12-24] MEDS: Pantoprazole 40 mg EC Tab PO SCH (05:12)
[2018-12-24 07:08] LABS: HEMOGLOBIN 13.9 g/dL (12.0-16.0); MEAN CELL VOLUME 89.4 fl (80.0-105.0); MEAN CORPUSCULAR HEMOGLOBIN 27.3 pg (25.0-35.0); MEAN CORPUSCULAR HGB CONC 30.5 g/dl (31.0-37.0); RBC 5.09 10^6/uL (3.5-6.1); RED CELL DISTRIBUTION WIDTH 13.6 % (11.5-14.5); WHITE BLOOD COUNT 20.5 10^3/uL (4.5-11.0)
--- NOTE | 2018-12-24 07:16 | CARD ---
APPROVED REPORT Date of service: 12/22/2018 EKG Measurement Heart [id number] <Conclusion> Normal sinus rhythm Normal ECG
[2018-12-24 07:32] LABS: FREE T4 1.25 ng/dL (0.78-2.19)
[2018-12-24 07:35] LABS: ALB/GLOB RATIO 1.4 (1.1-1.8); ALBUMIN 3.8 g/dL (3.0-4.8); ALT/SGPT 10 U/L (7-56); AST/SGOT 26 U/L (14-36); BLOOD UREA NITROGEN 24 mg/dL (7-21); CALCIUM 9.9 mg/dL (8.4-10.5); GFR NON-AFRICAN AMERICAN > 60
[2018-12-24] MEDS: Arformoterol 15 mcg/2 ml Inh Sol IH SCH ×2 (09:08→19:40)
[2018-12-24] MEDS: Budesonide 0.5 mg/2 ml Inhal Susp UD IH SCH ×2 (09:09→19:40)
--- NOTE | 2018-12-24 09:53 | PN ---
DATE: 12/24/2018 PULMONARY NOTE SUBJECTIVE: The patient appears comfortable this morning. She is not short of breath at rest. OBJECTIVE: VITALS: Temperature is 98.1, pulse 97, respirations 18/20, blood pressure 149/70. Oxygen saturation on nasal cannula - 93%. HEENT: Normocephalic, atraumatic. No JVD. CARDIOVASCULAR: Systolic ejection murmur at the lower left sternal border. No S3 or gallop. LUNGS: Decreased breath sounds at the bases. Minimal rhonchi. No wheezing. EXTREMITIES: No clubbing, cyanosis, or edema. Calves are nontender to palpation. GASTROINTESTINAL: Abdomen is soft, nontender, and nondistended. Bowel sounds are positive. SKIN: No acute rash. NEUROLOGIC: Limited at the present time. IMPRESSION: 1. Recurrent bronchitis. 2. Advanced chronic obstructive pulmonary disease, on home oxygen. 3. Cavitary mass - left lower lobe. 4. Leukocytosis. PLAN: The patient appears comfortable this morning. She is not short of breath at rest. She does state to feeling much better overall. On physical exam, there is no significant bronchospasm noted. In addition, there is no significant alveolar arterial gradient. I will continue the current nebulizer treatments and intravenous steroids for now. I did discuss the patient's CAT scan results with her at length this morning. I highly recommended proceeding with biopsy - to rule out malignancy. The patient states she wants to think about it. The patient's clinical status is certainly improved - compared to the initial presentation. However, given the above, the future status/prognosis for this patient appears very guarded at best/poor. I will discuss the above with the attending physician. Romario Portillo MD MTDDonna
[2018-12-24] MEDS ORDERED: Enoxaparin 40 mg Syringe SC SCH (10:00)
--- NOTE | 2018-12-24 11:39 | CP.PCM.PCO ---
Physician Communication Note - Physician Communication Note Physician Communication Note: continue solumedrol and IV antibiotics as per ID, echo and duplex result
[2018-12-24] MEDS: Potassium Chloride 10 mEq ER Tab PO SCH (11:41)
[2018-12-24] MEDS: Tiotropium 18 mcg Cap For Inhalation INH SCH (11:42)
[2018-12-24] MEDS: diltiaZEM 240 mg/24 Hours CD Cap PO SCH (11:42)
[2018-12-24] MEDS: MethylPREDNISolone 40 mg Vial IVP SCH ×2 (11:42→21:49)
[2018-12-24] MEDS: Azithromycin 500MG/NS 250ml 500 MG/250 ML BAG IVPB SCH (11:51)
[2018-12-24] MEDS: Enoxaparin 40 mg Syringe SC SCH (11:52)
[2018-12-24] MEDS: cefTRIAXone 1 gm 1 GM/100 ML BAG IVPB SCH (12:46)
--- NOTE | 2018-12-24 14:31 | CP.PCM.PN ---
<Randy Pollock - Last Filed: 12/24/18 14:27> Subjective - Date & Time of Evaluation Date of Evaluation: 12/24/18 Time of Evaluation: 09:00 - Subjective Subjective: Randy Pollock DO, PGY-1 Hospitalist Progress Note for Dr. Nuñez Patient was seen and examined at bedside this AM. She reports continued SOB and cough, which has worsened. The cough is more productive than previously. She feels anxious about reviewing CT chest results and does not wish to discuss these results, especially with her daughter who was at bedside, at this time. Objective - Vital Signs/Intake and Output Vital Signs (last 24 hours): Temp Pulse Resp BP Pulse Ox 98.2 F 87 20 121/72 93 L 12/24/18 11:55 12/24/18 14:00 12/24/18 11:55 12/24/18 11:55 12/24/18 06:00 Intake and Output: 12/24/18 12/24/18 06:59 18:59 Intake Total 1140 350 Output Total 1050 Balance 90 350 - Medications Medications: Current Medications Arformoterol Tartrate (Brovana) 15 mcg IH [id number] [facility] Last Admin: 12/24/18 09:08 Dose: 15 mcg Aspirin (Ecotrin) 81 mg PO DAILY [facility] Last Admin: 12/24/18 11:42 Dose: 81 mg Atenolol (Tenormin) 25 mg PO DAILY [facility] Budesonide (Pulmicort Respules) 0.5 mg IH [id number] [facility] Last Admin: 12/24/18 09:09 Dose: 0.5 mg Diltiazem HCl (Cardizem Cd) 240 mg PO DAILY [facility] Last Admin: 12/24/18 11:42 Dose: 240 mg Dipyridamole (Persantine) 25 mg PO BID [facility] Last Admin: 12/24/18 11:41 Dose: 25 mg Enoxaparin Sodium (Lovenox) 40 mg SC DAILY [facility]; Protocol Last Admin: 12/24/18 11:52 Dose: 40 mg Furosemide (Lasix) 40 mg PO DAILY [facility] Last Admin: 12/24/18 11:42 Dose: 40 mg Ceftriaxone Sodium (Rocephin 1 Gram Ivpb) 1 gm in 100 mls @ 100 mls/hr IVPB DAILY [facility]; Protocol Last Admin: 12/24/18 12:46 Dose: 100 mls/hr Azithromycin (Zithromax 500mg In Ns) 500 mg in 250 mls @ 167 mls/hr IVPB DAILY [facility]; Protocol Last Admin: 12/24/18 11:51 Dose: 167 mls/hr Levalbuterol HCl (Xopenex) 0.63 mg IH [id number] PRN PRN Reason: Shortness of Breath Levothyroxine Sodium (Synthroid) 88 mcg PO 0600 [facility] Last Admin: 12/24/18 05:12 Dose: 88 mcg Methylprednisolone (Solu-Medrol) 40 mg IVP Q12 [facility] Last Admin: 12/24/18 11:42 Dose: 40 mg Pantoprazole Sodium (Protonix Ec Tab) 40 mg PO 0600 [facility] Last Admin: 12/24/18 05:12 Dose: 40 mg Potassium Chloride (Klor-Con 10) 10 meq PO DAILY [facility] Last Admin: 12/24/18 11:41 Dose: 10 meq Tiotropium Amanda (Spiriva) 18 mcg INH DAILY [facility] Last Admin: 12/24/18 11:42 Dose: 18 mcg - Labs Labs: 12/24/18 06:40 12/24/18 06:40 - Constitutional Appears: No Acute Distress, Other (no acute respiratory distress, appears comfortable, but on O2 2L) - Head Exam Head Exam: ATRAUMATIC, NORMOCEPHALIC - Eye Exam Eye Exam: EOMI, PERRL - ENT Exam ENT Exam: Mucous Membranes Moist - Neck Exam Neck Exam: Full ROM. absent: Lymphadenopathy, Thyromegaly - Respiratory Exam Respiratory Exam: Rhonchi (coarse breath sounds b/l), Wheezes (diffuse b/l inspiratory/expiratory wheezes). absent: Accessory Muscle Use, Decreased Breath Sounds, Rales, Respiratory Distress - Cardiovascular Exam Cardiovascular Exam: REGULAR RHYTHM, RRR, +S1, +S2. absent: Gallop, Rubs, Murmur - GI/Abdominal Exam GI & Abdominal Exam: Soft, Normal Bowel Sounds. absent: Guarding, Tenderness - Extremities Exam Extremities Exam: Full ROM. absent: Pedal Edema - Back Exam Back Exam: NORMAL INSPECTION - Neurological Exam Neurological Exam: Alert, Awake, Oriented x3 - Psychiatric Exam Psychiatric exam: Normal Affect, Normal Mood - Skin Skin Exam: Dry, Pallor, Warm Assessment and Plan - Assessment and Plan (Free Text) Assessment: 78 yo F with PMH of COPD (on home O2, 2L), HTN, recurrent bronchitis, hypothyroidism, anxiety, Paroxysmal Afib vs SVT (on Cardizem), and known LLL nodule (previously seen by soil scientist) presented to ED with a complaint of SOB and palpitations admitted for management of COPD exacerbation. Plan: COPD exacerbation in setting of multiple L lung nodules Still has significant b/l wheezes and rhonchi on exam Need to continue solu-medrol 40 mg IVP q12h, xopenex, spiriva Continue home brovana, pulmicort, lasix Remains on rocephin, zithromax for LLL infiltrate CT chest ordered showed: 1.9 x 1.8 cm subpleural cavitating lesion with spiculated margins in the superior segment of the LLL, clinical or f/u PET CT recommended Small subcentimeter nodules in the superior segment of the BEBETO and LL base Severe, diffuse centrilobular emphysema CT findings were discussed with patient by Dr. Portillo earlier Patient states she has too much anxiety about the findings at this time She does not want to discuss them further and does not wish her daughter to know at this time Pulmonology following, all recs appreciated Palpitations May be 2/2 paroxysmal AFib vs SVT, of which patient has a known history Patient was planning on following up with Dr. Hendricks as outpatient per PMD, Dr. Lopez, request Atenolol added, cardizem, dipyridamole, ASA continued Cardiology following, all recs appreciated Recent UTI Patient admits to prior dysuria and increased frequency Was prescribed macrobid by her PMD, Dr. Lopez Repeat UA negative Macrobid discontinued Hypothyroidism Resume home meds HTN Has not been hypertensive since admission Continue home meds DVT/GI PPX: Lovenox/protonix Full Code HHD Monitor on telemetry Patient seen, examined with, and plan discussed with my attending Dr. Catherine Pollock D.O. IM Resident PGY-1 Pager: [phone] <Callie Nuñez - Last Filed: 12/24/18 17:15> Objective - Vital Signs/Intake and Output Vital Signs (last 24 hours): Temp Pulse Resp BP Pulse Ox 98.3 F 70 20 123/63 93 L 12/24/18 16:39 12/24/18 16:39 12/24/18 16:39 12/24/18 16:39 12/24/18 06:00 Intake and Output: 12/24/18 12/24/18 06:59 18:59 Intake Total 1140 350 Output Total 1050 Balance 90 350 - Medications Medications: Current Medications Arformoterol Tartrate (Brovana) 15 mcg IH [id number] [facility] Last Admin: 12/24/18 09:08 Dose: 15 mcg Aspirin (Ecotrin) 81 mg PO DAILY [facility] Last Admin: 12/24/18 11:42 Dose: 81 mg Atenolol (Tenormin) 25 mg PO DAILY [facility] Budesonide (Pulmicort Respules) 0.5 mg IH [id number] [facility] Last Admin: 12/24/18 09:09 Dose: 0.5 mg Diltiazem HCl (Cardizem Cd) 240 mg PO DAILY [facility] Last Admin: 12/24/18 11:42 Dose: 240 mg Dipyridamole (Persantine) 25 mg PO BID [facility] Last Admin: 12/24/18 11:41 Dose: 25 mg Enoxaparin Sodium (Lovenox) 40 mg SC DAILY [facility]; Protocol Last Admin: 12/24/18 11:52 Dose: 40 mg Furosemide (Lasix) 40 mg PO DAILY [facility] Last Admin: 12/24/18 11:42 Dose: 40 mg Ceftriaxone Sodium (Rocephin 1 Gram Ivpb) 1 gm in 100 mls @ 100 mls/hr IVPB DAILY [facility]; Protocol Last Admin: 12/24/18 12:46 Dose: 100 mls/hr Azithromycin (Zithromax 500mg In Ns) 500 mg in 250 mls @ 167 mls/hr IVPB DAILY [facility]; Protocol Last Admin: 12/24/18 11:51 Dose: 167 mls/hr Levalbuterol HCl (Xopenex) 0.63 mg IH [id number] PRN PRN Reason: Shortness of Breath Levothyroxine Sodium (Synthroid) 88 mcg PO 0600 [facility] Last Admin: 12/24/18 05:12 Dose: 88 mcg Methylprednisolone (Solu-Medrol) 40 mg IVP Q12 [facility] Last Admin: 12/24/18 11:42 Dose: 40 mg Pantoprazole Sodium (Protonix Ec Tab) 40 mg PO 0600 [facility] Last Admin: 12/24/18 05:12 Dose: 40 mg Potassium Chloride (Klor-Con 10) 10 meq PO DAILY [facility] Last Admin: 12/24/18 11:41 Dose: 10 meq Tiotropium Amanda (Spiriva) 18 mcg INH DAILY [facility] Last Admin: 12/24/18 11:42 Dose: 18 mcg - Labs Labs: 12/24/18 06:40 12/24/18 06:40 Attending/Attestation - Attestation I have personally seen and examined this patient.: Yes I have fully participated in the care of the patient.: Yes I have reviewed all pertinent clinical information, including history, physical exam and plan: Yes Notes (Text): 12/24/18 17:04 Attending note; Patient seen and examined with resident. Patient is alert and awake. Currently on oxygen nasal cannula Still complaining of shortness of breath on exertion. Complaining of cough and mild sputum production. Denies any fevers, chills. Tolerating diet. Currently denies any chest pain, palpitations. Patient is a 78-year-old female with past medical history significant for chronic respiratory failure secondary to COPD on home oxygen, hypertension, recurrent bronchitis, hypothyroidism, anxiety, paroxysmal atrial fibrillation v ersus SVT, and lung nodules that presented to the emergency room complaining of shortness of breath and palpitations. 1. Acute COPD exacerbation; continue with O2. Continue with nebulizer treatments. with Brovana, Pulmicort and Spiriva. Started on solumedrol. Case discussed with pulmonary in detail. 2. Subpleural cavitary lesion in the left lower lobe; continue Rocephin and Zithromax. ID evaluation appreciated. blood cultures pending. procalcitonin is negative. Chest xray showed apparent opacity with the irregular spiculated margins in the left upper lobe, COPD. Chest CT showed 1.9 x 1.8 cm subpleural cavitating lesion with spiculated margins in the superior segment of the left lower lobe; small subcentimeter nodules in the superior segment of the left lower lobe and left lung base. Case discussed with patient in detail. Patient refused biopsy at this point. Patient will decide about within few weeks as outpatient. 3. Palpitations; resolved. History of paroxysmal afib or SVT. Currently in sinus rhythm. continue home ASA and cardizem. Continue Persantine. Start atenolol as needed. Cardiology evaluation appreciated. Echocardiogram showed normal ejection fraction . 4. Bilateral lower extremity edema. resolving. Continue Lasix resolving. Venous Doppler is negative for DVT. 5. Hypothyroidism. Continue home synthroid. TSH and T3 normal. 6. Hypertension. Continue Cardizem and Lasix. Diagnosis, follow-up plan discussed with patient in detail. Upon discharge the patient will follow up with PMD . Patient needs close follow-up with pulmonary as outpatient.
--- NOTE | 2018-12-24 15:41 | PN ---
DATE: 12/24/2018 CARDIOLOGY CONSULTATION REASON FOR CONSULTATION AND FOLLOWUP: Shortness of breath and palpitation. Admitted with acute exacerbation of COPD. SUBJECTIVE: The patient denies any chest pain or shortness of breath or any palpitation. Denies any apparent distress. PHYSICAL EXAMINATION: VITAL SIGNS: Temperature afebrile, heart rate 84, and blood pressure 120/72. HEENT: PERRLA. Extraocular muscles intact. NECK: Supple. No carotid bruits. No thyromegaly. CHEST: Clear to auscultation. HEART: S1 and S2 regular. ABDOMEN: Soft. EXTREMITIES: Clubbing cyanosis, negative. LABORATORY DATA: Blood workup as follows; WBC 20.5, hemoglobin 13.5, hematocrit 45.5, and platelet count 388. Chemistry shows sodium 139, potassium 4.4, chloride 95, carbon dioxide 36, anion gap of 13, BUN 20, creatinine 0.6. TSH 2.62. Troponin 0.01 x3 negative. IMPRESSION: A 78-year-old female with past medical history significant for chronic obstructive pulmonary disease, ex-heavy smoker in the past, on home oxygen; history of hypertension; hypothyroidism; questionable history of atrial fibrillation; admitted with worsening shortness of breath. EKG revealed normal sinus. Previous EKG reviewed at 2017, 2018, and 2019 probably normal sinus and sinus tachycardia. History of palpitation, exacerbation of chronic obstructive pulmonary disease, admitted with exacerbation of chronic obstructive pulmonary disease, most likely tachycardia secondary to nebulizer treatment better to agonist. CAT scan of the chest revealed cavitary lesion with spiculated margin in the superior segment of the left lower lobe, could be related to cavitary neoplasm or infection, CAT scan suggested. The patient had previously echo on 01/20/2015 shows a dilated LA, RA, aortic stenosis without stenosis. Mild mitral regurgitation, mild tricuspid regurgitation, moderate pulmonary hypertension. RECOMMENDATIONS: Continue aggressive treatment for COPD. We will get echo to assess LV function. We will put a low dose of beta lacey as heart rate and blood pressure is tolerated. Continue DVT prophylaxis. The patient is on Cardizem. We will follow up. We will get lipid profile and hemoglobin A1c tomorrow as well. If heart rate goes up, put a low dose atenolol. Previously EKG from 3 years did not show any arrhythmia or atrial fibrillation. Thank you Dr. Ortiz for providing this opportunity in taking care of the patient, Shameka. Tina Hendricks MD
--- NOTE | 2018-12-24 17:00 | CARD ---
APPROVED REPORT Date of service: 12/24/2018 EXAM: Two-dimensional and M-mode echocardiogram with Doppler and color Doppler. INDICATION Dyspnea Palpitations 2D DIMENSIONS Left Atrium (2D)3.0 (1.6-4.0cm)IVSd1.0 (0.7-1.1cm) LVDd3.8 (3.9-5.9cm)PWd1.0 (0.7-1.1cm) LVDs2.2 (2.5-4.0cm)FS (%) 41.1 % LVEF (%)72.6 (>50%) M-Mode DIMENSIONS Aortic Root2.50 (2.2-3.7cm)Aortic Cusp Exc.1.30 (1.5-2.0cm) Aortic Valve AoV Peak Xvaelflf530.0cm/sAoV VTI46.8cmAO Peak GR.19mmHg AO Mean GR.10mmHg Mitral Valve MV E Snrnnjzd06.0cm/sMV A Ibterxab697.0cm/sE/A ratio0.8 TDI Lateral E' Peak V6.14cm/sMedial E' Peak V6.34cm/sE/Lateral E'14.8 E/Medial E'14.4 Pulmonary Valve PV Peak Kpkhnfgg728.0cm/sPV Peak Grad.4mmHg Tricuspid Valve TR Peak Urcwcuuk363nl/sRAP HHXYFPIZ91osDlVF Peak Gr.26mmHg PEYR62jnCn LEFT VENTRICLE The left ventricle is normal size. There is normal left ventricular wall thickness. The left ventricular function is normal. The left ventricular ejection fraction is within the normal range. There is normal LV segmental wall motion. Transmitral Doppler flow pattern is Grade I-abnormal relaxation pattern. RIGHT VENTRICLE The right ventricle is normal size. There is normal right ventricular wall thickness. The right ventricular systolic function is normal. ATRIA The left atrium size is normal. The right atrium size is normal. AORTIC VALVE The aortic valve is mildly sclerotic. No aortic regurgitation is present. There is no aortic valvular stenosis. MITRAL VALVE The mitral valve is moderately thickened. Mitral regurgitation is trace to mild. There is no mitral valve stenosis. TRICUSPID VALVE There is mild tricuspid regurgitation. There is mild pulmonary hypertension. PULMONIC VALVE The pulmonary valve is normal in structure. There is no pulmonic valvular regurgitation. GREAT VESSELS The aortic root is normal in size. The IVC is normal in size and collapses >50% with inspiration. PERICARDIAL EFFUSION There is a small loculated anterior pericardial effusion. <Conclusion> There is normal left ventricular wall thickness. The left ventricular function is normal. The left ventricular ejection fraction is within the normal range. There is normal LV segmental wall motion. Transmitral Doppler flow pattern is Grade I-abnormal relaxation pattern. Mitral regurgitation is trace to mild. There is mild tricuspid regurgitation. There is mild pulmonary hypertension.
--- NOTE | 2018-12-24 17:08 | CP.PCM.PN ---
Subjective - Date & Time of Evaluation Date of Evaluation: 12/24/18 Time of Evaluation: 15:45 - Subjective Subjective: Infectious Disease Follow Up: December 24, 2018 78 year old female, whose past medical history includes COPD (on home O2, 2L), HTN, recurrent bronchitis, Hypothyroidism, CHF, anxiety, Paroxysmal Afib vs SVT (on Cardizem), Lung nodule (seen by Relief Charge Nurse) who presents to the ED complaining of shortness of breath and palpitations while watching television at home. She has had an episode like this in the past. She was previously admitted for a COPD exacerbation. She reports she suddenly felt like her heart was racing, accompanied by a difficulty to breathe. She had a pulse ox at home and noted her HR was 152. However, she says her HR improved upon arrival. She denies any chest pain, fever, cough, nasal congestion or runny nose. She said she recently went to her PMD for complaints of dysuria and increased urinary frequency and was completing a course of nitrofurantoin. She does not endorse bowel/bladder changes at this time. She is not sure of the organism that is being treated. The greater concern is the masslike structure seen in the lung imaging studies. Dr. Gauthier has addressed this with her. She has not agreed to a biopsy at this point. WBC is elevated to the 20s today. Objective - Vital Signs/Intake and Output Vital Signs (last 24 hours): Temp Pulse Resp BP Pulse Ox 98.3 F 70 20 123/63 93 L 12/24/18 16:39 12/24/18 16:39 12/24/18 16:39 12/24/18 16:39 12/24/18 06:00 Intake and Output: 12/24/18 12/24/18 06:59 18:59 Intake Total 1140 350 Output Total 1050 Balance 90 350 - Medications Medications: Current Medications Arformoterol Tartrate (Brovana) 15 mcg IH [id number] [facility] Last Admin: 12/24/18 09:08 Dose: 15 mcg Aspirin (Ecotrin) 81 mg PO DAILY [facility] Last Admin: 12/24/18 11:42 Dose: 81 mg Atenolol (Tenormin) 25 mg PO DAILY [facility] Budesonide (Pulmicort Respules) 0.5 mg IH [id number] [facility] Last Admin: 12/24/18 09:09 Dose: 0.5 mg Diltiazem HCl (Cardizem Cd) 240 mg PO DAILY [facility] Last Admin: 12/24/18 11:42 Dose: 240 mg Dipyridamole (Persantine) 25 mg PO BID [facility] Last Admin: 12/24/18 11:41 Dose: 25 mg Enoxaparin Sodium (Lovenox) 40 mg SC DAILY [facility]; Protocol Last Admin: 12/24/18 11:52 Dose: 40 mg Furosemide (Lasix) 40 mg PO DAILY [facility] Last Admin: 12/24/18 11:42 Dose: 40 mg Ceftriaxone Sodium (Rocephin 1 Gram Ivpb) 1 gm in 100 mls @ 100 mls/hr IVPB DAILY [facility]; Protocol Last Admin: 12/24/18 12:46 Dose: 100 mls/hr Azithromycin (Zithromax 500mg In Ns) 500 mg in 250 mls @ 167 mls/hr IVPB DAILY [facility]; Protocol Last Admin: 12/24/18 11:51 Dose: 167 mls/hr Levalbuterol HCl (Xopenex) 0.63 mg IH [id number] PRN PRN Reason: Shortness of Breath Levothyroxine Sodium (Synthroid) 88 mcg PO 0600 [facility] Last Admin: 12/24/18 05:12 Dose: 88 mcg Methylprednisolone (Solu-Medrol) 40 mg IVP Q12 [facility] Last Admin: 12/24/18 11:42 Dose: 40 mg Pantoprazole Sodium (Protonix Ec Tab) 40 mg PO 0600 [facility] Last Admin: 12/24/18 05:12 Dose: 40 mg Potassium Chloride (Klor-Con 10) 10 meq PO DAILY [facility] Last Admin: 12/24/18 11:41 Dose: 10 meq Tiotropium [place] (Spiriva) 18 mcg INH DAILY [facility] Last Admin: 12/24/18 11:42 Dose: 18 mcg - Labs Labs: 12/24/18 06:40 12/24/18 06:40 - Constitutional Appears: Non-toxic, No Acute Distress, Chronically Ill - Head Exam Head Exam: ATRAUMATIC, NORMOCEPHALIC - Eye Exam Eye Exam: EOMI, PERRL Pupil Exam: NORMAL ACCOMODATION, PERRL - ENT Exam ENT Exam: Mucous Membranes Moist, Normal External Ear Exam, TM's Normal Bilaterally - Neck Exam Neck Exam: Full ROM, Normal Inspection - Respiratory Exam Respiratory Exam: Accessory Muscle Use, Decreased Breath Sounds, NORMAL BREATHING PATTERN. absent: Rales, Rhonchi, Wheezes - Cardiovascular Exam Cardiovascular Exam: REGULAR RHYTHM, RRR, +S1, +S2 - GI/Abdominal Exam GI & Abdominal Exam: Soft, Normal Bowel Sounds. absent: Distended, Tenderness - Extremities Exam Extremities Exam: Full ROM, Normal Inspection - Neurological Exam Neurological Exam: Alert, Awake, CN II-XII Intact, Oriented x3 - Psychiatric Exam Psychiatric exam: Normal Affect, Normal Mood - Skin Skin Exam: Intact, Normal Color Assessment and Plan - Assessment and Plan (Free Text) Assessment: 78 yo female with leukocytosis and extensive medical history of COPD (on home O2, 2L), HTN, recurrent bronchitis, Hypothyroidism, CHF, anxiety, Paroxysmal Afib vs SVT (on Cardizem), Lung nodule (seen by Relief Charge Nurse) [place] [facility] and palpitations. The patient was being treated with Nitrofuratoin for a UTI as outpatient. She has good renal function. Typical treatment course for nitrofuratoin is 3-5 days. Would be more helpful to obtain the culture results from her PMD's office. Noted Azithromycin and Rocpehin started for potential pneumonia. Noted that the CT scan is showing a 1.9 x 1.8 cm subpleural cavitating lesion with spiculated margins in the superior segment of the left lower lobe. Unclear if neoplasm versus pneumonia. Severe diffuse centrilobular emphysema. Patient has not agreed to biopsy as of yet. WBC increased to 20.5. Cultures negative to date. Obtain procalcitonin. Supportive care. Highly anxious patient. Thank you for allowing me to participate in the care of the patient, we will follow with you.
[2018-12-24] MEDS ORDERED: Insulin Regular 1 UNITS/0.01 ML ML SC ONE (22:17)
[2018-12-25] MEDS: Levothyroxine 88 MCG TAB PO SCH (05:08)
[2018-12-25] MEDS: Pantoprazole 40 mg EC Tab PO SCH (05:08)
[2018-12-25 06:40] LABS: HEMOGLOBIN 13.4 g/dL (12.0-16.0); MEAN CELL VOLUME 89.2 fl (80.0-105.0); MEAN CORPUSCULAR HEMOGLOBIN 26.9 pg (25.0-35.0); MEAN CORPUSCULAR HGB CONC 30.2 g/dl (31.0-37.0); RBC 4.98 10^6/uL (3.5-6.1); RED CELL DISTRIBUTION WIDTH 13.8 % (11.5-14.5); WHITE BLOOD COUNT 19.1 10^3/uL (4.5-11.0)
[2018-12-25 07:11] LABS: LDL CHOLESTEROL 138 mg/dL (0-129)
[2018-12-25 07:12] LABS: ALB/GLOB RATIO 1.3 (1.1-1.8); ALBUMIN 3.5 g/dL (3.0-4.8); ALT/SGPT 16 U/L (7-56); AST/SGOT 17 U/L (14-36); BLOOD UREA NITROGEN 29 mg/dL (7-21); CALCIUM 9.8 mg/dL (8.4-10.5); GFR NON-AFRICAN AMERICAN > 60; HDL CHOLESTEROL 62 mg/dL (29-60)
[2018-12-25] MEDS: Arformoterol 15 mcg/2 ml Inh Sol IH SCH ×2 (07:46→20:35)
[2018-12-25] MEDS: Budesonide 0.5 mg/2 ml Inhal Susp UD IH SCH ×2 (07:46→20:35)
--- NOTE | 2018-12-25 08:11 | PN ---
DATE: 12/25/2018 SUBJECTIVE: The patient appears very comfortable this morning. She is not short of breath at rest. PHYSICAL EXAMINATION: VITAL SIGNS: Temperature is 98, pulse 70, respirations 18, blood pressure 127/65. Oxygen saturation on nasal cannula - 95%. HEENT: Normocephalic, atraumatic. No JVD. CARDIOVASCULAR: Systolic ejection murmur at the lower left sternal border. No S3 gallop. LUNGS: Decreased breath sounds at the bases. Minimal/less rhonchi. No wheezing. EXTREMITIES: No clubbing, cyanosis or edema. Calves are nontender to palpation. GASTROINTESTINAL: Abdomen is soft, nontender and nondistended. Bowel sounds are positive. SKIN: No acute rash. NEUROLOGIC: Exam limited at the present time. IMPRESSION: 1. Recurrent bronchitis. 2. Advanced chronic obstructive pulmonary disease, on home oxygen. 3. Cavitary mass - left lower lobe. 4. Leukocytosis. PLAN: The patient appears quite comfortable this morning. She is not short of breath at rest. She does state to feeling much better overall. On physical exam, there is only minimal bronchospasm noted. In addition, the alveolar arterial gradient is also less. I will continue the current nebulizer treatments and decrease the intravenous steroids this morning. I did go over the CAT scan results with the patient again at length this morning. She continues to refuse biopsy at the present time. I did restate my feelings to the patient this morning, and highly recommended the biopsy. She states she will think about it. Input by Dr. Emerson (Infectious Disease) is also noted. Procalcitonin is negative. Repeat a.m. labs are pending. Clinical status of the patient is certainly improved - compared to the initial presentation. However, given the above, the future status/prognosis for this patient remains very guarded. I did discuss the case with Dr. Nuñez at length again this morning. Romario Portillo MD [facility]
[2018-12-25] MEDS: Insulin Reg-LOW-Coverage SC SCH ×3 (08:19→17:49)
[2018-12-25] MEDS: diltiaZEM 240 mg/24 Hours CD Cap PO SCH (10:43)
[2018-12-25] MEDS: Potassium Chloride 10 mEq ER Tab PO SCH (10:44)
[2018-12-25] MEDS: Enoxaparin 40 mg Syringe SC SCH (10:45)
[2018-12-25] MEDS: cefTRIAXone 1 gm 1 GM/100 ML BAG IVPB SCH (10:46)
[2018-12-25] MEDS: MethylPREDNISolone 40 mg Vial IVP SCH ×2 (10:46→22:03)
[2018-12-25] MEDS: Tiotropium 18 mcg Cap For Inhalation INH SCH (10:47)
--- NOTE | 2018-12-25 13:09 | CP.PCM.PCO ---
Physician Communication Note - Physician Communication Note Physician Communication Note: continue antibiotics and solumedrol, PT eval pending
[2018-12-25] MEDS: Azithromycin 500MG/NS 250ml 500 MG/250 ML BAG IVPB SCH (13:19)
--- NOTE | 2018-12-25 13:25 | CP.PCM.PN ---
<Randy Pollock - Last Filed: 12/25/18 13:22> Subjective - Date & Time of Evaluation Date of Evaluation: 12/25/18 Time of Evaluation: 10:00 - Subjective Subjective: Randy Pollock DO, PGY-1 Hospitalist Progress Note for Dr. Nuñez Patient was seen and examined at bedside this AM. She reports SOB has improved s ignificantly since admission. She continues to decline discussing CT chest findings any further at this time. She also states her cough is improving with breathing treatments. She otherwise denies fever/chills, CP, abd pain/nausea/vomiting, or urinary complaints. Objective - Vital Signs/Intake and Output Vital Signs (last 24 hours): Temp Pulse Resp BP Pulse Ox 97.8 F 58 L 18 131/68 95 12/25/18 11:49 12/25/18 11:49 12/25/18 11:49 12/25/18 11:49 12/25/18 06:00 Intake and Output: 12/25/18 12/25/18 06:59 18:59 Intake Total 1200 Output Total 700 Balance 500 - Medications Medications: Current Medications Arformoterol Tartrate (Brovana) 15 mcg IH [id number] [facility] Last Admin: 12/25/18 07:46 Dose: 15 mcg Aspirin (Ecotrin) 81 mg PO DAILY [facility] Last Admin: 12/25/18 10:44 Dose: 81 mg Atenolol (Tenormin) 25 mg PO DAILY [facility] Last Admin: 12/25/18 10:47 Dose: 25 mg Budesonide (Pulmicort Respules) 0.5 mg IH [id number] [facility] Last Admin: 12/25/18 07:46 Dose: 0.5 mg Diltiazem HCl (Cardizem Cd) 240 mg PO DAILY [facility] Last Admin: 12/25/18 10:43 Dose: 240 mg Dipyridamole (Persantine) 25 mg PO BID [facility] Last Admin: 12/25/18 10:46 Dose: 25 mg Enoxaparin Sodium (Lovenox) 40 mg SC DAILY [facility]; Protocol Last Admin: 12/25/18 10:45 Dose: 40 mg Furosemide (Lasix) 40 mg PO DAILY [facility] Last Admin: 12/25/18 10:44 Dose: 40 mg Ceftriaxone Sodium (Rocephin 1 Gram Ivpb) 1 gm in 100 mls @ 100 mls/hr IVPB DAILY [facility]; Protocol Last Admin: 12/25/18 10:46 Dose: 100 mls/hr Azithromycin (Zithromax 500mg In Ns) 500 mg in 250 mls @ 167 mls/hr IVPB DAILY [facility]; Protocol Last Admin: 12/25/18 13:19 Dose: 167 mls/hr Insulin Human Regular (Humulin R Low) 0 units SC AC [facility]; Protocol Last Admin: 12/25/18 12:04 Dose: 4 units Levalbuterol HCl (Xopenex) 0.63 mg IH [id number] PRN PRN Reason: Shortness of Breath Levothyroxine Sodium (Synthroid) 88 mcg PO 0600 [facility] Last Admin: 12/25/18 05:08 Dose: 88 mcg Methylprednisolone (Solu-Medrol) 30 mg IVP Q12 [facility] Last Admin: 12/25/18 10:46 Dose: 30 mg Pantoprazole Sodium (Protonix Ec Tab) 40 mg PO 0600 [facility] Last Admin: 12/25/18 05:08 Dose: 40 mg Potassium Chloride (Klor-Con 10) 10 meq PO DAILY [facility] Last Admin: 12/25/18 10:44 Dose: 10 meq Tiotropium [place] (Spiriva) 18 mcg INH DAILY [facility] Last Admin: 12/25/18 10:47 Dose: 18 mcg - Labs Labs: 12/25/18 06:15 12/25/18 06:15 - Constitutional Appears: Non-toxic, No Acute Distress, Other (in no acute respiratory distress, conversant, pleasant) - Head Exam Head Exam: ATRAUMATIC, NORMOCEPHALIC - Eye Exam Eye Exam: EOMI - ENT Exam ENT Exam: Mucous Membranes Moist - Neck Exam Neck Exam: Full ROM. absent: Thyromegaly - Respiratory Exam Respiratory Exam: Decreased Breath Sounds (improving), Wheezes (improved from prior exams). absent: Accessory Muscle Use, Rales, Rhonchi, Respiratory Dist ress - Cardiovascular Exam Cardiovascular Exam: REGULAR RHYTHM, RRR, +S1, +S2. absent: Gallop, Rubs, Murmur - GI/Abdominal Exam GI & Abdominal Exam: Soft, Normal Bowel Sounds. absent: Guarding, Tenderness - Extremities Exam Extremities Exam: Full ROM. absent: Pedal Edema - Back Exam Back Exam: NORMAL INSPECTION - Neurological Exam Neurological Exam: Alert, Awake, Oriented x3 - Psychiatric Exam Psychiatric exam: Normal Affect, Normal Mood - Skin Skin Exam: Dry, Pallor, Warm Assessment and Plan - Assessment and Plan (Free Text) Assessment: 78 yo F with PMH of COPD (on home O2, 2L), HTN, recurrent bronchitis, hypothyroidism, anxiety, Paroxysmal Afib vs SVT (on Cardizem), and known LLL nodule (previously seen by contact agent) presented to ED with a complaint of SOB and palpitations admitted for management of COPD exacerbation. She was also noted to have a new subpleural cavitary lesion in the superior segment of the LLL. Plan: COPD exacerbation in setting of multiple L lung nodules Wheezes improved from yesterday Wean solu-medrol to 30 mg IVP q12h, and continue xopenex, spiriva Continue home brovana, pulmicort, lasix Remains on zithromax, rocephin initially started as well for possible LLL PNA CT chest ordered showed: 1.9 x 1.8 cm subpleural cavitating lesion with spiculated margins in the superior segment of the LLL, clinical or f/u PET CT recommended Small subcentimeter nodules in the superior segment of the BEBETO and LL base Severe, diffuse centrilobular emphysema Case reviewed with Dr. Portillo this morning Would recommend lung biopsy eventually, but patient not agreeable at this point Patient does not wish to discuss her decision at this time, will continue to f/u outpatient Pulmonology following, all recs appreciated Palpitations May be 2/2 paroxysmal AFib vs SVT, of which patient has a known history Has not been tachycardic since admission, december d/c telemetry Patient was planning on following up with Dr. Hendricks as outpatient per PMD, Dr. Lopez, request Per cardiology, main management will include continued treatment of COPD Ok to continue cardizem, atenolol Avoid duo-neb which would exacerbate tachycardia Cardiology following, all recs appreciated Recent UTI Patient admits to prior dysuria and increased frequency Was prescribed macrobid by her PMD, Dr. Lopez Course was completed and repeat UA negative Hypothyroidism Resume home meds HTN Has not been hypertensive since admission Continue home meds DVT/GI PPX: Lovenox/protonix Full Code HHD D/c telemetry Patient seen, examined with, and plan discussed with my attending Dr. Joaquin Pollock D.O. IM Resident PGY-1 Pager: [phone] <Callie Nuñez - Last Filed: 12/25/18 16:02> Objective - Vital Signs/Intake and Output Vital Signs (last 24 hours): Temp Pulse Resp BP Pulse Ox 97.8 F 58 L 18 131/68 95 12/25/18 11:49 12/25/18 11:49 12/25/18 11:49 12/25/18 11:49 12/25/18 06:00 Intake and Output: 12/25/18 12/25/18 06:59 18:59 Intake Total 1200 Output Total 700 Balance 500 - Medications Medications: Current Medications Arformoterol Tartrate (Brovana) 15 mcg IH [id number] [facility] Last Admin: 12/25/18 07:46 Dose: 15 mcg Aspirin (Ecotrin) 81 mg PO DAILY [facility] Last Admin: 12/25/18 10:44 Dose: 81 mg Atenolol (Tenormin) 25 mg PO DAILY [facility] Last Admin: 12/25/18 10:47 Dose: 25 mg Budesonide (Pulmicort Respules) 0.5 mg IH [id number] [facility] Last Admin: 12/25/18 07:46 Dose: 0.5 mg Diltiazem HCl (Cardizem Cd) 240 mg PO DAILY [facility] Last Admin: 12/25/18 10:43 Dose: 240 mg Dipyridamole (Persantine) 25 mg PO BID [facility] Last Admin: 12/25/18 10:46 Dose: 25 mg Enoxaparin Sodium (Lovenox) 40 mg SC DAILY [facility]; Protocol Last Admin: 12/25/18 10:45 Dose: 40 mg Furosemide (Lasix) 40 mg PO DAILY [facility] Last Admin: 12/25/18 10:44 Dose: 40 mg Ceftriaxone Sodium (Rocephin 1 Gram Ivpb) 1 gm in 100 mls @ 100 mls/hr IVPB DAILY [facility]; Protocol Last Admin: 12/25/18 10:46 Dose: 100 mls/hr Azithromycin (Zithromax 500mg In Ns) 500 mg in 250 mls @ 167 mls/hr IVPB DAILY [facility]; Protocol Last Admin: 12/25/18 13:19 Dose: 167 mls/hr Insulin Human Regular (Humulin R Low) 0 units SC AC [facility]; Protocol Last Admin: 12/25/18 12:04 Dose: 4 units Levalbuterol HCl (Xopenex) 0.63 mg IH [id number] PRN PRN Reason: Shortness of Breath Levothyroxine Sodium (Synthroid) 88 mcg PO 0600 [facility] Last Admin: 12/25/18 05:08 Dose: 88 mcg Methylprednisolone (Solu-Medrol) 30 mg IVP Q12 [facility] Last Admin: 12/25/18 10:46 Dose: 30 mg Pantoprazole Sodium (Protonix Ec Tab) 40 mg PO 0600 [facility] Last Admin: 12/25/18 05:08 Dose: 40 mg Potassium Chloride (Klor-Con 10) 10 meq PO DAILY [facility] Last Admin: 12/25/18 10:44 Dose: 10 meq Tiotropium [place] (Spiriva) 18 mcg INH DAILY [facility] Last Admin: 12/25/18 10:47 Dose: 18 mcg - Labs Labs: 12/25/18 06:15 12/25/18 06:15 Attending/Attestation - Attestation I have personally seen and examined this patient.: Yes I have fully participated in the care of the patient.: Yes I have reviewed all pertinent clinical information, including history, physical exam and plan: Yes Notes (Text): 12/25/18 15:59 Attending note; Patient seen and examined with resident. Patient is alert and awake. Currently on oxygen nasal cannula Still complaining of shortness of breath on exertion. Telemetry discontinued. Denies any palpitations or tachycardia. Complaining of cough and mild sputum production. Denies any fevers, chills. Tolerating diet. Patient is a 78-year-old female with past medical history significant for chronic respiratory failure secondary to COPD on home oxygen, hypertension, recurrent bronchitis, hypothyroidism, anxiety, paroxysmal atrial fibrillation versus SVT, and lung nodules that presented to the emergency room complaining of shortness of breath and palpitations. 1. Acute COPD exacerbation; continue with O2. Continue with nebulizer treatments. with Brovana, Pulmicort and Spiriva. Started on solumedrol. Currently on tapering dose of IV Solu-Medrol. Case discussed with pulmonary in detail. 2. Subpleural cavitary lesion in the left lower lobe; continue Rocephin and Zithromax. ID evaluation appreciated. blood culture is negative. procalcitonin is negative. Chest xray showed apparent opacity with the irregular spiculated margins in the left upper lobe, COPD. Chest CT showed 1.9 x 1.8 cm subpleural cavitating lesion with spiculated margins in the superior segment of the left lower lobe; small subcentimeter nodules in the superior segment of the left lower lobe and left lung base. Case discussed with patient in detail. Patient refused biopsy at this point. Patient will decide about within few weeks as outpatient. 3. Palpitations; resolved. History of paroxysmal afib or SVT. Currently in sinus rhythm. continue home ASA , atenolol and Cardizem. Start atenolol as needed. Cardiology evaluation appreciated. Echocardiogram showed normal ejection fraction . 4. Bilateral lower extremity edema. resolving. Continue Lasix resolving. Venous Doppler is negative for DVT. 5. Hypothyroidism. Continue home synthroid. TSH and T3 normal. 6. Hypertension. Continue Cardizem and Lasix. PT evaluation requested. Possible discharge home tomorrow if clinically stable. Diagnosis, follow-up plan discussed with patient in detail. Upon discharge the patient will follow up with PMD . Patient needs close follow-up with pulmonary as outpatient. 12/25/18 16:00 12/25/18 16:01
--- NOTE | 2018-12-25 15:18 | PN ---
DATE: 12/25/2018 REASON FOR CONSULTATION AND FOLLOWUP: Shortness of breath, palpitation, admitted with acute exacerbation of chronic obstructive pulmonary disease. SUBJECTIVE: The patient denies any chest pain or palpitations. Shortness of breath is improving. OBJECTIVE: GENERAL: Not in apparent distress. VITAL SIGNS: Temperature afebrile, heart rate 70, blood pressure 120/60. HEENT: PERRLA. Extraocular muscles intact. NECK: Supple. No carotid bruits. No thyromegaly. CHEST: Clear to auscultation. HEART: S1 and S2. Regular. ABDOMEN: Soft. EXTREMITIES: Clubbing, cyanosis negative. LABORATORY DATA: Blood workup as follows; WBC 19.1, hemoglobin 13.4, hematocrit 44.4, platelet count 347. Chemistry shows sodium 130, potassium 4.3, chloride 97, carbon dioxide 32, anion gap of 12, BUN 29, creatinine 0.6. Total cholesterol 236, LDL 138, HDL 62. The patient had an echocardiography done yesterday that revealed normal left ventricular function and no segmental wall motion abnormality, trace to mild mitral regurgitation, mild tricuspid regurgitation, RV systolic pressure reported 36, calculated ejection fraction 72%. IMPRESSION: A 78-year-old female with past medical history significant for chronic obstructive pulmonary disease, ex-heavy smoker in the past on home oxygen, history of hypertension, hyperthyroidism, questionable history of atrial fibrillation admitted with worsening shortness of breath. EKG revealed normal sinus. Previous EKG since reviewed 2016- and 2019 were in normal sinus, history of palpitation most likely secondary to beta2-agonists, nebulizer treatment. CAT scan of the chest revealed cavitary lesion, spiculated margin in the superior segment of the left lower lobe, could be secondary to cavitary lesion, rule out neoplasm, could be infected. RECOMMENDATIONS: Continue aggressive treatment of COPD. Continue DVT prophylaxis. Continue aspirin. Continue Cardizem. Continue low-dose atenolol 25 mg p.o. once a day. Now, the patient is in normal sinus. No complaint of palpitation. We will discontinue telemetry and consider stress test as an outpatient. Discussed with the patient. For risk stratification, the patient needs stress test as outpatient. Tina Hendricks MD
--- NOTE | 2018-12-25 19:36 | CP.PCM.PN ---
Subjective - Date & Time of Evaluation Date of Evaluation: 12/25/18 Time of Evaluation: 16:00 - Subjective Subjective: Infectious Disease Follow Up: December 25, 2018 78 year old female, whose past medical history includes COPD (on home O2, 2L), HTN, recurrent bronchitis, Hypothyroidism, CHF, anxiety, Paroxysmal Afib vs SVT (on Cardizem), Lung nodule (seen by Web Production Designer) who presents to the ED complaining of shortness of breath and palpitations while watching television at home. She has had an episode like this in the past. She was previously admitted for a COPD exacerbation. She reports she suddenly felt like her heart was racing, accompanied by a difficulty to breathe. She had a pulse ox at home and noted her HR was 152. However, she says her HR improved upon arrival. She denies any chest pain, fever, cough, nasal congestion or runny nose. She said she recently went to her PMD for complaints of dysuria and increased urinary frequency and was completing a course of nitrofurantoin. She does not endorse bowel/bladder changes at this time. She is not sure of the organism that is being treated. The greater concern is the masslike structure seen in the lung imaging studies. Dr. Portillo has addressed this with her. She has not agreed to a biopsy at this point. WBC is elevated to the 19.1 today. She states that she is breathing better today. Objective - Vital Signs/Intake and Output Vital Signs (last 24 hours): Temp Pulse Resp BP Pulse Ox 97.8 F 58 L 18 131/68 95 12/25/18 11:49 12/25/18 11:49 12/25/18 11:49 12/25/18 11:49 12/25/18 06:00 - Medications Medications: Current Medications Arformoterol Tartrate (Brovana) 15 mcg IH [id number] [facility] Last Admin: 12/25/18 07:46 Dose: 15 mcg Aspirin (Ecotrin) 81 mg PO DAILY [facility] Last Admin: 12/25/18 10:44 Dose: 81 mg Atenolol (Tenormin) 25 mg PO DAILY [facility] Last Admin: 12/25/18 10:47 Dose: 25 mg Budesonide (Pulmicort Respules) 0.5 mg IH [id number] [facility] Last Admin: 12/25/18 07:46 Dose: 0.5 mg Diltiazem HCl (Cardizem Cd) 240 mg PO DAILY [facility] Last Admin: 12/25/18 10:43 Dose: 240 mg Dipyridamole (Persantine) 25 mg PO BID [facility] Last Admin: 12/25/18 17:49 Dose: 25 mg Enoxaparin Sodium (Lovenox) 40 mg SC DAILY [facility]; Protocol Last Admin: 12/25/18 10:45 Dose: 40 mg Furosemide (Lasix) 40 mg PO DAILY [facility] Last Admin: 12/25/18 10:44 Dose: 40 mg Ceftriaxone Sodium (Rocephin 1 Gram Ivpb) 1 gm in 100 mls @ 100 mls/hr IVPB DAILY [facility]; Protocol Last Admin: 12/25/18 10:46 Dose: 100 mls/hr Azithromycin (Zithromax 500mg In Ns) 500 mg in 250 mls @ 167 mls/hr IVPB DAILY [facility]; Protocol Last Admin: 12/25/18 13:19 Dose: 167 mls/hr Insulin Human Regular (Humulin R Low) 0 units SC AC [facility]; Protocol Last Admin: 12/25/18 17:49 Dose: Not Given Levalbuterol HCl (Xopenex) 0.63 mg IH [id number] PRN PRN Reason: Shortness of Breath Levothyroxine Sodium (Synthroid) 88 mcg PO 0600 [facility] Last Admin: 12/25/18 05:08 Dose: 88 mcg Methylprednisolone (Solu-Medrol) 30 mg IVP Q12 [facility] Last Admin: 12/25/18 10:46 Dose: 30 mg Pantoprazole Sodium (Protonix Ec Tab) 40 mg PO 0600 [facility] Last Admin: 12/25/18 05:08 Dose: 40 mg Potassium Chloride (Klor-Con 10) 10 meq PO DAILY [facility] Last Admin: 12/25/18 10:44 Dose: 10 meq Tiotropium [place] (Spiriva) 18 mcg INH DAILY [facility] Last Admin: 12/25/18 10:47 Dose: 18 mcg - Labs Labs: 12/25/18 06:15 12/25/18 06:15 - Constitutional Appears: Non-toxic, No Acute Distress, Chronically Ill - Head Exam Head Exam: ATRAUMATIC, NORMOCEPHALIC - Eye Exam Eye Exam: EOMI, PERRL Pupil Exam: NORMAL ACCOMODATION, PERRL - ENT Exam ENT Exam: Mucous Membranes Moist, Normal External Ear Exam, TM's Normal Bilaterally - Neck Exam Neck Exam: Full ROM, Normal Inspection - Respiratory Exam Respiratory Exam: Decreased Breath Sounds, Wheezes. absent: Rales, Rhonchi - Cardiovascular Exam Cardiovascular Exam: REGULAR RHYTHM, RRR, +S1, +S2 - GI/Abdominal Exam GI & Abdominal Exam: Soft, Normal Bowel Sounds. absent: Distended, Tenderness - Extremities Exam Extremities Exam: Full ROM, Normal Inspection - Neurological Exam Neurological Exam: Alert, Awake, CN II-XII Intact, Oriented x3 - Psychiatric Exam Psychiatric exam: Normal Affect, Normal Mood - Skin Skin Exam: Intact, Normal Color Assessment and Plan - Assessment and Plan (Free Text) Assessment: 78 yo female with leukocytosis and extensive medical history of COPD (on home O2, 2L), HTN, recurrent bronchitis, Hypothyroidism, CHF, anxiety, Paroxysmal Afib vs SVT (on Cardizem), Lung nodule (seen by Web Production Designer) [place] [facility] [place] and palpitations. The patient was being treated with Nitrofuratoin for a UTI as outpatient. She has good renal function. Typical treatment course for nitrofuratoin is 3-5 days. Would be more helpful to obtain the culture results from her PMD's office. Noted Azithromycin and Rocpehin started for potential pneumonia. Noted that the CT scan is showing a 1.9 x 1.8 cm subpleural cavitating lesion with spiculated margins in the superior segment of the left lower lobe. Unclear if neoplasm versus pneumonia. Severe diffuse centrilobular emphysema. Patient has not agreed to biopsy as of yet. WBC remains elevated at 19.1. Cultures neg ative to date. Supportive care. Highly anxious patient. Improving secondary to steroid administration. Procalcitonin of < 0.05. Pneumonia unlikely. Recurrent bronchitis. Cavitating lung lesion. Thank you for allowing me to participate in the care of the patient, we will follow with you.
[2018-12-26] MEDS: Pantoprazole 40 mg EC Tab PO SCH (05:10)
[2018-12-26] MEDS: Levothyroxine 88 MCG TAB PO SCH (05:10)
[2018-12-26] MEDS: Budesonide 0.5 mg/2 ml Inhal Susp UD IH SCH (07:20)
[2018-12-26] MEDS: Arformoterol 15 mcg/2 ml Inh Sol IH SCH (07:20)
[2018-12-26 08:01] VITALS: RESP 18
--- NOTE | 2018-12-26 08:08 | CP.PCM.PN ---
Subjective - Date & Time of Evaluation Date of Evaluation: 12/26/18 Time of Evaluation: 06:25 - Subjective Subjective: Awake, no distress, denies shortness of breath Reason for consultation and follow up: Cardiac evaluation of shortness of breath, ruled out congestive heart failure, admitted for exacerbation of COPD Seen and examined by me and Dr. Hendricks Objective - Vital Signs/Intake and Output Vital Signs (last 24 hours): Temp Pulse Resp BP Pulse Ox 97.4 F L 75 18 143/72 96 12/26/18 06:00 12/26/18 06:00 12/26/18 06:00 12/26/18 06:00 12/26/18 06:00 Intake and Output: 12/26/18 12/26/18 06:59 18:59 Intake Total 480 Output Total 0 Balance 480 - Medications Medications: Current Medications Arformoterol Tartrate (Brovana) 15 mcg IH [id number] [facility] Last Admin: 12/26/18 07:20 Dose: 15 mcg Aspirin (Ecotrin) 81 mg PO DAILY [facility] Last Admin: 12/25/18 10:44 Dose: 81 mg Atenolol (Tenormin) 25 mg PO DAILY [facility] Last Admin: 12/25/18 10:47 Dose: 25 mg Budesonide (Pulmicort Respules) 0.5 mg IH [id number] [facility] Last Admin: 12/26/18 07:20 Dose: 0.5 mg Diltiazem HCl (Cardizem Cd) 240 mg PO DAILY [facility] Last Admin: 12/25/18 10:43 Dose: 240 mg Dipyridamole (Persantine) 25 mg PO BID [facility] Last Admin: 12/25/18 17:49 Dose: 25 mg Enoxaparin Sodium (Lovenox) 40 mg SC DAILY [facility]; Protocol Last Admin: 12/25/18 10:45 Dose: 40 mg Furosemide (Lasix) 40 mg PO DAILY [facility] Last Admin: 12/25/18 10:44 Dose: 40 mg Ceftriaxone Sodium (Rocephin 1 Gram Ivpb) 1 gm in 100 mls @ 100 mls/hr IVPB DAILY [facility]; Protocol Last Admin: 12/25/18 10:46 Dose: 100 mls/hr Azithromycin (Zithromax 500mg In Ns) 500 mg in 250 mls @ 167 mls/hr IVPB DAILY [facility]; Protocol Last Admin: 12/25/18 13:19 Dose: 167 mls/hr Insulin Human Regular (Humulin R Low) 0 units SC AC [facility]; Protocol Last Admin: 12/25/18 17:49 Dose: Not Given Levalbuterol HCl (Xopenex) 0.63 mg IH [id number] PRN PRN Reason: Shortness of Breath Levothyroxine Sodium (Synthroid) 88 mcg PO 0600 [facility] Last Admin: 12/26/18 05:10 Dose: 88 mcg Pantoprazole Sodium (Protonix Ec Tab) 40 mg PO 0600 [facility] Last Admin: 12/26/18 05:10 Dose: 40 mg Potassium Chloride (Klor-Con 10) 10 meq PO DAILY [facility] Last Admin: 12/25/18 10:44 Dose: 10 meq Prednisone (Prednisone Tab) 40 mg PO DAILY [facility] Tiotropium Sunspot (Spiriva) 18 mcg INH DAILY [facility] Last Admin: 12/25/18 10:47 Dose: 18 mcg - Labs Labs: 12/25/18 06:15 12/25/18 06:15 - Constitutional Appears: Non-toxic, No Acute Distress - Head Exam Head Exam: NORMAL INSPECTION, NORMOCEPHALIC - Eye Exam Eye Exam: Normal appearance Pupil Exam: NORMAL ACCOMODATION - ENT Exam ENT Exam: Mucous Membranes Moist, Normal Exam - Respiratory Exam Respiratory Exam: Decreased Breath Sounds, Clear to Ausculation Bilateral, NORMAL BREATHING PATTERN - Cardiovascular Exam Cardiovascular Exam: +S1, +S2 - GI/Abdominal Exam GI & Abdominal Exam: Soft, Normal Bowel Sounds - Extremities Exam Extremities Exam: Full ROM, Normal Capillary Refill - Neurological Exam Neurological Exam: Alert, Awake, Oriented x3 - Psychiatric Exam Psychiatric exam: Anxious - Skin Skin Exam: Dry, Normal Color, Warm Assessment and Plan - Assessment and Plan (Free Text) Assessment: A 78 year old female who came in to the [facility] due to shortness of breath. History of COPD, on home oxygen, hypertension, recurrent bronchitis,hypothyroidism, congestive heart failure, anxiety, questionable atrial fibrillation, ex smoker. CT scan of chest showed cavity lesion spiculated segment in the superior segment of the left lower lobe could be secondary to cavity lesion or rule out neoplasm or infection. Echo done and showed LVEF 72%,mild MR/TR, RVSP 36 mmHg. Ruled out congestive heart failure. Exacerbation of COPD. Pulmonary on consult. Recommending lung biopsy but patient undecided/refusing. Blood glucose elevated due to steroids. Clinically, shortness of breath improved. Plan: Feels okay, denies shortness of breath, worried about elevated glucose (Explained due to Prednisone) Cardiac status stable Heart rate stable Blood pressure stable On ASA 81 mg daily,Atenolol 25 mg daily, Cardizem 240 mg daily Persantine 25 mg BID, Lasix 40 mg daily,Synthroid 88 mcg daily Potassium 10 meq daily, Prednisone 40 mg daily Continue current treatment Continue current medications Continue IV antibiotics as ordered Glucose control Discharge planning Will follow up Plan and treatment discussed with Dr. Hendricks
[2018-12-26] MEDS: Insulin Reg-LOW-Coverage SC SCH ×3 (08:32→16:58)
[2018-12-26] MEDS: Potassium Chloride 10 mEq ER Tab PO SCH (09:37)
[2018-12-26] MEDS: diltiaZEM 240 mg/24 Hours CD Cap PO SCH (09:37)
[2018-12-26] MEDS: cefTRIAXone 1 gm 1 GM/100 ML BAG IVPB SCH (09:38)
[2018-12-26] MEDS: Enoxaparin 40 mg Syringe SC SCH (09:38)
[2018-12-26] MEDS: Azithromycin 500MG/NS 250ml 500 MG/250 ML BAG IVPB SCH (09:39)
[2018-12-26] MEDS: Tiotropium 18 mcg Cap For Inhalation INH SCH (09:39)
--- NOTE | 2018-12-26 10:03 | PN ---
DATE: 12/26/2018 PULMONARY NOTE SUBJECTIVE: The patient appears very comfortable this morning. She is not short of breath at rest. PHYSICAL EXAMINATION: VITAL SIGNS: Temperature is 98, pulse 62, respirations 18/20, blood pressure 135/67. Oxygen saturation on nasal cannula - 95%. HEENT: Normocephalic, atraumatic. No JVD. CARDIOVASCULAR: Systolic ejection murmur at the lower left sternal border. No S3 gallop. LUNGS: Clear bilaterally this morning. GASTROINTESTINAL: Abdomen is soft, nontender and nondistended. Bowel sounds are positive. EXTREMITIES: No clubbing, cyanosis or edema. Calves are nontender to palpation. SKIN: No acute rash. NEUROLOGIC: Exam limited at the present time. IMPRESSION: 1. Recurrent bronchitis. 2. Advanced chronic obstructive pulmonary disease, on home oxygen. 3. Cavitary mass - left lower lobe. 4. Leukocytosis. PLAN: The patient appears very comfortable this morning. She is not short of breath at rest. She does state to feeling much better overall. On physical exam, her lungs are now clear. In addition, the alveolar arterial gradient is also less. I will continue the current nebulizer treatments and change to oral steroids this morning. The patient also remains on antibiotic therapy. There are no temperatures noted. I did discuss the CAT scan findings with the patient again at length this morning. I once again went over the possible etiologies - including infectious(less likely) or malignant etiologies. Again, I highly recommended that the patient go for CAT scan guided lung biopsy. She continues to refuse. Clinical status of the patient has significantly improved - compared to the initial presentation. However, given the above, the future status/prognosis for this patient remains very guarded. I will discuss the above with Dr. Nuñez this morning. Romario Portillo MD [facility]
[2018-12-26 15:06] VITALS: BP 115/61; PULSE 61; TEMP 97.7; O2SAT 95
--- NOTE | 2018-12-26 16:09 | CP.PCM.DIS ---
<Randy Pollock - Last Filed: 12/26/18 15:59> Provider - Provider Date of Admission: 12/22/18 19:37 Attending physician: Callie Nuñez MD Primary care physician: Dr. Lopez Consults: 12/22/18 19:44 Consult [Physician Consult] Stat Comment: Consulting Provider: Romario Portillo Consulting Physician: Romario Portillo Reason for Consult: copd, on home oxygen 12/22/18 21:13 Transition In Care/Readmission Reduction Routine Comment: Physician Instructions: Reason For Exam: COPD 12/22/18 22:11 Physician Consult Routine Comment: Consulting Provider: Apollo Emerson Consulting Physician: Apollo Emerson Reason for Consult: PNA and UTI treated outpatient 12/23/18 00:08 Nursing Referral for Wound Care Routine Comment: Physician Instructions: Reason For Exam: redness on sacrum 12/23/18 11:07 Cardiology Consult Routine Comment: requested by patient Consulting Provider: Tina Hendricks Consulting Physician: Tina Hendricks Reason for Consult: palpitations 12/26/18 11:40 TCU [Evaluation for TRCU] Routine Comment: Physician Instructions: Reason For Exam: need for rehab Time Spent in preparation of Discharge (in minutes): 45 Diagnosis - Discharge Diagnosis (1) Lung mass Status: Chronic (2) COPD exacerbation Status: Acute (3) COPD with acute exacerbation Status: Acute Hospital Course - Lab Results Lab Results: Micro Results 12/22/18 19:42 Blood-Venous Blood Culture - Preliminary NO GROWTH AFTER 3 DAYS 12/22/18 19:21 Blood-Venous Blood Culture - Preliminary NO GROWTH AFTER 3 DAYS Most Recent Lab Values WBC 19.1 10^3/uL (4.5-11.0) H 12/25/18 06:15 RBC 4.98 10^6/uL (3.5-6.1) 12/25/18 06:15 Hgb 13.4 g/dL (12.0-16.0) 12/25/18 06:15 Hct 44.4 % (36.0-48.0) 12/25/18 06:15 MCV 89.2 fl (80.0-105.0) 12/25/18 06:15 MCH 26.9 pg (25.0-35.0) 12/25/18 06:15 MCHC 30.2 g/dl (31.0-37.0) L 12/25/18 06:15 RDW 13.8 % (11.5-14.5) 12/25/18 06:15 Plt Count 347 10^3/uL (120.0-450.0) 12/25/18 06:15 MPV 11.0 fl (7.0-11.0) 12/25/18 06:15 Neut % (Auto) 89.1 % (50.0-68.0) H 12/22/18 18:00 Lymph % (Auto) 6.8 % (22.0-35.0) L 12/22/18 18:00 [facility] % (Auto) 2.6 % (1.0-6.0) 12/22/18 18:00 Eos % (Auto) 1.0 % (1.5-5.0) L 12/22/18 18:00 Baso % (Auto) 0.5 % (0.0-3.0) 12/22/18 18:00 Lymph # (Auto) 1.1 (1.2-3.4) L 12/22/18 18:00 [facility] # (Auto) 0.4 (0.1-0.6) 12/22/18 18:00 Eos # (Auto) 0.2 (0.0-0.7) 12/22/18 18:00 Baso # (Auto) 0.09 K/mm3 (0.0-2.0) 12/22/18 18:00 Absolute Neuts (auto) 14.76 (1.4-6.5) H 12/22/18 18:00 pO2 31 mm/Hg (30-55) 12/22/18 18:20 VBG pH 7.37 (7.32-7.43) 12/22/18 18:20 VBG pCO2 60.0 (40-60) 12/22/18 18:20 VBG HCO3 34.7 mmol/l (21-28) H 12/22/18 18:20 VBG Total CO2 36.5 mmol.L (22-28) H 12/22/18 18:20 VBG O2 Sat (Calc) 62.6 % (40-65) 12/22/18 18:20 VBG Base Excess 7.4 mmol/L (0.0-2.0) H 12/22/18 18:20 VBG Potassium 4.9 mmol/L (3.6-5.2) 12/22/18 18:20 Sodium 138.0 mmol/L (132-148) 12/22/18 18:20 Chloride 98.0 mmol/L (98-107) 12/22/18 18:20 Glucose 154 mg/dl (65-105) H 12/22/18 18:20 Lactate 1.6 mmol/L (0.7-2.1) 12/22/18 18:20 FiO2 21.0 % 12/22/18 18:20 Sodium 137 mmol/L (132-148) 12/25/18 06:15 Potassium 4.3 mmol/L (3.6-5.0) 12/25/18 06:15 Chloride 97 mmol/L (98-107) L 12/25/18 06:15 Carbon Dioxide 32 mmol/L (21-33) 12/25/18 06:15 Anion Gap 12 (10-20) 12/25/18 06:15 BUN 29 mg/dL (7-21) H 12/25/18 06:15 Creatinine 0.6 mg/dl (0.7-1.2) L 12/25/18 06:15 Est GFR ( Amer) > 60 12/25/18 06:15 Est GFR (Non-Af Amer) > 60 12/25/18 06:15 POC Glucose (mg/dL) 175 mg/dL (65-110) H 12/26/18 11:36 Random Glucose 212 mg/dL (70-110) H 12/25/18 06:15 Hemoglobin A1c 7.7 % (4.2-6.5) H 12/25/18 06:15 Calcium 9.8 mg/dL (8.4-10.5) 12/25/18 06:15 Phosphorus 3.8 mg/dL (2.5-4.5) 12/25/18 06:15 Magnesium 2.2 mg/dL (1.7-2.2) 12/25/18 06:15 Total Bilirubin 0.3 mg/dL (0.2-1.3) 12/25/18 06:15 AST 17 U/L (14-36) 12/25/18 06:15 ALT 16 U/L (7-56) 12/25/18 06:15 Alkaline Phosphatase 60 U/L (38-126) 12/25/18 06:15 Lactate Dehydrogenase 358 U/L (333-699) 12/22/18 18:00 Total Creatine Kinase 26 U/L (35-230) L 12/22/18 18:00 Troponin I < 0.01 ng/mL 12/23/18 07:00 NT-Pro-B Natriuret Pep 65.0 pg/mL (0-450) 12/22/18 18:00 Total Protein 6.2 g/dL (5.8-8.3) 12/25/18 06:15 Albumin 3.5 g/dL (3.0-4.8) 12/25/18 06:15 Globulin 2.7 gm/dL 12/25/18 06:15 Albumin/Globulin Ratio 1.3 (1.1-1.8) 12/25/18 06:15 Triglycerides 140 mg/dL (35-160) 12/25/18 06:15 Cholesterol 236 mg/dL (130-200) H 12/25/18 06:15 LDL Cholesterol Direct 138 mg/dL (0-129) H 12/25/18 06:15 HDL Cholesterol 62 mg/dL (29-60) H 12/25/18 06:15 Procalcitonin < 0.05 NG/ML (0.19-0.49) L 12/24/18 06:40 Free T4 1.25 ng/dL (0.78-2.19) 12/24/18 06:40 TSH 3rd Generation 2.62 mIU/mL (0.46-4.68) 12/24/18 06:40 Venous Blood Potassium 4.9 mmol/L (3.6-5.2) 12/22/18 18:20 Urine Color Light yellow (YELLOW) 12/23/18 14:08 Urine Appearance Clear (CLEAR) 12/23/18 14:08 Urine pH 6.5 (4.7-8.0) 12/23/18 14:08 Ur Specific [place] 1.010 (1.005-1.035) 12/23/18 14:08 Urine Protein Negative mg/dL (<30 mg/dL) 12/23/18 14:08 Urine Glucose (UA) 250 mg/dL (NEGATIVE) H 12/23/18 14:08 Urine Ketones Negative mg/dL (NEGATIVE) 12/23/18 14:08 Urine Blood Negative (NEGATIVE) 12/23/18 14:08 Urine Nitrate Negative (NEGATIVE) 12/23/18 14:08 Urine Bilirubin Negative (NEGATIVE) 12/23/18 14:08 Urine Urobilinogen 0.2 E.U./dL (<1 E.U./dL) 12/23/18 14:08 Ur Leukocyte Esterase Negative Jarret/uL (NEGATIVE) 12/23/18 14:08 - Hospital Course Hospital Course: Randy Pollock DO, PGY-1 Hospitalist Discharge Summary for Dr. Nuñez Prior to admission: Patient is a 78 year old female with PMH of COPD (on home O2, 2L), HTN, recurrent bronchitis, hypothyroidism, anxiety, Paroxysmal Afib vs SVT (on Cardizem), and known LLL nodule (previously seen by clock smith) presented to ED with a complaint of SOB and palpitations admitted for management of COPD exacerbation. She was subsequently admitted for management of COPD exacerbation. Hospitalization course: Patient had f/u chest CT as she had a known history of LLL nodules which had been followed periodically by patient's primary clock smith, Dr. Protillo. She was noted to have a new 1.9 x 1.8 cm subpleural cavitating lesion with spiculated margins in the superior segment of the LLL. Findings were discussed with patient by Dr. Portillo. Patient was not agreeable to interventional biopsy at this time and did not want to discuss the situation with her daughter at bedside on our examination. Patient was treated for COPD exacerbation with IV solumedrol which was weaned throughout her hospitalization. She was continued on xopenex, atrovent scheduled treatments as well. She continued to improve throughout hospitalization but continued to have difficulty ambulating without getting significant SOB. She requested TCU evaluation as her prior stay had been helpful for her. She was evaluated and accepted by TCU today. On examination today, patient is improving but it is apparent that she would benefit from continued rehab in TCU. Discharge plan was discussed with patient and all consultants. All questions were answered. Patient seen, examined with, and discharge plan discussed with my attending Dr. Joauqin Pollock D.O. IM Resident PGY-1 Discharge Exam - Head Exam Head Exam: NORMAL INSPECTION, NORMOCEPHALIC - Eye Exam Eye Exam: EOMI, PERRL - ENT Exam ENT Exam: Mucous Membranes Moist - Neck Exam Neck exam: Full Rom, Normal Inspection - Respiratory Exam Respiratory Exam: Wheezes (improved from prior exams). absent: Accessory Muscle Use, Rales, Rhonchi, Respiratory Distress - Cardiovascular Exam Cardiovascular Exam: REGULAR RHYTHM, RRR, +S1, +S2. absent: Diastolic murmur, Gallop, Rubs, Systolic Murmur - GI/Abdominal Exam GI & Abdominal Exam: Normal Bowel Sounds, Soft, Unremarkable. absent: Tenderness - Extremities Exam Extremities exam: full ROM, normal inspection - Back Exam Back exam: NORMAL INSPECTION - Neurological Exam Neurological exam: Alert, Oriented x3 - Psychiatric Exam Psychiatric exam: Normal Affect, Normal Mood - Skin Skin Exam: Dry, Pallor, Warm Discharge Plan - Discharge Medications Prescriptions: Amoxicillin/Clavulanate [Augmentin 500 MG-125 MG] 1 tab PO BID #10 tab Methylprednisolone [Medrol Dose Pack (21 tabs)] See Taper PO DAILY #21 mg - Follow Up Plan Condition: FAIR Disposition: REHAB FACILITY/REHAB UNIT Instructions: Chronic Obstructive Pulmonary Disease (COPD), Including Emphysema, COPD Including Emphysema (DC), Exacerbation of COPD, Exacerbation of COPD (DC) Additional Instructions: Please discharge patient to TCU. Please continue patient medications as ordered. Patient to take augmentin 500-125 BID x 5 days and medrol dose pack. Hold home prednisone while finishing medrol dose pack. Resume home prednisone after finishing dose pack. Patient instructions on discharge from TCU: Please follow up with your primary medical doctor, Dr. Lopez, within 3-5 days of discharge. Please follow up with your lung doctor, Dr. Portillo, within 1 week of discharge. Please follow up with the heart doctor, Dr. Hendricks, within 1 week of discharge. We have started you on a new medicine, atenolol, which you should take everyday to prevent palpitations. Please continue to take your other home medicines as previously prescribed. If you experience worsening shortness of breath or other concerning symptoms, please return to nearest emergency department. Referrals: Tina Hendricks MD [Staff Provider] - Davon Lopez MD [Family Provider] - Romario Portillo MD [Staff Provider] - <Callie Nuñez - Last Filed: 12/26/18 16:21> Provider - Provider Date of Admission: 12/22/18 19:37 Attending physician: Callie Nuñez MD Consults: 12/22/18 19:44 Consult [Physician Consult] Stat Comment: Consulting Provider: Romario Portillo Consulting Physician: Romario Portillo Reason for Consult: copd, on home oxygen 12/22/18 21:13 Transition In Care/Readmission Reduction Routine Comment: Physician Instructions: Reason For Exam: COPD 12/22/18 22:11 Physician Consult Routine Comment: Consulting Provider: Apollo Emerson Consulting Physician: Apollo Emerson Reason for Consult: PNA and UTI treated outpatient 12/23/18 00:08 Nursing Referral for Wound Care Routine Comment: Physician Instructions: Reason For Exam: redness on sacrum 12/23/18 11:07 Cardiology Consult Routine Comment: requested by patient Consulting Provider: Tina Hendricks Consulting Physician: Tina Hendricks Reason for Consult: palpitations 12/26/18 11:40 TCU [Evaluation for TRCU] Routine Comment: Physician Instructions: Reason For Exam: need for rehab Hospital Course - Lab Results Lab Results: Micro Results 12/22/18 19:42 Blood-Venous Blood Culture - Preliminary NO GROWTH AFTER 3 DAYS 12/22/18 19:21 Blood-Venous Blood Culture - Preliminary NO GROWTH AFTER 3 DAYS Most Recent Lab Values WBC 19.1 10^3/uL (4.5-11.0) H 12/25/18 06:15 RBC 4.98 10^6/uL (3.5-6.1) 12/25/18 06:15 Hgb 13.4 g/dL (12.0-16.0) 12/25/18 06:15 Hct 44.4 % (36.0-48.0) 12/25/18 06:15 MCV 89.2 fl (80.0-105.0) 12/25/18 06:15 MCH 26.9 pg (25.0-35.0) 12/25/18 06:15 MCHC 30.2 g/dl (31.0-37.0) L 12/25/18 06:15 RDW 13.8 % (11.5-14.5) 12/25/18 06:15 Plt Count 347 10^3/uL (120.0-450.0) 12/25/18 06:15 MPV 11.0 fl (7.0-11.0) 12/25/18 06:15 Neut % (Auto) 89.1 % (50.0-68.0) H 12/22/18 18:00 Lymph % (Auto) 6.8 % (22.0-35.0) L 12/22/18 18:00 [facility] % (Auto) 2.6 % (1.0-6.0) 12/22/18 18:00 Eos % (Auto) 1.0 % (1.5-5.0) L 12/22/18 18:00 Baso % (Auto) 0.5 % (0.0-3.0) 12/22/18 18:00 Lymph # (Auto) 1.1 (1.2-3.4) L 12/22/18 18:00 [facility] # (Auto) 0.4 (0.1-0.6) 12/22/18 18:00 Eos # (Auto) 0.2 (0.0-0.7) 12/22/18 18:00 Baso # (Auto) 0.09 K/mm3 (0.0-2.0) 12/22/18 18:00 Absolute Neuts (auto) 14.76 (1.4-6.5) H 12/22/18 18:00 pO2 31 mm/Hg (30-55) 12/22/18 18:20 VBG pH 7.37 (7.32-7.43) 12/22/18 18:20 VBG pCO2 60.0 (40-60) 12/22/18 18:20 VBG HCO3 34.7 mmol/l (21-28) H 12/22/18 18:20 VBG Total CO2 36.5 mmol.L (22-28) H 12/22/18 18:20 VBG O2 Sat (Calc) 62.6 % (40-65) 12/22/18 18:20 VBG Base Excess 7.4 mmol/L (0.0-2.0) H 12/22/18 18:20 VBG Potassium 4.9 mmol/L (3.6-5.2) 12/22/18 18:20 Sodium 138.0 mmol/L (132-148) 12/22/18 18:20 Chloride 98.0 mmol/L (98-107) 12/22/18 18:20 Glucose 154 mg/dl (65-105) H 12/22/18 18:20 Lactate 1.6 mmol/L (0.7-2.1) 12/22/18 18:20 FiO2 21.0 % 12/22/18 18:20 Sodium 137 mmol/L (132-148) 12/25/18 06:15 Potassium 4.3 mmol/L (3.6-5.0) 12/25/18 06:15 Chloride 97 mmol/L (98-107) L 12/25/18 06:15 Carbon Dioxide 32 mmol/L (21-33) 12/25/18 06:15 Anion Gap 12 (10-20) 12/25/18 06:15 BUN 29 mg/dL (7-21) H 12/25/18 06:15 Creatinine 0.6 mg/dl (0.7-1.2) L 12/25/18 06:15 Est GFR ( Amer) > 60 12/25/18 06:15 Est GFR (Non-Af Amer) > 60 12/25/18 06:15 POC Glucose (mg/dL) 173 mg/dL (65-110) H 12/26/18 16:06 Random Glucose 212 mg/dL (70-110) H 12/25/18 06:15 Hemoglobin A1c 7.7 % (4.2-6.5) H 12/25/18 06:15 Calcium 9.8 mg/dL (8.4-10.5) 12/25/18 06:15 Phosphorus 3.8 mg/dL (2.5-4.5) 12/25/18 06:15 Magnesium 2.2 mg/dL (1.7-2.2) 12/25/18 06:15 Total Bilirubin 0.3 mg/dL (0.2-1.3) 12/25/18 06:15 AST 17 U/L (14-36) 12/25/18 06:15 ALT 16 U/L (7-56) 12/25/18 06:15 Alkaline Phosphatase 60 U/L (38-126) 12/25/18 06:15 Lactate Dehydrogenase 358 U/L (333-699) 12/22/18 18:00 Total Creatine Kinase 26 U/L (35-230) L 12/22/18 18:00 Troponin I < 0.01 ng/mL 12/23/18 07:00 NT-Pro-B Natriuret Pep 65.0 pg/mL (0-450) 12/22/18 18:00 Total Protein 6.2 g/dL (5.8-8.3) 12/25/18 06:15 Albumin 3.5 g/dL (3.0-4.8) 12/25/18 06:15 Globulin 2.7 gm/dL 12/25/18 06:15 Albumin/Globulin Ratio 1.3 (1.1-1.8) 12/25/18 06:15 Triglycerides 140 mg/dL (35-160) 12/25/18 06:15 Cholesterol 236 mg/dL (130-200) H 12/25/18 06:15 LDL Cholesterol Direct 138 mg/dL (0-129) H 12/25/18 06:15 HDL Cholesterol 62 mg/dL (29-60) H 12/25/18 06:15 Procalcitonin < 0.05 NG/ML (0.19-0.49) L 12/24/18 06:40 Free T4 1.25 ng/dL (0.78-2.19) 12/24/18 06:40 TSH 3rd Generation 2.62 mIU/mL (0.46-4.68) 12/24/18 06:40 Venous Blood Potassium 4.9 mmol/L (3.6-5.2) 12/22/18 18:20 Urine Color Light yellow (YELLOW) 12/23/18 14:08 Urine Appearance Clear (CLEAR) 12/23/18 14:08 Urine pH 6.5 (4.7-8.0) 12/23/18 14:08 Ur Specific [place] 1.010 (1.005-1.035) 12/23/18 14:08 Urine Protein Negative mg/dL (<30 mg/dL) 12/23/18 14:08 Urine Glucose (UA) 250 mg/dL (NEGATIVE) H 12/23/18 14:08 Urine Ketones Negative mg/dL (NEGATIVE) 12/23/18 14:08 Urine Blood Negative (NEGATIVE) 12/23/18 14:08 Urine Nitrate Negative (NEGATIVE) 12/23/18 14:08 Urine Bilirubin Negative (NEGATIVE) 12/23/18 14:08 Urine Urobilinogen 0.2 E.U./dL (<1 E.U./dL) 12/23/18 14:08 Ur Leukocyte Esterase Negative Jarret/uL (NEGATIVE) 12/23/18 14:08 Attending/Attestation - Attestation I have personally seen and examined this patient.: Yes I have fully participated in the care of the patient.: Yes I have reviewed all pertinent clinical information, including history, physical exam and plan: Yes Notes (Text): 12/26/18 16:19 Attending note; Patient seen and examined with resident. Patient is alert and awake. Currently on oxygen nasal cannula Complaining of cough and mild sputum production. Denies any fevers, chills. Tolerating diet. Complaining of gait instability. Patient is a 78-year-old female with past medical history significant for chronic respiratory failure secondary to COPD on home oxygen, hypertension, recurrent bronchitis, hypothyroidism, anxiety, paroxysmal atrial fibrillation versus SVT, and lung nodules that presented to the emergency room complaining of shortness of breath and palpitations. 1. Acute COPD exacerbation; continue with O2. Continue with nebulizer treatments. with Brovana, Pulmicort and Spiriva. On tapering dose of steroids. Case discussed with pulmonary in detail. 2. Subpleural cavitary lesion in the left lower lobe; on IV Rocephin and Zithromax. ID evaluation appreciated. blood culture is negative. procalcitonin is negative. Chest xray showed apparent opacity with the irregular spiculated margins in the left upper lobe, COPD. Chest CT showed 1.9 x 1.8 cm subpleural cavitating lesion with spiculated margins in the superior segment of the left lower lobe; small subcentimeter nodules in the superior segment of the left lower lobe and left lung base. Case discussed with patient in detail. Patient refused biopsy at this point. Patient will decide about within few weeks as outpatient. 3. Palpitations; resolved. History of paroxysmal afib or SVT. Currently in sinus rhythm. continue home ASA , atenolol and Cardizem. Cardiology evaluation appreciated. Echocardiogram showed normal ejection fraction . 4. Bilateral lower extremity edema. resolved. Continue Lasix Venous Doppler is negative for DVT. 5. Hypothyroidism. Continue home synthroid. TSH and T3 normal. 6. Hypertension. Continue Cardizem and Lasix. PT evaluation appreciated.TCU recommended. Transfer to TCU today. Diagnosis, follow-up plan discussed with patient in detail. Upon discharge the patient will follow up with PMD . Patient needs close follow-up with pulmonary as outpatient.
--- NOTE | 2018-12-27 03:32 | CP.PCM.PN ---
Subjective - Date & Time of Evaluation Date of Evaluation: 12/26/18 Time of Evaluation: 17:00 - Subjective Subjective: Infectious Disease Follow Up: December 26, 2018 78 year old female, whose past medical history includes COPD (on home O2, 2L), HTN, recurrent bronchitis, Hypothyroidism, CHF, anxiety, Paroxysmal Afib vs SVT (on Cardizem), Lung nodule (seen by Kitchen Porter) who presents to the ED complaining of shortness of breath and palpitations while watching television at home. She has had an episode like this in the past. She was previously admitted for a COPD exacerbation. She reports she suddenly felt like her heart was racing, accompanied by a difficulty to breathe. She had a pulse ox at home and noted her HR was 152. However, she says her HR improved upon arrival. She denies any chest pain, fever, cough, nasal congestion or runny nose. She said she recently went to her PMD for complaints of dysuria and increased urinary frequency and was completing a course of nitrofurantoin. She does not endorse bowel/bladder changes at this time. She is not sure of the organism that is being treated. The greater concern is the masslike structure seen in the lung imaging studies. Dr. Portillo has addressed this with her. She has not agreed to a biopsy at this point. WBC is elevated to the 19.1 on last check. She states that she is breathing better today and she clinically appears better. Objective - Vital Signs/Intake and Output Vital Signs (last 24 hours): Temp Pulse Resp BP Pulse Ox 97.7 F 61 18 115/61 95 12/26/18 14:00 12/26/18 14:00 12/26/18 14:00 12/26/18 14:00 12/26/18 14:00 - Labs Labs: 12/25/18 06:15 12/25/18 06:15 - Constitutional Appears: Non-toxic, No Acute Distress, Chronically Ill - Head Exam Head Exam: ATRAUMATIC, NORMOCEPHALIC - Eye Exam Eye Exam: EOMI, PERRL Pupil Exam: NORMAL ACCOMODATION, PERRL - ENT Exam ENT Exam: Mucous Membranes Moist, Normal External Ear Exam, TM's Normal Bilaterally - Neck Exam Neck Exam: Full ROM, Normal Inspection - Respiratory Exam Respiratory Exam: Clear to Ausculation Bilateral, NORMAL BREATHING PATTERN. absent: Rales, Rhonchi, Wheezes - Cardiovascular Exam Cardiovascular Exam: REGULAR RHYTHM, RRR, +S1, +S2 - GI/Abdominal Exam GI & Abdominal Exam: Soft, Normal Bowel Sounds. absent: Distended, Tenderness - Extremities Exam Extremities Exam: Full ROM, Normal Inspection - Neurological Exam Neurological Exam: Alert, Awake, CN II-XII Intact, Oriented x3 - Psychiatric Exam Psychiatric exam: Normal Affect, Normal Mood - Skin Skin Exam: Intact, Normal Color Assessment and Plan - Assessment and Plan (Free Text) Assessment: 78 yo female with leukocytosis and extensive medical history of COPD (on home O2, 2L), HTN, recurrent bronchitis, Hypothyroidism, CHF, anxiety, Paroxysmal Afib vs SVT (on Cardizem), Lung nodule (seen by Kitchen Porter) presented to [facility] [place] for SOB and palpitations. The patient was being treated with Nitrofuratoin for a UTI as outpatient. She has good renal function. Typical treatment course for nitrofuratoin is 3-5 days. Would be more helpful to obtain the culture results from her PMD's office. Noted Azithromycin and Rocpehin started for potential pneumonia. Noted that the CT scan is showing a 1.9 x 1.8 cm subpleural cavitating lesion with spiculated margins in the superior segment of the left lower lobe. Unclear if neoplasm versus pneumonia. Severe diffuse centrilobular emphysema. Patient has not agreed to biopsy as of yet. WBC remains elevated at 19.1. Cultures negative to date. Supportive care. Highly anxious patient. Improving secondary to steroid administration. Procalcitonin of < 0.05. Pneumonia unlikely. Recurrent bronchitis. Cavitating lung lesion. Patient unwilling to have biopsy of lesion. Clinically the patient has improved. Improvement likely secondary to steroid administration rather than antibiotic administration. Future prognosis remains guarded and there is strong likelihood for return of symptoms in the very near future. Thank you for allowing me to participate in the care of the patient, we will follow with you.
== END 2018-12-26 18:53 | DRG 190 ==
LOC: ED 17:42 → ERH 19:37 → 2RSO 20:38 → 5RNO 12-25 12:56
PROVIDERS: ADMIT Internal Medicine; ATTEND Internal Medicine
DX: J43.2 Centrilobular emphysema (principal); J96.21 Acute and chronic respiratory failure with hypoxia; N39.0 Urinary tract infection, site not specified; I11.0 Hypertensive heart disease with heart failure; E03.9 Hypothyroidism, unspecified; I48.0 Paroxysmal atrial fibrillation; R00.2 Palpitations; F41.9 Anxiety disorder, unspecified; Z99.81 Dependence on supplemental oxygen; Z87.891 Personal history of nicotine dependence; Z99.3 Dependence on wheelchair; I27.20 Pulmonary hypertension, unspecified; R91.1 Solitary pulmonary nodule; I35.0 Nonrheumatic aortic (valve) stenosis; I50.9 Heart failure, unspecified; T38.0X5A Adverse effect of glucocorticoids and synthetic analogues, initial encounter; Z79.51 Long term (current) use of inhaled steroids; Z79.82 Long term (current) use of aspirin; Z90.49 Acquired absence of other specified parts of digestive tract; Z98.42 Cataract extraction status, left eye; Z98.41 Cataract extraction status, right eye; Z82.49 Family history of ischemic heart disease and other diseases of the circulatory system; Z88.8 Allergy status to other drugs, medicaments and biological substances

== ENCOUNTER 2018-12-26 18:55 | Inpatient (IN) | payer OTHER, BC ==
[2018-12-26 19:44] VITALS: BMI 20.7
[2018-12-26] MEDS ORDERED: Arformoterol 15 mcg/2 ml Inh Sol IH SCH (20:00)
[2018-12-26] MEDS ORDERED: Levalbuterol 0.63 MG/3 ML Inhal Soln UD IH PRN (20:02)
[2018-12-26] MEDS: Arformoterol 15 mcg/2 ml Inh Sol IH SCH (20:44)
[2018-12-26] MEDS: Budesonide 0.5 mg/2 ml Inhal Susp UD IH SCH (20:44)
[2018-12-26] MEDS ORDERED: Pneumococcal 23-Valent Vaccine IM ONE (22:02)
[2018-12-26] MEDS: Insulin Reg-LOW-Coverage SC SCH (22:10)
[2018-12-27] MEDS: Azithromycin 500MG/NS 250ml 500 MG/250 ML BAG IVPB SCH (05:49)
[2018-12-27] MEDS: Pantoprazole 40 mg EC Tab PO SCH (05:50)
[2018-12-27] MEDS: Levothyroxine 88 MCG TAB PO SCH (05:51)
[2018-12-27] MEDS: Enoxaparin 40 mg Syringe SC SCH (05:51)
[2018-12-27] MEDS: Arformoterol 15 mcg/2 ml Inh Sol IH SCH ×2 (07:24→20:00)
[2018-12-27] MEDS: Budesonide 0.5 mg/2 ml Inhal Susp UD IH SCH ×2 (07:24→20:00)
[2018-12-27] MEDS: Insulin Reg-LOW-Coverage SC SCH ×4 (07:25→22:29)
[2018-12-27] MEDS: Potassium Chloride 10 mEq ER Tab PO SCH (08:28)
--- NOTE | 2018-12-27 10:24 | PN ---
DATE: 12/27/2018 SUBJECTIVE: The patient appears quite comfortable this morning. She is not short of breath at rest. PHYSICAL EXAMINATION: VITAL SIGNS: Temperature is 97.8, pulse is 57, respirations 18, blood pressure 131/80. Oxygen saturation on nasal cannula - 97%. HEENT: Normocephalic, atraumatic. No JVD. CARDIOVASCULAR: Systolic ejection murmur at the lower left sternal border. No S3 gallop. LUNGS: Clear bilaterally. EXTREMITIES: No clubbing, cyanosis or edema. Calves are nontender to palpation. GASTROINTESTINAL: Abdomen is soft, nontender and nondistended. Bowel sounds are positive. SKIN: No acute rash. NEUROLOGIC: Exam limited at the present time. IMPRESSION: 1. Recurrent bronchitis. 2. Advanced chronic obstructive pulmonary disease, on home oxygen. 3. Cavitary mass - left lower lobe. 4. Leukocytosis. PLAN: The patient appears very comfortable this morning. She is not short of breath at rest. She does state to feeling much better overall. On physical exam, her lungs remain clear. In addition, the oxygen saturation on nasal cannula is now 97%. I will continue the current nebulizer treatments and oral steroids for now. The patient also remains on antibiotic therapy. There are no temperatures noted. I once again discussed the CAT scan findings with the patient at length this morning. We once again went over the possible etiologies . The patient continues to refuse the biopsy, and does not want to talk about it anymore. I advised her to reconsider, and let me know if she changes her mind. Clinical status of the patient is certainly improved - compared to the initial presentation. However, given the above, the future status/prognosis for this patient remains very guarded. The patient is now on the transitional unit where she will participate with physical therapy. I will discuss the above with the attending physician. Romario Portillo MD MTDDonna
[2018-12-27] MEDS: Tiotropium 18 mcg Cap For Inhalation IH SCH (10:43)
[2018-12-27] MEDS: diltiaZEM 240 mg/24 Hours CD Cap PO SCH (10:43)
--- NOTE | 2018-12-27 16:52 | CP.PCM.HP ---
<Randy Pollock - Last Filed: 12/27/18 16:47> History of Present Illness - History of Present Illness History of Present Illness: Randy Pollock DO, PGY-1 Hospitalist TCU Admission History and Physical for Dr. Nuñez CC: SOB and palpitations HPI: Patient is a 78 year old female with PMH of COPD (on home O2, 2L), HTN, recurrent bronchitis, hypothyroidism, anxiety, Paroxysmal Afib vs SVT (on Cardizem), and known LLL nodule (previously seen by clam bed laborer) who originally presented to ED with a complaint of SOB and palpitations. She was subsequently admitted to [facility] management of acute COPD exacerbation. She continued to improve throughout her stay but continues to get intermittently short of breath with exertion. She has stairs at home and has not been able to tolerate going up stairs with PT. She was subsequently evaluated by TCU and determined to be a candidate for continued rehab at TCU. She has been admitted to TCU in the past which has helped her symptoms. On examination this AM, she states her breathing is improved and otherwise has no additional complaints. She denies fever/chills, CP, worsened cough, abd pain/nausea/vomiting, or urinary complaints. 12-point ROS was otherwise negative except as specified above. PMD: Dr. Lopez Past Medical History: COPD (on home O2, 2L), HTN, recurrent bronchitis, hypothyroidism, anxiety, Paroxysmal Afib vs SVT (on Cardizem), and known LLL nodule (previously seen by clam bed laborer) Past Surgical History: cholecystectomy Allergies: statins muscle aches, IV contrast hives feels hot and trouble breathing Home medications: reviewed, as per MAR Family History: mother from [place] at age 47 Social History: admits to 40 pack year smoking history but quit 27 years ago. denies EtOH or illicit drug use Pharmacy: Present on Admission - Present on Admission Any Indicators Present on Admission: No History of DVT/PE: No History of Uncontrolled Diabetes: No Urinary Catheter: No Decubitus Ulcer Present: No Past Patient History - Infectious Disease Hx of Infectious Diseases: None - Tetanus Immunizations Tetanus Immunization: Up to Date - Past Social History Smoking Status: Never Smoked - CARDIAC Hx Cardiac Disorders: Yes (A-fib on cardizem.) Hx Congestive Heart Failure: Yes Hx Hypertension: Yes - PULMONARY Hx Chronic Obstructive Pulmonary Disease (COPD): Yes (O2 dep 2-3 L/M at home) - NEUROLOGICAL Hx Neurological Disorder: Yes Hx Dizziness: Yes - HEENT Hx HEENT Problems: Yes Hx Cataracts: Yes Other/Comment: b/l cataract surgery - RENAL Hx Chronic Kidney Disease: No - ENDOCRINE/METABOLIC Hx Hypothyroidism: Yes - HEMATOLOGICAL/ONCOLOGICAL Hx Blood Disorders: No - INTEGUMENTARY Hx Dermatological Problems: No - MUSCULOSKELETAL/RHEUMATOLOGICAL Hx Falls: No - GASTROINTESTINAL Hx Gastrointestinal Disorders: Yes (GASTROENTERITIS,CHOELCYSTECTOMY) - GENITOURINARY/GYNECOLOGICAL Hx Genitourinary Disorders: Yes (UTI) Hx Reproductive Disorders: No - PSYCHIATRIC Hx Psychophysiologic Disorder: No Hx Substance Use: No - SURGICAL HISTORY Hx Cholecystectomy: Yes - ANESTHESIA Hx Anesthesia: Yes Hx Anesthesia Reactions: No Hx Malignant Hyperthermia: No Meds Allergies/Adverse Reactions: Allergies Allergy/AdvReac Type Severity Reaction Status Date / Time roflumilast [From Dalires] Allergy HEADACHE Verified 12/26/18 19:03 theophylline Allergy SHORTNESS Verified 12/26/18 19:03 OF BREATH CRESTOR AdvReac Intermediate PAIN Uncoded 12/26/18 19:03 contrast AdvReac SHORTNESS Uncoded 12/26/18 19:03 OF BREATH Physical Exam - Constitutional Appears: Other (no acute respiratory distress, ) - Head Exam Head Exam: ATRAUMATIC, NORMOCEPHALIC - Eye Exam Eye Exam: EOMI, PERRL - ENT Exam ENT Exam: Mucous Membranes Moist - Neck Exam Neck exam: Positive for: Full Rom. Negative for: Tenderness - Respiratory Exam Respiratory Exam: Wheezes (faint end expiratory wheezes b/l improved from admission). absent: Accessory Muscle Use, Decreased Breath Sounds, Rales, Rhonchi, Respiratory Distress - Cardiovascular Exam Cardiovascular Exam: REGULAR RHYTHM, RRR, +S1, +S2. absent: Diastolic murmur, Gallop, Rubs, Systolic Murmur - GI/Abdominal Exam GI & Abdominal Exam: Normal Bowel Sounds, Soft. absent: Guarding, Rebound, Tenderness - Extremities Exam Extremities exam: Positive for: full ROM. Negative for: pedal edema - Neurological Exam Neurological exam: Alert, Oriented x3 - Psychiatric Exam Psychiatric exam: Normal Affect, Normal Mood - Skin Skin Exam: Dry, Pallor, Warm Results - Vital Signs Recent Vital Signs: Last Vital Signs Temp 98.2 F 12/27/18 10:00 Pulse 72 12/27/18 10:43 Resp 20 12/27/18 10:00 BP 128/77 12/27/18 10:43 Pulse Ox 90 L 12/27/18 10:00 - Labs Labs: Laboratory Results - last 24 hr 12/26/18 12/27/18 21:55 05:30 POC Glucose (mg/dL) 158 H 132 H Assessment & Plan - Assessment and Plan (Free Text) Assessment: 78 yo F with PMH of COPD (on home O2, 2L), HTN, recurrent bronchitis, hypothyroidism, anxiety, Paroxysmal Afib vs SVT (on Cardizem), and known LLL nodule (previously seen by clam bed laborer) presented to ED with a complaint of SOB and palpitations admitted for management of COPD exacerbation. She was admitted to [facility] and managed for COPD exacerbation. She is in TCU for continued rehab/treatment prior to discharge home. Plan: COPD exacerbation in setting of multiple L lung nodules Wheezes continue to improve Wean solu-medrol, switch to PO prednisone 40 mg daily Continue scheduled and PRN xopenex treatments On zithromax day 4, continue through 5 days Continue home brovana, pulmicort, spiriva Pulmonology following, all recs appreciated Palpitations Patient has a known history of palpitations Has been in NSR since admission Continue home diltiazem, dipyridamole Atenolol also added per cardiology recs Cardiology following, all recs appreciated Recent UTI Completed course of macrobid Patient currently denies dysuria, frequency Repeat UA negative Hypothyroidism Resume home meds HTN Has not been hypertensive since admission Continue home meds DVT/GI PPX: Lovenox/protonix Full Code HHD Monitor on TCU Patient seen, examined with, and plan discussed with my attending Dr. Joaquin Pollock, D.O. IM Resident PGY-1 Pager: [phone] <Callie Nuñez - Last Filed: 12/28/18 18:12> Results - Vital Signs Recent Vital Signs: Last Vital Signs Temp 98.1 F 12/28/18 10:00 Pulse 63 12/28/18 10:00 Resp 20 12/28/18 10:00 BP 108/63 12/28/18 10:00 Pulse Ox 97 12/28/18 10:00 - Labs Result Diagrams: 12/28/18 06:00 12/28/18 06:00 Labs: Laboratory Results - last 24 hr 12/27/18 12/27/18 12/28/18 16:48 22:17 05:03 WBC RBC Hgb Hct MCV MCH MCHC RDW Plt Count MPV Neut % (Auto) Lymph % (Auto) Ward % (Auto) Eos % (Auto) Baso % (Auto) Lymph # (Auto) Ward # (Auto) Eos # (Auto) Baso # (Auto) Absolute Neuts (auto) Sodium Potassium Chloride Carbon Dioxide Anion Gap BUN Creatinine Est GFR ( Amer) Est GFR (Non-Af Amer) POC Glucose (mg/dL) 262 H 243 H 133 H Random Glucose Calcium Total Bilirubin AST ALT Alkaline Phosphatase Total Protein Albumin Globulin Albumin/Globulin Ratio 12/28/18 12/28/18 12/28/18 06:00 06:00 11:20 WBC 13.4 H D RBC 4.99 Hgb 13.5 Hct 45.0 MCV 90.2 MCH 27.1 MCHC 30.0 L RDW 13.7 Plt Count 314 MPV 10.6 Neut % (Auto) 78.3 H Lymph % (Auto) 8.7 L Ward % (Auto) 11.9 H Eos % (Auto) 1.0 L Baso % (Auto) 0.1 Lymph # (Auto) 1.2 Ward # (Auto) 1.6 H Eos # (Auto) 0.1 Baso # (Auto) 0.01 Absolute Neuts (auto) 10.50 H Sodium 139 Potassium 4.1 Chloride 100 Carbon Dioxide 34 H Anion Gap 9 L BUN 33 H Creatinine 0.7 Est GFR ( Amer) > 60 Est GFR (Non-Af Amer) > 60 POC Glucose (mg/dL) 203 H Random Glucose 110 Calcium 9.0 Total Bilirubin 0.4 AST 16 ALT 25 Alkaline Phosphatase 63 Total Protein 5.7 L Albumin 3.2 Globulin 2.5 Albumin/Globulin Ratio 1.3 Attending/Attestation - Attestation I have personally seen and examined this patient.: Yes I have fully participated in the care of the patient.: Yes I have reviewed all pertinent clinical information: Yes Notes (Text): 12/28/18 18:07 Attending note; Patient seen and examined with resident in TCU. Patient is alert and awake. Currently on oxygen nasal cannula Denies any fevers, chills. doing therapy. Patient is a 78-year-old female with past medical history significant for chronic respiratory failure secondary to COPD on home oxygen, hypertension, recurrent bronchitis, hypothyroidism, anxiety and lung nodules that presented to the emergency room complaining of shortness of breath and palpitations. Patient was treated on the medical side and transferred to TCU yesterday. 1. Gait instability; continue physical therapy and Occupational Therapy. 2. Acute COPD exacerbation; resolved . Continue home oxygen therapy.Continue with nebulizer Brovana, Pulmicort and Spiriva. On tapering dose of steroids. Case discussed with pulmonary in detail. 3. Subpleural cavitary lesion in the left lower lobe; Treated with IV Rocephin and Zithromax. Chest xray showed apparent opacity with the irregular spiculated margins in the left upper lobe, COPD. Chest CT showed 1.9 x 1.8 cm subpleural cavitating lesion with spiculated margins in the superior segment of the left lower lobe; small subcentimeter nodules in the superior segment of the left lower lobe and left lung base. Patient refused biopsy at this point. Needs follow-up as outpatient. 4. Palpitations; resolved. History of paroxysmal afib or SVT. Currently in sinus rhythm. continue home ASA , atenolol and Cardizem. Cardiology evaluation appreciated. Echocardiogram showed normal ejection fraction . 5. Bilateral lower extremity edema. resolved. Continue Lasix Venous Doppler is negative for DVT. 6. Hypothyroidism. Continue home synthroid. TSH and T3 normal. Continue therapy in TCU. Diagnosis, follow-up plan discussed with patient in detail.
--- NOTE | 2018-12-27 19:26 | CP.PCM.CON ---
History of Present Illness - History of Present Illness History of Present Illness: Infectious Disease Consultation/Follow Up: December 27, 2018 78 year old female, whose past medical history includes COPD (on home O2, 2L), HTN, recurrent bronchitis, Hypothyroidism, CHF, anxiety, Paroxysmal Afib vs SVT (on Cardizem), Lung nodule (seen by Student Development Advisor) who presents to the ED complaining of shortness of breath and palpitations while watching television at home. She has had an episode like this in the past. She was previously admitted for a COPD exacerbation. She reports she suddenly felt like her heart was racing, accompanied by a difficulty to breathe. She had a pulse ox at home and noted her HR was 152. However, she says her HR improved upon arrival. She denies any chest pain, fever, cough, nasal congestion or runny nose. She said she recently went to her PMD for complaints of dysuria and increased urinary frequency and was completing a course of nitrofurantoin. She does not endorse bowel/bladder changes at this time. She is not sure of the organism that is being treated. The greater concern is the masslike structure seen in the lung imaging studies. Dr. Portillo has addressed this with her. She has not agreed to a biopsy at this point. WBC is elevated to the 19.1 on last check. She states that she is breathing better today and she clinically appears better. Noted that the patient had desaturations to 90%. Patient transferred to [facility] for further care. PMHx: COPD on home O2, HTN, recurrent bronchitis, hypothyroidism, CHF, anxiety, paroxysmal Afib vs SVT, lung nodule. PSHx: cholecystectomy Allergies: statins - muscle aches IV contrast - hives and SOB. Social Hx: Ex smoker stopped 27 years ago, was 40 pack year tobacco history. No EtOH or illicit drug use Active Medications Arformoterol Tartrate (Brovana) 15 mcg IH [id number] [facility] Last Admin: 12/27/18 07:24 Dose: 15 mcg Aspirin (Ecotrin) 81 mg PO 0730 [facility]; Protocol Last Admin: 12/27/18 08:28 Dose: 81 mg Atenolol (Tenormin) 25 mg PO DAILY [facility]; Protocol Last Admin: 12/27/18 10:43 Dose: 25 mg Budesonide (Pulmicort Respules) 0.5 mg IH 0800,2000 [facility]; Protocol Last Admin: 12/27/18 07:24 Dose: 0.5 mg Diltiazem HCl (Cardizem Cd) 240 mg PO DAILY [facility]; Protocol Last Admin: 12/27/18 10:43 Dose: 240 mg Dipyridamole (Persantine) 25 mg PO BID [facility]; Protocol Last Admin: 12/27/18 17:46 Dose: 25 mg Enoxaparin Sodium (Lovenox) 40 mg SC 0600 [facility]; Protocol Last Admin: 12/27/18 05:51 Dose: 40 mg Furosemide (Lasix) 40 mg PO 0600 [facility]; Protocol Last Admin: 12/27/18 06:03 Dose: 40 mg Azithromycin (Zithromax 500mg In Ns) 500 mg in 250 mls @ 167 mls/hr IVPB 0600 [facility]; Protocol Last Admin: 12/27/18 05:49 Dose: 167 mls/hr Insulin Human Regular (Humulin R Low) 0 units SC ACHS [facility]; Protocol Last Admin: 12/27/18 17:20 Dose: 3 units Levalbuterol HCl (Xopenex) 0.63 mg IH [id number] PRN; Protocol PRN Reason: Shortness of Breath Levothyroxine Sodium (Synthroid) 88 mcg PO 0600 [facility]; Protocol Last Admin: 12/27/18 05:51 Dose: 88 mcg Pantoprazole Sodium (Protonix Ec Tab) 40 mg PO 0600 [facility]; Protocol Last Admin: 12/27/18 05:50 Dose: 40 mg Potassium Chloride (Klor-Con 10) 10 meq PO 0800 [facility]; Protocol Last Admin: 12/27/18 08:28 Dose: 10 meq Prednisone (Prednisone Tab) 40 mg PO 0730 [facility]; Protocol Last Admin: 12/27/18 08:29 Dose: 40 mg Tiotropium Topmost (Spiriva) 18 mcg IH DAILY [facility]; Protocol Last Admin: 12/27/18 10:43 Dose: 18 mcg Family Hx: OK - Mother. ROS: SOB, chest pain, palpitations NO nausea, vomiting, diarrhea, headaches, dizziness, abdominal pain, melena, hematuria, hematemesis, hematochezia. History of depression and anxiety. Past Patient History - Infectious Disease Hx of Infectious Diseases: None - Tetanus Immunizations Tetanus Immunization: Up to Date - Past Social History Smoking Status: Never Smoked - CARDIAC Hx Cardiac Disorders: Yes (A-fib on cardizem.) Hx Congestive Heart Failure: Yes Hx Hypertension: Yes - PULMONARY Hx Chronic Obstructive Pulmonary Disease (COPD): Yes (O2 dep 2-3 L/M at home) - NEUROLOGICAL Hx Neurological Disorder: Yes Hx Dizziness: Yes - HEENT Hx HEENT Problems: Yes Hx Cataracts: Yes Other/Comment: b/l cataract surgery - RENAL Hx Chronic Kidney Disease: No - ENDOCRINE/METABOLIC Hx Hypothyroidism: Yes - HEMATOLOGICAL/ONCOLOGICAL Hx Blood Disorders: No - INTEGUMENTARY Hx Dermatological Problems: No - MUSCULOSKELETAL/RHEUMATOLOGICAL Hx Falls: No - GASTROINTESTINAL Hx Gastrointestinal Disorders: Yes (GASTROENTERITIS,CHOELCYSTECTOMY) - GENITOURINARY/GYNECOLOGICAL Hx Genitourinary Disorders: Yes (UTI) Hx Reproductive Disorders: No - PSYCHIATRIC Hx Psychophysiologic Disorder: No Hx Substance Use: No - SURGICAL HISTORY Hx Cholecystectomy: Yes - ANESTHESIA Hx Anesthesia: Yes Hx Anesthesia Reactions: No Hx Malignant Hyperthermia: No Meds Allergies/Adverse Reactions: Allergies Allergy/AdvReac Type Severity Reaction Status Date / Time roflumilast [From [facility]] Allergy HEADACHE Verified 12/26/18 19:03 theophylline Allergy SHORTNESS Verified 12/26/18 19:03 OF BREATH CRESTOR AdvReac Intermediate PAIN Uncoded 12/26/18 19:03 contrast AdvReac SHORTNESS Uncoded 12/26/18 19:03 OF BREATH - Medications Medications: Current Medications Arformoterol Tartrate (Brovana) 15 mcg IH [id number] [facility] Last Admin: 12/27/18 07:24 Dose: 15 mcg Aspirin (Ecotrin) 81 mg PO 0730 [facility]; Protocol Last Admin: 12/27/18 08:28 Dose: 81 mg Atenolol (Tenormin) 25 mg PO DAILY [facility]; Protocol Last Admin: 12/27/18 10:43 Dose: 25 mg Budesonide (Pulmicort Respules) 0.5 mg IH 0800,2000 [facility]; Protocol Last Admin: 12/27/18 07:24 Dose: 0.5 mg Diltiazem HCl (Cardizem Cd) 240 mg PO DAILY [facility]; Protocol Last Admin: 12/27/18 10:43 Dose: 240 mg Dipyridamole (Persantine) 25 mg PO BID [facility]; Protocol Last Admin: 12/27/18 17:46 Dose: 25 mg Enoxaparin Sodium (Lovenox) 40 mg SC 0600 [facility]; Protocol Last Admin: 12/27/18 05:51 Dose: 40 mg Furosemide (Lasix) 40 mg PO 0600 [facility]; Protocol Last Admin: 12/27/18 06:03 Dose: 40 mg Azithromycin (Zithromax 500mg In Ns) 500 mg in 250 mls @ 167 mls/hr IVPB 0600 [facility]; Protocol Last Admin: 12/27/18 05:49 Dose: 167 mls/hr Insulin Human Regular (Humulin R Low) 0 units SC ACHS [facility]; Protocol Last Admin: 12/27/18 17:20 Dose: 3 units Levalbuterol HCl (Xopenex) 0.63 mg IH [id number] PRN; Protocol PRN Reason: Shortness of Breath Levothyroxine Sodium (Synthroid) 88 mcg PO 0600 [facility]; Protocol Last Admin: 12/27/18 05:51 Dose: 88 mcg Pantoprazole Sodium (Protonix Ec Tab) 40 mg PO 0600 [facility]; Protocol Last Admin: 12/27/18 05:50 Dose: 40 mg Potassium Chloride (Klor-Con 10) 10 meq PO 0800 [facility]; Protocol Last Admin: 12/27/18 08:28 Dose: 10 meq Prednisone (Prednisone Tab) 40 mg PO 0730 [facility]; Protocol Last Admin: 12/27/18 08:29 Dose: 40 mg Tiotropium Topmost (Spiriva) 18 mcg IH DAILY [facility]; Protocol Last Admin: 12/27/18 10:43 Dose: 18 mcg Physical Exam - Constitutional Appears: Non-toxic, No Acute Distress, Chronically Ill - Head Exam Head Exam: ATRAUMATIC, NORMOCEPHALIC - Eye Exam Eye Exam: EOMI, PERRL Pupil Exam: NORMAL ACCOMODATION, PERRL - ENT Exam ENT Exam: Mucous Membranes Moist, Normal External Ear Exam, TM's Normal Bilaterally - Neck Exam Neck exam: Positive for: Full Rom, Normal Inspection - Respiratory Exam Respiratory Exam: Clear to Auscultation Bilateral, NORMAL BREATHING PATTERN. absent: Rales, Rhonchi, Wheezes - Cardiovascular Exam Cardiovascular Exam: REGULAR RHYTHM, RRR, +S1, +S2 - GI/Abdominal Exam GI & Abdominal Exam: Normal Bowel Sounds, Soft. absent: Distended, Tenderness - Extremities Exam Extremities exam: Positive for: full ROM, normal inspection - Neurological Exam Neurological exam: Alert, CN II-XII Intact, Oriented x3 - Skin Skin Exam: Intact, Normal Color Results - Vital Signs Recent Vital Signs: Last Vital Signs Temp 98.2 F 12/27/18 16:00 Pulse 60 12/27/18 16:00 Resp 20 12/27/18 16:00 BP 123/54 L 12/27/18 16:00 Pulse Ox 98 12/27/18 16:00 - Labs Labs: Laboratory Results - last 24 hr 12/26/18 12/27/18 12/27/18 21:55 05:30 16:48 POC Glucose (mg/dL) 158 H 132 H 262 H Assessment & Plan - Assessment and Plan (Free Text) Assessment: 78 yo female with leukocytosis and extensive medical history of COPD (on home O2, 2L), HTN, recurrent bronchitis, Hypothyroidism, CHF, anxiety, Paroxysmal Afib vs SVT (on Cardizem), Lung nodule (seen by Student Development Advisor) [place] [facility] [place] and [place]pitations. The patient was being treated with Nitrofuratoin for a UTI as outpatient. She has good renal function. Typical treatment course for nitrofuratoin is 3-5 days. Would be more helpful to obtain the culture results from her PMD's office. Noted Azithromycin and Rocpehin started for potential pneumonia. Noted that the CT scan is showing a 1.9 x 1.8 cm subpleural cavitating lesion with spiculated margins in the superior segment of the left lower lobe. Unclear if neoplasm versus pneumonia. Severe diffuse centrilobular emphysema. Patient has not agreed to biopsy as of yet. WBC remains elevated at 19.1. Cultures negative to date. Supportive care. Highly anxious patient. Improving secondary to steroid administration. Procalcitonin of < 0.05. Pneumonia unlikely. Recurrent bronchitis. Cavitating lung lesion. Patient unwilling to have biopsy of lesion. Clinically the patient has improved. Improvement likely secondary to steroid administration rather than antibiotic administration. Future prognosis remains guarded and there is strong likelihood for return of symptoms in the very near future. Case in point, the patient is still having desaturations to the low 90s. Thank you for allowing me to participate in the care of the patient, we will follow with you.
--- NOTE | 2018-12-27 20:26 | CON ---
DATE: 12/27/2018 CONSULT SERVICE: Cardiology. REASON FOR FOLLOWUP CONSULTATION: Cardiac evaluation, admitted with shortness of breath and contraindicative care in Transitional Care Unit. BRIEF CLINICAL HISTORY: A 78-year-old female, with past medical history significant for chronic obstructive pulmonary disease; a heavy smoker, on home oxygen; history of hypertension; history of hypothyroidism and questionable history of atrial fibrillation, admitted with worsening shortness of breath and so a cardiac consult was called for evaluation in medical floor and now contraindicative care in Transitional Care Unit. The patient has history of COPD, acute bronchospasm, hypertension, hyperlipidemia, history of palpitation, questionable history of paroxysmal atrial fibrillation, but EKG done in the [facility] reviewed since 2017, 2018, and 2019 all within normal sinus though the patient complained of palpitation, most likely this palpitation is secondary to beta2-agonists and nebulizer treatment. RECENT CARDIAC WORKUP: As follows; the patient had an echocardiography done on 12/24/2018 that revealed normal left ventricular function. No segmental wall motion abnormality, [id number] mitral regurgitation, mild tricuspid regurgitation, RV systolic pressure 36, and calculated ejection fraction 72%; read by Dr. Marie, dated 12/24/2018. The patient had a CAT scan done of the chest that revealed cavitary lesion, a spiculated margin in the superior segment of the left lower lobe, could be secondary to cavitary lesion, needs to rule out neoplasm, could be infected. SOCIAL HISTORY: The patient is a former smoker, quit 26 years ago. She lives by herself. Denies any history of alcohol abuse. Her brother lives nearby and keeps an eye on her. Brother's name is Kip Franco, is our patient as well. CURRENT MEDICATIONS: The patient is on Cardizem CD 240 mg, a handheld nebulizer, levothyroxine, Synthroid, Lasix 40 mg daily, aspirin, and low-dose atenolol started. ALLERGY: TO DALIRESP, THEOPHYLLINE, CRESTOR AND IV CONTRAST. REVIEW OF SYSTEMS: As per HPI. PHYSICAL EXAMINATION: As follows; GENERAL: Height of the patient 5 feet 2 inches, weight of the patient 113 pounds, and body mass index 20.7 kg/m2. VITAL SIGNS: Temperature afebrile, heart rate 72, and blood pressure 122/77. HEENT: PERRLA intact. NECK: Supple. No carotid bruits or thyromegaly. CHEST: Clear to auscultation. HEART: S1 and S2 regular. ABDOMEN: Soft. EXTREMITIES: Clubbing and cyanosis negative. LABORATORY DATA: Blood workup in the medical floor, last one dated 12/25/2018 shows WBC 19.4, hemoglobin 13.4, hematocrit 44.4, and platelet count 347. Chemistry shows sodium 137, potassium 4.3, chloride 97, carbon dioxide 32, anion gap of 12, BUN 29, and creatinine 0.6. IMPRESSION: A 78-year-old female with a past medical history significant for a heavy smoker, quit 26 years ago, admitted with exacerbation of chronic obstructive pulmonary disease, on home oxygen; history of hypertension; history of hypothyroidism; questionable history of atrial fibrillation, but all previous echocardiography reviewed from 2017, 2018, and 2019 all within normal sinus. Probably the patient complained of palpitation after the beta2-agonist and nebulizer treatment. CAT scan of the chest revealed a cavitary lesion, a spiculated margin in the superior segment of the left lower lobe, could be secondary to cavitary lesion, though cannot rule out neoplasm. RECOMMENDATIONS: The patient does not want the biopsy. Continue aggressive treatment of COPD. Continue DVT prophylaxis. Continue aspirin. Continue Cardizem. Continue low-dose atenolol to prevent going into AFib. The patient feels stable. We will follow with you. Thank you Dr. Nuñez for providing us the opportunity in taking care of the patient, Shameka Guerrero. Tina Hendricks MD
[2018-12-28] MEDS: Pantoprazole 40 mg EC Tab PO SCH (05:55)
[2018-12-28] MEDS: Enoxaparin 40 mg Syringe SC SCH (05:55)
[2018-12-28] MEDS: Levothyroxine 88 MCG TAB PO SCH (05:55)
[2018-12-28] MEDS: Azithromycin 500MG/NS 250ml 500 MG/250 ML BAG IVPB SCH (05:56)
[2018-12-28] MEDS: Insulin Reg-LOW-Coverage SC SCH ×4 (06:33→21:09)
[2018-12-28 06:34] LABS: BASO # 0.01 K/mm3 (0.0-2.0); BASO % 0.1 % (0.0-3.0); EOS # 0.1 (0.0-0.7); HEMOGLOBIN 13.5 g/dL (12.0-16.0); LYMPH # 1.2 (1.2-3.4); LYMPH % 8.7 % (22.0-35.0); MEAN CELL VOLUME 90.2 fl (80.0-105.0); MEAN CORPUSCULAR HEMOGLOBIN 27.1 pg (25.0-35.0); MEAN PLATELET VOLUME 10.6 fl (7.0-11.0); MONO # 1.6 (0.1-0.6); MONO % 11.9 % (1.0-6.0); RBC 4.99 10^6/uL (3.5-6.1); RED CELL DISTRIBUTION WIDTH 13.7 % (11.5-14.5); WHITE BLOOD COUNT 13.4 10^3/uL (4.5-11.0)
[2018-12-28 06:55] LABS: ALB/GLOB RATIO 1.3 (1.1-1.8); ALBUMIN 3.2 g/dL (3.0-4.8); ALT/SGPT 25 U/L (7-56); AST/SGOT 16 U/L (14-36); BLOOD UREA NITROGEN 33 mg/dL (7-21); GFR NON-AFRICAN AMERICAN > 60
[2018-12-28] MEDS: Arformoterol 15 mcg/2 ml Inh Sol IH SCH ×2 (07:00→20:30)
[2018-12-28] MEDS: Budesonide 0.5 mg/2 ml Inhal Susp UD IH SCH ×2 (07:00→20:29)
[2018-12-28] MEDS: Potassium Chloride 10 mEq ER Tab PO SCH (07:54)
--- NOTE | 2018-12-28 07:58 | PN ---
DATE: 12/28/2018 SUBJECTIVE: The patient appears quite comfortable this morning. She is not short of breath at rest. PHYSICAL EXAMINATION: VITAL SIGNS: Temperature is 98.2, pulse is 80, respirations 18, blood pressure 136/54. Oxygen saturation on nasal cannula - 98%. HEENT: Normocephalic, atraumatic. No JVD. CARDIOVASCULAR: Systolic ejection murmur at the lower left sternal border. No S3 gallop. LUNGS: Clear bilaterally. EXTREMITIES: No clubbing, cyanosis or edema. Calves are nontender to palpation. GASTROINTESTINAL: Abdomen is soft, nontender, nondistended. Bowel sounds are positive. SKIN: No acute rash. NEUROLOGIC: Exam limited at the present time. IMPRESSION: 1. Recurrent bronchitis. 2. Advanced chronic obstructive pulmonary disease, on home oxygen. 3. Cavitary mass - left lower lobe. 4. Leukocytosis. PLAN: The patient appears quite comfortable this morning. She is not short of breath at rest. She does state to feeling much better overall. On physical exam, her lungs remain clear. In addition, the oxygen saturation on nasal cannula is now 98%. I will continue the current nebulizer treatments and oral steroids for now. The patient also remains on antibiotic therapy - as per Infectious Disease. Clinical status of the patient is significantly improved - compared to the initial presentation. However, again, the future status/prognosis for this chronically ill patient remains very guarded. I will discuss the above with the attending physician. Romario Portillo MD MTD[facility]
[2018-12-28] MEDS: diltiaZEM 240 mg/24 Hours CD Cap PO SCH (09:38)
[2018-12-28] MEDS: Tiotropium 18 mcg Cap For Inhalation IH SCH (09:39)
--- NOTE | 2018-12-28 12:21 | PN ---
DATE: 12/28/2018 LOCATION: The patient is in room 302, bed 1. REASON FOR CONSULTATION AND FOLLOWUP: Shortness of breath, palpitation, and deconditioning. BRIEF HISTORY: A 78-year-old female, known case of COPD, heavy smoker, on home oxygen, hypertension, hypothyroidism, and questionable history of atrial fibrillation, who was admitted with worsening shortness of breath. The patient was treated medically and now she is in Transitional Care Unit for deconditioning. The patient states her breathing is better. Denies any chest pain or palpitation. At present, sitting comfortably in the bed. Echo on 12/24/2018 showed ejection fraction of 72% and RV systolic pressure of 36 mmHg, trace mitral regurgitation, and mild tricuspid regurgitation. The patient also was found to have CT of the chest cavitary lesion with spiculated margin in the superior segment of the left lower lobe, could be secondary to cavitary lesion, needs to rule out neoplasm, could be infections. PHYSICAL EXAMINATION: VITAL SIGNS: Blood pressure 123/54, respiration 20, pulse 62, and temperature 98.2. HEENT: Head is normocephalic. Eyes; pupils normal. Conjunctivae normal. Nose and throat normal. NECK: JVP low. Carotids equal. THORAX: AP diameter slightly increased. LUNGS: No significant rales. CARDIOVASCULAR: S1 and S2. ABDOMEN: Soft. No tenderness. No organomegaly. Bowel sounds normal. EXTREMITIES: No clubbing. No cyanosis. LABORATORY DATA: WBC 13.4, hemoglobin 13.5, hematocrit 45.0, and platelets 314. Sodium 139, potassium 4.1, BUN 33, and creatinine 0.7. Calcium, AST and ALT normal. Total protein 5.7 and albumin 3.2. DIAGNOSES: The patient was a heavy smoker, quit 26 years ago. Admitted with exacerbation of chronic obstructive pulmonary disease, hypertension, hypothyroidism, and questionable history of atrial fibrillation. The patient also complained of palpitation which can be due to inhaler and nebulizer therapy, but now she did not have any palpitation which was probably later beta2-agonist and nebulizer treatment. CAT scan of the chest showed cavitary lesion with spiculated margins in the superior segment of the left lower lobe, could be cavitary lesion, cannot rule out neoplasm. PLAN: The patient did not want biopsy. We will continue treatment for COPD, DVT prophylaxis, aspirin 81 daily, 40 daily, potassium 10 daily, Lovenox 40 subcutaneous daily, dipyridamole 25 mg p.o. b.i.d., prednisone 40 mg p.o. daily, Protonix 40 daily, Spiriva 18 mcg inhalation daily, Synthroid 88 mcg daily, atenolol 25 mg daily, Xopenex hand nebulizer therapy, azithromycin 500 mg IV daily. Continue physical therapy. We will follow with you. Tina Meyer MD [facility] # [id number]
--- NOTE | 2018-12-28 15:23 | CP.PCM.PN ---
Subjective - Date & Time of Evaluation Date of Evaluation: 12/28/18 Time of Evaluation: 14:15 - Subjective Subjective: Infectious Disease Consultation/Follow Up: December 28, 2018 78 year old female, whose past medical history includes COPD (on home O2, 2L), HTN, recurrent bronchitis, Hypothyroidism, CHF, anxiety, Paroxysmal Afib vs SVT (on Cardizem), Lung nodule (seen by Electronic Page Makeup System Operator) who presents to the ED complaining of shortness of breath and palpitations while watching television at home. She has had an episode like this in the past. She was previously admitted for a COPD exacerbation. She reports she suddenly felt like her heart was racing, accompanied by a difficulty to breathe. She had a pulse ox at home and noted her HR was 152. However, she says her HR improved upon arrival. She denies any chest pain, fever, cough, nasal congestion or runny nose. She said she recently went to her PMD for complaints of dysuria and increased urinary frequency and was completing a course of nitrofurantoin. She does not endorse bowel/bladder changes at this time. She is not sure of the organism that is being treated. The greater concern is the masslike structure seen in the lung imaging studies. Dr. Portillo has addressed this with her. She has not agreed to a biopsy at this point. WBC is elevated to the 13.4 on last check. She states that she is breathing better today and she clinically appears better. Noted that the patient had desaturations to 90% yesterday. Patient in TRCU for further care. Objective - Vital Signs/Intake and Output Vital Signs (last 24 hours): Temp Pulse Resp BP Pulse Ox 98.1 F 63 20 108/63 97 12/28/18 10:00 12/28/18 10:00 12/28/18 10:00 12/28/18 10:00 12/28/18 10:00 - Medications Medications: Current Medications Arformoterol Tartrate (Brovana) 15 mcg IH [id number] [facility] Last Admin: 12/28/18 07:00 Dose: 15 mcg Aspirin (Ecotrin) 81 mg PO 0730 [facility]; Protocol Last Admin: 12/28/18 07:53 Dose: 81 mg Atenolol (Tenormin) 25 mg PO DAILY [facility]; Protocol Last Admin: 12/28/18 09:40 Dose: 25 mg Azithromycin (Zithromax) 500 mg PO 0600 [facility] Stop: 01/01/19 06:01 Budesonide (Pulmicort Respules) 0.5 mg IH 0800,2000 [facility]; Protocol Last Admin: 12/28/18 07:00 Dose: 0.5 mg Diltiazem HCl (Cardizem Cd) 240 mg PO DAILY [facility]; Protocol Last Admin: 12/28/18 09:38 Dose: 240 mg Dipyridamole (Persantine) 25 mg PO BID [facility]; Protocol Last Admin: 12/28/18 09:39 Dose: 25 mg Enoxaparin Sodium (Lovenox) 40 mg SC 0600 [facility]; Protocol Last Admin: 12/28/18 05:55 Dose: 40 mg Furosemide (Lasix) 40 mg PO 0600 [facility]; Protocol Last Admin: 12/28/18 05:54 Dose: 40 mg Insulin Human Regular (Humulin R Low) 0 units SC ACHS [facility]; Protocol Last Admin: 12/28/18 12:18 Dose: 2 units Levalbuterol HCl (Xopenex) 0.63 mg IH [id number] PRN; Protocol PRN Reason: Shortness of Breath Levothyroxine Sodium (Synthroid) 88 mcg PO 0600 [facility]; Protocol Last Admin: 12/28/18 05:55 Dose: 88 mcg Pantoprazole Sodium (Protonix Ec Tab) 40 mg PO 0600 [facility]; Protocol Last Admin: 12/28/18 05:55 Dose: 40 mg Potassium Chloride (Klor-Con 10) 10 meq PO 0800 [facility]; Protocol Last Admin: 12/28/18 07:54 Dose: 10 meq Prednisone (Prednisone Tab) 40 mg PO 0730 [facility]; Protocol Last Admin: 12/28/18 07:54 Dose: 40 mg Tiotropium [place] (Spiriva) 18 mcg IH DAILY [facility]; Protocol Last Admin: 12/28/18 09:39 Dose: 18 mcg - Labs Labs: 12/28/18 06:00 12/28/18 06:00 - Constitutional Appears: Non-toxic, No Acute Distress, Chronically Ill - Head Exam Head Exam: ATRAUMATIC, NORMOCEPHALIC - Eye Exam Eye Exam: EOMI, PERRL Pupil Exam: NORMAL ACCOMODATION, PERRL - ENT Exam ENT Exam: Mucous Membranes Moist, Normal External Ear Exam, TM's Normal Bilaterally - Neck Exam Neck Exam: Full ROM, Normal Inspection - Respiratory Exam Respiratory Exam: Clear to Ausculation Bilateral, NORMAL BREATHING PATTERN. absent: Rales, Rhonchi, Wheezes - Cardiovascular Exam Cardiovascular Exam: REGULAR RHYTHM, RRR, +S1, +S2 - GI/Abdominal Exam GI & Abdominal Exam: Soft, Normal Bowel Sounds. absent: Distended, Tenderness - Extremities Exam Extremities Exam: Full ROM, Normal Inspection - Neurological Exam Neurological Exam: Alert, Awake, CN II-XII Intact, Oriented x3 - Psychiatric Exam Psychiatric exam: Normal Affect, Normal Mood - Skin Skin Exam: Intact, Normal Color Assessment and Plan - Assessment and Plan (Free Text) Assessment: 78 yo female with leukocytosis and extensive medical history of COPD (on home O2, 2L), HTN, recurrent bronchitis, Hypothyroidism, CHF, anxiety, Paroxysmal Afib vs SVT (on Cardizem), Lung nodule (seen by Electronic Page Makeup System Operator) presented to [facility] for SOB and palpitations. The patient was being treated with Nitrofuratoin for a UTI as outpatient. She has good renal function. Typical treatment course for nitrofuratoin is 3-5 days. Would be more helpful to obtain the culture results from her PMD's office. Noted Azithromycin and Rocpehin started for potential pneumonia. Noted that the CT scan is showing a 1.9 x 1.8 cm subpleural cavitating lesion with spiculated margins in the superior segment of the left lower lobe. Unclear if neoplasm versus pneumonia. Severe diffuse centrilobular emphysema. Patient has not agreed to biopsy as of yet. WBC remains elevated at 19.1. Cultures negative to date. Supportive care. Highly anxious patient. Improving secondary to steroid administration. Procalcitonin of < 0.05. Pneumonia unlikely. Recurrent bronchitis. Cavitating lung lesion. Patient unwilling to have biopsy of lesion. Clinically the patient has improved. Improvement likely secondary to steroid administration rather than antibiotic administration. Future prognosis remains guarded and there is strong likelihood for return of symptoms in the very near future. Case in point, the patient is still having desaturations to the low 90s yesterday. Consider no more than 7-10 days of antibiotic treatment. Thank you for allowing me to participate in the care of the patient, we will follow with you.
[2018-12-29] MEDS: Pantoprazole 40 mg EC Tab PO SCH (06:01)
[2018-12-29] MEDS: Levothyroxine 88 MCG TAB PO SCH (06:01)
[2018-12-29] MEDS: Enoxaparin 40 mg Syringe SC SCH (06:02)
[2018-12-29] MEDS: Arformoterol 15 mcg/2 ml Inh Sol IH SCH ×2 (07:26→20:09)
[2018-12-29] MEDS: Budesonide 0.5 mg/2 ml Inhal Susp UD IH SCH (07:26)
[2018-12-29] MEDS: Insulin Reg-LOW-Coverage SC SCH ×4 (07:33→21:13)
--- NOTE | 2018-12-29 07:47 | PN ---
DATE: 12/29/2018 SUBJECTIVE: The patient appears comfortable this morning. She is not short of breath at rest. PHYSICAL EXAMINATION: VITAL SIGNS: Temperature is 98.1, pulse 64, respirations 19, blood pressure 134/57. Oxygen saturation on nasal cannula - 96%. HEENT: Normocephalic, atraumatic. No JVD. CARDIOVASCULAR: Systolic ejection murmur at the lower left sternal border. No S3 gallop. LUNGS: Clear bilaterally. EXTREMITIES: No clubbing, cyanosis or edema. Calves are nontender to palpation. GASTROINTESTINAL: Abdomen is soft, nontender, nondistended. Bowel sounds are positive. SKIN: No acute rash. NEUROLOGIC: Exam limited at the present time. IMPRESSION: 1. Recurrent bronchitis. 2. Advanced chronic obstructive pulmonary disease, on home oxygen. 3. Cavitary mass - left lower lobe. 4. Leukocytosis. PLAN: The patient appears very comfortable this morning. She is not short of breath at rest. She does state to feeling much better overall. On physical exam, her lungs remain clear. In addition, there is no significant alveolar arterial gradient. I will continue the current nebulizer treatments and decrease the oral steroids this morning. The patient also remains on antibiotic therapy - as per Infectious Disease. There are no temperatures noted. The leukocytosis is resolving. Clinical status of the patient is significantly improved - compared to the initial presentation. However, given the above, the future status/prognosis for this patient remains very guarded. I will discuss the above with the attending physician. Romario Portillo MD MTDD
[2018-12-29] MEDS: Potassium Chloride 10 mEq ER Tab PO SCH (07:50)
[2018-12-29] MEDS: Tiotropium 18 mcg Cap For Inhalation IH SCH (11:00)
[2018-12-29] MEDS: diltiaZEM 240 mg/24 Hours CD Cap PO SCH (11:00)
--- NOTE | 2018-12-29 16:22 | CP.PCM.PN ---
<Vijay Sanchez - Last Filed: 12/29/18 16:18> Subjective - Date & Time of Evaluation Date of Evaluation: 12/29/18 Time of Evaluation: 08:10 - Subjective Subjective: Vijay Sanchez DO PGY1 Hospitalist Progress Note for Dr Nuñez Patient seen and examined at bedside. She is awake, alert, in NAD. Breathing is better, muscle strength is improving with PT. She denies symptoms of SOB, CP, palpitations. Eating weel, and having regular bowel movement Objective - Vital Signs/Intake and Output Vital Signs (last 24 hours): Temp Pulse Resp BP Pulse Ox 98 F 67 16 116/60 98 12/29/18 10:00 12/29/18 11:00 12/29/18 10:00 12/29/18 11:00 12/29/18 10:00 - Medications Medications: Current Medications Arformoterol Tartrate (Brovana) 15 mcg IH [id number] [facility] Last Admin: 12/29/18 07:26 Dose: 15 mcg Aspirin (Ecotrin) 81 mg PO 0730 [facility]; Protocol Last Admin: 12/29/18 07:50 Dose: 81 mg Atenolol (Tenormin) 25 mg PO DAILY [facility]; Protocol Last Admin: 12/29/18 11:00 Dose: 25 mg Azithromycin (Zithromax) 500 mg PO 0600 [facility] Stop: 01/01/19 06:01 Last Admin: 12/29/18 06:02 Dose: 500 mg Budesonide (Pulmicort Respules) 0.5 mg IH 0800,2000 [facility]; Protocol Last Admin: 12/29/18 07:26 Dose: 0.5 mg Diltiazem HCl (Cardizem Cd) 240 mg PO DAILY [facility]; Protocol Last Admin: 12/29/18 11:00 Dose: 240 mg Dipyridamole (Persantine) 25 mg PO BID [facility]; Protocol Last Admin: 12/29/18 11:00 Dose: 25 mg Enoxaparin Sodium (Lovenox) 40 mg SC 0600 [facility]; Protocol Last Admin: 12/29/18 06:02 Dose: 40 mg Furosemide (Lasix) 40 mg PO 0600 [facility]; Protocol Last Admin: 12/29/18 06:01 Dose: 40 mg Insulin Human Regular (Humulin R Low) 0 units SC ACHS [facility]; Protocol Last Admin: 12/29/18 12:19 Dose: 2 units Levalbuterol HCl (Xopenex) 0.63 mg IH [id number] PRN; Protocol PRN Reason: Shortness of Breath Levothyroxine Sodium (Synthroid) 88 mcg PO 0600 [facility]; Protocol Last Admin: 12/29/18 06:01 Dose: 88 mcg Pantoprazole Sodium (Protonix Ec Tab) 40 mg PO 0600 [facility]; Protocol Last Admin: 12/29/18 06:01 Dose: 40 mg Potassium Chloride (Klor-Con 10) 10 meq PO 0800 [facility]; Protocol Last Admin: 12/29/18 07:50 Dose: 10 meq Prednisone (Prednisone Tab) 30 mg PO DAILY [facility] Last Admin: 12/29/18 11:00 Dose: 30 mg Tiotropium [place] (Spiriva) 18 mcg IH DAILY [facility]; Protocol Last Admin: 12/29/18 11:00 Dose: 18 mcg - Labs Labs: 12/28/18 06:00 12/28/18 06:00 - Additional Findings Additional findings: - Constitutional Appears: Other (no acute respiratory distress, ) - Head Exam Head Exam: ATRAUMATIC, NORMOCEPHALIC - Eye Exam Eye Exam: EOMI, PERRL - ENT Exam ENT Exam: Mucous Membranes Moist - Neck Exam Neck exam: Positive for: Full Rom. Negative for: Tenderness - Respiratory Exam Respiratory Exam: Clear to Ausculation Bilateral. absent: Accessory Muscle Use, Decreased Breath Sounds, Rales, Rhonchi, Respiratory Distress - Cardiovascular Exam Cardiovascular Exam: REGULAR RHYTHM, RRR, +S1, +S2. absent: Diastolic murmur, Gallop, Rubs, Systolic Murmur - GI/Abdominal Exam GI & Abdominal Exam: Normal Bowel Sounds, Soft. absent: Guarding, Rebound, Tend erness - Extremities Exam Extremities exam: Positive for: full ROM. Negative for: pedal edema - Neurological Exam Neurological exam: Alert, Oriented x3 - Psychiatric Exam Psychiatric exam: Normal Affect, Normal Mood - Skin Skin Exam: Dry, Pallor, Warm Assessment and Plan - Assessment and Plan (Free Text) Assessment: 78-year-old female with past medical history significant for chronic respiratory failure secondary to COPD on home oxygen, hypertension, recurrent bronchitis, hypothyroidism, anxiety and lung nodules admitted to med/surg for COPD exacerbation. Now trasferred to TCU for PT/OT in the setting of gait instability Plan: Gait instability: -continue PT/OT -patient improving with therapy -recommended home discharge w/ services Subpleural cavitary lesion: -CT chest: 1.9 x 1.8 cm subpleural cavitating lesion with spiculated margins in the superior segment of the left lower lobe; small subcentimeter nodules in the superior segment of the left lower lobe and left lung base -completed IV Rocephin and Zithromax -patient denies further work up Paroxysmal Afib: -continue home ASA , atenolol and Cardizem -Echo: EF Resolved LE edema: -continue lasix -Venous Doppler is negative for DVT Resolved acute COPD exacerbation: -continue with brovana, pulmicort, spiriva -continue home oxygen therapy Hypothyroidism: -continue home synthroid -TSH/T3 normal PPX: -GI: protonix -DVT: lovenox -continue PT -HHD -continue TCU monitoring Case reviewed and paln discussed with attending Dr Joaquin Sanchez, DO <Callie Nuñez - Last Filed: 12/29/18 17:45> Objective - Vital Signs/Intake and Output Vital Signs (last 24 hours): Temp Pulse Resp BP Pulse Ox 98 F 67 16 116/60 98 12/29/18 10:00 12/29/18 11:00 12/29/18 10:00 12/29/18 11:00 12/29/18 10:00 - Medications Medications: Current Medications Arformoterol Tartrate (Brovana) 15 mcg IH [id number] [facility] Last Admin: 12/29/18 07:26 Dose: 15 mcg Aspirin (Ecotrin) 81 mg PO 0730 [facility]; Protocol Last Admin: 12/29/18 07:50 Dose: 81 mg Atenolol (Tenormin) 25 mg PO DAILY [facility]; Protocol Last Admin: 12/29/18 11:00 Dose: 25 mg Azithromycin (Zithromax) 500 mg PO 0600 [facility] Stop: 01/01/19 06:01 Last Admin: 12/29/18 06:02 Dose: 500 mg Budesonide (Pulmicort Respules) 0.5 mg IH 0800,2000 [facility]; Protocol Last Admin: 12/29/18 07:26 Dose: 0.5 mg Diltiazem HCl (Cardizem Cd) 240 mg PO DAILY [facility]; Protocol Last Admin: 12/29/18 11:00 Dose: 240 mg Dipyridamole (Persantine) 25 mg PO BID [facility]; Protocol Last Admin: 12/29/18 17:28 Dose: 25 mg Enoxaparin Sodium (Lovenox) 40 mg SC 0600 [facility]; Protocol Last Admin: 12/29/18 06:02 Dose: 40 mg Furosemide (Lasix) 40 mg PO 0600 [facility]; Protocol Last Admin: 12/29/18 06:01 Dose: 40 mg Insulin Human Regular (Humulin R Low) 0 units SC ACHS [facility]; Protocol Last Admin: 12/29/18 17:27 Dose: 2 units Levalbuterol HCl (Xopenex) 0.63 mg IH [id number] PRN; Protocol PRN Reason: Shortness of Breath Levothyroxine Sodium (Synthroid) 88 mcg PO 0600 [facility]; Protocol Last Admin: 12/29/18 06:01 Dose: 88 mcg Pantoprazole Sodium (Protonix Ec Tab) 40 mg PO 0600 [facility]; Protocol Last Admin: 12/29/18 06:01 Dose: 40 mg Potassium Chloride (Klor-Con 10) 10 meq PO 0800 [facility]; Protocol Last Admin: 12/29/18 07:50 Dose: 10 meq Prednisone (Prednisone Tab) 30 mg PO DAILY [facility] Last Admin: 12/29/18 11:00 Dose: 30 mg Tiotropium [place] (Spiriva) 18 mcg IH DAILY [facility]; Protocol Last Admin: 12/29/18 11:00 Dose: 18 mcg - Labs Labs: 12/28/18 06:00 12/28/18 06:00 Attending/Attestation - Attestation I have personally seen and examined this patient.: Yes I have fully participated in the care of the patient.: Yes I have reviewed all pertinent clinical information, including history, physical exam and plan: Yes Notes (Text): 12/29/18 17:44 Attending note; Patient seen and examined with resident in TCU. sitting in the bed. Patient is alert and awake. says feeling much better today and ready for therapy. on oxygen nasal cannula Denies any fevers, chills. Patient is a 78-year-old female with past medical history significant for chronic respiratory failure secondary to COPD on home oxygen, hypertension, recurrent bronchitis, hypothyroidism, anxiety and lung nodules that presented to the emergency room complaining of shortness of breath and palpitations. Patient was treated on the medical side and transferred to TCU yesterday. 1. Gait instability; continue physical therapy and Occupational Therapy. Steadily improving status. 2. Acute COPD exacerbation; resolved . Continue home oxygen therapy.Continue with nebulizer Brovana, Pulmicort and Spiriva. On po prednisone. 3. Subpleural cavitary lesion in the left lower lobe; Treated with IV Rocephin and Zithromax. Chest xray showed apparent opacity with the irregular spiculated margins in the left upper lobe, COPD. Chest CT showed 1.9 x 1.8 cm subpleural cavitating lesion with spiculated margins in the superior segment of the left lower lobe; small subcentimeter nodules in the superior segment of the left lower lobe and left lung base. Patient refused biopsy at this point. Needs follow-up as outpatient. 4. Palpitations; resolved. History of paroxysmal afib or SVT. Currently in sinus rhythm. continue home ASA , atenolol and Cardizem. Cardiology evaluation appreciated. Echocardiogram showed normal ejection fraction . 5. Bilateral lower extremity edema. resolved. Continue Lasix Venous Doppler is negative for DVT. 6. Hypothyroidism. Continue home synthroid. TSH and T3 normal. Continue therapy in TCU. Diagnosis, follow-up plan discussed with patient in detail.
--- NOTE | 2018-12-29 19:35 | CP.PCM.PN ---
Subjective - Date & Time of Evaluation Date of Evaluation: 12/29/18 Time of Evaluation: 18:15 - Subjective Subjective: Infectious Disease Consultation/Follow Up: December 28, 2018 78 year old female, whose past medical history includes COPD (on home O2, 2L), HTN, recurrent bronchitis, Hypothyroidism, CHF, anxiety, Paroxysmal Afib vs SVT (on Cardizem), Lung nodule (seen by Director Product Management) who presents to the ED complaining of shortness of breath and palpitations while watching television at home. She has had an episode like this in the past. She was previously admitted for a COPD exacerbation. She reports she suddenly felt like her heart was racing, accompanied by a difficulty to breathe. She had a pulse ox at home and noted her HR was 152. However, she says her HR improved upon arrival. She denies any chest pain, fever, cough, nasal congestion or runny nose. She said she recently went to her PMD for complaints of dysuria and increased urinary frequency and was completing a course of nitrofurantoin. She does not endorse bowel/bladder changes at this time. She is not sure of the organism that is being treated. The greater concern is the masslike structure seen in the lung imaging studies. Dr. Portillo has addressed this with her. She has not agreed to a biopsy at this point and will likely never agree to it in the foreseeable future. WBC is elevated to the 13.4 on last check. She states that she is breathing better today and she continues to appear clinically better. Noted that the patient had desaturations to 90% two days ago. Patient in TRCU for further care. Objective - Vital Signs/Intake and Output Vital Signs (last 24 hours): Temp Pulse Resp BP Pulse Ox 98 F 67 16 116/60 98 12/29/18 10:00 12/29/18 11:00 12/29/18 10:00 12/29/18 11:00 12/29/18 10:00 - Medications Medications: Current Medications Arformoterol Tartrate (Brovana) 15 mcg IH [id number] [facility] Last Admin: 12/29/18 07:26 Dose: 15 mcg Aspirin (Ecotrin) 81 mg PO 0730 [facility]; Protocol Last Admin: 12/29/18 07:50 Dose: 81 mg Atenolol (Tenormin) 25 mg PO DAILY [facility]; Protocol Last Admin: 12/29/18 11:00 Dose: 25 mg Azithromycin (Zithromax) 500 mg PO 0600 [facility] Stop: 01/01/19 06:01 Last Admin: 12/29/18 06:02 Dose: 500 mg Budesonide (Pulmicort Respules) 0.5 mg IH 0800,2000 [facility]; Protocol Last Admin: 12/29/18 07:26 Dose: 0.5 mg Diltiazem HCl (Cardizem Cd) 240 mg PO DAILY [facility]; Protocol Last Admin: 12/29/18 11:00 Dose: 240 mg Dipyridamole (Persantine) 25 mg PO BID [facility]; Protocol Last Admin: 12/29/18 17:28 Dose: 25 mg Enoxaparin Sodium (Lovenox) 40 mg SC 0600 [facility]; Protocol Last Admin: 12/29/18 06:02 Dose: 40 mg Furosemide (Lasix) 40 mg PO 0600 [facility]; Protocol Last Admin: 12/29/18 06:01 Dose: 40 mg Insulin Human Regular (Humulin R Low) 0 units SC ACHS [facility]; Protocol Last Admin: 12/29/18 17:27 Dose: 2 units Levalbuterol HCl (Xopenex) 0.63 mg IH [id number] PRN; Protocol PRN Reason: Shortness of Breath Levothyroxine Sodium (Synthroid) 88 mcg PO 0600 [facility]; Protocol Last Admin: 12/29/18 06:01 Dose: 88 mcg Pantoprazole Sodium (Protonix Ec Tab) 40 mg PO 0600 [facility]; Protocol Last Admin: 12/29/18 06:01 Dose: 40 mg Potassium Chloride (Klor-Con 10) 10 meq PO 0800 [facility]; Protocol Last Admin: 12/29/18 07:50 Dose: 10 meq Prednisone (Prednisone Tab) 30 mg PO DAILY [facility] Last Admin: 12/29/18 11:00 Dose: 30 mg Tiotropium [place] (Spiriva) 18 mcg IH DAILY [facility]; Protocol Last Admin: 12/29/18 11:00 Dose: 18 mcg - Labs Labs: 12/28/18 06:00 12/28/18 06:00 - Constitutional Appears: Non-toxic, No Acute Distress, Chronically Ill - Head Exam Head Exam: ATRAUMATIC, NORMOCEPHALIC - Eye Exam Eye Exam: EOMI, PERRL Pupil Exam: NORMAL ACCOMODATION, PERRL - ENT Exam ENT Exam: Mucous Membranes Moist, Normal External Ear Exam, TM's Normal Bilaterally - Neck Exam Neck Exam: Full ROM, Normal Inspection - Respiratory Exam Respiratory Exam: Clear to Ausculation Bilateral, NORMAL BREATHING PATTERN. absent: Rales, Rhonchi, Wheezes - Cardiovascular Exam Cardiovascular Exam: REGULAR RHYTHM, RRR, +S1, +S2 - GI/Abdominal Exam GI & Abdominal Exam: Soft, Normal Bowel Sounds. absent: Distended, Tenderness - Extremities Exam Extremities Exam: Full ROM, Normal Inspection - Neurological Exam Neurological Exam: Alert, Awake, CN II-XII Intact, Oriented x3 - Psychiatric Exam Psychiatric exam: Normal Affect, Normal Mood - Skin Skin Exam: Intact, Normal Color Assessment and Plan - Assessment and Plan (Free Text) Assessment: 78 yo female with leukocytosis and extensive medical history of COPD (on home O2, 2L), HTN, recurrent bronchitis, Hypothyroidism, CHF, anxiety, Paroxysmal Afib vs SVT (on Cardizem), Lung nodule (seen by Director Product Management) presented to [facility] for SOB and palpitations. The patient was being treated with Nitrofuratoin for a UTI as outpatient. She has good renal function. Typical treatment course for nitrofuratoin is 3-5 days. Would be more helpful to obtain the culture results from her PMD's office. Noted Azithromycin and Rocpehin started for potential pneumonia. Noted that the CT scan is showing a 1.9 x 1.8 cm subpleural cavitating lesion with spiculated margins in the superior segment of the left lower lobe. Unclear if neoplasm versus pneumonia. Severe diffuse centrilobular emphysema. Patient has not agreed to biopsy as of yet. WBC remains elevated at 19.1. Cultures negative to date. Supportive care. Highly anxious patient. Improving secondary to steroid administration. Procalcitonin of < 0.05. Pneumonia unlikely. Recurrent bronchitis. Cavitating lung lesion. Patient unwilling to have biopsy of lesion. Clinically the patient has improved. Improvement likely secondary to steroid administration rather than antibiotic administration. Future prognosis remains guarded and there is strong likelihood for return of symptoms in the very near future. Case in point, the patient is still having desaturations to the low 90s two days ago but stable since. Consider no more than 7-10 days of total antibiotic treatment. Thank you for allowing me to participate in the care of the patient, we will follow with you.
[2018-12-30] MEDS: Pantoprazole 40 mg EC Tab PO SCH (06:21)
[2018-12-30] MEDS: Levothyroxine 88 MCG TAB PO SCH (06:21)
[2018-12-30] MEDS: Enoxaparin 40 mg Syringe SC SCH (06:22)
[2018-12-30] MEDS: Arformoterol 15 mcg/2 ml Inh Sol IH SCH ×2 (07:00→19:52)
[2018-12-30] MEDS: Insulin Reg-LOW-Coverage SC SCH ×4 (07:00→21:33)
[2018-12-30] MEDS: Budesonide 0.5 mg/2 ml Inhal Susp UD IH SCH ×2 (07:00→19:52)
--- NOTE | 2018-12-30 07:31 | PN ---
DATE: 12/30/2018 SUBJECTIVE: The patient appears quite comfortable this morning. She is not short of breath at rest. PHYSICAL EXAMINATION: VITAL SIGNS: (Last noted in the computer): Temperature is 98, pulse 67, respirations 16, blood pressure 136/74. Oxygen saturation on nasal cannula - 98%. HEENT: Normocephalic, atraumatic. No JVD. CARDIOVASCULAR: Systolic ejection murmur at the lower left sternal border. No S3 gallop. LUNGS: Clear bilaterally. EXTREMITIES: No clubbing, cyanosis or edema. Calves are nontender to palpation. GASTROINTESTINAL: Abdomen is soft, nontender, nondistended. Bowel sounds are positive. SKIN: No acute rash. NEUROLOGIC: Exam limited at the present time. IMPRESSION: 1. Recurrent bronchitis. 2. Advanced chronic obstructive pulmonary disease, on home oxygen. 3. Cavitary mass - left lower lobe. 4. Leukocytosis. PLAN: The patient appears very comfortable this morning. She is not short of breath at rest. She does state to feeling much, much better overall. I did discuss the case with the night nurse at length. The night nurse stated that the patient is doing very well overall. On physical exam, her lungs remain clear. In addition, the alveolar arterial gradient is also much less. I will continue the current nebulizer treatments and oral steroids (decreased yesterday) for now. The patient remains on antibiotic therapy - as per Infectious Disease. Input by Dr. Emerson is noted. Clinical status of the patient is significantly improved overall. However, given the above, the future status/prognosis for this patient remains very guarded. I will discuss the above with the attending physician. Romario Portillo MD [place]
[2018-12-30] MEDS: Potassium Chloride 10 mEq ER Tab PO SCH (08:13)
[2018-12-30] MEDS: Tiotropium 18 mcg Cap For Inhalation IH SCH (11:00)
[2018-12-30] MEDS: diltiaZEM 240 mg/24 Hours CD Cap PO SCH (11:00)
[2018-12-30 16:34] VITALS: RESP 19
--- NOTE | 2018-12-30 19:02 | CP.PCM.PN ---
Subjective - Date & Time of Evaluation Date of Evaluation: 12/30/18 Time of Evaluation: 17:00 - Subjective Subjective: Infectious Disease Follow Up: December 30, 2018 78 year old female, whose past medical history includes COPD (on home O2, 2L), HTN, recurrent bronchitis, Hypothyroidism, CHF, anxiety, Paroxysmal Afib vs SVT (on Cardizem), Lung nodule (seen by Coal Weigher) who presents to the ED complaining of shortness of breath and palpitations while watching television at home. She has had an episode like this in the past. She was previously admitted for a COPD exacerbation. She reports she suddenly felt like her heart was racing, accompanied by a difficulty to breathe. She had a pulse ox at home and noted her HR was 152. However, she says her HR improved upon arrival. She denies any chest pain, fever, cough, nasal congestion or runny nose. She said she recently went to her PMD for complaints of dysuria and increased urinary frequency and was completing a course of nitrofurantoin. She does not endorse bowel/bladder changes at this time. She is not sure of the organism that is being treated. The greater concern is the masslike structure seen in the lung imaging studies. Dr. Portillo has addressed this with her. She has not agreed to a biopsy at this point and will likely never agree to it in the foreseeable future despite Dr. Portillo's encouragement. WBC is elevated to the 13.4 on last check. She states that she is breathing better today and she appears to be clinically better. Noted that the patient had desaturations to 90% three days ago but never lower than 95% since. Patient in TRCU for further care. Objective - Vital Signs/Intake and Output Vital Signs (last 24 hours): Temp Pulse Resp BP Pulse Ox 98 F 60 19 103/58 L 95 12/30/18 16:00 12/30/18 16:00 12/30/18 16:00 12/30/18 16:00 12/30/18 16:00 - Medications Medications: Current Medications Arformoterol Tartrate (Brovana) 15 mcg IH [id number] CHARAN Last Admin: 12/30/18 07:00 Dose: 15 mcg Aspirin (Ecotrin) 81 mg PO 0730 [facility]; Protocol Last Admin: 12/30/18 08:13 Dose: 81 mg Atenolol (Tenormin) 25 mg PO DAILY [facility]; Protocol Last Admin: 12/30/18 11:00 Dose: 25 mg Azithromycin (Zithromax) 500 mg PO 0600 CHARAN Stop: 01/01/19 06:01 Last Admin: 12/30/18 06:21 Dose: 500 mg Budesonide (Pulmicort Respules) 0.5 mg IH 0800,2000 [facility]AN; Protocol Last Admin: 12/30/18 07:00 Dose: 0.5 mg Diltiazem HCl (Cardizem Cd) 240 mg PO DAILY [facility]; Protocol Last Admin: 12/30/18 11:00 Dose: 240 mg Dipyridamole (Persantine) 25 mg PO BID [facility]; Protocol Last Admin: 12/30/18 17:15 Dose: 25 mg Enoxaparin Sodium (Lovenox) 40 mg SC 0600 [facility]AN; Protocol Last Admin: 12/30/18 06:22 Dose: 40 mg Furosemide (Lasix) 40 mg PO 0600 [facility]; Protocol Last Admin: 12/30/18 06:20 Dose: 40 mg Insulin Human Regular (Humulin R Low) 0 units SC ACHS [facility]; Protocol Last Admin: 12/30/18 17:14 Dose: 4 units Levalbuterol HCl (Xopenex) 0.63 mg IH [id number] PRN; Protocol PRN Reason: Shortness of Breath Levothyroxine Sodium (Synthroid) 88 mcg PO 0600 [facility]AN; Protocol Last Admin: 12/30/18 06:21 Dose: 88 mcg Pantoprazole Sodium (Protonix Ec Tab) 40 mg PO 0600 [facility]AN; Protocol Last Admin: 12/30/18 06:21 Dose: 40 mg Potassium Chloride (Klor-Con 10) 10 meq PO 0800 [facility]; Protocol Last Admin: 12/30/18 08:13 Dose: 10 meq Prednisone (Prednisone Tab) 30 mg PO DAILY [facility] Last Admin: 12/30/18 11:00 Dose: 30 mg Tiotropium [place] (Spiriva) 18 mcg IH DAILY [facility]; Protocol Last Admin: 12/30/18 11:00 Dose: 18 mcg - Labs Labs: 12/28/18 06:00 12/28/18 06:00 - Constitutional Appears: Non-toxic, No Acute Distress, Chronically Ill - Head Exam Head Exam: ATRAUMATIC, NORMOCEPHALIC - Eye Exam Eye Exam: EOMI, PERRL Pupil Exam: NORMAL ACCOMODATION, PERRL - ENT Exam ENT Exam: Mucous Membranes Moist, Normal External Ear Exam, TM's Normal Bilaterally - Neck Exam Neck Exam: Full ROM, Normal Inspection - Respiratory Exam Respiratory Exam: Clear to Ausculation Bilateral, NORMAL BREATHING PATTERN. absent: Rales, Rhonchi, Wheezes - Cardiovascular Exam Cardiovascular Exam: REGULAR RHYTHM, RRR, +S1, +S2 - GI/Abdominal Exam GI & Abdominal Exam: Soft, Normal Bowel Sounds. absent: Distended, Tenderness - Extremities Exam Extremities Exam: Full ROM, Normal Inspection - Neurological Exam Neurological Exam: Alert, Awake, CN II-XII Intact, Oriented x3 - Psychiatric Exam Psychiatric exam: Normal Affect, Normal Mood - Skin Skin Exam: Intact, Normal Color Assessment and Plan - Assessment and Plan (Free Text) Assessment: 78 yo female with leukocytosis and extensive medical history of COPD (on home O2, 2L), HTN, recurrent bronchitis, Hypothyroidism, CHF, anxiety, Paroxysmal Afib vs SVT (on Cardizem), Lung nodule (seen by Coal Weigher) [place] [facility] [place] and palpit[place]. The patient was being treated with Nitrofuratoin for a UTI as outpatient. She has good renal function. Typical treatment course for nitrofuratoin is 3-5 days. Would be more helpful to obtain the culture results from her PMD's office if culture was available. On Azithromycin and Rocephin for potential pneumonia. Noted that the CT scan is showing a 1.9 x 1.8 cm subpleural cavitating lesion with spiculated margins in the superior segment of the left lower lobe. Unclear if neoplasm versus pneumonia. Severe diffuse centrilobular emphysema. WBC elevated at 13.4 as of last check. Cultures negative. Supportive care. Highly anxious patient. Improving secondary to steroid admini stration. Procalcitonin of < 0.05. Pneumonia unlikely. Recurrent bronchitis. Cavitating lung lesion. Patient unwilling to have biopsy of lesion. Clinically the patient has improved. Improvement likely secondary to steroid administration rather than antibiotic administration. Future prognosis remains guarded and there is strong likelihood for return of symptoms in the very near future. Case in point, the patient is still having desaturations to the low 90s three days ago but stable since with values no lower than 95%. Consider no more than 7-10 days of total antibiotic treatment. The patient is completing day 7 today. Thank you for allowing me to participate in the care of the patient, we will follow with you.
[2018-12-31] MEDS: Pantoprazole 40 mg EC Tab PO SCH (05:57)
[2018-12-31] MEDS: Levothyroxine 88 MCG TAB PO SCH (05:58)
[2018-12-31] MEDS: Enoxaparin 40 mg Syringe SC SCH (05:59)
[2018-12-31] MEDS: Insulin Reg-LOW-Coverage SC SCH ×2 (07:02→12:09)
[2018-12-31] MEDS: Budesonide 0.5 mg/2 ml Inhal Susp UD IH SCH (07:06)
[2018-12-31] MEDS: Arformoterol 15 mcg/2 ml Inh Sol IH SCH (07:06)
[2018-12-31 07:30] VITALS: O2SAT 97
[2018-12-31] MEDS: Potassium Chloride 10 mEq ER Tab PO SCH (07:47)
--- NOTE | 2018-12-31 10:20 | PN ---
DATE: 12/31/2018 SUBJECTIVE: The patient appears very comfortable this morning. She is not short of breath at rest. PHYSICAL EXAMINATION: VITAL SIGNS: Temperature is 98.0, pulse 60, respirations 18, blood pressure 114/50. Oxygen saturation on nasal cannula 95%-97%. HEENT: Normocephalic, atraumatic. NECK: No JVD. CARDIOVASCULAR: Systolic ejection murmur at the lower left sternal border. No S3 gallop. LUNGS: Clear bilaterally. EXTREMITIES: No clubbing, cyanosis, or edema. Calves are nontender to palpation. GASTROINTESTINAL: Abdomen is soft, nontender and nondistended. Bowel sounds are positive. SKIN: No acute rash. NEUROLOGIC: Limited at the present time. IMPRESSION: 1. Recurrent bronchitis. 2. Advanced chronic obstructive pulmonary disease, on home oxygen. 3. Cavitary mass - left lower lobe. 4. Leukocytosis. PLAN: The patient appears very comfortable this morning. She is not short of breath at rest. She does state to feeling much,much better overall. She is asking to go home. On physical exam, there is no bronchospasm noted. In addition, there is no significant alveolar arterial gradient. I will continue the current nebulizer treatments and oral steroids for now. The patient remains on antibiotic therapy - as per Infectious Disease. There are no temperatures noted. The last leukocytosis was improved/decreased. The patient is for discharge in the near future. I did urge the patient this morning to reconsider her decision - regarding the CAT scan guided lung biopsy. She continues to refuse. She will be followed by my partner, Dr. Love, as an outpatient. I will discuss the above with the attending physician. Romario Portillo MD [place]
[2018-12-31 10:58] VITALS: BP 107/53
[2018-12-31] MEDS: Tiotropium 18 mcg Cap For Inhalation IH SCH (10:58)
[2018-12-31] MEDS: diltiaZEM 240 mg/24 Hours CD Cap PO SCH (10:58)
[2018-12-31 11:53] VITALS: PULSE 74; TEMP 98.4
--- NOTE | 2018-12-31 14:11 | PN ---
DATE: 12/31/2018 LOCATION: Room 302, bed 1. REASON FOR CONSULTATION AND FOLLOWUP: Shortness of breath, palpitation, and deconditioning. BRIEF HISTORY: The patient with known COPD; heavy smoker in the past, on home oxygen; hypertension; hypothyroidism; and questionable history of atrial fibrillation in the past admitted with worsening shortness of breath, found to have exacerbation of COPD. The patient was treated in medical floor and improved and now the patient was transferred to Transitional Care Unit for deconditioning and further therapy. Echo on 12/24/2018 showed LV ejection fraction of 72%, RV systolic pressure of 36 mmHg, trace mitral regurgitation, and mild tricuspid regurgitation. CT of the chest showed cavitary lesion with spiculated margin in the superior segment of the left lower lobe, could be secondary to cavitary lesion, needs to rule out neoplasm or could be infectious. The patient is getting physical therapy and her breathing is getting better. PHYSICAL EXAMINATION: VITAL SIGNS: Blood pressure 107/53, respirations 19, pulse 74, and temperature 98.4. HEENT: Head is normocephalic. Eyes, pupils normal. Conjunctivae normal. Nose and throat normal. NECK: JVP low. Carotids equal. THORAX: AP diameter normal. LUNGS: No significant rales. CARDIOVASCULAR: S1 and S2. ABDOMEN: Soft. No tenderness. No organomegaly. Bowel sounds normal. EXTREMITIES: No clubbing. No cyanosis. LABORATORY DATA: WBC 13.4, hemoglobin 13.5, hematocrit 45.0, and platelets 314. Random sugar 144. Sodium 139, potassium 4.1, BUN 33 and creatinine 0.7. Calcium, bilirubin, AST and ALT are normal, total protein 5.7 and albumin 3.2. DIAGNOSES: Exacerbation of chronic obstructive pulmonary disease, deconditioning, hypertension, hypothyroidism, and questionable history of atrial fibrillation. The patient also had complained of palpitations earlier which were related to nebulizer therapy, but now her palpitations have been controlled, the patient's palpitations were related to beta 2 agonist and nebulizer treatment; cavitary lesion with spiculated margin in the superior segment of the left lower lobe as mentioned before which could be cavitary lesion, cannot rule out neoplasm, could be infectious. PLAN: The patient does not want to have a biopsy of the lesion at the present moment, so we will continue the treatment. The patient is getting aspirin 81 mg daily, potassium 10 mEq p.o daily, furosemide 40 mg daily, Lovenox 40 mg daily, dipyridamole 25 mg b.i.d., Protonix 40 mg daily, Spiriva 18 mcg inhaled daily, levothyroxine 88 mcg p.o. daily, atenolol 25 mg p.o. daily, azithromycin 500 mg p.o. daily. We will follow with you. Tina Meyer MD
--- NOTE | 2018-12-31 15:56 | CP.PCM.DIS ---
Provider - Provider Date of Admission: 12/26/18 18:55 Attending physician: Meseret Ortiz DO Consults: 12/26/18 20:17 Physician Consult Routine Comment: Consulting Provider: Romario Portillo Consulting Physician: Romario Portillo Reason for Consult: COPD exacerbation 12/26/18 20:19 Physician Consult Routine Comment: Consulting Provider: Tina Hendricks Consulting Physician: Tina Hendricks Reason for Consult: Palpitations 12/26/18 20:20 Physician Consult Routine Comment: Consulting Provider: Apollo Emerson Consulting Physician: Apollo Emerson Reason for Consult: PNA, UTI 12/26/18 20:21 Social Work Referral Routine Comment: Eval Physician Instructions: Reason For Exam: New admission 12/26/18 22:02 Inpatient [employer] Core Measures Referral Routine Comment: COPD Physician Instructions: Reason For Exam: EVALUATION Social Work Referral Routine Comment: NEEDS ASSISTANCE AT HOME Physician Instructions: Reason For Exam: EVALUATION Transition In Care/Readmission Reduction Routine Comment: Physician Instructions: Reason For Exam: EVALUATION Time Spent in preparation of Discharge (in minutes): 45 Hospital Course - Lab Results Lab Results: Most Recent Lab Values WBC 13.4 10^3/uL (4.5-11.0) H D 12/28/18 06:00 RBC 4.99 10^6/uL (3.5-6.1) 12/28/18 06:00 Hgb 13.5 g/dL (12.0-16.0) 12/28/18 06:00 Hct 45.0 % (36.0-48.0) 12/28/18 06:00 MCV 90.2 fl (80.0-105.0) 12/28/18 06:00 MCH 27.1 pg (25.0-35.0) 12/28/18 06:00 MCHC 30.0 g/dl (31.0-37.0) L 12/28/18 06:00 RDW 13.7 % (11.5-14.5) 12/28/18 06:00 Plt Count 314 10^3/uL (120.0-450.0) 12/28/18 06:00 MPV 10.6 fl (7.0-11.0) 12/28/18 06:00 Neut % (Auto) 78.3 % (50.0-68.0) H 12/28/18 06:00 Lymph % (Auto) 8.7 % (22.0-35.0) L 12/28/18 06:00 [place] % (Auto) 11.9 % (1.0-6.0) H 12/28/18 06:00 Eos % (Auto) 1.0 % (1.5-5.0) L 12/28/18 06:00 Baso % (Auto) 0.1 % (0.0-3.0) 12/28/18 06:00 Lymph # (Auto) 1.2 (1.2-3.4) 12/28/18 06:00 [place] # (Auto) 1.6 (0.1-0.6) H 12/28/18 06:00 Eos # (Auto) 0.1 (0.0-0.7) 12/28/18 06:00 Baso # (Auto) 0.01 K/mm3 (0.0-2.0) 12/28/18 06:00 Absolute Neuts (auto) 10.50 (1.4-6.5) H 12/28/18 06:00 Sodium 139 mmol/L (132-148) 12/28/18 06:00 Potassium 4.1 mmol/L (3.6-5.0) 12/28/18 06:00 Chloride 100 mmol/L (98-107) 12/28/18 06:00 Carbon Dioxide 34 mmol/L (21-33) H 12/28/18 06:00 Anion Gap 9 (10-20) L 12/28/18 06:00 BUN 33 mg/dL (7-21) H 12/28/18 06:00 Creatinine 0.7 mg/dl (0.7-1.2) 12/28/18 06:00 Est GFR ( Amer) > 60 12/28/18 06:00 Est GFR (Non-Af Amer) > 60 12/28/18 06:00 POC Glucose (mg/dL) 144 mg/dL (65-110) H 12/31/18 05:53 Random Glucose 110 mg/dL (70-110) 12/28/18 06:00 Calcium 9.0 mg/dL (8.4-10.5) 12/28/18 06:00 Total Bilirubin 0.4 mg/dL (0.2-1.3) 12/28/18 06:00 AST 16 U/L (14-36) 12/28/18 06:00 ALT 25 U/L (7-56) 12/28/18 06:00 Alkaline Phosphatase 63 U/L (38-126) 12/28/18 06:00 Total Protein 5.7 g/dL (5.8-8.3) L 12/28/18 06:00 Albumin 3.2 g/dL (3.0-4.8) 12/28/18 06:00 Globulin 2.5 gm/dL 12/28/18 06:00 Albumin/Globulin Ratio 1.3 (1.1-1.8) 12/28/18 06:00 - Hospital Course Hospital Course: 78-year-old female with past medical history significant for chronic respiratory failure secondary to COPD on home oxygen, hypertension, recurrent bronchitis, hypothyroidism, anxiety and lung nodules admitted to med/surg for COPD exacerbation. She was trasferred to TCU for PT/OT in the setting of gait instability. Patient was followe by PT with improvement of her gait instability. PT recommended home discharge w/ services. CT chest: showed 1.9 x 1.8 cm subpleural cavitating lesion with spiculated margins in the superior segment of the left lower lobe; small subcentimeter nodules in the superior segment of the left lower lobe and left lung base. Medical team and jet aircraft servicer Dr Cramer discussed the results with the patient, risks of malignancy were discussed but she refused further work up. Venous Doppler is negative for DVT. Patient has paroxysmal Afib, home ASA , atenolol and Cardizem continued. Patient also completed IV Rocephin and Zithromax. Today, patient id feeling well, SOB significantly improved with oxygen therapy. Will continue home oxygen therapy after discharge. Gait is getting better. She is clinically stable, afebrile, 94% O2 sat with O2 NC. More instructions as below. Discharge Exam - Head Exam Head Exam: ATRAUMATIC, NORMAL INSPECTION, NORMOCEPHALIC - Eye Exam Eye Exam: EOMI, Normal appearance, PERRL Pupil Exam: NORMAL ACCOMODATION, PERRL - ENT Exam ENT Exam: Normal Exam - Respiratory Exam Respiratory Exam: NORMAL BREATHING PATTERN. absent: Rhonchi, Wheezes - Cardiovascular Exam Cardiovascular Exam: +S1, +S2. absent: JVD, RRR - GI/Abdominal Exam GI & Abdominal Exam: Normal Bowel Sounds - Extremities Exam Extremities exam: normal capillary refill - Back Exam Back exam: FULL ROM - Neurological Exam Neurological exam: Alert, CN II-XII Intact - Psychiatric Exam Psychiatric exam: Anxious - Skin Skin Exam: Dry, Intact, Warm Discharge Plan - Discharge Medications Prescriptions: Potassium Chloride 10 meq PO DAILY 7 Days #7 tab.er.prt predniSONE [Prednisone] 10 mg PO DAILY #18 tab - Follow Up Plan Condition: GOOD Disposition: HOME/ ROUTINE Instructions: Heart Failure, Adult, Exacerbation of COPD Additional Instructions: - Follow up with your primary care doctor Dr Briceno within 3-5 days of disch arge - Follow up with your jet aircraft servicer Dr. Love within 3-5 days of discharge - Follow up with your jet aircraft servicer regarding chest CT finding of cavitating mass found on left lung - Follow up with melt down furnace operator, Dr. Meyer/Dr. Hendricks, within one week of discharge. - Take potasium 10 mg daily for 7 days and follow up with your primary care doctor to see if you need refills. - Please continue your home medications as prescribed including your home oxygen - Return to the emergency room for any new or concerning symptoms. Referrals: Matthew Love MD [Staff Provider] - Davon Lopez MD [Staff Provider] - Tina Meyer MD [Staff Provider] -
--- NOTE | 2018-12-31 17:39 | CP.PCM.PN ---
Subjective - Date & Time of Evaluation Date of Evaluation: 12/31/18 Time of Evaluation: 14:00 - Subjective Subjective: Infectious Disease Follow Up: December 31, 2018 78 year old female, whose past medical history includes COPD (on home O2, 2L), HTN, recurrent bronchitis, Hypothyroidism, CHF, anxiety, Paroxysmal Afib vs SVT (on Cardizem), Lung nodule (seen by Gore Seamer) who presents to the ED complaining of shortness of breath and palpitations while watching television at home. She has had an episode like this in the past. She was previously admitted for a COPD exacerbation. She reports she suddenly felt like her heart was racing, accompanied by a difficulty to breathe. She had a pulse ox at home and noted her HR was 152. However, she says her HR improved upon arrival. She denies any chest pain, fever, cough, nasal congestion or runny nose. She said she recently went to her PMD for complaints of dysuria and increased urinary frequency and was completing a course of nitrofurantoin. She does not endorse bowel/bladder changes at this time. She is not sure of the organism that is being treated. The greater concern is the masslike structure seen in the lung imaging studies. Dr. Portillo has addressed this with her. She has not agreed to a biopsy at this point and will likely never agree to it in the foreseeable future despite Dr. Portillo's encouragement. WBC is elevated to the 13.4 on last check. She states that she is breathing better today and she appears to be clinically better. Noted that the patient had desaturations to 90% three days ago but never lower than 95% since. Patient in TRCU for further care. She wants to go home. Objective - Vital Signs/Intake and Output Vital Signs (last 24 hours): Temp Pulse Resp BP Pulse Ox 98.4 F 74 19 107/53 L 97 12/31/18 10:00 12/31/18 10:00 12/31/18 06:00 12/31/18 10:55 12/31/18 06:00 - Labs Labs: 12/28/18 06:00 12/28/18 06:00 - Constitutional Appears: Non-toxic, No Acute Distress, Chronically Ill - Head Exam Head Exam: ATRAUMATIC, NORMOCEPHALIC - Eye Exam Eye Exam: EOMI, PERRL Pupil Exam: NORMAL ACCOMODATION, PERRL - ENT Exam ENT Exam: Mucous Membranes Moist, Normal External Ear Exam, TM's Normal Bilaterally - Neck Exam Neck Exam: Full ROM, Normal Inspection - Respiratory Exam Respiratory Exam: Clear to Ausculation Bilateral, NORMAL BREATHING PATTERN. absent: Rales, Rhonchi, Wheezes - Cardiovascular Exam Cardiovascular Exam: REGULAR RHYTHM, RRR, +S1, +S2 - GI/Abdominal Exam GI & Abdominal Exam: Soft, Normal Bowel Sounds. absent: Distended, Tenderness - Extremities Exam Extremities Exam: Full ROM, Normal Inspection - Neurological Exam Neurological Exam: Alert, Awake, CN II-XII Intact, Oriented x3 - Psychiatric Exam Psychiatric exam: Normal Affect, Normal Mood - Skin Skin Exam: Intact, Normal Color Assessment and Plan - Assessment and Plan (Free Text) Assessment: 78 yo female with leukocytosis and extensive medical history of COPD (on home O2, 2L), HTN, recurrent bronchitis, Hypothyroidism, CHF, anxiety, Paroxysmal Afib vs SVT (on Cardizem), Lung nodule (seen by Gore Seamer) presented to [facility] [place] for SOB and palpitations. The patient was being treated with Nitrofuratoin for a UTI as outpatient. She has good renal function. Typical treatment course for nitrofuratoin is 3-5 days. Would be more helpful to obtain the culture results from her PMD's office if culture was available. On Azithromycin and Rocephin for potential pneumonia. Noted that the CT scan is showing a 1.9 x 1.8 cm subpleural cavitating lesion with spiculated margins in the superior segment of the left lower lobe. Unclear if neoplasm versus pneumonia. Severe diffuse centrilobular emphysema. WBC elevated at 13.4 as of last check. Cultures negative. Supportive care. Highly anxious patient. Improving secondary to steroid administration. Procalcitonin of < 0.05. Pneumonia unlikely. Recurrent bronchitis. Cavitating lung lesion. Patient unwilling to have biopsy of lesion. Clinically the patient has improved. Improvement likely secondary to steroid administration rather than antibiotic administration. Future prognosis remains guarded and there is strong likelihood for return of symptoms in the very near future. Case in point, the patient is still having desaturations to the low 90s three days ago but stable since with values no lower than 95%. Consider no more than 7-10 days of total antibiotic treatment. The patient is completing day 8 today. Possible discharge today. Thank you for allowing me to participate in the care of the patient, we will follow with you.
== END 2018-12-31 15:16 | disposition home or self-care (01) | DRG 191 ==
LOC: TRCU 18:55
PROVIDERS: ADMIT Internal Medicine; ATTEND Hospitalist
PROC: F07Z9FZ Gait Training/Functional Ambulation Treatment using Assistive, Adaptive, Supportive or Protective Equipment (ICD-10-PCS; principal; 2018-12-27)
PROC: F07M6ZZ Therapeutic Exercise Treatment of Musculoskeletal System - Whole Body (ICD-10-PCS; 2018-12-27)
PROC: F08Z1ZZ Dressing Techniques Treatment (ICD-10-PCS; 2018-12-27)
PROC: F08Z2ZZ Grooming/Personal Hygiene Treatment (ICD-10-PCS; 2018-12-27)
PROC: F08Z0ZZ Bathing/Showering Techniques Treatment (ICD-10-PCS; 2018-12-27)
PROC: F08Z4ZZ Home Management Treatment (ICD-10-PCS; 2018-12-27)
DX: J43.2 Centrilobular emphysema (principal); J96.10 Chronic respiratory failure, unspecified whether with hypoxia or hypercapnia; I11.0 Hypertensive heart disease with heart failure; I50.9 Heart failure, unspecified; E03.9 Hypothyroidism, unspecified; E78.5 Hyperlipidemia, unspecified; I48.0 Paroxysmal atrial fibrillation; Z87.440 Personal history of urinary (tract) infections; Z79.82 Long term (current) use of aspirin; Z87.891 Personal history of nicotine dependence; Z90.49 Acquired absence of other specified parts of digestive tract; Z98.42 Cataract extraction status, left eye; Z98.41 Cataract extraction status, right eye; Z99.81 Dependence on supplemental oxygen; Z82.49 Family history of ischemic heart disease and other diseases of the circulatory system